=== PATIENT | female | born 1960 | race Two or more races ===

== ENCOUNTER 2020-03-18 12:41 | Outpatient (REF) | payer OTHER, SELFPAY ==
--- NOTE | 2020-03-18 12:51 | XR_ITS ---
EXAMINATION: XR LUMBOSACRAL SPINE CLINICAL INFORMATION: Spinal stenosis COMPARISON: Previous x-ray December 2013 TECHNIQUE: Three views of the lumbosacral spine. FINDINGS: Bone alignment is normal. No fracture or dislocation is seen. Disc spaces are normal. There is lower lumbar spine facet arthritis. There is mild multilevel degenerative spondylosis with small marginal osteophytes. Paraspinal soft tissues are unremarkable. IMPRESSION: Degenerative changes similar to 2014 exam.
== END 2020-03-18 12:42 | disposition home or self-care (01) ==
LOC: HO.XRAY 12:41
PROVIDERS: PCP Emergency Medicine; Visit Provider Emergency Medicine
DX: M48.061 Spinal stenosis, lumbar region without neurogenic claudication (principal); M54.16 Radiculopathy, lumbar region
CPT/HCPCS: 72100

== ENCOUNTER 2020-04-19 12:36 | Outpatient (REF) | payer OTHER, SELFPAY ==
--- NOTE | 2020-04-19 12:35 | MR_ITS ---
EXAMINATION: MR LUMBAR SPINE WITHOUT CONTRAST CLINICAL INFORMATION: Chronic lower back pain with radiculopathy. COMPARISON: Lumbar spine radiographs from 03/18/2020. Lumbar spine MRI from 01/21/2016. CT abdomen and pelvis from 03/22/2019. TECHNIQUE: MRI of the lumbar spine was obtained using routine sequences without contrast. FINDINGS: Normal anatomic alignment. Moderate degenerative disc disease at T11-T12. Mild to moderate degenerative disc disease from T12-L5 with partial loss of disc height and desiccation. Associated mild mixed Modic type discogenic endplate changes, including faint Modic type I discogenic edema at L2-L3 and L3-L4. No additional suspicious marrow edema. There is a lipid rich hemangioma within the T12 vertebral body. Small Schmorl's nodes at T12-L1 and L1-L2. Otherwise, the vertebral body heights are largely maintained. The conus medullaris terminates at the level of L1. The distal spinal cord is normal in appearance. No significant abnormalities of the paraspinal musculature. Small T2 hyperintense renal cysts bilaterally. Otherwise, limited evaluation of the intra-abdominal structures without significant abnormalities. The abdominal aorta is of normal contour and caliber. AXIAL SPINAL LEVELS: T11-T12: This level was not included on axial imaging. There is a moderate diffuse disc bulge. No overt spinal canal stenosis. T12-L1: Shallow diffuse disc bulge. There is mild bilateral facet joint arthropathy. There is no neural foraminal stenosis. There is no spinal canal stenosis. L1-L2: Mild diffuse disc bulge with posterior osseous ridging. There is moderate bilateral facet joint arthropathy. There is no neural foraminal stenosis. There is mild narrowing of the subarticular zones with no overt spinal canal stenosis centrally. L2-L3: Mild to moderate diffuse disc bulge. There is moderate bilateral facet joint arthropathy. There is moderate left and mild right neural foraminal stenosis. There is narrowing of the subarticular zones with no overt spinal canal stenosis centrally. L3-L4: Mild to moderate diffuse disc bulge. There is severe left and moderate right facet joint arthropathy. There is moderate right and mild left neural foraminal stenosis. There is narrowing of the subarticular zones with no overt spinal canal stenosis centrally. L4-L5: Moderate diffuse disc bulge. There is severe left and moderate right facet joint arthropathy. There is moderate bilateral neural foraminal stenosis. There is stenosis of the subarticular zones with mild spinal canal stenosis centrally. L5-S1: Shallow diffuse disc bulge. There is severe left and moderate right facet joint arthropathy. There is mild bilateral neural foraminal stenosis. There is mild narrowing of the left subarticular zone with no overt spinal canal stenosis centrally. MR/MR lumbar spine wo con IMPRESSION: Moderate multilevel degenerative spondyloarthropathy of the lumbar spine as described in detail above. Most notably, there is mild spinal canal stenosis at L4-L5. Narrowings/stenoses of the left greater than right subarticular zones (most notably at L4-L5). Moderate neural foraminal stenoses from L2-L5. Degenerative changes have mildly progressed compared to exam from 2016.
== END 2020-04-19 12:37 | disposition home or self-care (01) ==
LOC: HO.MRI 12:36
PROVIDERS: PCP Emergency Medicine; Visit Provider Emergency Medicine
DX: M54.16 Radiculopathy, lumbar region (principal); M25.80 Other specified joint disorders, unspecified joint; M54.5 Low back pain
CPT/HCPCS: 72148

== ENCOUNTER 2021-06-04 20:53 | Emergency (ER) | payer OTHER, SELFPAY ==
[2021-06-04 20:57] VITALS: BP 135/86; PULSE 55; O2SAT 97
[2021-06-04 21:01] VITALS: BP 166/65; PULSE 51; RESP 16; O2SAT 95; BMI 24.2
--- NOTE | 2021-06-04 21:27 | PC.NURSE ---
Pt requesting to leave, pulling IV out and getting dressed. Pt very difficult with this RN, unable to tolerate labs or EKG due to anxiety. Pt directed to WR per request to leave prior to without being seen by MD.
== END 2021-06-04 22:25 | disposition left against medical advice (07) ==
PROVIDERS: Emergency Provider Emergency Medicine
DX: R20.0 Anesthesia of skin (principal)
CPT/HCPCS: 99282; 99284

== ENCOUNTER 2021-07-05 06:56 | Emergency (ER) | payer OTHER, SELFPAY ==
--- NOTE | ~2021-07-05 | MR_ITS ---
EXAMINATION: MR LUMBAR SPINE WITHOUT CONTRAST CLINICAL INFORMATION: Rule out cauda equina syndrome. Sudden leg weakness. COMPARISON: MRI dated 04/19/2020. TECHNIQUE: MRI of the lumbar spine was obtained using routine sequences without contrast. FINDINGS: VERTEBRAL BODIES AND PARASPINAL STRUCTURES: There is an intraosseous hemangioma in the T12 vertebral body. The remainder of the marrow signal is homogeneous. No compression fractures visible. Slight retrosubluxation evident at the L3-L4 level. No marrow or soft tissue edema is seen. The paraspinal soft tissues are unremarkable. The imaged bony pelvis appears normal. CONUS MEDULLARIS AND CAUDA EQUINA: Normal, terminating at the level of L1. No lower cord signal abnormality is seen. The cauda equina nerve roots are normal. SPINAL LEVELS: L1-L2: Very mild disc bulge without central canal stenosis or foraminal narrowing. L2-L3: Mild facet arthropathy and disc bulge slightly encroaching upon the central canal. Mild foraminal narrowing. L3-L4: Hypertrophic facet arthropathy and mild disc bulge with mild foraminal encroachment. No central canal stenosis. L4-L5: Moderate hypertrophic facet arthropathy and very mild disc bulge encroaching upon the subarticular zones. No significant central canal stenosis. Bulging disc results in [id number] right foraminal narrowing. L5-S1: Moderate facet arthropathy. No disc pathology, central canal stenosis, or foraminal narrowing. MR/MR lumbar spine wo con IMPRESSION: Relatively stable [id number] spondylosis, more so at the L4-L5 level with hypertrophic facet arthropathy encroaching upon the subarticular zones. No high-grade central canal stenosis or lower cord signal abnormality.
[2021-07-05 07:07] VITALS: BP 150/91; PULSE 93; O2SAT 95
[2021-07-05 07:31] VITALS: BP 168/86; PULSE 82; RESP 19; TEMP 36.6; O2SAT 95; BMI 23.8
[2021-07-05 07:41] VITALS: BP 151/80; PULSE 75; RESP 18; TEMP 37.1; O2SAT 94
--- NOTE | 2021-07-05 08:02 | ED_ITS ---
HPI - Back Pain/Injury General Chief Complaint: Back Pain/Injury Stated Complaint: leg pain Time Seen by Provider: 07/05/21 08:02 Source: patient Mode of arrival: EMS Limitations: no limitations History of Present Illness HPI Narrative: 60-year-old female with history of multiple sclerosis and neuropathy presents f or pain in her bilateral legs. At 21:00 last night, patient bent over to pick something up, and felt a pinch in her back, and has had bilateral leg pain since. The pain is mostly in her posterior medial thighs. She describes the pain as sharp and shooting, and a 10/10. States she is numb in her left thumb as well. Patient has been vomiting from the pain. She has had pain in her legs before, but never this painful. Can normally walk, cannot walk today due to pain Denies fevers, IV drug use, saddle paresthesias, incontinence of bowel or bladder, personal history of cancer. MRI from March 2020 shows mild spinal canal stenosis at L4-L5 and moderate neural foraminal stenoses from L2-L5. Pt sees Dr [facility], but has not seen him for while. Related Data Previous Rx's Medication Instructions Recorded ketorolac 10 mg tablet 10 mg PO Q6H 5 Days #20 tab 07/05/21 Allergies Allergy/AdvReac Type Severity Reaction Status Date / Time No Known Allergies Allergy Unknown Unverified 02/15/20 15:23 [No Known Allergies*] Review of Systems Verdana 4l Constitutional: Verdana 4d Constitutional: Verdana 4d Verdana 4d Denies chills, Denies fatigue, Denies fever(s), Denies headache(s), Denies malaise and Reports weakness (bilateral legs d/t pain) Verdana 4l Eyes: Verdana 4d Verdana 4d Eyes: Verdana 4d Denies diplopia Verdana 4l ENT: Verdana 4d Denies vertigo, Denies dizziness, Denies otalgia, Denies headache(s), Denies mouth pain, Denies post nasal drip, Denies sinus pain, Denies sinus pressure, Denies sore throat and Denies throat swelling Verdana 4l Cardiovascular: Verdana 4d Cardiovascular: Verdana 4d Verdana 4d Denies chest pain, Denies syncope, Denies leg edema, Denies lightheadedness, Denies Loss of Consciousness, Denies palpitations and Denies dyspnea Verdana 4l Respiratory: Verdana 4d Verdana 4d Respiratory: Verdana 4d Denies chest congestion, Denies cough and Denies dyspnea Verdana 4l Gastrointestinal: Verdana 4d Gastrointestinal: Verdana 4d Verdana 4d Denies abdominal pain, Denies hematochezia, Denies constipation, Denies fecal incontinence, Denies diarrhea and Denies vomiting Verdana 4l Genitourinary: Verdana 4d Verdana 4d Genitourinary: Verdana 4d Denies dysuria, Denies pelvic pain and Denies urinary incontinence Verdana 4l Musculoskeletal: Verdana 4d Musculoskeletal: Verdana 4d Verdana 4d Reports radiating pain into limb Verdana 4d Comments: Verdana 4d Verdana 4d bilateral leg pain Verdana 4d Verdana 4l Neurologic: Verdana 4d Denies confusion, Denies vertigo, Denies dizziness, Denies syncope, Denies headache(s), Denies Sensory deficit (Neuro) and Reports weakness (bilateral legs d/t pain) Verdana 4l Psychiatric: Verdana 4d Verdana 4d Psychiatric: Verdana 4d Reports anxiety, Denies confusion and Denies depression Verdana 4l Endocrine: Verdana 4d Verdana 4d Endocrine: Verdana 4d Denies fatigue and Denies palpitations Verdana 4l Allergic/Immunologic: Verdana 4d Allergic/Immunologic: Verdana 4d Verdana 4d Denies throat swelling PMFSH Past Medical History Medical History Multiple sclerosis Neuropathy Tremor Social History Social History Alcohol intake: never Patient Tobacco Use Status: Current everyday Tobacco user Use of substances other than those prescribed or required for medical reasons: No Advance Directives: No Advance Directives Information Provided: No Patient : No Physical Exam Verdana 4l Vital Signs: Verdana 4d Verdana 4d Vital Signs: Verdana 4d Verdana 4Bd Last Vital Signs Verdana 4d Sour Bleaching Pleater New 4d Sour Bleaching Pleater New 4d Temp 99.6 F 07/05/21 15:06 Sour Bleaching Pleater New 4d Pulse 63 07/05/21 15:06 Sour Bleaching Pleater New 4d Resp 18 07/05/21 15:06 BP 130/72 07/05/21 15:06 Pulse Ox 98 07/05/21 15:06 BMI result Body Mass Index 23.8 Const: General: No confusion Nutritional Appearance: well nourished Orientation/consciousness: patient oriented x3 and No confusion Limitations: no limitations Eyes: Conjunctivae: conjunctivae normal Pupils: Equal, round and reactive pupils present EOM: EOMs intact bilaterally Neck: Neck: Yes full ROM, Yes no lymphadenopathy and Yes supple Resp: Effort & Inspection: normal respiratory effort and able to speak in complete sentences Auscultation: clear to auscultation bilaterally, no crackles, no rales, no rhonchi and no wheezes Cardio: Rate: regular rate Rhythm: regular rhythm Heart sounds: S1 normal heart sound present and S2 normal heart sound present GI: Inspection: Yes normal to inspection Palpation (GI): Soft to palpation, nontender, no guarding and not rigid Percussion: Yes normal to percussion Auscultation: normal bowel sounds Rectal Exam - Female: visual inspection normal, abnormal sphincter tone Rectal exam abnormal sphincter tone - female: decreased and other (intact perineal sensation) : General: Yes no CVA tenderness Back/Spine/Pelvis: Back: no CVA tenderness Cervical Spine: normal cervical lordosis, No Cervical spine tenderness, No step off deformity and No cervical ROM abnormal Thoracic/Lumbar Spine: No thoraco-lumbar spasm, No thoracic spinal tenderness and No lumbar spinal tenderness Skin: General skin exam: no rashes or lesions noted Neuro: Other: legs too weak to walk General: patient oriented x3 and No confusion Cranial nerves: Yes Equal, round and reactive pupils present Sensory Exam: No Sensory deficit (Neuro) Extrem: Other: weak bilateral legs; able to move legs, hard to hold leg up to resist me pushing down Psych: Appearance: grossly normal Affect: normal affect Attitude: cooperative Thought process: Normal thought process present Course Course Course Narrative: Labs are remarkable only for mildly elevated LFTs. Urine is negative for infection, U tox shows positive cocaine and marijuana. In attempted MRI, patient could not tolerate due to nausea and pain. I have started IV, gave Zofran and Ativan, patient is resting comfortably, radiology will come back and try again Reevaluation(s) Reevaluation #1: MR/MR lumbar spine wo con IMPRESSION: Relatively stable [id number] spondylosis, more so at the L4-L5 level with hypertrophic facet arthropathy encroaching upon the subarticular zones. No high-grade central canal stenosis or lower cord signal abnormality. The patient is feeling much better, MRI shows no cauda equina. She is now able to walk, satting 97% on room air. Steady gait, no pain. Will send patient home with Toradol, counseled her to continue to take her gabapentin and home oxycodone MDM - Back Pain/Injury Lab Data Result diagrams: 07/05/21 08:54 07/05/21 08:54 Labs: Lab Results 07/05/21 07/05/21 07/05/21 Range/Units 08:54 08:54 08:54 WBC 10.8 (4.8-10.8) X10*3/uL RBC 4.24 (4.20-5.50) X10*6/uL Hgb 13.2 (12.0-16.0) g/dl Hct 41.3 (37.0-47.0) % MCV 97.4 (80.0-98.0) fL MCH 31.1 (27.0-33.0) pg MCHC 32.0 (31.0-35.0) g/dl RDW 12.8 (11.0-16.0) % Plt Count 273 (160-400) X10*3/uL MPV 9.7 (9.4-12.3) fL Immature Gran % (Auto) 0.3 (0.0-0.4) % Neut % (Auto) 79.8 H (45-73) % Lymph % (Auto) 13.4 L (20-40) % [place] % (Auto) 5.1 (2-11) % Eos % (Auto) 0.7 (0-4) % Baso % (Auto) 0.7 (0-2) % Lymph # (Auto) 1.4 (1.2-4.9) X10*3/uL [place] # (Auto) 0.6 (0.1-1.2) X10*3/uL Eos # (Auto) 0.1 (0.0-0.4) X10*3/uL Baso # (Auto) 0.1 (0.0-0.2) X10*3/uL Abs Immat Gran (auto) 0.03 (0.00-0.03) X10*3/uL Absolute Neuts (auto) 8.6 H (2.0-8.3) x10*3/uL Absolute Nucleated RBC 0.000 (0.0-0.012) X10*3/uL Nucleated RBC % (auto) 0.0 (0.0-0.2) /100WBC Sodium 141 (135-145) mmol/L Potassium 4.1 (3.3-5.1) mmol/L Chloride 105 (96-108) mmol/L Carbon Dioxide 30 H (22-29) mmol/L Anion Gap 10 L (12-20) BUN 13 (9-16) mg/dL Creatinine 0.83 (0.5-1.4) mg/dL Estim Creat Clear Calc 68.3 Estimated GFR > 60 Random Glucose 115 (60-115) mg/dL Calcium 9.6 (8.4-10.2) mg/dL Total Bilirubin 0.7 (0.0-1.0) mg/dL AST 46 H (5-31) U/L ALT 39 H (0-31) U/L Alkaline Phosphatase 255 H (39-117) U/L Total Protein 7.4 (6.5-8.0) g/dL Albumin 4.3 (3.5-5.0) g/dL Urine Color YELLOW Urine Appearance CLEAR Urine pH 6.5 (5.0-8.0) Ur Specific [place] 1.015 (1.005-1.025) Urine Protein NEG (NEG-TRACE) MG/DL Urine Glucose (UA) NEG (NEG) MG/DL Urine Ketones NEG (NEG) MG/DL Urine Blood NEG (NEG) Urine Nitrite NEG (NEG) Ur Leukocyte Esterase NEG (NEG) Urine RBC 0-2 (0) /HPF Urine WBC 0-2 (0-4) /HPF Ur Squamous Epith Cells TRACE /LPF Urine Bacteria NONE /LPF Urine Mucus TRACE /LPF Urine Opiates Screen (Not Detect) Urine Fentanyl Screen (Not Detect) Ur Barbiturates Screen (Not Detect) Ur Phencyclidine Scrn (Not Detect) Ur Amphetamines Screen (Not Detect) U Benzodiazepines Scrn (Not Detect) Urine Cocaine Screen (Not Detect) U Marijuana (THC) Screen (Not Detect) 07/05/21 Range/Units 08:54 WBC (4.8-10.8) X10*3/uL RBC (4.20-5.50) X10*6/uL Hgb (12.0-16.0) g/dl Hct (37.0-47.0) % MCV (80.0-98.0) fL MCH (27.0-33.0) pg MCHC (31.0-35.0) g/dl RDW (11.0-16.0) % Plt Count (160-400) X10*3/uL MPV (9.4-12.3) fL Immature Gran % (Auto) (0.0-0.4) % Neut % (Auto) (45-73) % Lymph % (Auto) (20-40) % [place] % (Auto) (2-11) % Eos % (Auto) (0-4) % Baso % (Auto) (0-2) % Lymph # (Auto) (1.2-4.9) X10*3/uL [place] # (Auto) (0.1-1.2) X10*3/uL Eos # (Auto) (0.0-0.4) X10*3/uL Baso # (Auto) (0.0-0.2) X10*3/uL Abs Immat Gran (auto) (0.00-0.03) X10*3/uL Absolute Neuts (auto) (2.0-8.3) x10*3/uL Absolute Nucleated RBC (0.0-0.012) X10*3/uL Nucleated RBC % (auto) (0.0-0.2) /100WBC Sodium (135-145) mmol/L Potassium (3.3-5.1) mmol/L Chloride (96-108) mmol/L Carbon Dioxide (22-29) mmol/L Anion Gap (12-20) BUN (9-16) mg/dL Creatinine (0.5-1.4) mg/dL Estim Creat Clear Calc Estimated GFR Random Glucose (60-115) mg/dL Calcium (8.4-10.2) mg/dL Total Bilirubin (0.0-1.0) mg/dL AST (5-31) U/L ALT (0-31) U/L Alkaline Phosphatase (39-117) U/L Total Protein (6.5-8.0) g/dL Albumin (3.5-5.0) g/dL Urine Color Urine Appearance Urine pH (5.0-8.0) Ur Specific [place] (1.005-1.025) Urine Protein (NEG-TRACE) MG/DL Urine Glucose (UA) (NEG) MG/DL Urine Ketones (NEG) MG/DL Urine Blood (NEG) Urine Nitrite (NEG) Ur Leukocyte Esterase (NEG) Urine RBC (0) /HPF Urine WBC (0-4) /HPF Ur Squamous Epith Cells /LPF Urine Bacteria /LPF Urine Mucus /LPF Urine Opiates Screen POSITIVE H (Not Detect) Urine Fentanyl Screen Not Detected (Not Detect) Ur Barbiturates Screen Not Detected (Not Detect) Ur Phencyclidine Scrn Not Detected (Not Detect) Ur Amphetamines Screen Not Detected (Not Detect) U Benzodiazepines Scrn Not Detected (Not Detect) Urine Cocaine Screen Not Detected (Not Detect) U Marijuana (THC) Screen POSITIVE H (Not Detect) Discharge Plan Discharge Clinical Impression: Bilateral leg pain Patient Disposition: Home, Self-Care Instructions: Leg Pain (ED) Additional Instructions: Please do not take any ibuprofen while you are taking the ketorolac. No Excedrin, Motrin, Aleve. Please call your primary care provider for follow-up appointment from today's emergency room visit on Wednesday. Please return to emergency room if you have sudden leg weakness, tingling in your groin, incontinence of bowel or bladder, fevers, or any other new or concerning symptoms Prescriptions: New ketorolac 10 mg tablet 10 mg PO Q6H 5 Days Qty: 20 0RF Interventions: ED Discharge Assessment Last Done: 07/05/21 16:14
[2021-07-05] MEDS: oxyCODONE HCl Immed Release 5 MG TABLET 10 MG PO (08:52)
[2021-07-05 08:59] LABS: MANUAL DIFF FLAG NO
[2021-07-05 09:01] LABS: Appearance Urine CLEAR; Color Urine YELLOW; Glucose Urine UA NEG (NEG); Leukocyte Esterase Urine NEG (NEG); Nitrite Urine NEG (NEG); PH 6.5 (5.0-8.0); Specific Gravity - Urine 1.015 (1.005-1.025); Urine Blood NEG (NEG); Urine Ketones NEG (NEG); Urine Protein NEG (NEG-TRACE)
[2021-07-05 09:05] LABS: Basophils Absolute Auto 0.1 X10*3/uL (0.0-0.2); Basophils Percent Auto 0.7 % (0-2); Eosinophils Absolute Auto 0.1 X10*3/uL (0.0-0.4); Eosinophils Percent Auto 0.7 % (0-4); Hematocrit 41.3 % (37.0-47.0); Hemoglobin 13.2 g/dl (12.0-16.0); Imm Gran Abs Auto 0.03 X10*3/uL (0.00-0.03); Imm Gran Pct Auto 0.3 % (0.0-0.4); Lymphocytes Absolute Auto 1.4 X10*3/uL (1.2-4.9); Lymphocytes Percent Auto 13.4 % (20-40); Mean Corpuscular Hemoglobin 31.1 pg (27.0-33.0); Mean Corpuscular Volume 97.4 fL (80.0-98.0); Mean Platelet Volume 9.7 fL (9.4-12.3); Monocytes Absolute Auto 0.6 X10*3/uL (0.1-1.2); Monocytes Percent Auto 5.1 % (2-11); Neutrophils Absolute Auto 8.6 x10*3/uL (2.0-8.3); Neutrophils Percent Auto 79.8 % (45-73); Platelet Count 273 X10*3/uL (160-400); Red Blood Count 4.24 X10*6/uL (4.20-5.50); Red Cell Distribution Width 12.8 % (11.0-16.0); White Blood Count 10.8 X10*3/uL (4.8-10.8)
[2021-07-05 09:07] LABS: RBC Urine 0-2 /HPF (0); WBC Urine 0-2 /HPF (0-4)
[2021-07-05 09:08] LABS: Mucus Urine TRACE /LPF; Squamous Epithelial Cell Urine TRACE /LPF
[2021-07-05 09:17] LABS: Amphetamine Screen Urine Not Detected (Not Detect); Barbiturates, Urine Not Detected (Not Detect); Benzodiazepines Screen Urine Not Detected (Not Detect); Cannabinoid Screen Urine POSITIVE (Not Detect); Cocaine Screen Urine Not Detected (Not Detect); Fentanyl, urine Not Detected (Not Detect); Opiate Screen Urine POSITIVE (Not Detect); Phencyclidine Screen Urine Not Detected (Not Detect)
[2021-07-05 09:18] LABS: Alanine Aminotransferase 39 U/L (0-31); Albumin Level 4.3 g/dL (3.5-5.0); Alkaline Phosphatase 255 U/L (39-117); Anion Gap 10 (12-20); Aspartate Amino Transferase 46 U/L (5-31); Bilirubin Total 0.7 mg/dL (0.0-1.0); Blood Urea Nitrogen 13 mg/dL (9-16); Calcium 9.6 mg/dL (8.4-10.2); Carbon Dioxide 30 mmol/L (22-29); Chloride 105 mmol/L (96-108); Creatinine Clr Calc Pharmacy 68.3; Estimated Glomerular Filt Rate > 60; Glucose Random 115 mg/dL (60-115); Potassium 4.1 mmol/L (3.3-5.1); Sodium 141 mmol/L (135-145); Total Protein 7.4 g/dL (6.5-8.0)
[2021-07-05] MEDS: Ondansetron ODT 4 MG TAB.RAPDIS TRANSLINGU (10:23)
--- NOTE | 2021-07-05 10:23 | PC.NURSE ---
pt given po zofran in mri d/t nausea.
[2021-07-05] MEDS: ondansetron HCL 4 MG/2 ML VIAL IVPUSH (11:05)
[2021-07-05] MEDS: LORazepam 2 MG/ML VIAL IVPUSH (11:05)
[2021-07-05] MEDS: 0.9 % Sodium Chloride 1,000 ML 999 ML IV (11:05)
[2021-07-05 11:38] VITALS: BP 139/70; PULSE 68; RESP 18; O2SAT 99
[2021-07-05 15:06] VITALS: BP 130/72; PULSE 63; RESP 18; TEMP 37.6; O2SAT 98
[2021-07-05] MEDS: Ketorolac Tromethamine 30 MG/ML VIAL 15 MG IVPUSH (15:59)
--- NOTE | 2021-07-05 16:01 | PC.NURSE ---
Ambulated patient with steady gait O2 sat maintained around 97-98%
== END 2021-07-05 16:25 | disposition home or self-care (01) ==
PROVIDERS: Physician Assistant; Emergency Provider Emergency Medicine; PCP General Practice
DX: M79.662 Pain in left lower leg (principal); M79.661 Pain in right lower leg; M48.061 Spinal stenosis, lumbar region without neurogenic claudication; G35 Multiple sclerosis; F17.200 Nicotine dependence, unspecified, uncomplicated; F12.90 Cannabis use, unspecified, uncomplicated
CPT/HCPCS: 36415; 72148; 80053; 80307; 81001; 85025; 96361; 96374; 96375; 99284; J1885; J2060; J2405

== ENCOUNTER 2021-08-12 12:47 | Emergency (ER) | payer OTHER, SELFPAY ==
--- NOTE | ~2021-08-12 | CT_ITS ---
EXAMINATION: CT HEAD WITHOUT CONTRAST CLINICAL INFORMATION: Left arm weakness for one month. COMPARISON: CT head 08/06/2019 TECHNIQUE: Contiguous axial imaging was performed from the skull base to vertex without intravenous administration of contrast. Coronal and sagittal reformatted images are performed at CT scanner This CT examination was performed using dose optimization techniques as appropriate, variously including the following: *Automated exposure control *Adjustment of mA and/or kV according to patient size (this includes techniques or standardized protocols for targeted exams where dose is matched to indication/reason for exam; i.e. extremities or head) *Use of iterative reconstruction technique DLP: 687 mGy-cm FINDINGS: There is no evidence of acute intracranial hemorrhage or territorial infarction. No abnormal mass effect or midline shift is seen. [place] to white matter differentiation is well preserved. No extra-axial fluid collections are identified. The ventricles are normal in size. There is no abnormal attenuation within the brain parenchyma. The osseous structures and soft tissues are normal. The mastoid air cells and visualized portions of the paranasal sinuses are well aerated. CT/CT head/brain wo con IMPRESSION: No acute intracranial pathology.
--- NOTE | ~2021-08-12 | CT_ITS ---
EXAMINATION: CT ABDOMEN AND PELVIS WITHOUT CONTRAST CLINICAL INFORMATION: Right flank pain COMPARISON: 03/23/2019 TECHNIQUE: Multidetector volumetric imaging was performed from the superior aspect of the liver through the pubic symphysis. Sagittal and coronal reformatted images were obtained on the technologist's workstation. This CT examination was performed using dose optimization techniques as appropriate, variously including the following: *Automated exposure control *Adjustment of mA and/or kV according to patient size (this includes techniques or standardized protocols for targeted exams where dose is matched to indication/reason for exam; i.e. extremities or head) *Use of iterative reconstruction technique DLP: 481 mGy-cm FINDINGS: LUNG BASES: The visualized lung bases are unremarkable. LIVER, GALLBLADDER, AND BILIARY TREE: The liver is normal in size, shape, and attenuation. There are a few scattered calcified granulomata. No focal hepatic lesion or biliary ductal dilatation is present. Cholecystectomy. PANCREAS: Unremarkable. SPLEEN: Unremarkable. ADRENAL GLANDS: Unremarkable. KIDNEYS AND URETERS: The kidneys are normal in size, shape, and attenuation. Mild right pelvocaliectasis. There is a 2 mm nonobstructive stone in the lower pole calyx of the right kidney. Ureters are normal in course and caliber. No perinephric stranding. BLADDER: Unremarkable. GASTROINTESTINAL TRACT: The small and large bowel are unremarkable. The appendix is unremarkable. ABDOMINAL WALL: No significant hernia is appreciated. LYMPH NODES: Normal. VASCULAR: Unremarkable. PELVIC VISCERA: Uterus and adnexa unremarkable. OSSEOUS STRUCTURES: No acute or suspicious osseous abnormalities. CT/CT abdomen pelvis wo con IMPRESSION: * Mild right pelvocaliectasis. No ureteral calculi or mechanically obstructive etiology for this finding is identified. Given the presence of a nonobstructive 2 mm calculus in the lower pole right kidney, the possibility of a recently passed stone should be considered. * Evidence of prior granulomatous disease.
[2021-08-12 12:56] VITALS: BP 120/80; PULSE 18; O2SAT 100
[2021-08-12 13:01] VITALS: BP 149/87; PULSE 81; RESP 20; TEMP 36.7; O2SAT 100; BMI 22.8
--- NOTE | 2021-08-12 13:27 | ECG_ITS ---
Test Reason : ABDOMINAL PAIN Blood Pressure : / mmHG Vent. Rate : 071 BPM Atrial Rate : 071 BPM P-R Int : 148 ms QRS Dur : 070 ms QT Int : 378 ms P-R-T Axes : 076 045 055 degrees QTc Int : 410 ms Normal sinus rhythm Normal ECG When compared with ECG of 30-AUG-2019 15:22, No significant change was found Referred By: Rosario Osborne Electronically Signed By:MIKE MANN
--- NOTE | 2021-08-12 13:28 | ED.ABDPAIN ---
HPI - Abdominal Pain General Chief Complaint: Abdominal Pain Stated Complaint: UPPER ABD /FLANK PAIN Time Seen by Provider: 08/12/21 13:05 Source: patient Mode of arrival: ambulatory Limitations: no limitations History of Present Illness HPI narrative: also reports 1 to 2 months of legs giving out and LUE pins and needles MD elicited complaint: flank pain Pertinent past history: none Onset (ago): minute(s) (45) Pain Consistency: constant Location: R flank Severity: moderate Quality: stabbing Radiation: none Migration to: no migration Exacerbating factors: nothing Relieving factors: nothing Associated symptoms: nausea and vomiting Related Data Previous Rx's Medication Instructions Recorded ketorolac 10 mg tablet 10 mg PO Q6H 5 Days #20 tab 07/05/21 ondansetron 4 mg disintegrating 4 mg PO Q8H PRN #20 tab 08/12/21 tablet Allergies Allergy/AdvReac Type Severity Reaction Status Date / Time No Known Allergies Allergy Unknown Verified 08/12/21 13:03 [No Known Allergies*] Review of Systems Review of Systems Constitutional : No Weight loss, No Fever, No Chills ENT/Mouth : No sore throat, No Rhinorrhea Eyes: No Swelling, No Redness Cardiovascular : No Chest Pain, No SOB, NoEdema Respiratory : No Cough, No Sputum, No Wheezing Gastrointestinal : Positive Nausea, Positive Vomiting, no Diarrhea, positive abdominal Pain, No Hematochezia, No Melena, pos constipation Genitourinary : No Dysuria, No Urinary Frequency, No Hematuria, No Urgency Musculoskeletal : No joint pain, No Myalgias, No Joint Swelling Skin : No Skin Lesions, No rash Neuro : pos Weakness, pos Numbness, No Dizziness, No Headache Psych : No Anxiety/Panic, No Depression Heme/Lymph: No Bruising, No Lymphadenopathy Endocrine : No Polyuria, No Polydipsia All other systems reviewed and are negative. [facility] Past Medical History Attestation statement: The following information was validated with the patient. Medical History Multiple sclerosis Neuropathy Tremor Surgical History S/P cholecystectomy Social History Social History Alcohol intake: never Patient Tobacco Use Status: Current everyday Tobacco user Advance Directives: No Advance Directives Information Provided: No Patient : No Physical Exam ED Vital Signs: Vital Signs - 24 hr 08/12/21 13:01 Temperature 98.0 F Pulse Rate 81 Respiratory Rate 20 Blood Pressure 149/87 H Pulse Oximetry 100 BMI result Body Mass Index 22.8 Appearance: Alert. Oriented X3. No acute distress. Anxious and tearful Eyes: Pupils equal, round and reactive to light. ENT: Pharynx normal. Neck: Normal inspection. Neck supple. CVS: Normal heart rate and rhythm. Pulses normal. Respiratory: No respiratory distress. Breath sounds normal. Abdomen: Soft and mild R mid abdomen/flank ttp no rebound Skin: Skin warm and dry. Normal skin color. Normal skin turgor. Extremities: No lower extremity edema. No calf ttp Neuro: Oriented X 3. No motor deficit. No sensory deficit. Course Course Course Narrative: patient denies running out of oxycodone to me. UA negative, labs at baseline CT head negative, CT abdomen negative at this time likely passed stone has pain medications at home will add on zofran MDM - Abdominal Pain MDM Narrative Medical decision making narrative: 60 yo female with hx of chronic pain on oxycodone comes in with multiple complaints 1.) R flank pain and vomiting that started 45 minutes ago she has had her GB removed in the past. 2.) intermittent bouts of leg weakness, blurry vision, anxiety, and L arm weakness over a 1-2 month period - she saw her PCP so she is trying to get a head CT. At this time will obtain basic labs, EKG, CT head for possible stroke, CT scan for renal colic. Dispo per results and findings. Lab Data Result diagrams: 08/12/21 13:59 08/12/21 13:59 Labs: Lab Results 08/12/21 08/12/21 08/12/21 Range/Units 13:59 13:59 13:59 WBC 8.6 (4.8-10.8) X10*3/uL RBC 4.01 L (4.20-5.50) X10*6/uL Hgb 12.5 (12.0-16.0) g/dl Hct 39.6 (37.0-47.0) % MCV 98.8 H (80.0-98.0) fL MCH 31.2 (27.0-33.0) pg MCHC 31.6 (31.0-35.0) g/dl RDW 13.0 (11.0-16.0) % Plt Count 222 (160-400) X10*3/uL MPV 9.8 (9.4-12.3) fL Immature Gran % (Auto) 0.2 (0.0-0.4) % Neut % (Auto) 72.9 (45-73) % Lymph % (Auto) 19.7 L (20-40) % [place] % (Auto) 5.3 (2-11) % Eos % (Auto) 1.2 (0-4) % Baso % (Auto) 0.7 (0-2) % Lymph # (Auto) 1.7 (1.2-4.9) X10*3/uL [place] # (Auto) 0.5 (0.1-1.2) X10*3/uL Eos # (Auto) 0.1 (0.0-0.4) X10*3/uL Baso # (Auto) 0.1 (0.0-0.2) X10*3/uL Abs Immat Gran (auto) 0.02 (0.00-0.03) X10*3/uL Absolute Neuts (auto) 6.3 (2.0-8.3) x10*3/uL Absolute Nucleated RBC 0.000 (0.0-0.012) X10*3/uL Nucleated RBC % (auto) 0.0 (0.0-0.2) /100WBC Sodium 141 (135-145) mmol/L Potassium 4.9 (3.3-5.1) mmol/L Chloride 104 (96-108) mmol/L Carbon Dioxide 29 (22-29) mmol/L Anion Gap 13 (12-20) BUN 15 (9-16) mg/dL Creatinine 0.76 (0.5-1.4) mg/dL Estim Creat Clear Calc 74.5 Estimated GFR > 60 Random Glucose 114 (60-115) mg/dL Calcium 9.7 (8.4-10.2) mg/dL Magnesium 2.1 (1.6-2.6) mg/dL Total Bilirubin 0.4 (0.0-1.0) mg/dL Direct Bilirubin 0.2 (0.0-0.5) mg/dL AST 46 H (5-31) U/L ALT 50 H (0-31) U/L Alkaline Phosphatase 194 H D (39-117) U/L Troponin I High Sens < 3.5 (<3.5-17.0) ng/L Total Protein 7.2 (6.5-8.0) g/dL Albumin 4.3 (3.5-5.0) g/dL Lipase 22 (8-78) U/L Urine Color Urine Appearance Urine pH (5.0-8.0) Ur Specific [place] (1.005-1.025) Urine Protein (NEG-TRACE) MG/DL Urine Glucose (UA) (NEG) MG/DL Urine Ketones (NEG) MG/DL Urine Blood (NEG) Urine Nitrite (NEG) Ur Leukocyte Esterase (NEG) 08/12/21 Range/Units 15:47 WBC (4.8-10.8) X10*3/uL RBC (4.20-5.50) X10*6/uL Hgb (12.0-16.0) g/dl Hct (37.0-47.0) % MCV (80.0-98.0) fL MCH (27.0-33.0) pg MCHC (31.0-35.0) g/dl RDW (11.0-16.0) % Plt Count (160-400) X10*3/uL MPV (9.4-12.3) fL Immature Gran % (Auto) (0.0-0.4) % Neut % (Auto) (45-73) % Lymph % (Auto) (20-40) % [place] % (Auto) (2-11) % Eos % (Auto) (0-4) % Baso % (Auto) (0-2) % Lymph # (Auto) (1.2-4.9) X10*3/uL [place] # (Auto) (0.1-1.2) X10*3/uL Eos # (Auto) (0.0-0.4) X10*3/uL Baso # (Auto) (0.0-0.2) X10*3/uL Abs Immat Gran (auto) (0.00-0.03) X10*3/uL Absolute Neuts (auto) (2.0-8.3) x10*3/uL Absolute Nucleated RBC (0.0-0.012) X10*3/uL Nucleated RBC % (auto) (0.0-0.2) /100WBC Sodium (135-145) mmol/L Potassium (3.3-5.1) mmol/L Chloride (96-108) mmol/L Carbon Dioxide (22-29) mmol/L Anion Gap (12-20) BUN (9-16) mg/dL Creatinine (0.5-1.4) mg/dL Estim Creat Clear Calc Estimated GFR Random Glucose (60-115) mg/dL Calcium (8.4-10.2) mg/dL Magnesium (1.6-2.6) mg/dL Total Bilirubin (0.0-1.0) mg/dL Direct Bilirubin (0.0-0.5) mg/dL AST (5-31) U/L ALT (0-31) U/L Alkaline Phosphatase (39-117) U/L Troponin I High Sens (<3.5-17.0) ng/L Total Protein (6.5-8.0) g/dL Albumin (3.5-5.0) g/dL Lipase (8-78) U/L Urine Color YELLOW Urine Appearance CLEAR Urine pH 6.5 (5.0-8.0) Ur Specific [place] 1.010 (1.005-1.025) Urine Protein NEG (NEG-TRACE) MG/DL Urine Glucose (UA) NEG (NEG) MG/DL Urine Ketones NEG (NEG) MG/DL Urine Blood NEG (NEG) Urine Nitrite NEG (NEG) Ur Leukocyte Esterase NEG (NEG) ECG Data Attestation: I personally reviewed and interpreted this ECG as follows: ECG interpretation date: 08/12/21 ECG interpretation time: 13:58 Interpretation: Rate: 71 Rhythm: NSR [place]: normal Normal P waves. Normal [place]. Normal QRS complex. ST T wave : no JULIAN, inverted V1 - V2 qTC: normal prior studies: no acute ischemia, no change May 2019 The study has been interpreted contemporaneously by me. . Discharge Plan Discharge Clinical Impression: Acute flank pain, Arm paresthesia, left, Kidney stone Patient Disposition: Home, Self-Care Instructions: Kidney Stones (ED), Paresthesia (ED), Flank Pain (ED) Additional Instructions: return to ED for any worsening symptoms or concerns YOUR CT SCAN OF YOUR ABDOMEN SHOWS THAT YOU LIKELY PASSED A SMALL STONE RECENTLY TODAY FROM YOUR KIDNEY CT head result: FINDINGS: There is no evidence of acute intracranial hemorrhage or territorial infarction. No abnormal mass effect or midline shift is seen. [place] to white matter differentiation is well preserved. No extra-axial fluid collections are identified. The ventricles are normal in size. There is no abnormal attenuation within the brain parenchyma. The osseous structures and soft tissues are normal. The mastoid air cells and visualized portions of the paranasal sinuses are well aerated. ? CT/CT head/brain wo con IMPRESSION: No acute intracranial pathology. Prescriptions: New ondansetron 4 mg tablet,disintegrating 4 mg PO Q8H PRN (Reason: nausea and vomiting) Qty: 20 0RF No Action ketorolac 10 mg tablet 10 mg PO Q6H 5 Days Qty: 20 0RF Referrals: Anastasiya Lemos MD [Primary Care Provider] - 1 week
[2021-08-12] MEDS: Ondansetron ODT 4 MG TAB.RAPDIS TRANSLINGU (13:35)
[2021-08-12] MEDS: LORazepam 1 MG TABLET PO (13:35)
[2021-08-12 14:09] LABS: MANUAL DIFF FLAG NO
[2021-08-12 14:14] LABS: Basophils Absolute Auto 0.1 X10*3/uL (0.0-0.2); Basophils Percent Auto 0.7 % (0-2); Eosinophils Absolute Auto 0.1 X10*3/uL (0.0-0.4); Eosinophils Percent Auto 1.2 % (0-4); Hematocrit 39.6 % (37.0-47.0); Hemoglobin 12.5 g/dl (12.0-16.0); Imm Gran Abs Auto 0.02 X10*3/uL (0.00-0.03); Imm Gran Pct Auto 0.2 % (0.0-0.4); Lymphocytes Absolute Auto 1.7 X10*3/uL (1.2-4.9); Lymphocytes Percent Auto 19.7 % (20-40); Mean Corpuscular HGB Conc 31.6 g/dl (31.0-35.0); Mean Corpuscular Hemoglobin 31.2 pg (27.0-33.0); Mean Corpuscular Volume 98.8 fL (80.0-98.0); Mean Platelet Volume 9.8 fL (9.4-12.3); Monocytes Absolute Auto 0.5 X10*3/uL (0.1-1.2); Monocytes Percent Auto 5.3 % (2-11); Neutrophils Absolute Auto 6.3 x10*3/uL (2.0-8.3); Neutrophils Percent Auto 72.9 % (45-73); Platelet Count 222 X10*3/uL (160-400); Red Blood Count 4.01 X10*6/uL (4.20-5.50); White Blood Count 8.6 X10*3/uL (4.8-10.8)
[2021-08-12 14:31] LABS: Alanine Aminotransferase 50 U/L (0-31); Albumin Level 4.3 g/dL (3.5-5.0); Alkaline Phosphatase 194 U/L (39-117); Anion Gap 13 (12-20); Aspartate Amino Transferase 46 U/L (5-31); Bilirubin Direct 0.2 mg/dL (0.0-0.5); Bilirubin Total 0.4 mg/dL (0.0-1.0); Blood Urea Nitrogen 15 mg/dL (9-16); Calcium 9.7 mg/dL (8.4-10.2); Carbon Dioxide 29 mmol/L (22-29); Chloride 104 mmol/L (96-108); Creatinine Clr Calc Pharmacy 74.5; Estimated Glomerular Filt Rate > 60; Glucose Random 114 mg/dL (60-115); Lipase 22 U/L (8-78); Magnesium 2.1 mg/dL (1.6-2.6); Potassium 4.9 mmol/L (3.3-5.1); Sodium 141 mmol/L (135-145); Total Protein 7.2 g/dL (6.5-8.0)
[2021-08-12 14:35] LABS: Troponin-I High Sensitivity < 3.5 ng/L (<3.5-17.0)
[2021-08-12 15:57] LABS: Appearance Urine CLEAR; Color Urine YELLOW; Glucose Urine UA NEG (NEG); Leukocyte Esterase Urine NEG (NEG); Nitrite Urine NEG (NEG); PH 6.5 (5.0-8.0); Urine Blood NEG (NEG); Urine Ketones NEG (NEG); Urine Protein NEG (NEG-TRACE)
--- NOTE | 2021-08-12 17:11 | PC.NURSE ---
REPORT TAKEN FROM ELDON GUILHERME.
[2021-08-12 17:18] VITALS: BP 118/78; PULSE 76; RESP 16; O2SAT 98
== END 2021-08-12 17:20 | disposition home or self-care (01) ==
PROVIDERS: Emergency Provider Emergency Medicine; PCP General Practice
DX: R10.9 Unspecified abdominal pain (principal); R20.2 Paresthesia of skin; N20.0 Calculus of kidney; G35 Multiple sclerosis; F17.200 Nicotine dependence, unspecified, uncomplicated
CPT/HCPCS: 36415; 70450; 74176; 80048; 80076; 81003; 83690; 83735; 84484; 85025; 93005; 99283; 99284

== ENCOUNTER 2021-09-04 10:20 | Outpatient (REF) | payer OTHER, SELFPAY ==
--- NOTE | ~2021-09-04 | MR_ITS ---
EXAMINATION: MRI OF THE BRAIN WITHOUT CONTRAST CLINICAL INFORMATION: Ataxia. Tremors. COMPARISON: CT scan of the head 08/12/2021.. TECHNIQUE: MRI of the brain was obtained using routine sequences without contrast. FINDINGS: No diffusion abnormalities are identified to suggest an acute or subacute infarct. No mass effect or midline shift is seen. The ventricles and sulci appear normal in size. There are scattered foci of hyperintense T2 and FLAIR signal in the periventricular subcortical white matter, most consistent with chronic microvascular ischemic changes. No extra-axial fluid collections are seen. The brainstem appears normal. No pathologic magnetic susceptibility artifact is identified on the gradient refocused acquisition. The cerebellar tonsillar tips extend to the level of the foramen magnum, but have normal contour. Marrow signal and midline structures are normal. The major intracranial flow-voids at the level of the [place] are preserved. The dural venous sinus flow-voids are maintained. The mastoid air cells are well-aerated. There is mild mucoperiosteal thickening in the inferior left maxillary sinus, in the bilateral ethmoid air cells and in the left frontal sinus. MR/MR head/brain wo con IMPRESSION: 1. There are no acute bleeds or territorial infarcts. No masses are demonstrated. 2. There are chronic microvascular ischemic changes..
== END 2021-09-04 10:21 | disposition home or self-care (01) ==
LOC: HO.MRI 10:20
PROVIDERS: Visit Provider General Practice
DX: G25.0 Essential tremor (principal); R27.0 Ataxia, unspecified
CPT/HCPCS: 70551

== ENCOUNTER 2021-10-17 12:58 | Outpatient (REF) | payer OTHER, SELFPAY ==
--- NOTE | ~2021-10-17 | MM_ITS ---
EXAMINATION: BONE DENSITOMETRY CLINICAL INDICATION: Back pain. Leg weakness. COMPARISON: None (current study represents initial baseline exam). TECHNIQUE: Using a SMRxT DXA System (software version: 13.1) manufactured by [employer], dual-energy x-ray absorptiometry was performed of the lumbar spine and left hip. The images are of good technical quality. Summary results are attached. FINDINGS: AP SPINE L1-L2 (excluding L3 and L4): The data of L1-L4 has been changed to exclude the L3 and L4 vertebral bodies, because degenerative changes at these levels may cause overestimation of lumbar spine density. BMD 1.031 g/cm2, Z-score 0.0, T-score -1.1, osteopenia. LEFT FEMUR, NECK: BMD 0.816 g/cm2, Z-score -0.4, T-score -1.6, osteopenia. LEFT FEMUR, TOTAL: BMD 0.953 g/cm2, Z-score 0.4, T-score -0.4, normal. IDENTIFIED RISK FACTORS: Menopause, recurrent falls, tobacco use (current smoker), history of fracture (adult). HISTORY OF FRACTURE: Wrist. MEDICATIONS: None listed. MM/XR DEXA axial skeleton IMPRESSION: 1. DIAGNOSIS: Osteopenia based on the lowest T-score value of -1.6 in the femoral neck applying World Health Organization criteria. 2. 10-YEAR FRACTURE RISK PREDICTION, FRAX: Major osteoporotic fracture (clinical spine, forearm, hip or shoulder) 14.4%. Hip fracture 2.4%. 3. Treatment Recommendations: NOF guidelines recommend consideration for treatment in postmenopausal women and men age 50 and older presenting with the following: -A hip or vertebral (clinical or morphometric) fracture. -T-score less than or equal to -2.5 at the femoral neck or spine after appropriate evaluation to exclude secondary causes. -Low bone mass at the hip or spine and a 10-year fracture probability by FRAX of greater than or equal to 3% for hip fracture or greater than or equal to 20% for major osteoporotic fracture based on the [place] adapted WHO algorithm. 4. Other Recommendations: All treatment decisions require clinical judgment and consideration of individual patient factors, including patient preferences, comorbidities, previous drug use, risk factors not captured in the FRAX model (e.g. frailty, falls, vitamin D deficiency, increased bone turnover, interval significant decline in bone density) and possible under or overestimation of fracture risk by FRAX. Additional medical evaluation for secondary cause of low bone mineral density may be appropriate. FUTURE SCAN RECOMMENDATION: People with diagnosed cases of osteoporosis or at high risk for fracture should have regular bone mineral density tests. For patients eligible for Medicare, routine testing is allowed once every 2 years. The testing frequency can be increased to one year for patients who have rapidly progressing disease, those who are receiving or discontinuing medical therapy to restore bone mass, or have additional risk factors.
== END 2021-10-17 12:59 | disposition home or self-care (01) ==
LOC: HO.MAMMO 12:58
PROVIDERS: PCP General Practice; Visit Provider General Practice
DX: Z13.820 Encounter for screening for osteoporosis (principal); Z78.0 Asymptomatic menopausal state; R29.898 Other symptoms and signs involving the musculoskeletal system
CPT/HCPCS: 77080

== ENCOUNTER 2022-02-05 12:46 | Outpatient (REF) | payer OTHER, SELFPAY ==
--- NOTE | ~2022-02-05 | MM_ITS ---
EXAMINATION: MM SCREENING DIGITAL BREAST TOMOSYNTHESIS, BILATERAL CLINICAL INFORMATION: Screening. Asymptomatic. The lifetime risk of breast cancer based on the Tyrer-Cuzick Model is 6%. COMPARISON: Mammography: 11/24/2016, 09/19/2014 TECHNIQUE: Digital breast tomosynthesis is performed in both the craniocaudal and mediolateral oblique views along with computer-aided detection (CAD). Synthesized 2D images are generated from the tomosynthesis. FINDINGS: There are scattered areas of fibroglandular density (ACR BI-RADS breast composition Category b). There are no significant masses, abnormal calcifications, or other abnormalities. Parenchymal pattern is similar to prior studies. There is no developing density or architectural abnormality. The axilla and skin contours are unremarkable. No significant changes. MM/MM tomosynthesis screening BI IMPRESSION: No mammographic evidence of malignancy. ASSESSMENT: BI-RADS 1: Negative RECOMMENDATION: Routine annual mammography screening. This patient's information was entered into a reminder system with a target due date for their next mammogram.
== END 2022-02-05 12:47 | disposition home or self-care (01) ==
LOC: HO.MAMMO 12:46
PROVIDERS: PCP General Practice; Visit Provider General Practice
DX: Z12.31 Encounter for screening mammogram for malignant neoplasm of breast (principal)
CPT/HCPCS: 77063; 77067

== ENCOUNTER 2022-09-02 15:41 | Emergency (ER) | payer OTHER, SELFPAY ==
--- NOTE | ~2022-09-02 | XR_ITS ---
EXAMINATION: XR CHEST CLINICAL INFORMATION: Altered mental status COMPARISON: 08/06/2019 TECHNIQUE: Frontal view of the chest was obtained. FINDINGS: Cardiac leads overlie the chest. The lungs are well expanded. There is no focal consolidation, edema, or effusion. No pneumothorax. The cardiomediastinal silhouette is within normal limits. No acute osseous abnormality. XR/XR chest 1V IMPRESSION: No acute pulmonary disease.
--- NOTE | ~2022-09-02 | CT_ITS ---
EXAMINATION: CT HEAD WITHOUT CONTRAST CLINICAL INFORMATION: Altered mental status. Right-sided weakness. COMPARISON: 08/12/2021 TECHNIQUE: Contiguous axial imaging was performed from the skull base to vertex without intravenous contrast. This CT examination was performed using dose optimization techniques as appropriate, variously including the following: * Automated exposure control * Adjustment of mA and/or kV according to patient size (this includes techniques or standardized protocols for targeted exams where dose is matched to indication/reason for exam; i.e. extremities or head) Use of iterative reconstruction technique DLP: 843 mGy-cm. FINDINGS: There is no evidence of acute intracranial hemorrhage or territorial infarction. No abnormal mass effect or midline shift is seen. Harrington to white matter differentiation is well preserved. No extra-axial fluid collections are identified. No hydrocephalus. No significant volume loss. There is no abnormal attenuation within the brain parenchyma. The osseous structures and soft tissues are normal. Partially opacified left and ethmoid air cells . The mastoid air cells and visualized portions of the paranasal sinuses are otherwise well aerated. CT/CT head/brain wo IV con IMPRESSION: No acute intracranial pathology.
--- NOTE | ~2022-09-02 | CT_ITS ---
EXAMINATION: CT angio head neck CLINICAL INFORMATION: Unresponsive. COMPARISON: Brain MRI 09/04/2021. TECHNIQUE: Residential Program Manager images were obtained. A CT angiogram of the head and neck was performed in the arterial phase after the intravenous administration of 70 mL Omnipaque 350. Delayed postcontrast images of the head were also obtained. MIP reconstructions were generated in multiple orientations at the acquisition workstation. Multiple three-dimensional surface rendered images and maximum intensity projection images were generated on a dedicated 3-D lab workstation. Arterial stenoses are measured in accordance with NASCET criteria or similar method if applicable. This CT examination was performed using dose optimization techniques as appropriate, including one or more of the following: Automated exposure control, iterative reconstruction, and adjustment of technique factors (mA and/or kVp) according to patient size (this includes techniques or standardized protocols for targeted exams where dose is matched to indication/reason for exam). Fleischner Society criteria for the followup of incidental pulmonary nodules was implemented if appropriate. Total exam dose-length product 1466 mGy-cm FINDINGS: Head: Postcontrast images reveal no abnormal intracranial mass or enhancement. There is no intracranial mass effect or midline shift. Lateral and third ventricles are normal. No hydrocephalus. There is loss of mckenna-white matter differentiation within the left lentiform nucleus and insular cortex and. The calvarium and skull base are intact. Mastoid air cells and middle ear cavities are well-aerated. To severe paranasal sinus disease primarily affecting the left ethmoid air cells. CT angiogram neck: The aortic arch apex is normal. Origins of major aortic branches are widely patent. Common carotid arteries are normal. There is a small amount of partially calcified eccentric atheromatous plaque at both carotid bifurcations. No stenosis of the extracranial internal carotid arteries. The cervical vertebral arteries are widely patent. CT angiogram head: There is an occlusive thrombus extending from the left carotid terminus into and filling the M1 segment of left middle cerebral artery. There is partial reconstitution of contrast filling the M2 branches of the left middle cerebral artery representing collateral pial circulation. The right middle cerebral artery, anterior cerebral arteries, and posterior cerebral artery complexes are unremarkable. The intradural vertebral artery segments and basilar artery are normal. Other: Soft tissues of the neck including the thyroid gland are normal. Lung apices are clear. No acute osseous finding. Specifically no worrisome lytic or blastic osseous lesion. CT/CT angio head neck IMPRESSION: There is an occlusive thrombus extending from the left carotid terminus into and filling the M1 segment of left middle cerebral artery. There is partial reconstitution of contrast filling the M2 branches of the left middle cerebral artery. Otherwise no stenosis of the cervical carotid or vertebral arteries. There are early changes of an acute infarct involving the left lentiform nucleus and insular cortex. No abnormal intracranial mass or enhancement. This critical result was discussed with Sumi PAEZ at 6:49 PM on 09/02/2022 and it was ascertained that the content and urgency of the report was understood at the time of direct communication.
[2022-09-02 15:52] VITALS: BP 112/71; BP 128/59; PULSE 63; PULSE 66; RESP 18; TEMP 36.6; O2SAT 97; O2SAT 99; BMI 26.4
--- NOTE | 2022-09-02 15:57 | ED.GENADULT ---
HPI - General Adult General Chief complaint: General Medical <JEANNINE Stewart Last Filed: 09/02/22 19:17> Stated complaint: AMS <JEANNINE Stewart Last Filed: 09/02/22 19:17> Time Seen by Provider: 09/02/22 15:48 <JEANNINE Stewart Last Filed: 09/02/22 19:17> Source: patient, family, EMS and old records reviewed <JEANNINE Stewart Last Filed: 09/02/22 19:17> Mode of arrival: EMS <JEANNINE Stewart Last Filed: 09/02/22 19:17> History of Present Illness HPI narrative: 61-year-old female with past medical history of multiple sclerosis, neuropathy, tremor, presenting to the ED via EMS for altered mental status and unresponsive episode noted by PROGRAM ENGAGEMENT DIRECTOR. reports patient was in normal state of health, walking dog, called him reporting feeling unwell with leg spasming, followed by becoming pale and unresponsive around 15:30. Patient on gabapentin and oxycodone high doses at home, reports medications are in lock box and he is control them. Denies recent fall/injury, fever, illness. Remaining history limited due to patient's acute mental status <JEANNINE Stewart Last Filed: 09/02/22 19:17> Onset (ago): hour(s) <JEANNINE Stewart Last Filed: 09/02/22 19:17> Related Data Home medications: Previous Rx's Medication Instructions Recorded ketorolac 10 mg tablet 10 mg PO Q6H 5 days #20 tabs 07/05/21 ondansetron 4 mg disintegrating 4 mg PO Q8H PRN nausea and 08/12/21 tablet vomiting #20 tabs <JEANNINE Stewart Last Filed: 09/02/22 19:17> Allergies/adverse reactions: Allergies Allergy/AdvReac Type Severity Reaction Status Date / Time No Known Allergies Allergy Unknown Verified 08/12/21 13:03 [No Known Allergies*] <JEANNINE Stewart Last Filed: 09/02/22 19:17> Review of Systems Review of Systems: ROS limited due to patient's acute mental status <JEANNINE Stewart Last Filed: 09/02/22 19:17> Yes all other systems are reviewed and are negative <JEANNINE Stewart - Last Filed: 09/02/22 19:17> Constitutional: Constitutional: Reports as per HPI <JEANNINE Stewart - Last Filed: 09/02/22 19:17> [facility] Past Medical History Attestation statement: The following information was validated with the patient. <JEANNINE Stewart - Last Filed: 09/02/22 19:17> Medical History: Medical History Multiple sclerosis Neuropathy Tremor <JEANNINE Stewart - Last Filed: 09/02/22 19:17> Surgical History: Surgical History S/P cholecystectomy <JEANNINE Stewart - Last Filed: 09/02/22 19:17> Social History Social History: Social History Alcohol intake: never Patient Tobacco Use Status: Current everyday Tobacco user Advance Directives: No Advance Directives Information Provided: No <JEANNINE Stewart - Last Filed: 09/02/22 19:17> Physical Exam ED Vital Signs: Vital Signs - 24 hr 09/02/22 15:52 09/02/22 18:52 09/02/22 19:08 Temperature 97.8 F 97.6 F Pulse Rate 63 83 78 Respiratory Rate 18 20 20 Blood Pressure 128/59 L 169/85 H 174/72 H Pulse Oximetry 99 100 96 Oxygen Delivery Method Room Air Room Air Room Air BMI result Body Mass Index 26.4 <JEANNINE Stewart - Last Filed: 09/02/22 19:17> Vital Signs - 24 hr 09/02/22 15:52 09/02/22 18:52 09/02/22 19:08 Temperature 97.8 F 97.6 F Pulse Rate 63 83 78 Respiratory Rate 18 20 20 Blood Pressure 128/59 L 169/85 H 174/72 H Pulse Oximetry 99 100 96 Oxygen Delivery Method Room Air Room Air Room Air BMI result Body Mass Index 26.4 <Miguelito Valverde MD - Last Filed: 09/02/22 18:25> Const Other: foaming at mouth <JEANNINE Stewart - Last Filed: 09/02/22 19:17> Limitations: altered mental status <JEANNINE Stewart - Last Filed: 09/02/22 19:17> HENMT Head: Yes normal to inspection and Yes atraumatic <JEANNINE Stewart - Last Filed: 09/02/22 19:17> Ears: hearing grossly normal bilaterally <JEANNINE Stewart - Last Filed: 09/02/22 19:17> General nose exam: Normal external nose present <JEANNINE Stewart - Last Filed: 09/02/22 19:17> Face and sinus: Yes normal facial exam <JEANNINE Stewart - Last Filed: 09/02/22 19:17> Eyes General: appearance normal, both eyes and all related structures <JEANNINE Stewart - Last Filed: 09/02/22 19:17> Pupils: Dilated pupils bilaterally (Minimally responsive) <Sumi Green PA - Last Filed: 09/02/22 19:17> EOM: EOMs intact bilaterally <JEANNINE Stewart - Last Filed: 09/02/22 19:17> Neck Neck: Yes normal visual inspection, Yes no lymphadenopathy and Yes no meningeal signs <JEANNINE Stewart - Last Filed: 09/02/22 19:17> Resp Effort & Inspection: normal respiratory effort and no respiratory distress <JEANNINE Stewart - Last Filed: 09/02/22 19:17> Auscultation: clear to auscultation bilaterally <Sumi Green PA - Last Filed: 09/02/22 19:17> Cardio Rate: regular rate <EJANNINE Stewart - Last Filed: 09/02/22 19:17> Heart sounds: S1 normal heart sound present and S2 normal heart sound present <Sumi Green PA - Last Filed: 09/02/22 19:17> GI Inspection: Yes normal to inspection <JEANNINE Stewart - Last Filed: 09/02/22 19:17> Palpation (GI): Soft to palpation, nontender, no guarding and not rigid <Sumi Green PA - Last Filed: 09/02/22 19:17> Skin Rashes: no rashes <Sumi Green PA - Last Filed: 09/02/22 19:17> Wounds: no wounds <Sumi Green PA - Last Filed: 09/02/22 19:17> Neuro Other: Responsive to painful stimuli with left side of body. RUE & RLE w/hemiparesis. Mumbling some sound, incomprehensible. Not following commands. <Sumi Green PA - Last Filed: 09/02/22 19:17> General: tone normal and no meningeal signs <JEANNINE Stewart - Last Filed: 09/02/22 19:17> Extrem General: Yes normal to inspection <Sumi Green PA - Last Filed: 09/02/22 19:17> NIH Stroke Scale Internal: Initial- Upon Arrival <JEANNINE Stewart - Last Filed: 09/02/22 19:17> Level of Consciousness: Not Alert; requires repeated stimulation, or strong of painful stim. <Sumi Green PA - Last Filed: 09/02/22 19:17> Level of Consciousness Questions: Answers neither question correctly <Sumi Green PA - Last Filed: 09/02/22 19:17> Level of Consciousness Commands: Performs neither task correctly <Sumi Green PA - Last Filed: 09/02/22 19:17> Best Gaze: Normal <JEANNINE Stewart - Last Filed: 09/02/22 19:17> Visual: No visual loss <Sumi Green PA - Last Filed: 09/02/22 19:17> Facial Palsy: Normal <Sumi Green PA - Last Filed: 09/02/22 19:17> Motor Arm (Right): No movement <Sumi Green PA - Last Filed: 09/02/22 19:17> Motor Arm (Left): No drift <Sumi Green PA - Last Filed: 09/02/22 19:17> Motor Leg (Right): No movement <Sumi Green PA - Last Filed: 04/05/23 19:17> Motor Leg (Left): No drift <Sumi Green PA - Last Filed: 09/02/22 19:17> Limb Ataxia: Absent <Sumi Green PA - Last Filed: 09/02/22 19:17> Sensory: Normal <Sumi Green PA - Last Filed: 09/02/22 19:17> Best Language: Mute, global aphasia <Sumi Green PA - Last Filed: 09/02/22 19:17> Dysarthia: Severe dysarthria <Sumi Green PA - Last Filed: 09/02/22 19:17> Extinction and Inattention: No abnormality <Sumi Green PA - Last Filed: 09/02/22 19:17> Score: 19 <Sumi Green PA - Last Filed: 09/02/22 19:17> 19 <Miguelito Valverde MD - Last Filed: 09/02/22 18:25> Course Course Course Narrative: -1740--mild leukocytosis of 13. H&H stable. Lactic acid of 2.6 -troponin mildly elevated at 5.3 > will obtain to our repeat CT head/brain wo IV con IMPRESSION: No acute intracranial pathology. >> unable to obtain CTA on initial CT pass as patient writhing on stretcher, unable to hold still for reliable images. Would not like to medicate at this time due to atypical presentation/history, will try again for CTA shortly XR chest 1V IMPRESSION: No acute pulmonary disease. >1800--case discussed with Dr. Valverde who evaluated patient, in agreement concern for acute atypical CVA > patient back to CT scanner for CTA > consulted Neurology, Dr. Cunningham, who recommended tPA -tPA ordered and running -1850--received call from [facility] patient with complete occlusion of left MCA >> contacted [facility] transfer line, patient will need interventional > spoke with IR, patient will be transferred stat ED to ED accepting physician Dr. Tovar > spoke with patient's , he is aware of patient's transfer CT angio head neck IMPRESSION: There is an occlusive thrombus extending from the left carotid terminus into and filling the M1 segment of left middle cerebral artery. There is partial reconstitution of contrast filling the M2 branches of the left middle cerebral artery. Otherwise no stenosis of the cervical carotid or vertebral arteries. There are early changes of an acute infarct involving the left lentiform nucleus and insular cortex. No abnormal intracranial mass or enhancement. ? This critical result was discussed with Sumi PAEZ at 6:49 PM on 09/02/2022 and it was ascertained that the content and urgency of the report was understood at the time of direct communication. <JEANNINE Stewart - Last Filed: 09/02/22 19:17> Reevaluation(s) Reevaluation #1: Case was discussed with me at 17:25, as a 61-year-old female came in with abrupt onset of unresponsiveness 15;30, examining the patient at the bedside patient is mute with frothy saliva around her mouth, patient with expressive aphasia, left eye gaze preference, and right hemiparesis, patient do not follow commands of the examiner but respond to verbal stimuli, negative head CT presentation is likely to be an acute ischemic CVA the case was discussed with Dr. Cunningham who recommended tPA thrombolysis, CT angio of head and neck has been ordered. <Miguelito Valverde MD - Last Filed: 09/02/22 18:25> Time: 17:58 <Miguelito Valverde MD - Last Filed: 09/02/22 18:25> Reevaluation #2: A delay in administering tPA is due to atypical presentation for ischemic CVA however patient was given the tPA now which make it within 3 hours window from that onset of her symptoms. Will continue to evaluate, consider ICU admission. <Miguelito Valverde MD - Last Filed: 09/02/22 18:25> Time: 18:22 <Miguelito Valverde MD - Last Filed: 09/02/22 18:25> Medications Administered Discontinued Medications Generic Name Dose Route Start Last Admin Trade Name Freq PRN Reason Stop Dose Admin Alteplase, Recombinant 63 mg 09/02/22 17:54 09/02/22 18:34 Alteplase 100 Mg Vial 0.9 mg/kg (63 mg) 09/02/22 17:55 63 mg IV Administration ONCE ONE Sodium Chloride 1,000 mls @ 999 mls/hr 09/02/22 17:00 09/02/22 17:51 Ns IV 09/02/22 18:00 999 mls/hr .Q1H1M LUCY Administration Iohexol 100 ml 09/02/22 18:07 09/02/22 18:08 Iohexol 350 Mg/Ml 100 Ml Infus..Btl IV 09/02/22 18:08 70 ml ONCE ONE Administration <JEANNINE Stewart - Last Filed: 09/02/22 19:17> Medications Administered Discontinued Medications Generic Name Dose Route Start Last Admin Trade Name Frieda PRN Reason Stop Dose Admin Alteplase, Recombinant 63 mg 09/02/22 17:54 09/02/22 18:34 Alteplase 100 Mg Vial 0.9 mg/kg (63 mg) 09/02/22 17:55 63 mg IV Administration ONCE ONE Sodium Chloride 1,000 mls @ 999 mls/hr 09/02/22 17:00 09/02/22 17:51 Ns IV 09/02/22 18:00 999 mls/hr .Q1H1M LUCY Administration Iohexol 100 ml 09/02/22 18:07 09/02/22 18:08 Iohexol 350 Mg/Ml 100 Ml Infus..Btl IV 09/02/22 18:08 70 ml ONCE ONE Administration <Miguelito Valverde MD - Last Filed: 09/02/22 18:25> Medical Decision Making Medical Decision Making MDM Narrative: 61-year-old female with past medical history of multiple sclerosis, neuropathy, tremor, presenting to the ED via EMS for altered mental status and unresponsive episode noted by PROGRAM ENGAGEMENT DIRECTOR. On exam vital signs stable, responsive to painful stimuli, R sided hemiparesis, mumbling incomprehensible words, not following commands. No evidence of trauma. Concern for ICH vs CVA vs ?seizure vs substance abuse/accidental overdose vs metabolic/infectious etiologies vs ?PE although of lower suspicion. Low suspicion for meningitis/encephalitis Plan: EKG, labs, UA, CXR, STAT head CT, CTA head, reassess Please refer to course for remaining clinical decision making, interpretation of labs/imaging results, and discussions with consultants and/or family members. <JEANNINE Stewart - Last Filed: 09/02/22 19:17> Differential Diagnosis Differential Diagnoses: The differential diagnosis associated with the presentation includes <JEANNINE Stewart - Last Filed: 09/02/22 19:17> As above <JEANNINE Stewart - Last Filed: 09/02/22 19:17> Admission/Observation Consideration of admission/observation: Escalation of care including admission/observation considered <JEANNINE Stewart - Last Filed: 09/02/22 19:17> Lab Data MDM Lab Attestation statement: I reviewed the patient's lab results. <JEANNINE Stewart - Last Filed: 09/02/22 19:17> Result Diagrams: 09/02/22 16:26 09/02/22 16:26 <JEANNINE Stewart - Last Filed: 09/02/22 19:17> Labs: Lab Results 09/02/22 09/02/22 09/02/22 Range/Units 15:57 16:26 16:26 WBC 13.0 H (4.8-10.8) X10*3/uL RBC 3.98 L (4.20-5.50) X10*6/uL Hgb 12.2 (12.0-16.0) g/dl Hct 38.4 (37.0-47.0) % MCV 96.5 (80.0-98.0) fL MCH 30.7 (27.0-33.0) pg MCHC 31.8 (31.0-35.0) g/dl RDW 12.8 (11.0-16.0) % Plt Count 316 D (160-400) X10*3/uL MPV 9.5 (9.4-12.3) fL Immature Gran % (Auto) 0.5 H (0.0-0.4) % Neut % (Auto) 70.9 (45-73) % Lymph % (Auto) 23.1 (20-40) % Perry % (Auto) 4.1 (2-11) % Eos % (Auto) 0.9 (0-4) % Baso % (Auto) 0.5 (0-2) % Lymph # (Auto) 3.0 (1.2-4.9) X10*3/uL Perry # (Auto) 0.5 (0.1-1.2) X10*3/uL Eos # (Auto) 0.1 (0.0-0.4) X10*3/uL Baso # (Auto) 0.1 (0.0-0.2) X10*3/uL Abs Immat Gran (auto) 0.06 H (0.00-0.03) X10*3/uL Absolute Neuts (auto) 9.2 H (2.0-8.3) x10*3/uL Absolute Nucleated RBC 0.000 (0.0-0.012) X10*3/uL Nucleated RBC % (auto) 0.0 (0.0-0.2) /100WBC PT 12.0 (10.0-13.1) SEC INR 1.0 (0.9-1.1) APTT 32.2 (26.0-36.4) SEC Sodium (135-145) mmol/L Potassium (3.3-5.1) mmol/L Chloride (96-108) mmol/L Carbon Dioxide (22-29) mmol/L Anion Gap (12-20) BUN (9-16) mg/dL Creatinine (0.5-1.4) mg/dL Estim Creat Clear Calc Estimated GFR POC Glucose 110 (60-115) mg/dL Random Glucose (60-115) mg/dL Lactic Acid (0.5-2.0) mmol/L Calcium (8.4-10.2) mg/dL Magnesium (1.6-2.6) mg/dL Total Bilirubin (0.0-1.0) mg/dL Direct Bilirubin (0.0-0.5) mg/dL AST (5-31) U/L ALT (0-31) U/L Alkaline Phosphatase (39-117) U/L Ammonia (13-55) umol/L Total Creatine Kinase (26-140) U/L Troponin I High Sens (<3.5-17.0) ng/L Total Protein (6.5-8.0) g/dL Albumin (3.5-5.0) g/dL Urine Color Urine Appearance Urine pH (5.0-9.0) Ur Specific [place] (1.005-1.025) Urine Protein (Neg-Trace) mg/dL Urine Glucose (UA) (Negative) mg/dL Urine Ketones (Negative) mg/dL Urine Blood (Negative) Urine Nitrite (Negative) Ur Leukocyte Esterase (Negative) Salicylates (15-30) mg/dL Urine Opiates Screen (Not Detect) Urine Fentanyl Screen (Not Detect) Acetaminophen (<30) mcg/mL Ur Barbiturates Screen (Not Detect) Ur Phencyclidine Scrn (Not Detect) Ur Amphetamines Screen (Not Detect) U Benzodiazepines Scrn (Not Detect) Urine Cocaine Screen (Not Detect) U Marijuana (THC) Screen (Not Detect) Ethyl Alcohol mg/dL COVID-19 ([facility]) (Negative) COVID-19 Clin Com 09/02/22 09/02/22 09/02/22 Range/Units 16:26 16:26 16:26 WBC (4.8-10.8) X10*3/uL RBC (4.20-5.50) X10*6/uL Hgb (12.0-16.0) g/dl Hct (37.0-47.0) % MCV (80.0-98.0) fL MCH (27.0-33.0) pg MCHC (31.0-35.0) g/dl RDW (11.0-16.0) % Plt Count (160-400) X10*3/uL MPV (9.4-12.3) fL Immature Gran % (Auto) (0.0-0.4) % Neut % (Auto) (45-73) % Lymph % (Auto) (20-40) % Perry % (Auto) (2-11) % Eos % (Auto) (0-4) % Baso % (Auto) (0-2) % Lymph # (Auto) (1.2-4.9) X10*3/uL Perry # (Auto) (0.1-1.2) X10*3/uL Eos # (Auto) (0.0-0.4) X10*3/uL Baso # (Auto) (0.0-0.2) X10*3/uL Abs Immat Gran (auto) (0.00-0.03) X10*3/uL Absolute Neuts (auto) (2.0-8.3) x10*3/uL Absolute Nucleated RBC (0.0-0.012) X10*3/uL Nucleated RBC % (auto) (0.0-0.2) /100WBC PT (10.0-13.1) SEC INR (0.9-1.1) APTT (26.0-36.4) SEC Sodium 141 (135-145) mmol/L Potassium 4.3 (3.3-5.1) mmol/L Chloride 110 H (96-108) mmol/L Carbon Dioxide 22 (22-29) mmol/L Anion Gap 13 (12-20) BUN 14 (9-16) mg/dL Creatinine 0.75 (0.5-1.4) mg/dL Estim Creat Clear Calc 76.6 Estimated GFR > 60 POC Glucose (60-115) mg/dL Random Glucose 114 (60-115) mg/dL Lactic Acid 2.6 H* (0.5-2.0) mmol/L Calcium 8.8 D (8.4-10.2) mg/dL Magnesium 2.0 (1.6-2.6) mg/dL Total Bilirubin 0.3 (0.0-1.0) mg/dL Direct Bilirubin < 0.2 (0.0-0.5) mg/dL AST 16 (5-31) U/L ALT 10 (0-31) U/L Alkaline Phosphatase 146 H (39-117) U/L Ammonia (13-55) umol/L Total Creatine Kinase 109 (26-140) U/L Troponin I High Sens 5.3 (<3.5-17.0) ng/L Total Protein 6.7 (6.5-8.0) g/dL Albumin 3.8 (3.5-5.0) g/dL Urine Color Urine Appearance Urine pH (5.0-9.0) Ur Specific [place] (1.005-1.025) Urine Protein (Neg-Trace) mg/dL Urine Glucose (UA) (Negative) mg/dL Urine Ketones (Negative) mg/dL Urine Blood (Negative) Urine Nitrite (Negative) Ur Leukocyte Esterase (Negative) Salicylates < 5.0 L (15-30) mg/dL Urine Opiates Screen (Not Detect) Urine Fentanyl Screen (Not Detect) Acetaminophen < 17 (<30) mcg/mL Ur Barbiturates Screen (Not Detect) Ur Phencyclidine Scrn (Not Detect) Ur Amphetamines Screen (Not Detect) U Benzodiazepines Scrn (Not Detect) Urine Cocaine Screen (Not Detect) U Marijuana (THC) Screen (Not Detect) Ethyl Alcohol < 10 mg/dL COVID-19 ([facility]) (Negative) COVID-19 Clin Com 09/02/22 09/02/22 09/02/22 Range/Units 16:27 16:51 18:51 WBC (4.8-10.8) X10*3/uL RBC (4.20-5.50) X10*6/uL Hgb (12.0-16.0) g/dl Hct (37.0-47.0) % MCV (80.0-98.0) fL MCH (27.0-33.0) pg MCHC (31.0-35.0) g/dl RDW (11.0-16.0) % Plt Count (160-400) X10*3/uL MPV (9.4-12.3) fL Immature Gran % (Auto) (0.0-0.4) % Neut % (Auto) (45-73) % Lymph % (Auto) (20-40) % Perry % (Auto) (2-11) % Eos % (Auto) (0-4) % Baso % (Auto) (0-2) % Lymph # (Auto) (1.2-4.9) X10*3/uL Perry # (Auto) (0.1-1.2) X10*3/uL Eos # (Auto) (0.0-0.4) X10*3/uL Baso # (Auto) (0.0-0.2) X10*3/uL Abs Immat Gran (auto) (0.00-0.03) X10*3/uL Absolute Neuts (auto) (2.0-8.3) x10*3/uL Absolute Nucleated RBC (0.0-0.012) X10*3/uL Nucleated RBC % (auto) (0.0-0.2) /100WBC PT (10.0-13.1) SEC INR (0.9-1.1) APTT (26.0-36.4) SEC Sodium (135-145) mmol/L Potassium (3.3-5.1) mmol/L Chloride (96-108) mmol/L Carbon Dioxide (22-29) mmol/L Anion Gap (12-20) BUN (9-16) mg/dL Creatinine (0.5-1.4) mg/dL Estim Creat Clear Calc Estimated GFR POC Glucose (60-115) mg/dL Random Glucose (60-115) mg/dL Lactic Acid (0.5-2.0) mmol/L Calcium (8.4-10.2) mg/dL Magnesium (1.6-2.6) mg/dL Total Bilirubin (0.0-1.0) mg/dL Direct Bilirubin (0.0-0.5) mg/dL AST (5-31) U/L ALT (0-31) U/L Alkaline Phosphatase (39-117) U/L Ammonia 25 (13-55) umol/L Total Creatine Kinase (26-140) U/L Troponin I High Sens (<3.5-17.0) ng/L Total Protein (6.5-8.0) g/dL Albumin (3.5-5.0) g/dL Urine Color Yellow Urine Appearance Clear Urine pH 7.0 (5.0-9.0) Ur Specific [place] >= 1.030 H (1.005-1.025) Urine Protein Trace (Neg-Trace) mg/dL Urine Glucose (UA) Negative (Negative) mg/dL Urine Ketones Negative (Negative) mg/dL Urine Blood Negative (Negative) Urine Nitrite Negative (Negative) Ur Leukocyte Esterase Negative (Negative) Salicylates (15-30) mg/dL Urine Opiates Screen (Not Detect) Urine Fentanyl Screen (Not Detect) Acetaminophen (<30) mcg/mL Ur Barbiturates Screen (Not Detect) Ur Phencyclidine Scrn (Not Detect) Ur Amphetamines Screen (Not Detect) U Benzodiazepines Scrn (Not Detect) Urine Cocaine Screen (Not Detect) U Marijuana (THC) Screen (Not Detect) Ethyl Alcohol mg/dL COVID-19 ([facility]) Negative (Negative) COVID-19 Clin Com See Note 09/02/22 Range/Units 18:51 WBC (4.8-10.8) X10*3/uL RBC (4.20-5.50) X10*6/uL Hgb (12.0-16.0) g/dl Hct (37.0-47.0) % MCV (80.0-98.0) fL MCH (27.0-33.0) pg MCHC (31.0-35.0) g/dl RDW (11.0-16.0) % Plt Count (160-400) X10*3/uL MPV (9.4-12.3) fL Immature Gran % (Auto) (0.0-0.4) % Neut % (Auto) (45-73) % Lymph % (Auto) (20-40) % Perry % (Auto) (2-11) % Eos % (Auto) (0-4) % Baso % (Auto) (0-2) % Lymph # (Auto) (1.2-4.9) X10*3/uL Perry # (Auto) (0.1-1.2) X10*3/uL Eos # (Auto) (0.0-0.4) X10*3/uL Baso # (Auto) (0.0-0.2) X10*3/uL Abs Immat Gran (auto) (0.00-0.03) X10*3/uL Absolute Neuts (auto) (2.0-8.3) x10*3/uL Absolute Nucleated RBC (0.0-0.012) X10*3/uL Nucleated RBC % (auto) (0.0-0.2) /100WBC PT (10.0-13.1) SEC INR (0.9-1.1) APTT (26.0-36.4) SEC Sodium (135-145) mmol/L Potassium (3.3-5.1) mmol/L Chloride (96-108) mmol/L Carbon Dioxide (22-29) mmol/L Anion Gap (12-20) BUN (9-16) mg/dL Creatinine (0.5-1.4) mg/dL Estim Creat Clear Calc Estimated GFR POC Glucose (60-115) mg/dL Random Glucose (60-115) mg/dL Lactic Acid (0.5-2.0) mmol/L Calcium (8.4-10.2) mg/dL Magnesium (1.6-2.6) mg/dL Total Bilirubin (0.0-1.0) mg/dL Direct Bilirubin (0.0-0.5) mg/dL AST (5-31) U/L ALT (0-31) U/L Alkaline Phosphatase (39-117) U/L Ammonia (13-55) umol/L Total Creatine Kinase (26-140) U/L Troponin I High Sens (<3.5-17.0) ng/L Total Protein (6.5-8.0) g/dL Albumin (3.5-5.0) g/dL Urine Color Urine Appearance Urine pH (5.0-9.0) Ur Specific [place] (1.005-1.025) Urine Protein (Neg-Trace) mg/dL Urine Glucose (UA) (Negative) mg/dL Urine Ketones (Negative) mg/dL Urine Blood (Negative) Urine Nitrite (Negative) Ur Leukocyte Esterase (Negative) Salicylates (15-30) mg/dL Urine Opiates Screen POSITIVE H (Not Detect) Urine Fentanyl Screen Not Detected (Not Detect) Acetaminophen (<30) mcg/mL Ur Barbiturates Screen Not Detected (Not Detect) Ur Phencyclidine Scrn Not Detected (Not Detect) Ur Amphetamines Screen Not Detected (Not Detect) U Benzodiazepines Scrn Not Detected (Not Detect) Urine Cocaine Screen Not Detected (Not Detect) U Marijuana (THC) Screen POSITIVE H (Not Detect) Ethyl Alcohol mg/dL COVID-19 ([facility]) (Negative) COVID-19 Clin Com <JEANNINE Stewart - Last Filed: 09/02/22 19:17> Lab Results 09/02/22 09/02/22 09/02/22 Range/Units 15:57 16:26 16:26 WBC 13.0 H (4.8-10.8) X10*3/uL RBC 3.98 L (4.20-5.50) X10*6/uL Hgb 12.2 (12.0-16.0) g/dl Hct 38.4 (37.0-47.0) % MCV 96.5 (80.0-98.0) fL MCH 30.7 (27.0-33.0) pg MCHC 31.8 (31.0-35.0) g/dl RDW 12.8 (11.0-16.0) % Plt Count 316 D (160-400) X10*3/uL MPV 9.5 (9.4-12.3) fL Immature Gran % (Auto) 0.5 H (0.0-0.4) % Neut % (Auto) 70.9 (45-73) % Lymph % (Auto) 23.1 (20-40) % Perry % (Auto) 4.1 (2-11) % Eos % (Auto) 0.9 (0-4) % Baso % (Auto) 0.5 (0-2) % Lymph # (Auto) 3.0 (1.2-4.9) X10*3/uL Perry # (Auto) 0.5 (0.1-1.2) X10*3/uL Eos # (Auto) 0.1 (0.0-0.4) X10*3/uL Baso # (Auto) 0.1 (0.0-0.2) X10*3/uL Abs Immat Gran (auto) 0.06 H (0.00-0.03) X10*3/uL Absolute Neuts (auto) 9.2 H (2.0-8.3) x10*3/uL Absolute Nucleated RBC 0.000 (0.0-0.012) X10*3/uL Nucleated RBC % (auto) 0.0 (0.0-0.2) /100WBC PT 12.0 (10.0-13.1) SEC INR 1.0 (0.9-1.1) APTT 32.2 (26.0-36.4) SEC Sodium (135-145) mmol/L Potassium (3.3-5.1) mmol/L Chloride (96-108) mmol/L Carbon Dioxide (22-29) mmol/L Anion Gap (12-20) BUN (9-16) mg/dL Creatinine (0.5-1.4) mg/dL Estim Creat Clear Calc Estimated GFR POC Glucose 110 (60-115) mg/dL Random Glucose (60-115) mg/dL Lactic Acid (0.5-2.0) mmol/L Calcium (8.4-10.2) mg/dL Magnesium (1.6-2.6) mg/dL Total Bilirubin (0.0-1.0) mg/dL Direct Bilirubin (0.0-0.5) mg/dL AST (5-31) U/L ALT (0-31) U/L Alkaline Phosphatase (39-117) U/L Ammonia (13-55) umol/L Total Creatine Kinase (26-140) U/L Troponin I High Sens (<3.5-17.0) ng/L Total Protein (6.5-8.0) g/dL Albumin (3.5-5.0) g/dL Urine Color Urine Appearance Urine pH (5.0-9.0) Ur Specific [place] (1.005-1.025) Urine Protein (Neg-Trace) mg/dL Urine Glucose (UA) (Negative) mg/dL Urine Ketones (Negative) mg/dL Urine Blood (Negative) Urine Nitrite (Negative) Ur Leukocyte Esterase (Negative) Salicylates (15-30) mg/dL Urine Opiates Screen (Not Detect) Urine Fentanyl Screen (Not Detect) Acetaminophen (<30) mcg/mL Ur Barbiturates Screen (Not Detect) Ur Phencyclidine Scrn (Not Detect) Ur Amphetamines Screen (Not Detect) U Benzodiazepines Scrn (Not Detect) Urine Cocaine Screen (Not Detect) U Marijuana (THC) Screen (Not Detect) Ethyl Alcohol mg/dL COVID-19 ([facility]) (Negative) COVID-19 Clin Com 09/02/22 09/02/22 09/02/22 Range/Units 16:26 16:26 16:26 WBC (4.8-10.8) X10*3/uL RBC (4.20-5.50) X10*6/uL Hgb (12.0-16.0) g/dl Hct (37.0-47.0) % MCV (80.0-98.0) fL MCH (27.0-33.0) pg MCHC (31.0-35.0) g/dl RDW (11.0-16.0) % Plt Count (160-400) X10*3/uL MPV (9.4-12.3) fL Immature Gran % (Auto) (0.0-0.4) % Neut % (Auto) (45-73) % Lymph % (Auto) (20-40) % [place] % (Auto) (2-11) % Eos % (Auto) (0-4) % Baso % (Auto) (0-2) % Lymph # (Auto) (1.2-4.9) X10*3/uL [place] # (Auto) (0.1-1.2) X10*3/uL Eos # (Auto) (0.0-0.4) X10*3/uL Baso # (Auto) (0.0-0.2) X10*3/uL Abs Immat Gran (auto) (0.00-0.03) X10*3/uL Absolute Neuts (auto) (2.0-8.3) x10*3/uL Absolute Nucleated RBC (0.0-0.012) X10*3/uL Nucleated RBC % (auto) (0.0-0.2) /100WBC PT (10.0-13.1) SEC INR (0.9-1.1) APTT (26.0-36.4) SEC Sodium 141 (135-145) mmol/L Potassium 4.3 (3.3-5.1) mmol/L Chloride 110 H (96-108) mmol/L Carbon Dioxide 22 (22-29) mmol/L Anion Gap 13 (12-20) BUN 14 (9-16) mg/dL Creatinine 0.75 (0.5-1.4) mg/dL Estim Creat Clear Calc 76.6 Estimated GFR > 60 POC Glucose (60-115) mg/dL Random Glucose 114 (60-115) mg/dL Lactic Acid 2.6 H* (0.5-2.0) mmol/L Calcium 8.8 D (8.4-10.2) mg/dL Magnesium 2.0 (1.6-2.6) mg/dL Total Bilirubin 0.3 (0.0-1.0) mg/dL Direct Bilirubin < 0.2 (0.0-0.5) mg/dL AST 16 (5-31) U/L ALT 10 (0-31) U/L Alkaline Phosphatase 146 H (39-117) U/L Ammonia (13-55) umol/L Total Creatine Kinase 109 (26-140) U/L Troponin I High Sens 5.3 (<3.5-17.0) ng/L Total Protein 6.7 (6.5-8.0) g/dL Albumin 3.8 (3.5-5.0) g/dL Urine Color Urine Appearance Urine pH (5.0-9.0) Ur Specific [place] (1.005-1.025) Urine Protein (Neg-Trace) mg/dL Urine Glucose (UA) (Negative) mg/dL Urine Ketones (Negative) mg/dL Urine Blood (Negative) Urine Nitrite (Negative) Ur Leukocyte Esterase (Negative) Salicylates < 5.0 L (15-30) mg/dL Urine Opiates Screen (Not Detect) Urine Fentanyl Screen (Not Detect) Acetaminophen < 17 (<30) mcg/mL Ur Barbiturates Screen (Not Detect) Ur Phencyclidine Scrn (Not Detect) Ur Amphetamines Screen (Not Detect) U Benzodiazepines Scrn (Not Detect) Urine Cocaine Screen (Not Detect) U Marijuana (THC) Screen (Not Detect) Ethyl Alcohol < 10 mg/dL COVID-19 (DEVON) (Negative) COVID-19 Clin Com 09/02/22 09/02/22 09/02/22 Range/Units 16:27 16:51 18:51 WBC (4.8-10.8) X10*3/uL RBC (4.20-5.50) X10*6/uL Hgb (12.0-16.0) g/dl Hct (37.0-47.0) % MCV (80.0-98.0) fL MCH (27.0-33.0) pg MCHC (31.0-35.0) g/dl RDW (11.0-16.0) % Plt Count (160-400) X10*3/uL MPV (9.4-12.3) fL Immature Gran % (Auto) (0.0-0.4) % Neut % (Auto) (45-73) % Lymph % (Auto) (20-40) % Perry % (Auto) (2-11) % Eos % (Auto) (0-4) % Baso % (Auto) (0-2) % Lymph # (Auto) (1.2-4.9) X10*3/uL Perry # (Auto) (0.1-1.2) X10*3/uL Eos # (Auto) (0.0-0.4) X10*3/uL Baso # (Auto) (0.0-0.2) X10*3/uL Abs Immat Gran (auto) (0.00-0.03) X10*3/uL Absolute Neuts (auto) (2.0-8.3) x10*3/uL Absolute Nucleated RBC (0.0-0.012) X10*3/uL Nucleated RBC % (auto) (0.0-0.2) /100WBC PT (10.0-13.1) SEC INR (0.9-1.1) APTT (26.0-36.4) SEC Sodium (135-145) mmol/L Potassium (3.3-5.1) mmol/L Chloride (96-108) mmol/L Carbon Dioxide (22-29) mmol/L Anion Gap (12-20) BUN (9-16) mg/dL Creatinine (0.5-1.4) mg/dL Estim Creat Clear Calc Estimated GFR POC Glucose (60-115) mg/dL Random Glucose (60-115) mg/dL Lactic Acid (0.5-2.0) mmol/L Calcium (8.4-10.2) mg/dL Magnesium (1.6-2.6) mg/dL Total Bilirubin (0.0-1.0) mg/dL Direct Bilirubin (0.0-0.5) mg/dL AST (5-31) U/L ALT (0-31) U/L Alkaline Phosphatase (39-117) U/L Ammonia 25 (13-55) umol/L Total Creatine Kinase (26-140) U/L Troponin I High Sens (<3.5-17.0) ng/L Total Protein (6.5-8.0) g/dL Albumin (3.5-5.0) g/dL Urine Color Yellow Urine Appearance Clear Urine pH 7.0 (5.0-9.0) Ur Specific [place] >= 1.030 H (1.005-1.025) Urine Protein Trace (Neg-Trace) mg/dL Urine Glucose (UA) Negative (Negative) mg/dL Urine Ketones Negative (Negative) mg/dL Urine Blood Negative (Negative) Urine Nitrite Negative (Negative) Ur Leukocyte Esterase Negative (Negative) Salicylates (15-30) mg/dL Urine Opiates Screen (Not Detect) Urine Fentanyl Screen (Not Detect) Acetaminophen (<30) mcg/mL Ur Barbiturates Screen (Not Detect) Ur Phencyclidine Scrn (Not Detect) Ur Amphetamines Screen (Not Detect) U Benzodiazepines Scrn (Not Detect) Urine Cocaine Screen (Not Detect) U Marijuana (THC) Screen (Not Detect) Ethyl Alcohol mg/dL COVID-19 (DEVON) Negative (Negative) COVID-19 Clin Com See Note 09/02/22 Range/Units 18:51 WBC (4.8-10.8) X10*3/uL RBC (4.20-5.50) X10*6/uL Hgb (12.0-16.0) g/dl Hct (37.0-47.0) % MCV (80.0-98.0) fL MCH (27.0-33.0) pg MCHC (31.0-35.0) g/dl RDW (11.0-16.0) % Plt Count (160-400) X10*3/uL MPV (9.4-12.3) fL Immature Gran % (Auto) (0.0-0.4) % Neut % (Auto) (45-73) % Lymph % (Auto) (20-40) % Perry % (Auto) (2-11) % Eos % (Auto) (0-4) % Baso % (Auto) (0-2) % Lymph # (Auto) (1.2-4.9) X10*3/uL Perry # (Auto) (0.1-1.2) X10*3/uL Eos # (Auto) (0.0-0.4) X10*3/uL Baso # (Auto) (0.0-0.2) X10*3/uL Abs Immat Gran (auto) (0.00-0.03) X10*3/uL Absolute Neuts (auto) (2.0-8.3) x10*3/uL Absolute Nucleated RBC (0.0-0.012) X10*3/uL Nucleated RBC % (auto) (0.0-0.2) /100WBC PT (10.0-13.1) SEC INR (0.9-1.1) APTT (26.0-36.4) SEC Sodium (135-145) mmol/L Potassium (3.3-5.1) mmol/L Chloride (96-108) mmol/L Carbon Dioxide (22-29) mmol/L Anion Gap (12-20) BUN (9-16) mg/dL Creatinine (0.5-1.4) mg/dL Estim Creat Clear Calc Estimated GFR POC Glucose (60-115) mg/dL Random Glucose (60-115) mg/dL Lactic Acid (0.5-2.0) mmol/L Calcium (8.4-10.2) mg/dL Magnesium (1.6-2.6) mg/dL Total Bilirubin (0.0-1.0) mg/dL Direct Bilirubin (0.0-0.5) mg/dL AST (5-31) U/L ALT (0-31) U/L Alkaline Phosphatase (39-117) U/L Ammonia (13-55) umol/L Total Creatine Kinase (26-140) U/L Troponin I High Sens (<3.5-17.0) ng/L Total Protein (6.5-8.0) g/dL Albumin (3.5-5.0) g/dL Urine Color Urine Appearance Urine pH (5.0-9.0) Ur Specific [place] (1.005-1.025) Urine Protein (Neg-Trace) mg/dL Urine Glucose (UA) (Negative) mg/dL Urine Ketones (Negative) mg/dL Urine Blood (Negative) Urine Nitrite (Negative) Ur Leukocyte Esterase (Negative) Salicylates (15-30) mg/dL Urine Opiates Screen POSITIVE H (Not Detect) Urine Fentanyl Screen Not Detected (Not Detect) Acetaminophen (<30) mcg/mL Ur Barbiturates Screen Not Detected (Not Detect) Ur Phencyclidine Scrn Not Detected (Not Detect) Ur Amphetamines Screen Not Detected (Not Detect) U Benzodiazepines Scrn Not Detected (Not Detect) Urine Cocaine Screen Not Detected (Not Detect) U Marijuana (THC) Screen POSITIVE H (Not Detect) Ethyl Alcohol mg/dL COVID-19 ([facility]ON) (Negative) COVID-19 Clin Com <Miguelito Valverde MD - Last Filed: 09/02/22 18:25> Independent Interpretation I performed an independent interpretation of an: EKG (EKG normal sinus rhythm at a rate of 74. MA interval 152. QTC 421. ST-elevation not present in inferior leads. No STEMI) <JEANNINE Stewart - Last Filed: 09/02/22 19:17> Radiology Impression Discussion of test interpretation with radiology: I have reviewed the radiologist's reading. <JEANNINE Stewart - Last Filed: 09/02/22 19:17> External Record Review External record reviewed: Inpatient record, Office record, Outpatient record, Prior outpatient labs, Prior outpatient radiology, Primary care record and Outside ED record <JEANNINE Stewart - Last Filed: 09/02/22 19:17> Critical Care Time Critical Care Time Critical Care Time: Yes <JEANNINE Stewart - Last Filed: 09/02/22 19:17> Total Critical Care Time: 60 <JEANNINE Stewart - Last Filed: 09/02/22 19:17> Attestation: I have personally provided critical care time exclusive of time spent on separately billable procedures. Time includes review of lab data, radiology results, discussion with consultants, and monitoring for potential decompensation. Intervention performed as documented. <JEANNINE Stewart - Last Filed: 09/02/22 19:17> Discharge Plan Discharge Clinical Impression: Occlusive thrombus <JEANNINE Stewart - Last Filed: 09/02/22 19:17> Patient Disposition: [facility] <JEANNINE Stewart - Last Filed: 09/02/22 19:17> Transfer Details: [facility], ED to ED <JEANNINE Stewart - Last Filed: 09/02/22 19:17> [facility], ED to ED <Miguelito Valverde MD - Last Filed: 09/02/22 18:25> Prescriptions: No Action ondansetron 4 mg tablet,disintegrating 4 mg PO Q8H PRN (Reason: nausea and vomiting) Qty: 20 0RF ketorolac 10 mg tablet 10 mg PO Q6H 5 Days Qty: 20 0RF <JEANNINE Stewart - Last Filed: 09/02/22 19:17>
[2022-09-02 16:06] LABS: Glucose, Whole Blood 110 mg/dL (60-115)
--- NOTE | 2022-09-02 16:13 | ECG_ITS ---
Test Reason : ?OVERDOSE Blood Pressure : / mmHG Vent. Rate : 074 BPM Atrial Rate : 074 BPM P-R Int : 152 ms QRS Dur : 074 ms QT Int : 380 ms P-R-T Axes : 065 041 049 degrees QTc Int : 421 ms Normal sinus rhythm Possible Left atrial enlargement Low voltage QRS Nonspecific ST abnormality Abnormal ECG When compared with ECG of 12-AUG-2021 13:37, ST elevation now present in Inferior leads Referred By: Sumi Green Electronically Signed By:SAMI RASMUSSEN MD
[2022-09-02 16:31] LABS: MANUAL DIFF FLAG NO
[2022-09-02 16:33] LABS: Basophils Absolute Auto 0.1 X10*3/uL (0.0-0.2); Basophils Percent Auto 0.5 % (0-2); Eosinophils Absolute Auto 0.1 X10*3/uL (0.0-0.4); Eosinophils Percent Auto 0.9 % (0-4); Hematocrit 38.4 % (37.0-47.0); Hemoglobin 12.2 g/dl (12.0-16.0); Imm Gran Abs Auto 0.06 X10*3/uL (0.00-0.03); Imm Gran Pct Auto 0.5 % (0.0-0.4); Lymphocytes Percent Auto 23.1 % (20-40); Mean Corpuscular HGB Conc 31.8 g/dl (31.0-35.0); Mean Corpuscular Hemoglobin 30.7 pg (27.0-33.0); Mean Corpuscular Volume 96.5 fL (80.0-98.0); Mean Platelet Volume 9.5 fL (9.4-12.3); Monocytes Absolute Auto 0.5 X10*3/uL (0.1-1.2); Monocytes Percent Auto 4.1 % (2-11); Neutrophils Absolute Auto 9.2 x10*3/uL (2.0-8.3); Neutrophils Percent Auto 70.9 % (45-73); Platelet Count 316 X10*3/uL (160-400); Red Blood Count 3.98 X10*6/uL (4.20-5.50); Red Cell Distribution Width 12.8 % (11.0-16.0)
[2022-09-02 16:48] LABS: Lactic Acid 2.6 mmol/L (0.5-2.0)
[2022-09-02 16:57] LABS: COVID-19 Test Negative (Negative); IDNOW Serial# BCCEAD1C
[2022-09-02 16:59] LABS: Troponin-I High Sensitivity 5.3 ng/L (<3.5-17.0)
[2022-09-02 17:04] LABS: Alanine Aminotransferase 10 U/L (0-31); Albumin Level 3.8 g/dL (3.5-5.0); Alkaline Phosphatase 146 U/L (39-117); Anion Gap 13 (12-20); Aspartate Amino Transferase 16 U/L (5-31); Bilirubin Direct < 0.2 mg/dL (0.0-0.5); Bilirubin Total 0.3 mg/dL (0.0-1.0); Blood Urea Nitrogen 14 mg/dL (9-16); Calcium 8.8 mg/dL (8.4-10.2); Carbon Dioxide 22 mmol/L (22-29); Chloride 110 mmol/L (96-108); Creatinine Clr Calc Pharmacy 76.6; Estimated Glomerular Filt Rate > 60; Ethanol < 10 mg/dL; Glucose Random 114 mg/dL (60-115); Potassium 4.3 mmol/L (3.3-5.1); Salicylate < 5.0 mg/dL (15-30); Sodium 141 mmol/L (135-145); Total Protein 6.7 g/dL (6.5-8.0)
[2022-09-02 17:18] LABS: Ammonia 25 umol/L (13-55)
[2022-09-02 17:42] LABS: Acetaminophen LAB < 17 mcg/mL (<30)
[2022-09-02] MEDS: 0.9 % Sodium Chloride 1,000 ML 999 ML IV (17:51)
[2022-09-02] MEDS: iohexoL 350 MG/ML 100 ML INFUS..BTL IV (18:08)
[2022-09-02 18:09] LABS: Partial Thromboplastin Time 32.2 SEC (26.0-36.4)
[2022-09-02 18:30] LABS: Reflex Lactate? Lactic Acid Added
[2022-09-02 18:52] VITALS: BP 169/85; PULSE 83; RESP 20; TEMP 36.4; O2SAT 100
[2022-09-02 19:07] LABS: Appearance Urine Clear; Color Urine Yellow; Glucose Urine UA Negative (Negative); Leukocyte Esterase Urine Negative (Negative); Nitrite Urine Negative (Negative); Specific Gravity - Urine >= 1.030 (1.005-1.025); Urine Blood Negative (Negative); Urine Ketones Negative (Negative); Urine Protein Trace mg/dL (Neg-Trace)
[2022-09-02 19:08] VITALS: BP 174/72; PULSE 78; RESP 20; O2SAT 96
--- NOTE | 2022-09-02 19:10 | PC.NURSE ---
Addendum entered by Mary Jimenez 09/02/22 19:22: This technical writer and editor assumed care of this Pt at 1900. Original Note: Pt awakens to verbal stimuli, not answering questions at this time, Pt moving left sided extremities, unable told right arm up. 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 Daughter/ updated on Pt status. Pt will be transferred out [place] [facility] [place] [facility].
[2022-09-02 19:15] LABS: Amphetamine Screen Urine Not Detected (Not Detect); Barbiturates, Urine Not Detected (Not Detect); Benzodiazepines Screen Urine Not Detected (Not Detect); Cannabinoid Screen Urine POSITIVE (Not Detect); Cocaine Screen Urine Not Detected (Not Detect); Fentanyl, urine Not Detected (Not Detect); Opiate Screen Urine POSITIVE (Not Detect); Phencyclidine Screen Urine Not Detected (Not Detect)
--- NOTE | 2022-09-02 19:16 | MHC.EDTECH ---
Received a call back from [facility] at 1900 accepted patient to the ED.Baylee called for a stat ALS at 1905 ETA 15 Minutes.RN aware.
--- NOTE | 2022-09-02 19:20 | MHC.EDTECH ---
Baylee here at 1917 to transport patient.Rn at bedside
--- NOTE | 2022-09-02 19:49 | PC.NURSE ---
Nurse to nurse report given to Catarino VANEGAS at [facility] ED.
--- NOTE | 2022-09-03 09:17 | MHC.STROKE ---
09/02/22 1537 EMS PRE-NOTIFIED PATIENT UNRESPONSIVE, NO STROKE ALERT CALLED IN, ONSET 1530. ARRIVED AT [facility] [place] 1541. SEEN BY PROVIDER NIHSS = 19, AMS, RIGHT HEMIPARESIS, APHASIA, SEE PROVIDER NOTE, CTH DONE, NO BLEED, CTA H/N DONE AFTER SOME TIME DUE TO INSTABILITY OF PATIENT. + LVO LEFT ICA, M1, M2 (REFER TO RADIOLOGY REPORT) CASE REVIEWED WITH NEUROLOGIST, TPA ALTEPLASE 63MG ORDERED AT 1755, GIVEN AT 1834. ONSET TO TPA = 3HR, 4MIN. DOOR-TO-TPA = 173MIN (2HR, 53MIN). GREATER THAN 30, 45, 60 MIN DUE TO CARE TEAM DETERMINING ELIGIBILITY, UNRESPONSIVE, UNKNOWN CASE, OPIATES, ?SEIZURE, UNCLEAR PRESENTATION, SEE PROVIDER NOTES. CASE REVIEWED BY [facility] NEURO-INTERVENTIONAL STROKE TEAM AND ACCEPTED FOR POSSIBLE THROMBECTOMY, [id number]-OUT = 3HR, 50MIN.
== END 2022-09-02 19:31 | disposition short-term general hospital (02) ==
PROVIDERS: Physician Assistant; Emergency Provider Emergency Medicine
DX: I63.312 Cerebral infarction due to thrombosis of left middle cerebral artery (principal); R29.719 NIHSS score 19; R40.4 Transient alteration of awareness; H53.8 Other visual disturbances; G81.91 Hemiplegia, unspecified affecting right dominant side; R47.01 Aphasia; Z20.822 Contact with and (suspected) exposure to COVID-19; G35 Multiple sclerosis; F17.200 Nicotine dependence, unspecified, uncomplicated; F12.90 Cannabis use, unspecified, uncomplicated; Z79.891 Long term (current) use of opiate analgesic; Z79.899 Other long term (current) drug therapy
CPT/HCPCS: 37195; 51701; 70450; 70496; 70498; 71045; 80048; 80076; 80143; 80179; 80307; 81003; 82077; 82140; 82550; 82947; 83605; 83735; 84484; 85025; 85610; 85730; 87040; 87077; 87186; 87205; 87635; 93005; 99285; J2997; Q9967

== ENCOUNTER → 2022-11-17 14:34 | Outpatient (REF) | payer OTHER, SELFPAY ==
--- NOTE | 2022-11-17 14:43 | CA_ITS ---
Transthoracic Echocardiogram Patient (Last, First, Middle): Chaya Camarena M Gender: Female Date of : 1960 Age: 62 Procedure Date: 11/17/2022 Procedure Type: Transthoracic Echocardiogram Location: OP Height: 167.64 cm Weight: 67.13 kg BSA: 1.76 m2 Heart Rate: bpm BP: 128 / 76 mmHg Drawbridge Tender: JULIUS Referring MD: Bernardo Torres MD Symptoms: L ATRIAM MASS R22.9 Study Quality: Adequate ECG Rhythm: Sinus Conclusions: - The left ventricular systolic function is low normal. The visually estimated ejection fraction is between 50-55%. - The apical septum, mid inferoseptal, and basal inferolateral segments are hypokinetic. - The basal inferior and mid inferior segments are akinetic. 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 Suggestive of myxoma. It seems to protrude through the mitral valve orifice into left ventricular inflow. - Discussed with . Findings Left Ventricle Normal left ventricular cavity size. There is normal left ventricular wall thickness. The left ventricular systolic function is low normal. The visually estimated ejection fraction is between 50-55%. There is evidence of regional wall motion abnormalities. Diastolic function is normal for age. LV peak GLS -13.9%. Wall Motion Rest Echo Findings The apical septum, mid inferoseptal, and basal inferolateral segments are hypokinetic. The basal inferior and mid inferior segments are akinetic. Right Ventricle Normal right ventricular cavity size and systolic function. Atria The left atrium is mildly dilated. Mass attached to the interatrial septum and anterior mitral leaflet, measures upto 5.4 x 2cm. Suggestive of myxoma. It seems to protrude through the mitral valve orifice into left ventricular inflow. The right atrium is normal in size. Aortic Valve There is a normal trileaflet aortic valve. There is no aortic valve stenosis. There is no aortic valve regurgitation. Mitral Valve The mitral valve appears normal. There is trace mitral valve regurgitation. There is no mitral valve stenosis. Pulmonic Valve The pulmonic valve is likely normal. Tricuspid Valve There is trace tricuspid valve regurgitation. There is no evidence of pulmonary hypertension. Great Vessels The asc aorta is normal in size. Venous The inferior vena cava is normal in size and collapses greater than 50% with inspiration. Pericardium/Pleural There is no evidence of pericardial effusion. Prior Study Comparison Significant changes compared to prior study dated: 05/11/2012. see comments on myxoma. Measurements 2D Linear Measurements IVSd: 0.98 0.6-0.9/0.6-1.0 cm LVIDd: 4.89 3.9-5.3/4.2-5.9 cm LVIDd Index: 2.78 2.4-3.2/2.2-3.1 cm/m2 LVIDs: 3.83 2.0-3.6 cm LVPWd: 1.08 0.7-1.1 cm LA Diam: 3.60 2.7-3.8/3.0-4.0 cm LAIDs Index: 2.05 1.5-2.3 cm/m2 LV Mass: 226.92 67-162/88-224 g LV Mass Index: 128.93 43-95/49-115 g/m2 LVOT Diam: 1.90 3.0+(-)1.3 cm 2D Systolic Function EF 4C: 53.20 >55% EF 2C: 52.20 >55% EF BiP: 54.60 >55% Mitral Valve MV VTI: 0.58 MV Pk Esteban: 1.40 MV Mn Esteban: 0.86 MV Pk Grad: 8.00 MV Mn Grad: 3.00 MV Pk E: 1.15 MV PK A: 1.30 MV Decel Time: 344.00 E/A: 0.90 E'Lateral: 5.87 E'Medial: 5.33 E/E' Med: 21.60 E/E' Lat: 19.60 PHT: 101.00 MVA PHT: 2.18 MVA Continuity: 1.04 Decel Gordon: 3.35 Aortic Valve AoV Pk Esteban: 1.39 AoV Mn Esteban: 0.96 AoV VTI: 0.33 AoV Pk Grad: 8.00 Aov Mn Grad: 4.00 LOLIS Cont.VTI: 1.82 LVOT LVOT Pk Esteban: 0.95 LVOT Mn Esteban: 0.61 LVOT VTI: 0.21 LVOT Pk Grad: 4.00 LVOT Mn Grad: 2.00 LVOT Diam: 1.90 LVOT Area: 2.84 Diastolic Function MV Pk E: 1.15 MV Pk A: 1.30 E/A: 0.90 E'Medial: 5.33 E/E' Med: 21.60 E' Laterial: 5.87 E/E' Lat: 19.60 Right Ventricle TAPSE (mm): 23.00 TVS' Esteban: 9.90 Tricuspid Valve TR Pk Esteban: 1.45 TR Pk Grad: 8.00 RA Press: 3.00 RVSP: 11.00 Great Vessels Aorta Sinus of Valsalva: 2.86 2.0-3.[address] Ridge: 2.19 1.7-3.4 cm Ao Asc: 3.20 2.1-3.4 cm Updated in Other Vendor System with Status of Final Rambo Zapata MD electronically signed on 11/19/2022 10:41:42 AM with status of Final
== END ==
LOC: HO.CARD 14:34
PROVIDERS: Absent Provider Internal Medicine; Visit Provider Thoracic Surgery (Cardiothoracic Vascular Surgery)
DX: R22.9 Localized swelling, mass and lump, unspecified (principal)
CPT/HCPCS: 93306; 93356

== ENCOUNTER 2023-03-03 15:23 | Inpatient (IN) | payer OTHER, MEDICAID, SELFPAY ==
--- NOTE | ~2023-03-03 | XR_ITS ---
EXAMINATION: XR CHEST CLINICAL INFORMATION: Weakness COMPARISON: Chest x-ray on 09/02/2022 TECHNIQUE: Frontal view of the chest was obtained. FINDINGS: The cardiac silhouette is normal. There is mild diffuse bronchial wall thickening. There are no areas of consolidation. There are no pleural effusions or pneumothoraces. The bones and soft tissues are unremarkable for the patient's age. XR/XR chest 1V IMPRESSION: Bronchial wall thickening may be infectious and/or inflammatory in etiology.
--- NOTE | ~2023-03-03 | CT_ITS ---
EXAMINATION: CT ABDOMEN AND PELVIS WITH CONTRAST CLINICAL INFORMATION: Unexplained hypoglycemia COMPARISON: CT noncontrast abdomen pelvis 08/12/2021, CT abdomen pelvis with IV contrast 03/22/2019 TECHNIQUE: Multidetector volumetric images were obtained from the superior aspect of the liver through the pubic symphysis following administration 85 mL of Omnipaque 350 intravenous contrast. Sagittal and coronal reformatted images were obtained on the technologist's workstation. Oral contrast: No This CT examination was performed using dose optimization techniques as appropriate, variously including the following: *Automated exposure control *Adjustment of mA and/or kV according to patient size (this includes techniques or standardized protocols for targeted exams where dose is matched to indication/reason for exam; i.e. extremities or head) *Use of iterative reconstruction technique DLP: 683 mGy-cm FINDINGS: LUNG BASES: The visualized lung bases are unremarkable. LIVER, GALLBLADDER, AND BILIARY TREE: The liver is normal in size, shape, and attenuation. No focal hepatic lesion.. Status post cholecystectomy with mild prominence of intrahepatic biliary ducts with some air on the left. These findings may be normal. PANCREAS: Unremarkable. SPLEEN: Multiple wedge-shaped peripheral hypodensities are seen in the spleen which could represent infarcts or sequela of emboli. ADRENAL GLANDS: Unremarkable. KIDNEYS AND URETERS: Multiple wedge-shaped hypodensities are seen in both kidneys suggestive of emboli. Again seen are some benign cysts which need no follow-up. BLADDER: Unremarkable. GASTROINTESTINAL TRACT: The small and large bowel are unremarkable. The appendix is unremarkable. ABDOMINAL WALL: No significant hernia is appreciated. LYMPH NODES: Normal. VASCULAR: The aorta appears normal without significant atherosclerotic plaque or calcification. PELVIC VISCERA: The uterus and adnexa are unremarkable. OSSEOUS STRUCTURES: Unremarkable. There is a hemangioma in T12. CT/CT abdomen pelvis w IV con IMPRESSION: 1. Multiple wedge-shaped hypodensities are seen in the spleen and both kidneys suggestive of emboli. No macroscopic vasculature appears normal. Consider echocardiography.. 2. Other incidental findings as described above including cholecystectomy and T12 hemangioma. Fleischner guidelines were followed. This critical result was discussed with Dr. Tami Osborne at 6:50 PM on the day of the exam and it was ascertained that the content and urgency of the report was understood at the time of direct communication.
--- NOTE | ~2023-03-03 | CT_ITS ---
EXAMINATION: CT HEAD WITHOUT CONTRAST CLINICAL INFORMATION: Confusion. COMPARISON: CT head and CTA head dated 09/02/2022. TECHNIQUE: Contiguous axial imaging was performed from the skull base to vertex without intravenous administration of contrast. This CT examination was performed using dose optimization techniques as appropriate, variously including the following: *Automated exposure control *Adjustment of mA and/or kV according to patient size (this includes techniques or standardized protocols for targeted exams where dose is matched to indication/reason for exam; i.e. extremities or head) *Use of iterative reconstruction technique DLP: 671 mGy-cm FINDINGS: There is low attenuation change in the left frontotemporoparietal region, consistent with an MCA distribution infarction. No discrete underlying mass lesion is noted. There is adjacent attenuation of the anterior horn of the left lateral ventricle. There is left periventricular focal low attenuation change which may be related to cytotoxic edema. No associated focal hemorrhage is seen. There is no midline shift. The basilar cisterns are patent. There is temporoparietal crowding of sulci. The cerebellar hemispheres are unremarkable. The included paranasal sinuses are clear. The mastoid air cells are well aerated and clear. There is no acute osseous finding. CT/CT head/brain wo IV con IMPRESSION: There is low attenuation change in the left frontotemporoparietal region, consistent with an MCA distribution infarction. Note is made of occlusive thrombus identified within the left carotid terminus and left middle cerebral artery on the CTA head dated 09/02/2022. There is adjacent attenuation of the anterior horn of the left lateral ventricle. No associated focal hemorrhage or mass lesion is seen, with evaluation for mass limited by noncontrast technique. There is no midline shift. The basilar cisterns appear patent.
--- NOTE | 2023-03-03 15:41 | ED_ITS ---
HPI - General Adult General Chief complaint: General Medical Stated complaint: Hypoglycemia Time Seen by Provider: 03/03/23 15:37 Source: patient and EMS Mode of arrival: EMS Limitations: other (expressive aphasia and previous stroke) History of Present Illness HPI narrative: 62 yo female with PMH MS, neuropathy, tremor of CVA resulting expressive aphasia and L sided facial droop/R sided weakness she is not on blood thinners spouse noted patient was pale and crying so he called EMS - EMS found her bs to be 65 but no new deficits so they gave her juice and it improved her symptoms BS up to 131 and patient improved - she can only say yes or no. no diabetes medications at home and ate breakfast but not lunch no hx of low blood suagar in past MD complaint: low blood sugar Onset (ago): minute(s) (just prior to arrival ) Radiation: non-radiation Severity: mild Relieving factors: eating Exacerbating factors: none Associated symptoms: denies other symptoms Treatments prior to arrival: other (apple juice) Related Data Previous Rx's Medication Instructions Recorded ketorolac 10 mg tablet 10 mg PO Q6H 5 days #20 tabs 07/05/21 ondansetron 4 mg disintegrating 4 mg PO Q8H PRN nausea and 08/12/21 tablet vomiting #20 tabs Allergies Allergy/AdvReac Type Severity Reaction Status Date / Time No Known Allergies Allergy Unknown Verified 08/12/21 13:03 [No Known Allergies*] Review of Systems 2 Review of Systems: ROS unable to be obtained due to aphasia PMFSH Past Medical History Source: old records reviewed and obtained from family Medical History Multiple sclerosis Neuropathy Tremor Surgical History S/P cholecystectomy Social History Social History Alcohol intake: never Patient Tobacco Use Status: Current everyday Tobacco user Smoked in Last 30 Days: No Use of substances other than those prescribed or required for medical reasons: No Advance Directives: No Advance Directives Information Provided: No Physical Exam ED Vital Signs: Vital Signs - 24 hr 03/03/23 15:59 03/03/23 19:48 Temperature 98.4 F 98.1 F Pulse Rate 85 91 Respiratory Rate 16 23 H Blood Pressure 157/78 H 138/88 Pulse Oximetry 97 98 Oxygen Delivery Method Room Air Room Air BMI result Body Mass Index 22.6 Appearance: Alert. yes or no to all questions. No acute distress. Eyes: Pupils equal, round and reactive to light. ENT: Pharynx normal. Neck: Normal inspection. Neck supple. CVS: Normal heart rate and rhythm. Pulses normal. Respiratory: No respiratory distress. Breath sounds normal. Abdomen: Soft and nontender. Skin: Skin warm and dry. Normal skin color. Normal skin turgor. Extremities: No lower extremity edema. No calf ttp Neuro: can only say yes or no, L facial droop expressive aphasia, R sided weakness at baseline Course Course Course Narrative: given the septic emboli will obtain cultures, lactic acid admit for ECHO and presumed infection start on empiric antibiotics and admit - infection suspected 654pm Medications Administered Discontinued Medications Generic Name Dose Route Start Last Admin Trade Name Freq PRN Reason Stop Dose Admin Sodium Chloride 500 mls @ 500 mls/hr 03/03/23 19:00 03/03/23 20:56 Ns IV 03/03/23 19:59 500 mls/hr .Q1H LUCY Administration Ceftriaxone Sodium 2 gm/ 50 mls @ 100 mls/hr 03/03/23 18:52 03/03/23 21:03 Sodium Chloride IV 03/03/23 19:21 Infused ONCE ONE Infusion Vancomycin HCl 1,500 mg/ 500 mls @ 333.333 mls/hr 03/03/23 18:52 03/03/23 20:55 Sodium Chloride IV 03/03/23 20:21 333.33 mls/hr ONCE ONE Administration Iohexol 100 ml 03/03/23 17:51 03/03/23 17:52 Iohexol 350 Mg/Ml 100 Ml Infus..Btl IV 03/03/23 17:52 85 ml ONCE ONE Administration Medical Decision Making Medical Decision Making MDM Narrative: 62 yo female with PMH MS, neuropathy, tremor of CVA resulting expressive aphasia and L sided facial droop/R sided weakness she is not on blood thinners here with c/o low blood sugar and crying but no new deficits at this time will obtain labs, UA, EKG and CT scan of abdomen for mass the patient did not eat lunch today per but no hx of low blood sugar. There were no visitors today and and are not on DM medications at home. Differential Diagnosis Differential Diagnoses: The differential diagnosis associated with the presentation includes poor PO intake, medication ingestion, mass Admission/Observation Consideration of admission/observation: Escalation of care including admission/observation considered admit for ECHO, culture surveillance and antibiotics Consult Healthcare Provider Management of the patient was discussed with: Hospitalist (will admit) Lab Data MDM Lab Attestation statement: I reviewed the patient's lab results. 03/03/23 16:32 03/03/23 16:32 Labs: Lab Results 03/03/23 03/03/23 03/03/23 Range/Units 16:10 16:32 16:37 WBC 12.4 H (4.8-10.8) X10*3/uL RBC 4.07 L (4.20-5.50) X10*6/uL Hgb 12.0 (12.0-16.0) g/dl Hct 37.8 (37.0-47.0) % MCV 92.9 (80.0-98.0) fL MCH 29.5 (27.0-33.0) pg MCHC 31.7 (31.0-35.0) g/dl RDW 13.4 (11.0-16.0) % Plt Count 250 (160-400) X10*3/uL MPV 10.5 (9.4-12.3) fL Immature Gran % (Auto) 0.3 (0.0-0.4) % Neut % (Auto) 82.2 H (45-73) % Lymph % (Auto) 11.8 L (20-40) % [place] % (Auto) 5.1 (2-11) % Eos % (Auto) 0.3 (0-4) % Baso % (Auto) 0.3 (0-2) % Lymph # (Auto) 1.5 (1.2-4.9) X10*3/uL [place] # (Auto) 0.6 (0.1-1.2) X10*3/uL Eos # (Auto) 0.0 (0.0-0.4) X10*3/uL Baso # (Auto) 0.0 (0.0-0.2) X10*3/uL Abs Immat Gran (auto) 0.04 H (0.00-0.03) X10*3/uL Absolute Neuts (auto) 10.2 H (2.0-8.3) x10*3/uL Absolute Nucleated RBC 0.000 (0.0-0.012) X10*3/uL Nucleated RBC % (auto) 0.0 (0.0-0.2) /100WBC Smear Tech's Comments VERIFIED Sodium 141 (135-145) mmol/L Potassium 4.4 (3.3-5.1) mmol/L Chloride 108 (96-108) mmol/L Carbon Dioxide 22 (22-29) mmol/L Anion Gap 15 (12-20) BUN 15 (9-16) mg/dL Creatinine 0.86 (0.5-1.4) mg/dL Estim Creat Clear Calc 64.3 Estimated GFR > 60 POC Glucose 45 L* (60-115) mg/dL Random Glucose 108 (60-115) mg/dL Lactic Acid (0.5-2.0) mmol/L Calcium 9.9 D (8.4-10.2) mg/dL Magnesium 2.1 (1.6-2.6) mg/dL Total Bilirubin 0.4 (0.0-1.0) mg/dL Direct Bilirubin 0.1 (0.0-0.5) mg/dL AST 28 (5-31) U/L ALT 30 (0-31) U/L Alkaline Phosphatase 152 H (39-117) U/L Troponin I High Sens < 2.7 (<3.5-17.0) ng/L Total Protein 8.3 H (6.5-8.0) g/dL Albumin 4.1 (3.5-5.0) g/dL 03/03/23 03/03/23 03/03/23 Range/Units 17:07 19:10 19:18 WBC (4.8-10.8) X10*3/uL RBC (4.20-5.50) X10*6/uL Hgb (12.0-16.0) g/dl Hct (37.0-47.0) % MCV (80.0-98.0) fL MCH (27.0-33.0) pg MCHC (31.0-35.0) g/dl RDW (11.0-16.0) % Plt Count (160-400) X10*3/uL MPV (9.4-12.3) fL Immature Gran % (Auto) (0.0-0.4) % Neut % (Auto) (45-73) % Lymph % (Auto) (20-40) % [place] % (Auto) (2-11) % Eos % (Auto) (0-4) % Baso % (Auto) (0-2) % Lymph # (Auto) (1.2-4.9) X10*3/uL [place] # (Auto) (0.1-1.2) X10*3/uL Eos # (Auto) (0.0-0.4) X10*3/uL Baso # (Auto) (0.0-0.2) X10*3/uL Abs Immat Gran (auto) (0.00-0.03) X10*3/uL Absolute Neuts (auto) (2.0-8.3) x10*3/uL Absolute Nucleated RBC (0.0-0.012) X10*3/uL Nucleated RBC % (auto) (0.0-0.2) /100WBC Smear Tech's Comments Sodium (135-145) mmol/L Potassium (3.3-5.1) mmol/L Chloride (96-108) mmol/L Carbon Dioxide (22-29) mmol/L Anion Gap (12-20) BUN (9-16) mg/dL Creatinine (0.5-1.4) mg/dL Estim Creat Clear Calc Estimated GFR POC Glucose 165 H 96 (60-115) mg/dL Random Glucose (60-115) mg/dL Lactic Acid 1.4 (0.5-2.0) mmol/L Calcium (8.4-10.2) mg/dL Magnesium (1.6-2.6) mg/dL Total Bilirubin (0.0-1.0) mg/dL Direct Bilirubin (0.0-0.5) mg/dL AST (5-31) U/L ALT (0-31) U/L Alkaline Phosphatase (39-117) U/L Troponin I High Sens (<3.5-17.0) ng/L Total Protein (6.5-8.0) g/dL Albumin (3.5-5.0) g/dL Independent Interpretation I performed an independent interpretation of an: EKG, Plain X-Ray and CT Scan Interpretation: Rate: 90 Rhythm: NSR [place]:left Normal P waves. Normal MYNOR. Normal QRS complex. ST T wave : normal no JULIAN qTC: normal prior studies: no acute ischemia The study has been interpreted contemporaneously by me. . Radiology Impression Discussion of test interpretation with radiology: I discussed test interpretation with the radiologist and I have reviewed the radiologist's reading. Radiologist Impression: call from Radiology - septic embolic in spleen in both kidneys. Independent Historian Clinical information obtained from an independent historian. History obtained from or confirmed by: Spouse External Record Review External record reviewed: Inpatient record Discharge Plan Discharge Clinical Impression: Septic embolism, Hypoglycemia Patient Disposition: Admitted As Inpatient
[2023-03-03 15:59] VITALS: BP 157/78; BP 158/86; PULSE 80; PULSE 85; RESP 16; TEMP 36.9; O2SAT 97; O2SAT 98; BMI 22.6
--- NOTE | 2023-03-03 16:05 | ECG_ITS ---
Test Reason : LOW BOOD SUAGR Blood Pressure : / mmHG Vent. Rate : 090 BPM Atrial Rate : 090 BPM P-R Int : 158 ms QRS Dur : 072 ms QT Int : 344 ms P-R-T Axes : 043 000 011 degrees QTc Int : 420 ms Normal sinus rhythm Low voltage QRS Cannot rule out Anterior infarct , age undetermined Abnormal ECG When compared with ECG of 02-SEP-2022 16:27, Non-specific change in ST segment in Lateral leads Referred By: Tami Osborne Electronically Signed By:USHA PULLIAM
[2023-03-03 16:14] LABS: Glucose, Whole Blood 45 mg/dL (60-115)
--- OUTSIDE RECORDS SUMMARY | 2023-03-03 16:20 | XMS_ITS | Continuity of Care Document ---
Author Name Unknown Organization [facility] Shannan abdifatah Address [address] [place] [id number] Care Team Providers Care Operations Superintendent Name Role Phone Gracy RIDLEY, Rima Fontenot Primary Care Physician Encounter [facility] Date(s): 12/09/22 - 01/08/23 [facility] [address] [place] [id number] Attending Physician: Admtr, Julia Admitting Physician: Admtr, Ar8 Referring Physician: Admtr, Ar8 Allergies, Adverse Reactions, Alerts No Known Allergies Immunizations Given and Recorded Vaccine Date Status Refusal Reason influenza virus vaccine, inactivated 05/06/22 Yusef rded influenza virus vaccine, inactivated 04/22/21 Yusef rded influenza virus vaccine, inactivated 02/19/20 Yusef rded influenza virus vaccine, inactivated 06/01/19 Yusef rded influenza virus vaccine, inactivated 04/01/18 Yusef rded influenza virus vaccine, inactivated 02/18/17 Yusef rded influenza virus vaccine, inactivated 03/02/16 Yusef rded influenza virus vaccine, inactivated 03/21/15 Yusef rded influenza virus vaccine, inactivated 03/08/14 Yusef rded influenza virus vaccine, inactivated 02/27/11 Yusef rded [id number] 12y+ bivalent booster vax 05/06/22 Recorded SARS-CoV-2 (COVID-19) mRNA BNT-162b2 vac 04/22/21 Recorded SARS-CoV-2 (COVID-19) mRNA BNT-162b2 vac 01/22/21 Recorded zoster vaccine, inactivated 02/19/20 Recorded zoster vaccine, inactivated 06/01/19 Recorded pneumococcal 23-valent vaccine 12/02/18 Recorded pneumococcal 23-valent vaccine 01/25/13 Recorded tetanus/diphtheria/pertussis, acel(Tdap) 01/25/13 Recorded tetanus/diphtheria/pertussis, acel(Tdap) 10/03/09 Recorded hepatitis B adult vaccine 06/10/00 Recorded Hepatitis A Adult Vaccine 06/10/00 Recorded tetanus-diphtheria toxoids (Td) 05/09/99 Recorded Medications aspirin 81 mg oral tablet, chewable 81 mg, 1, tablet, By Mouth, Daily, Refills 0, Maintenance, 10/01/22 12:44:00 EDT, Partial fill uponpatient request if the prescription is for a schedule II opioid drug. Start Date: 10/01/22 Status: Ordered atorvastatin 40 mg oral tablet 2 tablet = 80 mg, By Mouth, Daily at bedtime, 0 Refills, Maintenance, 10/01/22 12:37:00 EDT, Tablet, Partial fill upon patient request if the prescription is for a schedule II opioid drug. Start Date: 10/01/22 Status: Ordered gabapentin 300 mg oral capsule 900 mg, 3, capsule, By Mouth, 3 times a day, Refills 0, Maintenance, 10/01/22 12:50:00 EDT, Partialfill upon patient request if the prescription is for a schedule II opioid drug. Start Date: 10/01/22 Status: Ordered lansoprazole 30 mg oral tablet, disintegrating = 30 mg, By Mouth, Daily, 0 Refills, Maintenance, 10/01/22 12:37:00 EDT, DIS Tablet, Partial fill upon patient request if the prescription is for a schedule II opioid drug. Start Date: 10/01/22 Status: Ordered lidocaine 5% topical film Topically, Daily, 0 Refills, Maintenance, 10/01/22 12:37:00 EDT, Patch, Partial fill upon patient request if the prescription is for a schedule II opioid drug. Start Date: 10/01/22 Status: Ordered Splint See Instructions, # 1 each, Maintenance, Right wrist splint for carpal tunnel syndrome, wear duringsleep., 07/23/17 13:13:21, Compound Start Date: 07/23/17 Status: Ordered Vitamin B-12 1000 mcg oral tablet 500 mcg, 0.5, tablet, By Mouth, Daily, Refills 0, Maintenance, 10/01/22 12:37:00 EDT, Partial fill upon patient request if the prescription is for a schedule II opioid drug. Start Date: 10/01/22 Status: Ordered Problem List Condition Confirmation Course Effective Dates Status Health St [facility] Informant Anxiety Confirmed Active Hyperlipidemia Confirmed Active HTN (hypertension) Confirmed Active Obesity Confirmed Active Fatty liver Confirmed Active Tremor Confirmed Active Social History Social History Type Response Smoking Status 5-9 cigarettes (betw een 1/4 to 1/2 pack)/day in last 30 days entered on: 09/02/22 Sex Patient Care team information Care Team Personnel Name: Rima Dubose MD Position: [facility] Outreach Member Role: PCP Address: Address: [address] [place] [id number]- Name: Brandt Zhao RN Position: [facility] RN Member Role: Primary Care Nurse Name: Jennifer Gill RN Position: [facility] RN Member Role: Primary Care Nurse Name: Maira Batista RN Position: [facility] RN Member Role: Primary Care Nurse Name: Kadi Noonan RN Position: [facility] SN RN Member Role: Primary Care Nurse Name: Kwasi Brady RN Position: [facility] RN Member Role: Primary Care Nurse Name: Fariba Vora Position: S RN Member Role: Primary Care Nurse Name: Chapis Plunkett RN Position: [facility] RN Member Role: Primary Care Nurse Name: Tricia Liang RN Position: [facility] RN Member Role: Primary Care Nurse Name: Adry Giang RN Position: [facility] RN Member Role: Primary Care Nurse Name: Jeanmarie Muhammad RN Position: [facility] RN Member Role: Primary Care Nurse Name: Ruddy Machuca RN Position: [facility] RN Member Role: Primary Care Nurse Care Team Related Persons Name: GERARDO BOWIE Address: home [address] [address]
--- OUTSIDE RECORDS SUMMARY | 2023-03-03 16:20 | XMS_ITS | Continuity of Care Document ---
Author Name Unknown Organization [facility] [place] [address] Address [address] [place] [id number]- Care Team Providers Care Psych Tech Name Role Phone Gracy RIDLEY, Nataly Corie Primary Care Physician [phone] [place] [facility] [place] 02/03/23 - 02/03/[address] [address]- Discharge Disposition: A-D/C Home Attending Physician: Graham Chun MD Admitting Physician: Graham Chun MD Referring Physician: Bernardo Torres MD Allergies, Adverse Reactions, Alerts No Known Allergies [...] influenza virus vaccine, inactivated 02/27/11 Yusef rded [id number] 12y+ bivalent booster vax 05/06/22 Recorded SARS-CoV-2 [...] Fatty liver Confirmed Active Tremor Confirmed Active Vital Signs Most recent to oldest [Reference Range]: 1 2 3 Height 168 cm (02/03/23 8:04 AM) Weight 62.3 kg (02/03/23 8:04 AM) Oxygen Saturation [94-100 %] 96 % (02/03/23 2:00 PM) 98 % (02/03/23 1:30 PM) 100 % (02/03/23 1:00 PM) Pulse Rate [55-90 bpm] 64 bpm (02/03/23 8:04 AM) Body Mass Index [18.5-24.99 kg/m2] 22.07 kg/m2 (02/03/23 8:04 AM) Blood Pressure [90-138/55-84 mm Hg] 129/69mm Hg (02/03/23 2:00 PM) 121/68mm Hg (02/03/23 1:30 PM) 138/68mm Hg (02/03/23 1:00 PM) Respiratory Rate [16-30 br/min] 16 br/min (02/03/23 2:00 PM) 15 br/min *L* (02/03/23 1:30 PM) 15 br/min *L* (02/03/23 1:00 PM) Temperature [96.8-100.4 DegF] 97.1 DegF (02/03/23 8:04 AM) Mode of Delivery (Oxygen) Room air (02/03/23 2:00 PM) Room air (02/03/23 1:30 PM) Room air (02/03/23 1:00 PM) Blood pressure sites Arm, left (02/03/23 2:00 PM) Arm, left (02/03/23 1:30 PM) Arm, left (02/03/23 1:00 PM) Temperature Route Temporal (02/03/23 8:04 AM) Dry Weight 62.3 kg (02/03/23 8:04 AM) Weight Obtained Via Standing scale (02/03/23 8:04 AM) Dry Weight Obtained Via Standing scale (02/03/23 8:04 AM) Social History Social History Type Response Smoking Status 5-9 cigarettes (betw een 1/4 to 1/2 pack)/day in last 30 days entered on: 09/02/22 Sex Cardiac catheterization study * Event Display: Cardiac Gear Room Keeper Report Authored Date: * Event Display: Cardiac Gear Room Keeper Report Authored Date: Cardiac Diagnostic Report Demographics Patient Name COLTEN JONES Gender Female [employer] Room Number [id number] Height 66.14 inches Date of 1960 Weight 137.35 pounds Age 62 year(s) BSA 1.71 m2 Accession Number [id number] BMI 22.07 kg/m2 Referring Physician Graham Chun MD Date of Study 02/03/2023 Gracy Collier MD Performing Physician Graham Chun MD Fellow Santo Romero DO Interventional Physician Procedure Procedure Type Diagnostic procedure:Coronary Angiography with [facility] Miscellaneous:ULTRASOUND GUIDANCE ACC Diagnostic Catheterization Status:Elective Indications Indications: Myxoma and Pre-operative evaluation. Clinical History Admission Medications + +------+--------+ + + +---------+ !Medication !Dosage!Times !Last !Last !Administered !Comments ! ! ! !Per Day !Delivery !Delivery ! ! ! ! ! ! !Date !Time ! ! ! + +------+--------+ + + +---------+ !Aspirin (any)! ! ! ! ! ! ! + +------+--------+ + + +---------+ !Statin (any) ! ! ! ! ! ! ! + +------+--------+ + + +---------+ ACC Risk Factors The patient risk factors include:cerebrovascular disease, treated hypercholesterolemia, last creatinine: 0.8 mg/dl, creatinine clearance: 72.63 ml/min and former tobacco use. Additional Clinical History:62-year-old female with left hemispheric stroke in the setting of newly-diagnosed left atrial myxoma referred for [facility] prior to surgical excision of mass and possible MV intervention. Procedure Data Procedure Date Date: 02/03/2023Start: 09:24End: 10:28 The procedure was explained in detail to the patient. Risks, complications and alternative treatments were reviewed. Written consent was obtained. Entry Locations - Retrograde Percutaneous access was performed through the Right Femoral artery. A 4 Fr sheath was inserted. This was exchanged for a 6 Fr sheath. Hemostasis was successfully obtained using Perclose ProGlide. Procedure Medications - Oxygen NC 2 l/min. - Versed (Midazolam) I.V. 1 mg. - Fentanyl I.V. 50 mcg. - Lidocaine 2% S.C. Right Wrist 2 ml. - Versed (Midazolam) I.V. 1 mg. - Fentanyl I.V. 50 mcg. - Lidocaine 2% S.C. Right groin 3 ml. - Versed (Midazolam) I.V. 1 mg. - Fentanyl I.V. 50 mcg. - Heparin I.V. 2000 units. - 0.9NS I.V. bolus 500 ml. Sedation: My intra-service moderate sedation time was: from 35 to 1026. Refer to procedural log for detailed chronological information. Contrast Material - Omnipaque 30 ml Diagnostic Catheters - A5F JL 3.5 DXTERITY DIAGNOSTIC CATHETERwas used for: Left coronary angiography. - A5F JR 4.0 DxTERITY DIAGNOSTIC CATHETERwas used for: Left heart catheterization. - A5F JR 4.0 DxTERITY DIAGNOSTIC CATHETERwas used for: Right coronary angiography. Fluoroscopy Time: Diagnostic: 5:05 minutes. Total: 5:05 minutes. Fluoroscopy Dose: Diagnostic: 155 mGy. Total: 155 mGy. Dose Area Product:Diagnostic: 54439 mGy/cm2. Total: 81063 mGy/cm2. Procedure Narrative Using ultrasound, we tried to cannulate the right radial artery, but the vessel was small and we were not able to pass a wire. Using ultrasound micropuncture, we placed a 6 Taiwanese sheath in the right femoral artery. We performed coronary angiography with a JL 3.5 and a JR4. We crossed and LV to obtain hemodynamics. We closed the arteriotomy with Perclose device. Angiographic Findings Cardiac Arteries and Lesion Findings LMCA: Normal. LAD: Normal. LCx: Normal. RCA: Normal. Hemodynamics Condition: Rest O2 Consumption: Estimated: 166.70Heart Rate: 78 bpm Pressures (mmHg) + + + !Site !Pressure ! + + + !R Common Femoral!135/65 (91)! + + + !AO !120/70 (93)! + + + !LV !116/-2 ,8 ! + + + !AO !108/59 (82)! + + + !LV !120/0 ,8 ! + + + Valve Gradients and Areas +------+----+----+----+-----+----+------+ !Valve !Peak!Mean!Area!Index!Flow!Source! +------+----+----+----+-----+----+------+ !Aortic!12 !10 ! ! ! ! ! +------+----+----+----+-----+----+------+ !Aortic!12 !10 ! ! ! ! ! +------+----+----+----+-----+----+------+ Shunts Oxygen Values O2 Capacity 163.2 O2 Consumption 166.7 Interventional Procedure Conclusions Diagnostic Summary Atrial myxoma-complicated by CVA Right radial artery-too small to cannulate Right femoral artery, 6 Taiwanese-closed with Perclose Coronary angiography with left heart catheterization Right dominant coronary circulation Angiographically normal coronary arteries LVEDP 9 mmHg, no pullback gradient across aortic valve The patient presents with stroke in the context of an atrial myxoma. She is here for preop evaluation prior to atrial myxoma resection. Coronary angiography shows angiographically normal coronary arteries. Diagnostic Recommendations 1. At that time of atrial myxoma resection, no need for coronary artery bypass ACC Diagnostic Recommendations: Other cardiac therapy without CABG or PCI. Signatures VA LV function assessed as:Normal. Ejection Fraction - Method: Echocardiography. EF%: 65.Date: 01/19/2023. EKG study * Event Display: ECG 12-Lead Authored Date: Please click on pdf link to open report * Event Display: ECG 12-Lead Authored Date: Ventricular Rate: 64 BPM Atrial Rate: 64 BPM P-R Interval: 168 ms QRS Duration: 68 ms Q-T Interval: 382 ms QTC Calculation(Bazett): 394 ms P [place]: 61 degrees R [place]: 23 degrees T [place]: 36 degrees Normal sinus rhythm Normal ECG When compared with ECG of 06-SEP-2022 10:00, No significant change Confirmed by DEBBIE MOSER ([id number]) on 02/03/2023 11:28:57 AM [place]: DEBBIE MOSER Note * Precious Brush: PERFORM Event Display: Discharge/Transfer Note Hospital Authored Date: [id number] Nursing Discharge Note Entered On: 02/03/2023 14:49 EDT Performed On: 02/03/2023 14:49 EDT by Precious Brush Nursing Discharge Note 2 Discharge Time : 02/03/2023 14:43 EDT Discharge Level of Care at Discharge : Home/Skilled Nursing/Foster Care Patient Left Unit Via : Wheelchair Patient Accompanied Off Unit with : Significant other DC Instructions Provided & Signed by Pt : Yes Patient Understands D/C Instructions : Yes Patient Instructions Discharge Signed : Yes Discharge Comments : d/c papers reviewed and signed. IVs discontinued. pt left unit in wheelchair with Did Pt have Specialty Bed or Wound Vac : No Precious Brush - 02/03/2023 14:49 EDT * Precious Brush: MODIFY, PERFORM, MODIFY Event Display: Patient Education/Instruction Authored Date: [id number] Inpatient Adult Discharge Instructions [address] [address] Name: ROBERT ABEL : 1960 Visit: 02/03/2023 06:50:00 Current Date: 02/03/2023 11:46 Account: [id number] Inpatient Adult Discharge Instructions We would like to thank you for allowing us to assist you with your healthcare needs. The following includes patient education materials and information regarding your injury/illness. Our entire staffstrives to provide an excellent experience for our patients and their families. PLEASE ENSURE YOU FOLLOW-UP PER THE INSTRUCTIONS BELOW! ?? YOUR OPINION IS IMPORTANT TO US! Please complete the survey you may receive by mail or email. Your feedback will be used to make improvements to the healthcare experiences of our patients and their families. Surveys are administered by [employer] ?? If further treatment with your primary care physician or another doctor is recommended, it is important for you to keep the appointment. Call your primary care physician or return to the Emergency Department immediately if your condition worsens, fails to improve, or new symptoms develop. If you need to find a doctor, you can call [facility] [employer] for a referral at [phone] or toll free at [phone] or log in to [email or web address] You In.. ?? [facility], in keeping with [facility] guidance, no longer requires face masks for staff, patientsor visitors in most situations. Similiar to time spent indoors at other locations, there is the chance that you were exposed to repiratory viruses during your time with us (such as flu or COVID-19). If you develop symptoms concerning for a viral respiratory infection, please seek testing (and treatment if indicated) from your medical provider or home test kit. ?? You can view and manage your care through the patient portal or by using a health care lida of your choosing. [employer] is a website that allows you to securely view your medical information including your hospital discharge summary, office visit summaries, medications and follow-up visits. You can also request appointments, renew medications, and request access to your medical information using a health care lida of your choosing, or just ask a question. You can enroll at [email or web address] or register during your next office visit. You have been discharged from [facility], Patient Care Unit: CARE. If you have any questions regarding these instructions after you leave, please call us and we will be happy to assist you. [facility] Your Care Team Attending Physician Adiel RIDLEY, Graham Galvan Discharging Providers Santo Romero DO Reason for Admission LEFT ATRIAL MYXOMA DIAGNOSTIC CATH 6:30AM ARR HV2 Tests Performed Below is a partial list of the tests performed during your hospitalization. You may have had other tests and procedures not included in this list. Please discuss all test results with your provider. BUN CBC Creatinine Lytes Type and Screen Primary Care Provider Rima Dubose MD Advance Directive Health Care Proxy on File No Discharge Vitals Temperature: 97.1 DegF Height: 168 cm Pulse Rate: 64 bpm Weight: 62.3 kg Respiratory Rate:??13 br/min??Low Body Mass Index: 22.07 kg/m2 Systolic Blood Pressure:??150 mm Hg??High Body surface area: 1.71 Diastolic Blood Pressure: 69 mm Hg ?? Oxygen Saturation: 98 % ?? Studies Pending All tests and labs ordered during this hospital stay have been completed unless listed below. Please discuss all pending results with your provider listed above in these instructions. ?? No incomplete studies found What to do next Instructions From Your Doctor Discharge Orders Instructions from your Care Team if you have questions or concerns after discharge, you can call the CARE unit at [phone] Scheduled Follow-Up Appointments Wednesday 10:30 AM EDT ?? Where: [facility] [address] [address]- Status: Pending You Need to Schedule the Following Appointments Follow Up with??Bernardo Torres MD When:??Within 1 to 2 weeks Where: [facility] [place] [address]- Discharge Medications ROBERT ABEL :1960 Visit Date:02/03/2023 Medications: Please continue your medications until treatment is completed or stopped by your provider. Medications not listed below should be discontinued. Discuss any questions related to medications with your provider. What How Much When Instructions Next Dose Unchanged Aspirin (aspirin 81 mg oral tablet, chewable) 1 tab(s) Oral Daily continue taking as prescribed Unchanged Atorvastatin (atorvastatin 40 mg oral tablet) 2 tab(s) Oral Daily at Bedtime continue taking as prescribed Unchanged Cyanocobalamin (Vitamin B-12 1000 mcg oral tablet) 0.5 tab(s) Oral Daily continue taking as prescribed Unchanged Gabapentin (gabapentin 300 mg oral capsule) 3 capsule Oral 3 times a day continue taking as prescribed Unchanged Lansoprazole (lansoprazole 30 mg oral tablet, disintegrating) 30 Milligram Oral Daily continue taking as prescribed Unchanged Lidocaine Topical (lidocaine 5% topical film) Topically Daily continue taking as prescribed Test Results Below is a partial list of the most recent Laboratory test results done prior to this discharge. You may have had other tests and procedures not included in this list. Please discuss all test resultswith your provider. Est Creatinine Clearance - 69.51 mL/min (02/03/2023) BUN (02/03/2023) ???BUN - 13 mg/dL CBC (02/03/2023) ???WBC - 7.0 k/mm3???RBC - 4.17 m/mm3???Hgb - 12.0 Gm/dL???Hct - 39.9 %???MCV - 95.7 femtoliters???MCH - 28.8 pg???MCHC - 30.1 g/dL???Platelet Count - 274 k/mm3???RDW-SD - 46.3 femtoliters???MPV - 10.1 femtoliters???Nucleated RBC (Automated) - 0.0 #/100 WBC'S???Abs. NRBC - 0.0 k/mm3 Creatinine (02/03/2023) ???Creatinine-Blood - 0.8 mg/dL???Estimated GFR Creatinine - 86 ML/MIN/1.73 M2 Lytes (02/03/2023) ???Sodium - 144 mmol/L???Potassium - HEMOLYZED???Chloride - 108 mmol/L???Bicarbonate Level - 26 mmol/L???Anion Gap - 10 Type and Screen (02/03/2023) ???Blood Type - B Positive???Antibody Screen - Negative Allergies (NKA means No Known Allergies) NKA Problems Active Problems??(6) Anxiety?? Fatty liver?? HTN (hypertension)?? Hyperlipidemia?? Obesity?? Tremor?? Education Materials Below is the list of Educational Leaflet Providered with your Discharge Instructions. Discharge Instructions for Cardiac Catheterization?? Recovery After Procedural Sedation (Adult)?? M-Groin I Discharge Instructions?? Bleeding or Hematoma After Cardiac Catheterization?? Valuables and Belongings I fully understand and agree that [facility] accepts no responsibility for all my personal property including clothing, toilet articles, radios, jewelry, dentures, hearing aids, rings, money, or any other property that is in my possession or is brought to me after admission. I understand certain valuables may be placed in a hospital safe for a short period of time. I understand that the hospital is not liable for loss or damage due to accident, fire, or other natural occurrence while said property is in the safe. I accept full responsibility for any personal property that I keep with me, and will not hold the hospital responsible in case of loss or disappearance. I acknowledge that i have been encouraged to send valuables and belongings home. ?? Review of Valuable and Belonging List: With patient Date for Pt to Sign Valuables/Belongings: 02/03/23 08:04:00 ?? Valuables & Belongings ?? Clothes Electronic devices Jewelry Monetary Items Personal devices Miscellaneous Medications (Valuables) Valuables at Bedside Pants, Shirt, Shoes, Undergarments ? Glasses ? Valuables Sent Home ? Valuables Sent to Security ? Other Discharge Information ? Pulmonary Rehab Status?? Pulmonary Rehab Discharge Status?? Respiratory Rate:??13 br/min??Low ? Common Emergency Awareness Tips IS IT A STROKE? Act FAST and Check for these signs: FACE Does the face look uneven? ARM Does one arm drift down? SPEECH Does their speech sound strange? TIME Call at any sign of stroke ?? Heart Attack Signs Chest discomfort: Most heart attacks involve discomfort in the center of the chest and lasts more than a few minutes, or goes away and comes back. It can feel like uncomfortable pressure, squeezing, fullness or pain. Discomfort in upper body: Symptoms can include pain or discomfort in one or both arms, back, neck, jaw or stomach. Shortness of breath: With or without discomfort. Other signs: Breaking out in a cold sweat, nausea, or lightheaded. Remember, MINUTES DO MATTER. If you experience any of these heart attack warning signs, call to get immediate medical attention! ?? Smoking can increase your chances of developing chronic health problems and can cause harmful effects to other family members in your house. If you smoke, you are strongly encouraged to quit. Please call [facility] [employer] at [phone] or [phone] ([phone]) or log in to [email or web address] for referrals to smoking cessation programs. ?? 829 Suicide & Crisis Lifeline is available 21/12 if you or someone you know needs to find a reason to keep living. By calling 850 you'll be connected to a skilled, trained counselor at a crisis center in your area. INPATIENT DISCHARGE INSTRUCTIONS SIGNATURE PAGE ROBERT ABEL Location:[facility] Registration Date and Time:02/03/2023 06:50 EDT Primary Care Physician: Gracy RIDLEY, Rima Fontenot, Attending Physician: Adiel RIDLEY, Graham Galvan, I ROBERT ABEL, have received the above patient education materials/instructions and have verbalized understanding. If ambulance or transport services are being used I further acknowledge being given a choice of service. ?? If you need to contact me, please call me at this number: . Patient/Embedded Systems Software Developer Name: Patient/Embedded Systems Software Developer Signature: Relationship to Patient: Witness Name/Signature: Date: * Precious Brush: PERFORM Event Display: Patient Education Leaflets Authored Date: [id number] Discharge Instructions for Cardiac Catheterization ?? [address] Discharge Instructions for Cardiac Catheterization Cardiac catheterization??is an invasive??procedure??to look for certain heart problems. These problems may affect the heart's chambers, valves, and blood vessels. A thin, flexible tube (catheter) is put in a blood vessel in your groin or arm. The catheter is moved to the heart. The healthcare provider can look at the blood flow, blood pressure, and oxygen. They can inject contrast fluid??into your blood. This flows to your heart.??The provider can then take X-rays pictures?? of your heart. Coronary angiography is often done as part of a cardiac cath. This looks for blocked areas in the arteries that send blood to the heart. If a blockage is found, your provider may try to open up the artery. They may put a stent in place. Your provider will talk with you about the results of your procedure . Ask any questions you have before you leave. This sheet will help you take care of yourselfat home. Home care ??? Have a responsible adult drive you home after your procedure. ??? Don't drive or makeany important decisions for at least 24 hours after getting any type of sedation or anesthesia.? Drink?? 6 to 8??glasses of water over the next 24 hours. This is to help flush the contrast dye out of your body. Call your healthcare team if your urine has any change in color. ??? Take your tempe rature each day for 3 to 5 days. If you feel cold and clammy or start sweating, take your temperature right away. Call your healthcare team. ??? Do only light and easy activities for??the next?? 2 to3??days. Ask for help with chores and errands while you recover. Have someone drive you to your appointments. ??? Don't lift anything heavy??until your healthcare team says it's safe. ??? Ask your healthcare team when you can expect to return to work. Unless your job involves lifting, you may be able to return to your normal activities within 2 days. ??? Take your medicines as directed. Don't skip doses. ??? Check your incisions every day for signs of infection. These include redness, swelling,and fluid leaking. It's normal to have a small bruise or bump where the catheter was put in. A bruise that's getting larger is not normal. Tell your healthcare team about this. Call your healthcare team if you see blood forming in the incision. Go to the emergency room if you have uncontrolled bleeding from the artery site. This is even more important if you take medicines that make it hard for your blood to clot. These include aspirin, clopidogrel, warfarin, apixaban, and rivaroxaban. ??? Eat a healthy diet. Make sure it's low in fat, salt, and cholesterol. Ask your healthcare team for diet information. ??? Stop smoking. Sign up for a quit-smoking program. Or ask your healthcare team for help. ??? Exercise as your healthcare team tells you to. Your healthcare team??may advise you to start a cardiac rehab program. Cardiac rehab is an exercise program where trained healthcare staff watchyour progress and stress on your heart while you exercise. Ask your team how to enroll. ??? Don't swim or take baths until your healthcare team says it???s OK. You can shower the day after the procedure. Keep the site clean and dry. This keeps the incision from getting wet and infected until the skin and artery can heal. ??? Follow all other after-care instructions from your team.? Follow-up care ??? Make a follow-up appointment as advised. It's common to have a follow-up appointment 2 to 4 weeks after an angioplasty or coronary stent procedure. ??? Make a yearly appointment. This is??to make sure you're still doing well and not having any new symptoms. ??? Don't wait for a follow-up appointment if your medicines aren't working or you're having heart-related symptoms. Call your healthcare provider. ?? When to get medical care Call your healthcare provider right away if you have any of these: ??? Severe or increasing pain, numbness, coldness, or a bluish color in the leg or arm that held the catheter ??? Fever of 100.4?? F??( 38??C) or higher, or as advised by your healthcare provider ??? Signs of infection at the incision site. These include redness, swelling, drainage, or warmth. ??? Bleeding, bruising, or a lot of??swelling where the catheter was inserted ??? Blood in your urine ??? Black or tarry stools ??? Any unusual bleeding ??? Irregular, very slow, or fast heartbeat ??? Dizziness ?? Call 911 Call 911 if you have any of these: ??? Chest pain ??? Shortness of breath ??? Sudden numbness or weakness in arms, legs, or face, or trouble speaking ??? The puncture site swells up very fast ??? Bleeding from the puncture site that doesn't slow down with firm pressure ?? Last Reviewed Date: 2021 ?? 6928-2123 [employer]. All rights reserved. This information is not intended as a substitute for professional medical care. Always follow your healthcare professional's instructions. ?? * Precious Brush: PERFORM Event Display: Patient Education Leaflets Authored Date: [id number] Recovery After Procedural Sedation (Adult) ?? [id number] Recovery After Procedural Sedation (Adult) You have been given medicine by vein to make you sleep during your procedure. This may have included both a pain medicine and sleeping medicine. Most of the effects have worn off. But you may still have some drowsiness for the next 6 to 8 hours. Home care Follow these guidelines when you get home: ??? For the next 8 hours, you should be watched by a responsible adult. This person should make sure your condition is not getting worse. ??? Don't drink any alcohol??for the next 24 hours. ??? Don'tdrive, operate dangerous machinery, or make important business or personal decisions??during the next 24 hours. Note: Your healthcare provider may tell you not to take any medicine by mouth for pain or sleep in the next 4 hours. These medicines may react with the medicines you were given in the hospital. This could cause a much stronger response than usual. ?? Follow-up care Follow up with your healthcare provider as advised. Also follow up with your provider if you are not alert and back to your usual level of activity within 12 hours. ?? When to seek medical advice Have someone call your healthcare provider right away if any of these occur: ??? Drowsiness gets worse ??? Weakness or dizziness gets worse ??? Repeated vomiting ??? Severe or ongoing pain from the procedure that's not eased by the pain medicine (if prescribed) ??? Fever ??? New rash ?? Call 911 Have someone call 911 if you have any of these: ??? Shortness of breath ??? Chest pain ??? Loss of consciousness or you can't be awakened ?? Last Reviewed Date: 2021 ?? [id number] [employer]. All rights reserved. This information is not intended as a substitute for professional medical care. Always follow your healthcare professional's instructions. ?? * Precious Brush: PERFORM Event Display: Patient Education Leaflets Authored Date: [id number] M-Groin I Discharge Instructions ?? 179 Groin Discharge Instructions No heavy lifting over 10 pounds (for example: gallon of milk) 1 week following the procedure; gradually increase normal activity over the next 5 days. Avoid straining/pushing when moving bowels You may feel like resting more after your procedure. Slowly start to do more each day. Rest when you feel it is needed. Make sure to look at your procedure site every day until it is completely healed. You may see bruising at the puncture site and that is common after the procedure. You may shower the day after your procedure. Remove the band aid before showering. Wash the area gently with soap and water. Leave open to air. Do not take tub baths, hot tubs, soaking of the puncture site or swimming for 1 week. Do not put any creams, powders or lotions on your puncture site You may resume sexual activity the day after your procedure; avoid bending the hip on ?? the side of the groin puncture excessively and any strenuous positions for 1 week. Call your doctor if your procedure site develops any of the following: ??? New onset severe pain ??? New onset lump or swelling ??? Bleeding that does not stop with lightpressure ? Patient Care team information Care Team Personnel Name: Rima Dubose MD Position: [facility] Outreach Member Role: PCP Address: Address: [address] [place] [id number]- Name: Brandt Zhao RN Position: S RN Member Role: Primary Care Nurse Name: Jennifer Gill RN Position: S RN Member Role: Primary Care Nurse Name: Maira Batista RN Position: S RN Member Role: Primary Care Nurse Name: Kadi Noonan RN Position: [facility] SN RN Member Role: Primary Care Nurse Name: Kwasi Brady RN Position: [facility] RN Member Role: Primary Care Nurse Name: Fariba Vora Position: S RN Member Role: Primary Care Nurse Name: Chapis Plunkett RN Position: [facility] RN Member Role: Primary Care Nurse Name: Tricia Liang RN Position: [facility] RN Member Role: Primary Care Nurse Name: Adry Giang RN Position: S RN Member Role: Primary Care Nurse Name: Jeanmarie Muhammad RN Position: [facility] RN Member Role: Primary Care Nurse Name: Ruddy Machuca RN Position: [facility] RN Member Role: Primary Care Nurse Care Team Related Persons Name: GERARDO BOWIE Address: home [address] [address]
--- OUTSIDE RECORDS SUMMARY | 2023-03-03 16:20 | XMS_ITS | Continuity of Care Document ---
Author Name Unknown Organization [facility] Address [address] [address], [address] Floor, [address] [place] [id number]- Care Team Providers Care Corporate Affairs Manager Name Role Phone Gracy RIDLEY, Rima Fontenot Primary Care Physician Encounter [facility] R [id number] Date(s): 10/21/22 - 11/20/22 [facility] [address], [address], [address] [place] [id number] Attending Physician: Julia Pace Admitting Physician: AdmtrJulia Referring Physician: Admtr, Ar8 Allergies, Adverse Reactions, [...] influenza virus vaccine, inactivated 02/27/11 Yusef rded [id number] 12y+ bivalent booster vax 05/06/22 Recorded SARS-CoV-2 [...] last 30 days entered on: 09/02/22 Sex Radiology * Event Display: MRI Head, Non- BH Authored Date: Patient Care team information Care Team Personnel Name: Rima Dubose MD Position: [facility] Outreach Member Role: PCP Address: Address: [address] [place] [id number] Name: Brandt Zhao RN Position: [facility] RN Member Role: Primary Care Nurse Name: Jennifer Gill RN Position: [facility] RN Member Role: Primary Care Nurse Name: Yanni Coffman RN Position: [facility] RN Member Role: Primary Care Nurse Name: Amelia Negro RN Position: [facility] RN Member Role: Primary Care Nurse Name: Maira Batista RN Position: [facility] RN Member Role: Primary Care Nurse Name: Kadi Noonan RN Position: [facility] SN RN Member Role: Primary Care Nurse Name: Kwasi Brady RN Position: [facility] RN Member Role: Primary Care Nurse Name: Trista Tavera RN Position: [facility] RN Member Role: Primary Care Nurse Name: Fariba Vora Position: [facility] RN Member Role: Primary Care Nurse Name: Chapis Plunkett RN Position: [facility] RN Member Role: Primary Care Nurse Name: Tricia Liang RN Position: [facility] RN Member Role: Primary Care Nurse Name: Adry Giang RN Position: [facility] ED RN W/OE and Tasks Member Role: Primary Care Nurse Name: Jeanmarie Muhammad RN Position: [facility] RN Member Role: Primary Care Nurse Name: Ruddy Machuca RN Position: [facility] RN Member Role: Primary Care Nurse Care Team Related Persons Name: GERARDO BOWIE Address: home [address] [address]
--- OUTSIDE RECORDS SUMMARY | 2023-03-03 16:20 | XMS_ITS | Continuity of Care Document ---
Author Name Unknown Organization [facility] Address [address] [place] [address]- Care Team Providers Care Supervisor [employer] Name Role Phone Gracy RIDLEY, Rima Fontenot Primary Care Physician Encounter [facility] Date(s): 10/08/22 - 11/07/22 [facility] [address] [place] [id number]- Allergies, Adverse Reactions, Alerts No Known Allergies [...] influenza virus vaccine, inactivated 02/27/11 Yusef rded [id number] 12y+ bivalent booster vax 05/06/22 Recorded SARS-CoV-2 [...] Team Personnel Name: Rima Dubose MD Position: [facility] Outreach Member Role: PCP Address: Address: [address] [place] [phone]- Name: Brandt Zhao RN Position: S RN Member Role: Primary Care Nurse Name: Jennifer Gill RN Position: S RN Member Role: Primary Care Nurse Name: Yanni Coffman RN Position: [facility] RN Member Role: Primary Care Nurse Name: Amelia Negro RN Position: [facility] RN Member Role: Primary Care Nurse Name: Maira Batista RN Position: [facility] RN Member Role: Primary Care Nurse Name: Kadi Noonan RN Position: [facility] SN RN Member Role: Primary Care Nurse Name: Kwasi Brady RN Position: [facility] RN Member Role: Primary Care Nurse Name: Trista Tavera RN Position: [facility] RN Member Role: Primary Care Nurse Name: Fariba Vora Position: [facility] RN Member Role: Primary Care Nurse Name: Chapis Plunkett RN Position: [facility] RN Member Role: Primary Care Nurse Name: Tricia Liang RN Position: [facility] RN Member Role: Primary Care Nurse Name: Adry Giang RN Position: [facility] ED RN W/OE and Tasks Member Role: Primary Care Nurse Name: Jeanmarie Muhammad RN Position: [facility] RN Member Role: Primary Care Nurse Name: Ruddy Machuca RN Position: [facility] RN Member Role: Primary Care Nurse Care Team Related Persons Name: GERARDO BOWIE Address: home [address] [address]
--- OUTSIDE RECORDS SUMMARY | 2023-03-03 16:20 | XMS_ITS | Continuity of Care Document ---
Author Name Unknown Organization [facility] ter Address [address] [place] [address]- Care Team Providers Care Incident Response Specialist Name Role Phone Gracy RIDLEY, [facility] Primary Care Physician [phone] Encounter [facility] Date(s): 12/23/22 - 12/23/[address] [address]- Attending Physician: Bernardo Torres MD Allergies, Adverse Reactions, [...] influenza virus vaccine, inactivated 02/27/11 Yusef rded [id number] 12y+ bivalent booster vax 05/06/22 Recorded SARS-CoV-2 [...] Team Personnel Name: Rima Dubose MD Position: [facility] Outreach Member Role: PCP Address: Address: [address] [place] [address]- Name: Brandt Zhao RN Position: S RN Member Role: Primary Care Nurse Name: Jennifer Gill RN Position: [facility] RN Member Role: Primary Care Nurse Name: Yanni Coffman RN Position: [facility] RN Member Role: Primary Care Nurse Name: Amelia Negro RN Position: S RN Member Role: Primary Care Nurse Name: Maira Batista RN Position: [facility] RN Member Role: Primary Care Nurse Name: Kadi Noonan RN Position: [facility] SN RN Member Role: Primary Care Nurse Name: Kwasi Brady RN Position: [facility] RN Member Role: Primary Care Nurse Name: Trista Tavera RN Position: [facility] RN Member Role: Primary Care Nurse Name: Fariba Vora Position: [facility] RN Member Role: Primary Care Nurse Name: Chapis Plunkett RN Position: S RN Member Role: Primary Care Nurse Name: Tricia Liang RN Position: [facility] RN Member Role: Primary Care Nurse Name: Adry Giang RN Position: [facility] RN Member Role: Primary Care Nurse Name: Jeanmarie Muhammda RN Position: [facility] RN Member Role: Primary Care Nurse Name: Ruddy Machuca RN Position: [facility] RN Member Role: Primary Care Nurse Care Team Related Persons Name: GERARDO BOWIE Address: home [address] [address]
--- OUTSIDE RECORDS SUMMARY | 2023-03-03 16:20 | XMS_ITS | Continuity of Care Document ---
Author Name Unknown Organization [facility] ter Address [address] [place] [id number] Care Team Providers Care Pier Master Name Role Phone Gracy RIDLEY, Rima Fontenot Primary Care Physician Encounter [facility] Date(s): 09/02/22 - 10/02/[address] [id number] Discharge Disposition: Transferred to short-term general hospit Attending Physician: Haydee Rhodes MD Admitting Physician: Tomy Smith MD Referring Physician: Not on Staff, Referring MD Allergies, Adverse Reactions, Alerts No Known [...] influenza virus vaccine, inactivated 02/27/11 Yusef rded [id number] 12y+ bivalent booster vax 05/06/22 Recorded SARS-CoV-2 [...] Recorded tetanus-diphtheria toxoids (Td) 05/09/99 Recorded Medications amantadine 50 mg/5 mL oral syrup 10 mL = 100 mg, By Mouth, Every 24 hours, 0 Refills, Maintenance, 10/01/22 12:37:00 EDT, Syrup, Partial fill upon patient request if the prescription is for a schedule II opioid drug. Start Date: 10/01/22 Status: Ordered amLODIPine 10 mg oral tablet 10 mg, 1, tablet, By Mouth, Daily, Refills 0, Maintenance, 10/01/22 12:44:00 EDT, Partial fill uponpatient request if the prescription is for a schedule II opioid drug. Start Date: 10/01/22 Status: Ordered aspirin 81 mg oral tablet, chewable 81 [...] opioid drug. Start Date: 10/01/22 Status: Ordered duloxetine 60 mg oral enteric coated capsule 1 capsule = 60 mg, By Mouth, Daily, # 30 capsule, 0 Refills, Maintenance, 09/02/22 22:51:00 EDT, ECCapsule, Partial fill upon patient request if the prescription is for a schedule II opioid drug. Start Date: 09/02/22 Status: Ordered gabapentin 300 mg oral capsule 900 mg, 3, capsule, By Mouth, 3 times a day, Refills 0, Maintenance, 10/01/22 12:50:00 EDT, Partialfill upon patient request if the prescription is for a schedule II opioid drug. Start Date: 10/01/22 Status: Ordered gabapentin 300 mg oral capsule 900 mg, Capsule, By Mouth, 10/02/22 9:00:00 EDT Start Date: 10/02/22 Stop Date: 10/02/22 Status: Completed lansoprazole 30 mg oral tablet, disintegrating = [...] opioid drug. Start Date: 10/01/22 Status: Ordered nystatin 665496 u/ml oral suspension 4 mL = 400,000 units, Swish and Swallow, 4 times a day, 0 Refills, Maintenance, 10/01/22 12:37:00 EDT, Suspension, Partial fill upon patient request if the prescription is for a schedule II opioid drug. Start Date: 10/01/22 Status: Ordered oxyCODONE 10 mg oral tablet 1 tablet = 10 mg, By Mouth, Every 6 hours, PRN Pain , Severe, # 12 tablet, 0 Refills, Acute 11/01/22 23:00:00 EDT, 10/01/22 12:21:00 EDT, Tablet, Partial fill upon patient request if the prescriptionis for a schedule II opioid drug. Start Date: 10/01/22 Stop Date: 11/01/22 Status: Ordered Senna 8.6 mg oral tablet 17.2 mg, 2, tablet, By Mouth, Daily, Refills 0, Maintenance, 10/01/22 12:37:00 EDT, Tablet, Partialfill upon patient request if the prescription is for a schedule II opioid drug. Start Date: 10/01/22 Status: Ordered Splint See Instructions, # 1 each, Maintenance, Right wrist splint for carpal tunnel syndrome, wear duringsleep., 07/23/17 13:13:21, Compound Start Date: 07/23/17 Status: Ordered Tylenol 325 mg oral tablet 650 mg, 2, tablet, By Mouth, Every 6 hours, PRN, Refills 0, Maintenance, Pain , Mild, 10/01/22 12:37:00 EDT, Partial fill upon patient request if the prescription is for a schedule II opioid drug. Start Date: 10/01/22 Status: Ordered Vitamin B-12 1000 mcg oral [...] Fatty liver Confirmed Active Tremor Confirmed Active Results Orders for Microbiology Reports Name Date Urine Culture (URINE CULTURE) 09/13/22 Blood Culture #2 09/03/22 Blood Culture 09/03/22 Microbiology Reports TEST:Urine Culture STATUS:Auth (Verified) BODY SITE: SOURCE:URINE COLLECTED DATE/TIME:09/13/22 6:41 PM Urine Culture SPECIMEN DESCRIPTION : URINE SPECIAL REQUESTS : NONE Reflexed from [id number] CULTURE : >100,000 COL/ML ESCHERICHIA COLI This isolate was identified using Maldi-TOF system These AST results were performed on the Microscan ID and AST system 50-100,000 COL/ML KLEBSIELLA PNEUMONIAE This isolate was identified using Maldi-TOF system These AST results were performed on the Microscan ID and AST system REPORT STATUS : FINAL 09/16/2022 ORGANISM >100,000 COL/ML ESCHERICHIA COLI This isolate was identified using Maldi-TOF system These AST results were performed on the Microscan ID and AST system METHOD MIN. INHIB. CONC. (MCG/ML) AMPICILLIN SUSCEPTIBLE AMPICILLIN/SULBACTAM SUSCEPTIBLE AMOXICILLIN/CLAVULAN SUSCEPTIBLE CEFAZOLIN SUSCEPTIBLE CEFEPIME SUSCEPTIBLE CEFTRIAXONE SUSCEPTIBLE CIPROFLOXACIN SUSCEPTIBLE ERTAPENEM SUSCEPTIBLE GENTAMICIN SUSCEPTIBLE LEVOFLOXACIN SUSCEPTIBLE MEROPENEM SUSCEPTIBLE NITROFURANTOIN SUSCEPTIBLE PIPERACILLIN/TAZOBAC SUSCEPTIBLE TRIMETH/SULFAMETHOX SUSCEPTIBLE TETRACYCLINE SUSCEPTIBLE ORGANISM 50-100,000 COL/ML KLEBSIELLA PNEUMONIAE This isolate was identified using Maldi-TOF system These AST results were performed on the Microscan ID and AST system METHOD MIN. INHIB. CONC. (MCG/ML) AMPICILLIN RESISTANT AMPICILLIN/SULBACTAM SUSCEPTIBLE AMOXICILLIN/CLAVULAN SUSCEPTIBLE CEFAZOLIN SUSCEPTIBLE CEFEPIME SUSCEPTIBLE CEFTRIAXONE SUSCEPTIBLE CIPROFLOXACIN SUSCEPTIBLE ERTAPENEM SUSCEPTIBLE GENTAMICIN SUSCEPTIBLE LEVOFLOXACIN SUSCEPTIBLE MEROPENEM SUSCEPTIBLE NITROFURANTOIN INTERMEDIATE PIPERACILLIN/TAZOBAC SUSCEPTIBLE TRIMETH/SULFAMETHOX SUSCEPTIBLE TETRACYCLINE SUSCEPTIBLE TEST:Blood Culture, Second Order STATUS:Auth (Verified) BODY SITE: SOURCE:Blood COLLECTED DATE/TIME:09/03/22 12:00 PM Blood Culture, Second Order SPECIMEN DESCRIPTION : BLOOD R HAND SPECIAL REQUESTS : NONE CULTURE : NO GROWTH 5 DAYS. REPORT STATUS : FINAL 09/08/2022 TEST:Blood Culture STATUS:Auth (Verified) BODY SITE: SOURCE:Blood COLLECTED DATE/TIME:09/03/22 11:45 AM Blood Culture SPECIMEN DESCRIPTION : BLOOD R HAND SPECIAL REQUESTS : NONE CULTURE : NO GROWTH 5 DAYS. REPORT STATUS : FINAL 09/08/2022 Radiology Reports (Most Recent Ten) * Exam Date Time Procedure Performing Provider Status 09/28/22 11:30 AM Modified Barium Swal low W/ Speech (Radio Maikel , Paloma; Auth (Verified) Notes: (Modified Barium Swallow W/ Speech (Radio) Reason For Exam: Aspiration RESULT: Modified Barium Swallow W/ Speech (Radio Modified Barium Swallow WITH SPEECH PATHOLOGY CLINICAL INDICATION: Reason: Aspiration; Clinical Question(s): Aspiration; Order Comment: Modified Barium Swallow W Speech (Radiology) Prep COMPARISON: None Technique: Lateral cine-videofluoroscopy was performed during the oral administration of various barium containing consistencies, as described below. Fluoroscopic imaging provided by Jw Chang PA-C. Pulsed fluoroscopy time: 1.9 minutes Dose Area Product (DAP): 116.9 uGy*m2 Findings: Applesauce , pudding, nectar, mixed fruit/juice, and thin barium consistencies were tested. Deep laryngeal penetration was seen inconsistently with thin and nectar consistencies. The oral and pharyngeal phases of swallowing were otherwise without evidence of laryngeal penetration or subglottic aspiration. IMPRESSION: Laryngeal penetration as described. For dietary concerns or recommendations, please refer to speech pathologist report. By undersigning and finalizing the report, the attending radiologist confirms he/she has personallyreviewed and interpreted the images and agrees with the description of the findings. I have personally reviewed the images and I agree with this report. WSN: [id number] Ordering Physician: Wood Bolden Dictated By: Juan Francisco Jones Dictated Date/Time: 09/28/22 2:32 pm Reviewed By: Michael Kimble MD, V Signed By: Michael Kimble MD, V Signed Date/Time: 09/28/22 2:37 pm Transcribed By: HARPAL Transcribed Date/Time: 09/28/22 11:17 am * Exam Date Time Procedure Performing Provider Status 09/23/22 7:[address] Head/Brain W/O Contrast MattRamses burgos; Suzanna (Verified) Notes: (CT Head/Brain W/O Contrast) Reason For Exam: Hemiparesis RESULT: CT Head/Brain W/O Contrast CT Head/Brain W/O Contrast INDICATION: Hemiparesis, follow-up hematoma TECHNIQUE: Noncontrast head CT using axial technique and reconstructed in axial and coronal planes.Iterative reconstruction techniques are used to optimize dose and image quality. CTDIvol Head: 51.92 mGy, DLP Head: 831 mGy*cm. COMPARISON: 09/06/2022 FINDINGS: Manager Emergency Department view findings, lines and tubes: None. BRAIN AND EXTRA-AXIAL SPACES: Slightly improved mass effect of the left MCA infarct. There is residual 2 mm midline shift centered on the caudate nucleus. Central hemorrhagic component has resolved. No new hemorrhage or infarct. Slightly high density cortex of the left MCA distribution surrounding the prior infarct is probablysecondary to laminar necrosis. No intraventricular hemorrhage or obstruction. No subarachnoid hemorrhage. No subdural or epidural collection. CALVARIUM, SKULL BASE, AND SOFT TISSUES: No fractures or suspicious bony lesions. The paranasal sinuses and mastoid air cells are clear. Visualized orbits and globes are intact. The extracranial soft tissues are unremarkable. IMPRESSION: Persistent but improved swelling of the left MCA infarct but the central hemorrhagic component has resolved. No new infarct. WSN: [id number] Ordering Physician: Mary Mae Dictated By: Lionel Brice MD Dictated Date/Time: 09/23/22 12:31 p Reviewed By: Lionel Brice MD Signed By: Lionel Brice MD Signed Date/Time: 09/23/22 12:31 pm Transcribed By: HARPAL Transcribed Date/Time: 09/23/22 12:25 pm * Exam Date Time Procedure Performing Provider Status 09/15/22 9:38 AM Modified Barium Swal low W/ Speech (Radio DVicki Otoole; Auth (Verified) Notes: (Modified Barium Swallow W/ Speech (Radio) Reason For Exam: Dysphagia;Dysphagia RESULT: Modified Barium Swallow W/ Speech (Radio Modified Barium Swallow W/ Speech (Radio WITH SPEECH PATHOLOGY CLINICAL INDICATION: Reason: Dysphagia; Clinical Question(s): Aspiration COMPARISON: None Technique: Lateral cine-videofluoroscopy was performed during the oral administration of various barium containing consistencies, as described below. Fluoroscopic imaging provided by Dr. Tee. Pulsed fluoroscopy time: 4 minutes Dose Area Product (DAP): 196.8 uGy*m2 Findings: Honey, applesauce, pudding, nectar, and thin barium consistencies were tested. Honey: Flash laryngeal penetration. Applesauce: Delayed swallow without evidence of laryngeal penetration or subglottic aspiration. Pudding: Delayed swallow without evidence of laryngeal penetration or subglottic aspiration. [place]: Flash laryngeal penetration. Thin barium: Deep laryngeal penetration with delayed cough reflex. IMPRESSION: Deep laryngeal penetration with thin liquid consistency. Flash laryngeal penetration with honey and nectar consistencies. No evidence of subglottic aspiration. Additional findings as described. For dietary concerns or recommendations, please refer to speech pathologist report. By undersigning and finalizing the report, the attending radiologist confirms he/she has personallyreviewed and interpreted the images and agrees with the description of the findings. I have personally reviewed the images and I agree with this report. WSN: [id number] Ordering Physician: Haydee Rhodes Dictated By: Mee Tee MD Dictated Date/Time: 09/15/22 12:25 p Reviewed By: Michael Kimble MD, V Signed By: Michael Kimble MD, V Signed Date/Time: 09/15/22 12:30 pm Transcribed By: HARPAL Transcribed Date/Time: 09/15/22 11:49 am * Exam Date Time Procedure Performing Provider Status 09/12/22 2:12 AM Chest Portable Sherrie Graham; Suzanna ( Verified) Notes: (Chest Portable) Reason For Exam: Tube Placement RESULT: Chest Portable Chest Portable Reason: Tube Placement; Clinical Question(s): Tube Placement; Special Instructions: ng tube COMPARISON: 09/11/2022 FINDINGS: LINES AND TUBES: Enteric tube appears in good position. LUNGS AND PLEURA: Patchy density at the lung bases similar to previous exam. No pleural effusion. No pneumothorax. HEART, MEDIASTINUM AND [place]: Heart is normal in size. Normal mediastinal and hilar contour. BONES AND SOFT TISSUES: No acute abnormality. IMPRESSION: Stable patchy density at the lung bases may represent atelectasis or pneumonia/aspiration. Enteric tube in good position. WSN: [id number] Ordering Physician: Kaelyn Colmenares Dictated By: Jarek Reyes MD Dictated Date/Time: 09/12/22 8:54 am Reviewed By: Jarek Reeys MD Signed By: Jarek Reyes MD Signed Date/Time: 09/12/22 8:54 am Transcribed By: HARPAL Transcribed Date/Time: 09/12/22 8:53 am * Exam Date Time Procedure Performing Provider Status 09/12/22 3:05 AM Chest Portable Aggie Parada; Auth (Verified) Notes: (Chest Portable) Reason For Exam: Tube Placement RESULT: Chest Portable Chest Portable Reason: Tube Placement; Clinical Question(s): Tube Placement; Special Instructions: ng tube; Order Comment: COMPARISON: 09/12/2022 FINDINGS: LINES AND TUBES: Enteric tube appears in good position. LUNGS AND PLEURA: Right lower lobe hazy opacity appears new compared to previous examination. Possible atelectasis orpneumonia/aspiration. Stable left base opacity. No pleural effusion. No pneumothorax. HEART, MEDIASTINUM AND [place]: Heart is normal in size. Normal mediastinal and hilar contour. BONES AND SOFT TISSUES: No acute abnormality. IMPRESSION: Enteric tube in good position. Nonspecific new density in the right lower lung field. Persistent left lower lung drew density, unchanged. WSN: [id number] Ordering Physician: Kaelyn Colmenares Dictated By: Jarek Reyes MD Dictated Date/Time: 09/12/22 8:38 am Reviewed By: Jarek Reyes MD Signed By: Jarek Reyes MD Signed Date/Time: 09/12/22 8:38 am Transcribed By: HARPAL Transcribed Date/Time: 09/12/22 8:37 am * Exam Date Time Procedure Performing Provider Status 09/11/22 6:35 AM Chest Portable Bella Pimentel; Auth (Verified) Notes: (Chest Portable) Reason For Exam: Tube Placement RESULT: Chest Portable Chest Portable Reason: Tube Placement; Clinical Question(s): Tube Placement; Special Instructions: please confirm NG tube placement / Tube Placement COMPARISON: 09/10/2022 FINDINGS: LINES AND TUBES: Enteric tube tip and side-port project in the stomach. LUNGS AND PLEURA: Hazy opacity at the right lung base, unchanged. No pleural effusion. No pneumothorax. HEART, MEDIASTINUM AND [place]: Unchanged. BONES AND SOFT TISSUES: No acute abnormality. There are surgical clips in the right upper quadrant. IMPRESSION: Enteric tube tip and side-port projecting in the stomach. WSN: [id number] Ordering Physician: Renata Gruber Dictated By: Rio Bruce MD Dictated Date/Time: 09/11/22 10:45 a Reviewed By: Rio Bruce MD Signed By: Rio Bruce MD Signed Date/Time: 09/11/22 10:45 am Transcribed By: HARPAL Transcribed Date/Time: 09/11/22 10:44 am * Exam Date Time Procedure Performing Provider Status 09/10/22 5:49 AM Chest Portable Mccall , Earnest; Auth (Desiree ified) Notes: (Chest Portable) Reason For Exam: Shortness of Breath RESULT: Chest Portable Chest Portable Reason: Shortness of Breath; Clinical Question(s): Pulmonary Edema; Effusion Atelectasis COMPARISON: Multiple priors, most recent chest x-ray 09/08/2022 FINDINGS: LINES AND TUBES: Enteric tube courses down the esophagus with tip terminating off the field of view. LUNGS AND PLEURA: Slight increase in hazy right lower lobe interstitial opacity. Unchanged retrocardiac opacity. Normal pulmonary vascularity. No right pleural effusion. The left costophrenic angle is not included. No pneumothorax. HEART, MEDIASTINUM AND [place]: Mild prominence of the cardiac silhouette, unchanged. Unchanged mediastinal and hilar contour. BONES AND SOFT TISSUES: No acute abnormality. IMPRESSION: Slight increase in the hazy right lower lobe interstitial opacity, which could represent atelectasis versus developing infiltrate. Unchanged retrocardiac opacity. I have personally reviewed the images and I agree with this report. WSN: [id number] Ordering Physician: Rahul Young Dictated By: Mee Tee MD Dictated Date/Time: 09/10/22 9:01 am Reviewed By: Eliud Sevilla MD Signed By: Eliud Sevilla MD Signed Date/Time: 09/10/22 9:06 am Transcribed By: HARPAL Transcribed Date/Time: 09/10/22 8:56 am * Exam Date Time Procedure Performing Provider Status 09/08/22 1:35 AM Chest Portable Mikegrayson Sunshine; Auth (Verified) Notes: (Chest Portable) Reason For Exam: Line Placement RESULT: Chest Portable Chest Portable semiupright at 1:09 AM Reason: Line Placement; Clinical Question(s): Line Placement COMPARISON: 09/06/2022 and 09/04/2022 FINDINGS: LINES AND TUBES: Enteric tube in place with the tip in region of the gastroduodenal junction. LUNGS AND PLEURA: Suboptimal inspiration with generalized accentuation of markings, persistent increased density in the left retrocardiac region and right basilar atelectasis, early infiltrate here not excluded here. No appreciable pleural effusion seen on either side. No pneumothorax. HEART, MEDIASTINUM AND [place]: Stable mild cardiac enlargement. Stable mediastinal and hilar contours. BONES AND SOFT TISSUES: No acute abnormality. IMPRESSION: 1. Distal end of enteric tube in region of the gastroduodenal junction. 2. No significant interval change in the appearance of the lungs from examination 2 days ago showing low lung volumes with bibasilar atelectasis, underlying infiltrates not excluded. WSN: [id number] Ordering Physician: Kathy Vines Dictated By: Abdulaziz Squires MD Dictated Date/Time: 09/08/22 8:40 am Reviewed By: Abdulaziz Squires MD Signed By: Abdulaziz Squires MD Signed Date/Time: 09/08/22 8:40 am Transcribed By: HARPAL Transcribed Date/Time: 09/08/22 8:35 am * Exam Date Time Procedure Performing Provider Status 09/06/22 11:32 AM Chest Portable Chen Santana; Auth (Verified) Notes: (Chest Portable) Reason For Exam: hypoxia;Other: RESULT: Chest Portable Examination: Portable chest performed on 09/06/2022 at 11:18 AM. History: Hypoxia. Findings: A frontal view of the chest is compared to a prior study dated 09/04/2022. Enteric tube is within the stomach with the tip directed cranially. There is stable enlargement of the cardiac silhouette. Left retrocardiac opacity and left pleural effusion persist. There is minimal right basilar atelectasis. The osseous structures are intact. Surgical clips the right upper quadrant are seen. IMPRESSION: Stable left pleural effusion and atelectasis. Slightly worsening right basilar atelectasis. WSN: [id number] Ordering Physician: Bernardo Valdes Dictated By: Jennifer Hartman MD Dictated Date/Time: 09/06/22 1:30 pm Reviewed By: Jennifer Hartman MD Signed By: Jennifer Hartman MD Signed Date/Time: 09/06/22 1:30 pm Transcribed By: HARPAL Transcribed Date/Time: 09/06/22 1:28 pm * Exam Date Time Procedure Performing Provider Status 09/06/22 8:[address] Head/Brain W/O Contrast Josh Ruano; Auth (Verified) Notes: (CT Head/Brain W/O Contrast) Reason For Exam: follow up IPH;Other: RESULT: CT Head/Brain W/O Contrast CT Head/Brain W/O Contrast INDICATION: Reason: Other:; follow up IPH; Clinical Question(s): Other: TECHNIQUE: Noncontrast head CT using axial technique and reconstructed in axial and coronal planes.Iterative reconstruction techniques are used to optimize dose and image quality. CTDIvol Head: 46.80 mGy, DLP Head: 774 mGy*cm. COMPARISON: CT head without contrast 09/03/2022. MRI brain 09/04/2022. FINDINGS: Manager Emergency Department view findings, lines and tubes: None. BRAIN AND EXTRA-AXIAL SPACES: Similar appearance of the intraparenchymal hemorrhage involving the left basal ganglia. There is a slightly increased extent of surrounding edema. Multifocal areas of loss of mckenna-white matter differentiation involving the posterior right frontal and parietal lobes (For example 64/202, 73/202 and 56/202) compatible with evolving infarction. High attenuation within an area of infarction involving the right parietal lobe is likely secondary to hemorrhagic transmission 69/, similar to the MRI. Persistent mass effect with unchanged 5 mm midline shift to the right with similar near total effacement of the left lateral ventricle. Trace layering hemorrhage in the occipital horns of the lateralventricles bilaterally is unchanged. Mild prominence of the ventricles and sulci consistent with parenchymal volume loss. No white matter lesions. No subdural or epidural collection. CALVARIUM, SKULL BASE, AND SOFT TISSUES: No fractures or suspicious bony lesions. The paranasal sinuses and mastoid air cells are clear. Visualized orbits and globes are intact. The extracranial soft tissues are unremarkable. IMPRESSION: 1. Evolving acute to subacute infarction in the left MCA vascular territory. Similar hemorrhagic transformation and intraparenchymal hematoma involving the left basal ganglia and posterior parietal lobe. Slightly increased edema surrounding the basal ganglia hemorrhage. No new focus of infarction ap preciated. 2. Similar trace layering hemorrhage in the occipital horns of both lateral ventricles. 3. Unchanged 5 mm midline shift to the right with near complete effacement of the left lateral ventricle. WSN: [id number] Ordering Physician: Bernardo Valdes Dictated By: Jaquan Barillas MD Dictated Date/Time: 09/06/22 9:22 am Reviewed By: Jaquan Barillas MD Signed By: Jaquan Barillas MD Signed Date/Time: 09/06/22 9:22 am Transcribed By: HARPAL Transcribed Date/Time: 09/06/22 9:02 am Vital Signs Most recent to oldest [Reference Range]: 1 2 3 Height 165 cm (10/02/22 1:25 AM) 165 cm (10/01/22 9:12 PM) 165 cm (10/01/22 4:26 AM) Weight 68.4 kg (10/02/22 8:12 AM) 68.9 kg (10/01/22 7:46 AM) 65.7 kg (09/29/22 7:40 AM) Oxygen Saturation [94-100 %] 98 % (10/02/22 11:00 AM) 98 % (10/02/22 7:00 AM) 100 % (10/02/22 5:00 AM) Pulse Rate [55-90 bpm] 66 bpm (10/02/22 11:00 AM) 64 bpm (10/02/22 7:00 AM) 60 bpm (10/02/22 5:00 AM) Body Mass Index [18.5-24.99 kg/m2] 25.12 kg/m2 *H* (09/02/22 10:29 PM) Blood Pressure [90-138/55-84 mm Hg] 108/62mm Hg (10/02/22 11:00 AM) 101/70mm Hg (10/02/22 7:00 AM) 124/60mm Hg (10/02/22 5:00 AM) Respiratory Rate [16-30 br/min] 18 br/min (10/02/22 11:41 AM) 18 br/min (10/02/22 11:00 AM) 18 br/min (10/02/22 7:00 AM) Temperature [96.8-100.4 DegF] 98.7 DegF (10/02/22 11:00 AM) 97.9 DegF (10/02/22 7:00 AM) 98.3 DegF (10/02/22 5:00 AM) Liters per Minute 2 L/min (09/13/22 5:14 AM) 2 L/min (09/12/22 11:37 PM) 2 L/min (09/12/22 8:43 PM) Mode of Delivery (Oxygen) Room air (10/02/22 11:00 AM) Room air (10/02/22 7:00 AM) Room air (10/02/22 5:00 AM) Blood pressure sites Arm, right (10/02/22 11:00 AM) Arm, right (10/02/22 7:00 AM) Arm, right (10/02/22 5:00 AM) Temperature Route Oral (10/02/22 11:00 AM) Oral (10/02/22 7:00 AM) Temporal (10/02/22 5:00 AM) Dry Weight 68.4 kg (09/02/22 10:29 PM) Weight Obtained Via Bed scale (10/02/22 8:12 AM) Bed scale (10/01/22 7:46 AM) Standing scale (09/29/22 7:40 AM) Dry Weight Obtained Via Bed scale (09/02/22 10:29 PM) Social History Social History Type Response Smoking Status 5-9 cigarettes (betw een 1/4 to 1/2 pack)/day in last 30 days entered on: 09/02/22 Sex Note * Sandy Nelson RN: PERFORM Event Display: Discharge/Transfer Note Hospital Authored Date: [id number] Nursing Discharge Note Entered On: 10/02/2022 18:41 EDT Performed On: 10/02/2022 13:00 EDT by Sandy Nelson RN Nursing Discharge Note 2 Discharge Time : 10/02/2022 13:15 EDT Discharge Level of Care at Discharge : Short-term Acute Inpatient Discharge Nursing Homes/Rehab Facilities : [facility] Patient Left Unit Via : Ambulance Patient Accompanied Off Unit with : Ambulance/Chair Van Personnel Handover Given to Transport Personnel : Yes DC Instructions Provided & Signed by Pt : Yes Patient Understands D/C Instructions : Yes Patient Instructions Discharge Signed : No Discharge Comments : IV removed cannula intact (powerglide) Did Pt have Specialty Bed or Wound Vac : No Sandy Nelson RN - 10/02/2022 18:40 EDT * Do WORLD LANGUAGE TEACHER, Renetta T: PERFORM, MODIFY, MODIFY Event Display: Discharge/Transfer Note Hospital Authored Date: [id number] Patient: ??ROBERT ABEL ? Age:??62 Years?Sex:??Female?:??[id number]?? 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 _ Discharge Medications Acetaminophen (Tylenol 325 mg oral tablet)?650?Milligram?2?tablet?By Mouth?Every 6 hours?as needed?Pain , Mild Amantadine (amantadine 50 mg/5 mL oral syrup)?10?Milliliter?100?Milligram?By Mouth?Every 24 hours Amlodipine (amLODIPine 10 mg oral tablet)?10?Milligram?1?tablet?By Mouth?Daily Aspirin (aspirin 81 mg oral tablet, chewable)?81?Milligram?1?tablet?By Mouth?Daily Atorvastatin (atorvastatin 40 mg oral tablet)?2?tab(s)?80?Milligram?By Mouth?Daily at bedtime Cyanocobalamin (Vitamin B-12 1000 mcg oral tablet)?500?Microgram?0.5?tablet?By Mouth?Daily Duloxetine (duloxetine 60 mg oral enteric coated capsule)?1?capsule?60?Milligram?By Mouth?Daily Durable Medical Equipment (Splint)?See Instructions?Right wrist splint for carpal tunnel syndrome, wear during sleep. Gabapentin (gabapentin 300 mg oral capsule)?900?Milligram?3?capsule?By Mouth?3 times a day Lansoprazole (lansoprazole 30 mg oral tablet, disintegrating)?30?Milligram?By Mouth?Daily Lidocaine Topical (lidocaine 5% topical film)?Topically?Daily Nystatin (nystatin 739491 u/ml oral suspension)?4?Milliliter?400,000?unit(s)?Swish and Swallow?4 times a day Oxycodone (oxyCODONE 10 mg oral tablet)?1?tab(s)?10?Milligram?By Mouth?Every 6 hours?as needed?Pain , Severe Senna (Senna 8.6 mg oral tablet)?17.2?Milligram?2?tab(s)?By Mouth?Daily ? Quality Measures Stroke Quality Measures:?Discharged on Antithrombotic Therapy:??Active Home Medication for Antithrombotic ?Statin Prescribed at Discharge:??Active Home Med for Statin ? Medications Started Tylenol Amantadine Amlodipine Aspirin Atorvastatin Cyanocobalamin Lansoprazole Lidocaine Oxycodone. prescribe 12 tablets Senna Medications Discontinued none Doses Changed Increase gabapentin to 900 3 times a day Allergies Allergies ?(Active and Proposed Allergies Only) NKA? (Severity: Unknown severity, Onset: Unknown) ? PCP Follow-Up/Heads-Up Aphasic, Acute CVA (cerebrovascular accident) (I63.9):??Continue aspirin, statin. continue amantadine 100 mg twice daily. Follow-up PCP and neurology outpatient Atrial myxoma (D15.1):?Follow-up with cardiac surgery outpt Hypertension (I10):??started?? amlodipine 10 mg daily. ??Follow PCP outpatient Future Appointments Wednesday. 2022 12:30 PM EDT ?? With: Preston RIDLEY [facility] Where: [facility] [address] [facility] 3rd Floor, [address] [place] [address]- Objective Assessment and Plan Assessment:??62 year old female with medical history of?? anxiety??, HTN presented with acute onsetR weakness on??09/02, as a transfer from [place] for L MCA stroke with L M1 occlusion s/p TPA at OSH at 17:54 on 09/02. She underwent thrombectomy with TICI 3 recanalization and was admitted to MICU. Post-procedure was still with dense L MCA syndrome. TTE was done showing atrial myxoma. 09/03 had vomiting and was intubated; repeat CTH at this time showed hemorrhagic conversion of stroke with IVH and SAH. Her fibrinogen was normal, so no reversal given for TPA.??She was transferred to the [facility] 09/04 forfurther management.??She was extubated 09/04. Remains globally aphasic with right plegia.?? Improvement noticed in R sided ext movement. Still has aphasia. ??Patient with UTI and urine culture growing Klebsiella and E. coli??and currently on ceftriaxone??started on 09/14. ??Needs guardianship. ?? Aphasic Left MCA Stroke from suspected Atrial Myxoma with hemorrhagic conversion Post-tpa and thrombectomy with TICI 3 recanalization; hemorrhagic conversion Weakness primarily located in her right UE. Repeat head CT??appears??stable with improvement Neurology??following -Continue aspirin, statin -Continue amantadine 100 mg twice daily, Increase gabapentin to 900 3 times a day Follow-up PCP and neurology outpatient ?? 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 TTE 09/03/2022 with LVEF 45 to 50%??hypokinesis??mid to distal septal wall. Evidence of atrial myxoma??on echo??(4.8 cm x 2.1 cm) -Continue aspirin?? cardiology consulted, No data to support??other anticoagulation.?? Treatment of myxoma??is removal., rec??cardiac??surgical reevaluation. ??Per cardiac surgery, still with significant deficits and will require extended rehab stay. not a good candidate for open heart surgery at this point. recommendreevaluation as an outpatient after she completes her rehab and is more independent/functional. ??Follow-up with cardiac surgery outpt ?? Hypertension (I10):??started amlodipine 10 mg daily. ??Follow PCP outpatient ?? Acute Respiratory Failure: resolved. Intubated 09/03 for vomiting/airway protection, extubated 09/04. Currently stable ?? UTI Aspiration pneumonia?/pneumonitis. Leukocytosis, improving. urine culture??with E. coli and Klebsiella, completed 5 day course of ceftriaxone? Updated significant other/guardian at bedside 10/01/2022 ?? . Physical Exam Constitutional: Alert, in no acute distress. Head: Normocephalic. Eyes: PERRLA. EOMI. Respiratory:??Clear to auscultation. No wheezing or rhonchi.??No use of accessory muscles.?? Cardiovascular:??S1 S2 regular. No murmurs, rubs or gallops. Gastrointestinal:??Abdomen soft, non-tender, non-distended. Normal bowel sounds.?? Extremities: No lower extremity pitting edema.?? Neurologic:??Patient alert awake??but??really aphasic can only say yes or no. ??Right-sided weakness, following commands. ??Move extremity Skin:??No rash.?? Psychiatric: Normal mood and affect. Consultants neuro PMR cardiac surgery cardiology Pending Results Add On Lab Order ordered on 09/10/2022 Add On Lab Order ordered on 09/12/2022 Basic Metabolic Panel ordered on 09/30/2022 CBC ordered on 09/30/2022 Patient Education Titles Amlodipine Oral Tablet?? What Is High Blood Pressure??? Aspirin Oral Tablet?? Discharge Instructions for Stroke?? Follow-Up Appointments Added Follow Up ?Time Frame ?Comments Bernardo Torres?1 month?Please call for appointment in 1 month Rima Dubose?2 to 3 weeks?Please call for appointment in2 to 3 weeks Jolynn Johnston?10/21/2022 12:30 Patient Instructions Continue aspirin, statin. continue amantadine 100 mg?? daily, Follow-up PCP and neurology outpatient?Follow-up with cardiac surgery outpt started amlodipine 10 mg daily.? Post Discharge Care Diet: Cardiac diet Activity: OOB as Roberto ??With Assistance Code Status: ?? Full Resuscitation Prognosis: Fair Discharge ?10/02/22 10:47:00 EDT Discharge Prescriptions ?Written, ??10/02/22 10:47:00 EDT Home Health Face to Face ^[facility] Results Discharge Labs BLOOD BANK Blood Type B Positive ()?? 09/02/2022 21:07 Antibody Screen Negative ()?? 09/02/2022 21:07 ?? BLOOD COUNT & DIFF WBC 6.6 k/mm3 ()?? 10/01/2022 06:22 RBC 4.03 m/mm3 (Low)?? 10/01/2022 06:22 Hgb 12.1 Gm/dL ()?? 10/01/2022 06:22 Hct 39.4 % ()?? 10/01/2022 06:22 MCV 97.8 femtoliters ()?? 10/01/2022 06:22 MCH 30.0 pg ()?? 10/01/2022 06:22 MCHC 30.7 g/dL (Low)?? 10/01/2022 06:22 Platelet Count 196 k/mm3 ()?? 10/01/2022 06:22 RDW-SD 50.4 femtoliters (High)?? 10/01/2022 06:22 MPV 10.5 femtoliters ()?? 10/01/2022 06:22 Nucleated RBC (Automated) 0.0 #/100 WBC'S ()?? 10/01/2022 06:22 Abs. NRBC 0.0 k/mm3 ()?? 10/01/2022 06:22 Abs. Neut 10.4 k/mm3 (High)?? 09/16/2022 01:34 Abs. Lymph 3.3 k/mm3 (High)?? 09/16/2022 01:34 Abs. Sabine 0.7 k/mm3 ()?? 09/16/2022 01:34 Abs. Eo 0.3 k/mm3 ()?? 09/16/2022 01:34 Abs. Baso 0.1 k/mm3 ()?? 09/16/2022 01:34 Neut % 69.1 % ()?? 09/16/2022 01:34 Lymph % 22.2 % ()?? 09/16/2022 01:34 Sabine % 4.9 % ()?? 09/16/2022 01:34 Eos % 2.1 % ()?? 09/16/2022 01:34 Baso % 0.6 % ()?? 09/16/2022 01:34 Imm Gran 1.1 % ()?? 09/16/2022 01:34 Abs. Imm Gran 0.2 k/mm3 ()?? 09/16/2022 01:34 ?? CARDIAC High Sensitivity Troponin (HSTnT) 336 ng/L (Critical)?? 09/04/2022 13:36 ? CHEM GENERAL Sodium 146 mmol/L (High)?? 10/01/2022 06:24 Potassium 4.3 mmol/L ()?? 10/01/2022 06:24 Chloride 109 mmol/L (High)?? 10/01/2022 06:24 Bicarbonate Level 25 mmol/L ()?? 10/01/2022 06:24 Anion Gap 12 ()?? 10/01/2022 06:24 Glucose Level 87 mg/dL ()?? 10/01/2022 06:24 Glucose, POC 104 mg/dL (High)?? 10/02/2022 06:51 Hemoglobin A1C (Monitoring) 5.4 % ()?? 09/10/2022 04:24 BUN 11 mg/dL ()?? 10/01/2022 06:24 Creatinine-Blood 0.7 mg/dL ()?? 10/01/2022 06:24 Estimated GFR Creatinine 92 ML/MIN/1.73 M2 ()?? 10/01/2022 06:24 Calcium 9.5 mg/dL ()?? 10/01/2022 06:24 Calcium, Ionized pH Corrected 1.27 mmol/L ()?? 09/11/2022 04:35 Phosphorus 4.2 mg/dL ()?? 09/16/2022 01:34 Magnesium 2.2 mg/dL ()?? 09/16/2022 01:34 Protein, Total 7.0 Gm/dL ()?? 09/03/2022 04:20 Albumin 4.1 Gm/dL ()?? 09/03/2022 04:20 AG Ratio 1.4 ()?? 09/03/2022 04:20 Alkaline Phosphatase 164 units/L (High)?? 09/03/2022 04:20 AST (SGOT) 63 units/L (High)?? 09/03/2022 04:20 ALT (SGPT) 24 units/L ()?? 09/03/2022 04:20 Bilirubin, Total 0.4 mg/dL ()?? 09/03/2022 04:20 ?? COAG INR 1.1 ()?? 09/03/2022 17:00 Protime (PT) 11.6 seconds (High)?? 09/03/2022 17:00 APTT 26.1 seconds ()?? 09/03/2022 17:00 Fibrinogen 316 mg/dL ()?? 09/03/2022 17:00 ?? ENDOCRINE/TUMOR MARKER TSH 1.16 uIU/mL ()?? 09/04/2022 03:42 ? HEME OTHER Hold Lavender Top SPECIMEN DISCARDED AFTER 24 HOURS. ()?? 09/02/2022 20:25 ? LIPID STUDIES Cholesterol 248 mg/dL (High)?? 09/03/2022 04:20 Triglycerides 89 mg/dL ()?? 09/03/2022 04:20 HDL Cholesterol 56 mg/dL ()?? 09/03/2022 04:20 LDL Cholesterol 174 mg/dL (High)?? 09/03/2022 04:20 Non HDL Cholesterol 192 mg/dL (High)?? 09/03/2022 04:20 ? MISC. CHEMISTRY Hold Green Top SPECIMEN DISCARDED AFTER 1 WEEK ()?? 09/02/2022 20:25 Procalcitonin 0.14 ng/mL ()?? 09/12/2022 00:41 Hold Gel Top SPECIMEN DISCARDED AFTER 1 WEEK ()?? 09/15/2022 04:00 ? UA/URINALYSIS Appear/Color, Urine YELLOW ()?? 09/25/2022 06:45 Clarity MARKED TURBIDITY (Abnormal)?? 09/13/2022 18:41 Specific Manteo, Urine 1.021 ()?? 09/25/2022 06:45 pH, Urine 6.5 ()?? 09/25/2022 06:45 Albumin, Urine TRACE (Abnormal)?? 09/25/2022 06:45 Glucose, Urine NEGATIVE ()?? 09/25/2022 06:45 Ketones, Urine NEGATIVE ()?? 09/25/2022 06:45 Bilirubin, Urine NEGATIVE ()?? 09/25/2022 06:45 Hemoglobin, Urine NEGATIVE ()?? 09/25/2022 06:45 Nitrite, Urine NEGATIVE ()?? 09/25/2022 06:45 Leukocyte, Urine NEGATIVE ()?? 09/25/2022 06:45 Urobilinogen NORMAL mg/dL ()?? 09/25/2022 06:45 WBC's, Urine 2 /HPF ()?? 09/25/2022 06:45 RBC's, Urine 1 /HPF ()?? 09/25/2022 06:45 Bacteria SLIGHT HPF (Abnormal)?? 09/25/2022 06:45 Squamous Epith 1 /HPF ()?? 09/25/2022 06:45 Amorphous Crystals MODERATE /HPF ()?? 09/25/2022 06:45 Mucus SLIGHT /LPF ()?? 09/25/2022 06:45 Culture Indication CULTURE INDICATED ()?? 09/13/2022 18:41 ? URINE OTHER Malb/Creat Ratio 143.2 mg/Gm (High)?? 09/13/2022 18:41 Urine Creat For Micro Alb 25.7 mg/dL ()?? 09/13/2022 18:41 Micro-Albumin 36.8 mg/L (High)?? 09/13/2022 18:41 Est Creatinine Clearance 75.82 mL/min ()?? 09/24/2022 02:47 ?? VIROLOGY COVID-19 PCR Specimen Source NASAL ()?? 09/02/2022 20:02 COVID-19 PCR Result NEGATIVE ()?? 09/02/2022 20:02 ? 35??minutes spent on discharge * Kimberly Heredia RN: PERFORM, SIGN, VERIFY Event Display: Case Management Discharge Plan Authored Date: [id number] Patient: ROBERT ABEL Age: 62 years Sex: Female : 1960 Associated Diagnoses: None Author: Kimberly Heredia RN Discharge Plan Case Management Discharge Plan : Case Management Discharge Plan Data 10/02/2022 8:46 EDT Discharge Level of Care at Discharge Short-term Acute Inpatient Discharge Nursing Homes/Rehab Facilities [facility] Discharge Transportation Arranged [facility] [address] [facility] [phone] Discharge Arranged Transport Date/Time 10/02/2022 11:30 Mode of Transportation Arranged Ambulance Name of Agency #1 [facility] Service Categories #1 Occupational Therapy, Physical Therapy, Manager Of Housekeeping Service Comments #1 An ambulance has been arranged to transport patient to [facility] today @ 1130am Name of Person Notified of Transfer Patient's legal guardian - Jaquan Galeas Safia VANEGAS, Karla: PERFORM Event Display: Patient Education/Instruction Authored Date: [id number] Inpatient Adult Discharge Instructions [address] [address] Name: ROBERT ABEL : 1960 Visit: 09/02/2022 22:34:00 Current Date: 10/02/2022 11:09 Account: [id number] Inpatient Adult Discharge Instructions We would like [...] and their families. Surveys are administered by [employer] ?? If further treatment with your primary care physician or another doctor is recommended, it is important for you to keep the appointment. Call your primary care physician or return to the Emergency Department immediately if your condition worsens, fails to improve, or new symptoms develop. If you need to find a doctor, you can call [facility] for a referral at [phone] or toll free at [phone] or log in to [email or web address].. ?? You can view and manage your care through the patient portal or by using a health care lida of your choosing. lettrs is a website that allows you to securely view your medical information including your hospital discharge summary, office visit summaries, medications and follow-up visits. You can also request appointments, renew medications, and request access to your medical information using a health care lida of your choosing, or just ask a question. You can enroll at [email or web address] or register during your next office visit. You have been discharged from [facility], Patient Care Unit: D5A. If you have any questions regarding these instructions after you leave, please call us and we will be happy to assist you. [facility] Your Care Team Attending Physician Meagan RIDLEY, Haydee Consulting Providers Marisela RIDLEY, Kwasi Montoya; Preston RIDLEY, Jolynn; Cris BERGER, Nura; Melissa RIDLEY, Bernardo; Mook RIDLEY,Delon Yanes; Nando RIDLEY, Doe Hunter; La RIDLEY, Reece; Margarita RIDLEY, Tyson Discharging Providers Do WORLD LANGUAGE TEACHER, Vi T Reason for Your Visit stroke transfer from [facility], tpa completed upon arrival. initially found unrepsonsive at 1530, was given narcan. Right MCA Your Diagnosis Acute CVA (cerebrovascular accident) Atrial myxoma Focal motor weakness General medical Hypertension UTI (urinary tract infection) Tests Performed Below is a partial list of the tests performed during your hospitalization. You may have had other tests and procedures not included in this list. Please discuss all test results with your provider. Basic Metabolic Panel BUN Calcium Level CBC CBC w/ Differential Comprehensive Metabolic Panel COVID-19 (2019 Novel Coronavirus) PCR Creatinine Electrolytes Fibrinogen Glucose Level GLUCOSE POC HEMOGLOBIN A1C HOLD GEL TUBE HOLD GREEN TUBE HOLD LAVENDER TUBE Ionized Calcium Lipid Panel Lytes Magnesium Level Phosphorus Level PROCALCITONIN, SERUM PT (INR) PTT Troponin T, High Sensitivity TSH UA W/Reflex Culture & Renal Urinalysis Complete URINARY MICROALBUMIN Brain MRI W/O Contrast CT Angio Head CT Angio Neck CT Head/Brain W/O Contrast CXR Portable Portable Chest XR Chest Portable XR Modified Barium Swallow W/ Speech RAD Primary Care Provider Gracy RIDLEY, Rima Fontenot Advance Directive . Discharge Vitals Temperature: 97.9 DegF Height: 165 cm Pulse Rate: 64 bpm Weight: 68.4 kg Respiratory Rate: 18 br/min Body Mass Index:??25.12 kg/m2??High Systolic Blood Pressure: 101 mm Hg Body surface area: 1.77 Diastolic Blood Pressure: 70 mm Hg ?? Oxygen Saturation: 98 % ?? Studies Pending All tests and labs ordered during this hospital stay have been completed unless listed below. Please discuss all pending results with your provider listed above in these instructions. ?? Add On Lab Order BUN Basic Metabolic Panel CBC COVID-19 (Novel Coronavirus), Rapid PCR (COVID-19 (NOVEL CORONAVIRUS), PCR) Creatinine Electrolytes Ionized Calcium Magnesium Level Phosphorus Level What to do next Instructions From Your Doctor Continue aspirin, statin. continue amantadine 100 mg?? daily, Follow-up PCP and neurology outpatient?Follow-up with cardiac surgery outpt started amlodipine 10 mg daily.? Discharge Orders Diet:??Cardiac diet Activity:??OOB as Roberto With Assistance Code Status:?? Full Resuscitation Prognosis:??Fair Scheduled Follow-Up Appointments Wednesday. 2022 12:30 PM EDT ?? With: Jolynn Johnston MD Where: [facility] [address] [place] [address], [address] [place] [phone]- You Need to Schedule the Following Appointments Follow Up with??Jolynn Johnston When??10/21/2022 12:30 PM EDT Where: [address] [place] [address], [address] [place] [address], [address] [place] [phone]- Business (1) Follow Up with??Bernardo Torres When??Within 1 month Why: Please call for appointment in 1 month Where: [facility] [place] [address]- Business (1) Follow Up with??Rima Dubose When??Within 2 to 3 weeks Why: Please call for appointment in 2 to 3 weeks Where: [address] [place] [phone]- Business (1) Discharge Medications ROBERT ABEL :1960 Visit Date:09/02/2022 Medications: Please continue your medications until treatment is completed or stopped by your provider. Medications not listed below should be discontinued. Discuss any questions related to medications with your provider. What How Much When Instructions Next Dose New Acetaminophen (Tylenol 325 mg oral tablet) 2 tab(s) Oral Every 6 hours as needed for Pain , Mild last dose 09/29/22 New Amantadine (amantadine 50 mg/ 5 mL oral syrup) 10 Milliliter Oral Every 24 hours 10/03/22 at 6am New Amlodipine (amLODIPine 10 mg oral tablet) 1 tab(s) Oral Daily 10/03/22 at 9am New Aspirin (aspirin 81 mg oral tablet, chewable) 1 tab(s) Oral Daily 10/03/22 at 9am New Atorvastatin (atorvastatin 40 mg oral tablet) 2 tab(s) Oral Daily at Bedtime 10/02/22 at 9pm New Cyanocobalamin (Vitamin B-12 1000 mcg oral tablet) 0.5 tab(s) Oral Daily 10/03/22 at 9am New Lansoprazole (lansoprazole 30 mg oral tablet, disintegrating) 30 Milligram Oral Daily 10/03/22 at 9am New Lidocaine Topical (lidocaine 5% topical film) Topically Daily 10/03/22 at 9am New Nystatin (nystatin 058584 u/ ml oral suspension) 4 Milliliter Swish and Swallow 4 times a day 10/02/22 at 1300 Changed Duloxetine (duloxetine 60 mg oral enteric coated capsule) 1 capsule Oral Daily 10/03/22 at 9am Changed Gabapentin (gabapentin 300 mg oral capsule) 3 capsule Oral 3 times a day 10/02/22 at 3pm Changed Oxycodone (oxyCODONE 10 mg oral tablet) 1 tab(s) Oral Every 6 hours as needed for Pain , Severe Printed Prescription PRN as needed Changed Senna (Senna 8.6 mg oral tablet) 2 tab(s) Oral Daily 10/03/22 at 9am Unchanged Durable Medical Equipment (Splint) See instructions Right wrist splint for carpal tunnel syndrome, wear during sleep. ?? n/a ?? What How Much When Comments Stop Taking Chlorthalidone Oral Daily Stop Taking Docusate (Doculase) Oral Daily Stop Taking Ibuprofen Stop Taking Lisinopril (lisinopril 2.5 mg oral tablet) 1 tab(s) Oral Daily Stop Taking Omeprazole (omeprazole 20 mg oral delayed release tablet) 1 tab(s) Oral Daily Stop Taking Pravastatin Oral Daily Stop Taking Sertraline (Zoloft 50 mg oral tablet) 1 tab(s) Oral Daily Stop Taking Venlafaxine (venlafaxine 75 mg oral tablet) 1 tab(s) Oral Daily Duration: 30 Days Test Results Below is a partial list of the most recent Laboratory test results done prior to this discharge. You may have had other tests and procedures not included in this list. Please discuss all test resultswith your provider. Antibody Screen - Negative (09/02/2022) Blood Type - B Positive (09/02/2022) Est Creatinine Clearance - 75.82 mL/min (09/24/2022) Basic Metabolic Panel (10/01/2022) ???Sodium - 146 mmol/L???Potassium - 4.3 mmol/L???Chloride - 109 mmol/L???Bicarbonate Level - 25 mmol/L???Anion Gap - 12???Glucose Level - 87 mg/dL???BUN - 11 mg/dL???Creatinine-Blood - 0.7 mg/dL???Estimated GFR Creatinine - 92 ML/MIN/1.73 M2???Calcium - 9.5 mg/dL BUN (09/20/2022) ???BUN - 17 mg/dL Calcium Level (09/20/2022) ???Calcium - 9.1 mg/dL CBC (10/01/2022) ???WBC - 6.6 k/mm3???RBC - 4.03 m/mm3???Hgb - 12.1 Gm/dL???Hct - 39.4 %???MCV - 97.8 femtoliters???MCH - 30.0 pg???MCHC - 30.7 g/dL???Platelet Count - 196 k/mm3???RDW-SD - 50.4 femtoliters???MPV - 10.5 femtoliters???Nucleated RBC (Automated) - 0.0 #/100 WBC'S???Abs. NRBC - 0.0 k/mm3 CBC w/ Differential (09/16/2022) ???WBC - 15.0 k/mm3???RBC - 3.69 m/mm3???Hgb - 11.2 Gm/dL???Hct - 35.7 %???MCV - 96.7 femtoliters???MCH - 30.4 pg???MCHC - 31.4 g/dL???Platelet Count - 449 k/mm3???RDW-SD - 45.6 femtoliters???MPV - 10.0 femtoliters???Nucleated RBC (Automated) - 0.0 #/100 WBC'S???Abs. NRBC - 0.0 k/mm3???Abs. Neut - 10.4 k/mm3???Abs. Lymph - 3.3 k/mm3???Abs. Sabine - 0.7 k/mm3???Abs. Eo - 0.3 k/mm3???Abs. Baso - 0.1 k/mm3???Neut % - 69.1 %???Lymph % - 22.2 %???Sabine % - 4.9 %???Eos % - 2.1 %???Baso % - 0.6 %???Imm Gran - 1.1 %???Abs. Imm Gran - 0.2 k/mm3 Comprehensive Metabolic Panel (09/03/2022) ???Sodium - 142 mmol/L???Potassium - 3.7 mmol/L???Chloride - 107 mmol/L???Bicarbonate Level - 21 mmol/L???Anion Gap - 14???Glucose Level - 118 mg/dL???BUN - 13 mg/dL???Creatinine-Blood - 0.6 mg/dL???Estimated GFR Creatinine - 105 ML/MIN/1.73 M2???Calcium - 9.3 mg/dL???Protein, Total - 7.0 Gm/dL???Al bumin - 4.1 Gm/dL???AG Ratio - 1.4???Alkaline Phosphatase - 164 units/L???AST (SGOT) - 63 units/L???ALT (SGPT) - 24 units/L???Bilirubin, Total - 0.4 mg/dL COVID-19 (2019 Novel Coronavirus) PCR (09/02/2022) ???COVID-19 PCR Specimen Source - NASAL???COVID-19 PCR Result - NEGATIVE Creatinine (09/20/2022) ???Creatinine-Blood - 0.7 mg/dL???Estimated GFR Creatinine - 99 ML/MIN/1.73 M2 Electrolytes (09/20/2022) ???Sodium - 140 mmol/L???Potassium - 4.4 mmol/L???Chloride - 104 mmol/L???Bicarbonate Level - 26 mmol/L???Anion Gap - 10 Fibrinogen (09/03/2022) ???Fibrinogen - 316 mg/dL Glucose Level (09/20/2022) ???Glucose Level - 96 mg/dL GLUCOSE POC (10/02/2022) ???Glucose, POC - 104 mg/dL HEMOGLOBIN A1C (09/10/2022) ???Hemoglobin A1C (Monitoring) - 5.4 % HOLD GEL TUBE (09/15/2022) ???Hold Gel Top - SPECIMEN DISCARDED AFTER 1 WEEK HOLD GREEN TUBE (09/02/2022) ???Hold Green Top - SPECIMEN DISCARDED AFTER 1 WEEK HOLD LAVENDER TUBE (09/02/2022) ???Hold Lavender Top - SPECIMEN DISCARDED AFTER 24 HOURS. Ionized Calcium (09/11/2022) ???Calcium, Ionized pH Corrected - 1.27 mmol/L Lipid Panel (09/03/2022) ???Cholesterol - 248 mg/dL???Triglycerides - 89 mg/dL???HDL Cholesterol - 56 mg/dL???LDL Cholesterol - 174 mg/dL???Non HDL Cholesterol - 192 mg/dL Lytes (09/04/2022) ???Sodium - 147 mmol/L???Potassium - 3.6 mmol/L???Chloride - 111 mmol/L???Bicarbonate Level - 23 mmol/L???Anion Gap - 13 Magnesium Level (09/16/2022) ???Magnesium - 2.2 mg/dL Phosphorus Level (09/16/2022) ???Phosphorus - 4.2 mg/dL PROCALCITONIN, SERUM (09/12/2022) ???Procalcitonin - 0.14 ng/mL PT (INR) (09/03/2022) ???INR - 1.1???Protime (PT) - 11.6 seconds PTT (09/03/2022) ???APTT - 26.1 seconds Troponin T, High Sensitivity (09/04/2022) ???High Sensitivity Troponin (HSTnT) - 336 ng/L TSH (09/04/2022) ???TSH - 1.16 uIU/mL UA W/Reflex Culture & Renal (09/13/2022) ???Appear/Color, Urine - YELLOW???Clarity - MARKED TURBIDITY???Specific Manteo, Urine - 1.007???pH, Urine - 7.5???Albumin, Urine - TRACE???Glucose, Urine - NEGATIVE???Ketones, Urine - NEGATIVE???Bilirubin, Urine - NEGATIVE???Hemoglobin, Urine - TRACE???Nitrite, Urine - NEGATIVE???Leukocyte, Urine - 3+???Urobilinogen - NORMAL???WBC's, Urine - 34 /HPF???RBC's, Urine - 4 /HPF???Bacteria - SLIGHT???Squamous Epith - 10 /HPF???Amorphous Crystals - SLIGHT???Culture Indication - CULTURE INDICATED Urinalysis Complete (09/25/2022) ???Appear/Color, Urine - YELLOW???Specific Manteo, Urine - 1.021???pH, Urine - 6.5???Albumin, Urine - TRACE???Glucose, Urine - NEGATIVE???Ketones, Urine - NEGATIVE???Bilirubin, Urine - NEGATIVE???Hemoglobin, Urine - NEGATIVE???Nitrite, Urine - NEGATIVE???Leukocyte, Urine - NEGATIVE???Urobilinogen - NORMAL???WBC's, Urine - 2 /HPF???RBC's, Urine - 1 /HPF???Bacteria - SLIGHT???Squamous Epith - 1 /HPF???Amorphous Crystals - MODERATE???Mucus - SLIGHT URINARY MICROALBUMIN (09/13/2022) ???Malb/Creat Ratio - 143.2 mg/Gm???Urine Creat For Micro Alb - 25.7 mg/dL???Micro-Albumin - 36.8 mg/L Allergies (NKA means No Known Allergies) NKA Problems Active Problems??(6) Anxiety?? Fatty liver?? HTN (hypertension)?? Hyperlipidemia?? Obesity?? Tremor?? Education Materials Below is the list of Educational Leaflet Providered with your Discharge Instructions. Fall??Prevention?? Oxycodone Oral Tablet?? Lidocaine Medicated Patch?? Lansoprazole Disintegrating Oral Tablet?? Atorvastatin Oral Tablet?? Aspirin Chewable Tablet?? Amantadine Oral Solution?? Acetaminophen Oral Tablet 325 mg?? Discharge Instructions for High Blood Pressure (Hypertension)?? Urinary Tract Infections in Women?? Strokes: Identification and Procedures?? Risk Factors for Stroke?? Amlodipine Oral Tablet?? What Is High Blood Pressure??? Aspirin Oral Tablet?? Discharge Instructions for Stroke?? Valuables and Belongings I fully understand and agree that [facility] accepts no responsibility for all my personal [...] to send valuables and belongings home. ?? No Valuables/Belongings: No valuables/belongings present Review of Valuable and Belonging List: With witness Date for Pt to Sign Valuables/Belongings: 09/11/22 18:13:00 ?? Other Discharge Information ? Case Management Discharge Plan?? Discharge Plan?? Discharge Agency Information?? Discharge Level of Care at Discharge: Short-term Acute Inpatient [facility] Discharge Rx Program: Discharge Prescription Program Service Categories #1: Occupational Therapy, Physical Therapy, Manager Of Housekeeping Discharge Transportation Arranged: [facility] [address] [facility] [phone] Service Comments #1: An ambulance has been arranged to transport patient to [place] today @ 1130am Mode of Transportation Arranged: Ambulance Name of Person Notified of Transfer: Patient's legal guardian - Jaquan Discharge Arranged Transport Date/Time: 10/02/22 11:30:00 ?? Discharge Nursing Homes/Rehab Facilities: [facility] ? Pulmonary Rehab Status?? Pulmonary Rehab Discharge Status?? Respiratory Rate: 18 br/min PEEP: 5 ? Common Emergency Awareness Tips IS IT [...] are strongly encouraged to quit. Please call [facility] at [phone] or [phone] ([phone]) or log in to [email or web address] for referrals to smoking cessation programs. ?? 113 Suicide & Crisis Lifeline is available 21/12 if you or someone you know needs to find a reason to keep living. By calling 111 you'll be connected to a skilled, trained counselor at a crisis center in your area. INPATIENT DISCHARGE INSTRUCTIONS SIGNATURE JENNIE ROBERT ABEL Location:[facility] Registration Date and Time:09/02/2022 22:34 EDT Primary Care Physician: Gracy RIDLEY, [facility], I ROBERT ABEL, have received the above patient education materials/instructions and have verbalized understanding. If ambulance or transport services are being used I further acknowledge being given a choice of service. ?? If you need to contact me, please call me at this number: . Patient/Superintendent Pier Name: Patient/Superintendent Pier Signature: Relationship to Patient: Witness Name/Signature: Date: * Karla Baig RN: PERFORM Event Display: Patient Education Leaflets Authored Date: [id number] Fall??Prevention ?? [id number] Fall??Prevention Falls often take place due to slipping, tripping, or losing your balance. Millions of people fall every year and injure themselves.??Among older adults in the [place] falls are the most common cause oftraumatic brain injuries. Every 20 minutes, an older adult dies from a fall. Here are ways to reduce your risk of falling again: ??? Think about your fall. Was there anything that caused your fall that can be fixed, removed, or replaced? Make your home safe by keeping walkways clear of objects you may trip over, such as electrical cords. ??? Use nonslip pads under rugs. Don't use area rugs orsmall throw rugs. ??? Use nonslip mats in bathtubs and showers. ??? Hang grab rails by the toilet and inside and outside the shower. ??? Install handrails and lights on staircases. The handrails should be on both sides of the stairs. ??? Use night lights. ??? Don't walk in poorly lit areas. ??? Don't stand on chairs or wobbly ladders. ??? Use care when reaching overhead or looking up.??This position can cause a loss of balance. ??? Be sure your shoes fit well, are in good condition, and have non slip bottoms.? Wear shoes both inside and outside of your home. Don't go barefoot or wear slippers. ??? Be cautious when going up and down stairs, curbs, and when walking on uneven sidewalks. ??? If your balance is poor, consider using a cane or walker. Talk with your healthcare provider abouthaving a balance assessment. ??? If your fall was related to alcohol use, stop or limit alcohol intake.??Ask your provider for help if you think you may overuse alcohol and can't stop. ??? If your fall was related to use of sleeping medicines, talk with your provider about this.??You may need to reduce your dosage at bedtime if you wake up during the night to go to the bathroom.? To reducethe need for nighttime bathroom trips: o Don't drink fluids for several hours before going to bed oEmpty your bladder before going to bed o Men can keep a urinal at the bedside ??? Stay as active asyou can. Balance, flexibility, strength, and endurance all come from exercise. They all play a rolein preventing falls. Ask your provider which types of activity are right for you. Try to do some type of exercise every day. ??? Get your eyes checked once a year or more often if your vision changes??? If you have pets, know where they are before you stand up or walk so you don't trip over them. ??? Go over all your medicines with a pharmacist or other provider. This is to see if any of them could make you more likely to fall. Have this type of medicine review at least once every year. ??? Ifyour provider advises a new medicine, ask if the side effects will affect your balance. ??? Don't move quickly from one position to another. For instance, don't stand up fast from sitting. This can cause dizziness and may lead to a fall. ??? Sit down when putting on pants, socks, and shoes. This will make you less likely to lose your balance and fall. ??? Always let your provider know if you havefallen since your last visit. ??? Contact your provider right away if you're having balance problems or falling more often. Last Reviewed Date: 2021 ?? The [employer]. All rights reserved. This information is not intended as a substitute for professional medical care. Always follow your healthcare professional's instructions. ?? * Karla Baig RN: PERFORM Event Display: Patient Education Leaflets Authored Date: [id number] Oxycodone Oral Tablet ?? [id number] Oxycodone Oral Tablet Brands: Roxicodone Uses For pain. ?? Instructions This medicine may be taken with or without food. Swallow with a full glass (8 oz) of water unless your doctor gives you different instructions. Store at room temperature away from heat, light, and moisture. Do not keep in the bathroom. Please ask your doctor, nurse, or pharmacist how to discard unused medicines safely. To reduce constipation, eat high fiber foods, drink plenty of water and exercise. Avoid grapefruit juice while on this medicine. Drug interactions can change how medicines work or increase risk for side effects. Tell your healthcare providers about all medicines taken. Include prescription and qknk-vuq-ryiovme medicines, vitamins, and herbal medicines. Speak with your doctor or pharmacist before starting or stopping any medicine. Tell your doctor if symptoms do not get better or if they get worse. ?? Cautions This medicine has an opioid. Opioids help many people but may cause addiction, especially if used for a long time. The addiction risk is higher if you have a substance use disorder (overuse of or addiction to drugs or alcohol). Ask your doctor about the benefits and risks. Ask your doctor or pharmacist if you should have naloxone on hand to treat opioid overdose. Teach your family or household members about the signs of an opioid overdose and how to treat it. If you stop this medicine suddenly after using it for a long time, you may have withdrawal. Your doctor may slowly lower your dose before stopping it. Tell your doctor right away if you have symptoms, such as unusual sweating, watering eyes, runny nose, chills, diarrhea, yawning, muscle aches, restlessness, anxiety, trouble sleeping, or thoughts of suicide. Tell your doctor and pharmacist if you ever had an allergic reaction to a medicine. Do not use the medication any more than instructed. This medicine may cause dizziness or fainting, especially after exercising or in hot weather. Be very careful when standing or sitting up quickly. If possible, avoid using with alcohol, marijuana, or other medicines that can cause dizziness or drowsiness. These include allergy/cold products, muscle relaxers, sleep aids, and pain relievers. Your ability to stay alert or to react quickly may be impaired by this medicine. Do not drive or operate machinery until you know how this medicine will affect you. This medicine passes into breast milk. Ask your doctor before . This medicine can hurt a new baby in the womb. If you become while on this medicine, tell your doctor immediately. Your doctor may switch you to a different medicine. This medicine should be used with caution in patients with breathing difficulties. Call your doctor right away if you notice slow or shallow breathing. Do not share this medicine with anyone who has not been prescribed this medicine. Some patients have serious side effects from this medicine. Ask your pharmacist to show you the information from the Food and Drug Administration (FDA) and discuss it with you. ?? Side Effects The following is a list of some common side effects from this medicine. Please speak with your doctor about what you should do if you experience these or other side effects. ??? decreased appetite ??? constipation ??? dizziness or drowsiness ??? lightheadedness ??? nausea and vomiting If you have any of the following side effects, you may be getting too much medicine. Please contactyour doctor to let them know about these side effects. ??? confusion ??? fainting ??? unusual or unexplained tiredness or weakness ??? difficulty or discomfort urinating Call your doctor or get medical help right away if you notice any of these more serious side effects: ??? agitated feeling or trouble sleeping ??? decreased awareness or responsiveness ??? breathing interruption during sleep ??? shallow, irregular breathing ??? hallucinations (unusual thoughts, seeing or hearing things that are not real) ??? seizures ??? severe stomach or bowel pain ??? weight loss A few people may have an allergic reaction to this medicine. Symptoms can include difficulty breathing, skin rash, itching, swelling, or severe dizziness. If you notice any of these symptoms, seek medical help quickly. ?? Extra Please speak with your doctor, nurse, or pharmacist if you have any questions about this medicine. ?? [email or web address] IMPORTANT NOTE: This document tells you briefly how to take your medicine, but it does not tell youall there is to know about it. Your doctor or pharmacist may give you other documents about your medicine. Please talk to them if you have any questions. Always follow their advice. There is a more complete description of this medicine available in [place]i. Scan this code on your smartphone or tablet or use the web address below. You can also ask your pharmacist for a printout. If you have any questions, please ask your pharmacist. The display and use of this drug information is subject to Terms of Use. Copyright(c) 2022 [employer]. ?? The [employer]. All rights reserved. This information is not intended as a substitute for professional medical care. Always follow your healthcare professional's instructions. ?? * Safia VANEGAS, Karla: PERFORM Event Display: Patient Education Leaflets Authored Date: [id number] Lidocaine Medicated Patch ?? Lidocaine Medicated Patch Brands: Absorbine Lidocaine, Lidoderm, ZTlido Uses This medicine is used for the following purposes: ??? itching ??? pain ??? skin irritation ??? skinwound ?? Instructions DO NOT take this medicine by mouth. Apply the patch to the most painful area. The patch should be removed after 8 or 12 hours depending on the brand of your product. Read the package instructions or ask your pharmacist how long the patch can be applied to the skin. Keep the medicine at room temperature. Avoid heat and direct light. You may cut the patch with scissors if needed. Be sure to cut the patch before peeling away the liner protecting the adhesive. Wash your hands before and after handling this medicine. Do not use if the pouch containing the medicine is torn or damaged. Remove the plastic liner that protects the sticky side of the patch before applying to the skin. Be sure the area of skin is clean and dry before putting on a new patch. Apply the patch only to normal looking skin. Avoid skin that is red, scraped, or damaged. Press the patch firmly for a few seconds to make sure it stays in place. If the patch does not stick, speak with your doctor or pharmacist. Do not cover the patch with bandage or tape unless instructed by your doctor or pharmacist. After removing the patch, fold it together and discard it out of reach of children and pets. Do not dispose of a used patch by flushing it into the toilet. Avoid getting the medicine in the eyes, nose, or mouth. Wash the medicine off your fingers after applying it. If the patch causes a feeling of burning or pain at the location of the patch, remove the patch until the feeling goes away. If the patch falls off or you forgot to use the patch on time, apply a new patch immediately to a different location. Replace this new patch at your next usual dosing time. Do not apply heat on the area with the patch. Avoid heating blankets, suntan beds, or hot tubs. Ask the doctor or pharmacist if you can bathe, swim or shower while wearing the patch. Clothing may be worn over the patch. Avoid touching or scratching the area of the skin after the patch is removed. Drug interactions can change how medicines work or increase risk for side effects. Tell your healthcare providers about all medicines taken. Include prescription and suje-pnr-zdjyjvd medicines, vitamins, and herbal medicines. Speak with your doctor or pharmacist before starting or stopping any medicine. Tell your doctor if symptoms do not get better or if they get worse. ?? Cautions Some patients taking this medicine have experienced serious side effects. Please speak with your doctor to understand the risks and benefits associated with this medicine. Tell your doctor and pharmacist if you ever had an allergic reaction to a medicine. Do not use the medication any more than instructed. Tell the doctor or pharmacist if you are , planning to be , or . Ask your doctor if patch should be removed before having an MRI scan to avoid serious connors. Do not share this medicine with anyone who has not been prescribed this medicine. ?? Side Effects The following is a list of some common side effects from this medicine. Please speak with your doctor about what you should do if you experience these or other side effects. ??? burning or stinging ??? numbness where the medicine is applied ??? skin irritation where medicine is applied Call your doctor or get medical help right away if you notice any of these more serious side effects: ??? blurry vision ??? shallow, irregular breathing ??? dizziness or drowsiness ??? lack of energy and tiredness ??? fast, irregular, or slow heartbeat ??? mood changes ??? pale or blue skin, lips or fingernails ??? ringing in the ears ??? seizures ??? shortness of breath A few people may have an allergic reaction to this medicine. Symptoms can include difficulty breathing, skin rash, itching, swelling, or severe dizziness. If you notice any of these symptoms, seek medical help quickly. ?? Extra Please speak with your doctor, nurse, or pharmacist if you have any questions about this medicine. ?? [email or web address] IMPORTANT NOTE: This document tells you briefly how to take your medicine, but it does not tell youall there is to know about it. Your doctor or pharmacist may give you other documents about your medicine. Please talk to them if you have any questions. Always follow their advice. There is a more complete description of this medicine available in [place]i. Scan this code on your smartphone or tablet or use the web address below. You can also ask your pharmacist for a printout. If you have any questions, please ask your pharmacist. The display and use of this drug information is subject to Terms of Use. Copyright(c) 2022 [employer]. ?? The [employer]. All rights reserved. This information is not intended as a substitute for professional medical care. Always follow your healthcare professional's instructions. ?? * Do Renetta MCKINNEY T: MODIFY, MODIFY, PERFORM, MODIFY Event Display: Discharge/Transfer Note Hospital Authored Date: Patient: ??ROBERT ABEL ? Age:??62 Years?Sex:??Female?:??1960?? 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 _ Discharge Medications Acetaminophen (Tylenol 325 mg oral tablet)?650?Milligram?2?tablet?By Mouth?Every 6 hours?as needed?Pain , Mild Amantadine (amantadine 50 mg/5 mL oral syrup)?10?Milliliter?100?Milligram?By Mouth?Every 24 hours Amlodipine (amLODIPine 10 mg oral tablet)?10?Milligram?1?tablet?By Mouth?Daily Aspirin (aspirin 81 mg oral tablet, chewable)?81?Milligram?1?tablet?By Mouth?Daily Atorvastatin (atorvastatin 40 mg oral tablet)?2?tab(s)?80?Milligram?By Mouth?Daily at bedtime Carvedilol (carvedilol 6.25 mg oral tablet)?6.25?Milligram?1?tablet?By Mouth?2 times a day Cyanocobalamin (Vitamin B-12 1000 mcg oral tablet)?500?Microgram?0.5?tablet?By Mouth?Daily Duloxetine (duloxetine 60 mg oral enteric coated capsule)?1?capsule?60?Milligram?By Mouth?Daily Durable Medical Equipment (Splint)?See Instructions?Right wrist splint for carpal tunnel syndrome, wear during sleep. Gabapentin (gabapentin 300 mg oral capsule)?900?Milligram?3?capsule?By Mouth?3 times a day Lansoprazole (lansoprazole 30 mg oral tablet, disintegrating)?30?Milligram?By Mouth?Daily Lidocaine Topical (lidocaine 5% topical film)?Topically?Daily Nystatin (nystatin 382509 u/ml oral suspension)?4?Milliliter?400,000?unit(s)?Swish and Swallow?4 times a day Oxycodone (oxyCODONE 10 mg oral tablet)?1?tab(s)?10?Milligram?By Mouth?Every 6 hours?as needed?Pain , Severe Senna (Senna 8.6 mg oral tablet)?17.2?Milligram?2?tab(s)?By Mouth?Daily ? Quality Measures Stroke Quality Measures:?Discharged on Antithrombotic Therapy:??Active Home Medication for Antithrombotic ?Statin Prescribed at Discharge:??Active Home Med for Statin ? Medications Started Tylenol Amantadine Amlodipine Aspirin Atorvastatin Cyanocobalamin Lansoprazole Lidocaine Oxycodone Senna ?? Medications Discontinued none Doses Changed Increase gabapentin to 900 3 times a day Allergies Allergies ?(Active and Proposed Allergies Only) NKA? (Severity: Unknown severity, Onset: Unknown) ? PCP Follow-Up/Heads-Up Aphasic, Acute CVA (cerebrovascular accident) (I63.9):??Continue aspirin, statin. continue amantadine 100 mg twice daily. Follow-up PCP and neurology outpatient Atrial myxoma (D15.1):?Follow-up with cardiac surgery outpt Hypertension (I10):??started carvedilol twice daily, amlodipine 10 mg daily. ??Follow PCP outpatient Future Appointments Wednesday. 2022 12:30 PM EDT ?? With: Jolynn Johnston MD Where: [facility] [address] [facility] [address] Floor, [address] [place] [address]- Objective Assessment and Plan ??Assessment:??62-year-old female Hx anxiety, HTN??PW acute onset R sided weakness/5??transferred from [place] for L MCA stroke??with L M1 occlusion s/p??tPA??on 09/02.??S/p thrombectomy??and MICU admission.?Course complicated??by vomiting and aspiration resulting in intubation.??Transferred to [facility]??09/04 for further management. Extubated 09/04.?Additional course complication??by UTI??treated with ceftriaxone. Now awaiting guardianship. ?? Aphasic Acute CVA (cerebrovascular accident) (I63.9):?? Weakness primarily located in her right UE. Repeat head CT??appears??stable with improvement Neurology??following -Continue aspirin, statin -Continue amantadine 100 mg twice daily, Increase gabapentin to 903 times a day Follow-up PCP and neurology outpatient ?? 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 TTE 09/03/2022 with LVEF 45 to 50%??hypokinesis??mid to distal septal wall. Evidence of atrial myxoma??on echo??(4.8 cm x 2.1 cm) -Continue aspirin?? cardiology consulted, No data to support??other anticoagulation.?? Treatment of myxoma??is removal., rec??cardiac??surgical reevaluation. ??Per cardiac surgery, still with significant deficits and will require extended rehab stay. not a good candidate for open heart surgery at this point. recommendreevaluation as an outpatient after she completes her rehab and is more independent/functional. ??Follow-up with cardiac surgery outpt ?? Hypertension (I10):??started carvedilol twice daily, amlodipine 10 mg daily. ??Follow PCP outpatient ?? Updated significant other/guardian at bedside 10/01/2022 . Physical Exam Constitutional: Alert, in no acute distress. Head: Normocephalic. Eyes: PERRLA. EOMI. Respiratory:??Clear to auscultation. No wheezing or rhonchi.??No use of accessory muscles.?? Cardiovascular:??S1 S2 regular. No murmurs, rubs or gallops. Gastrointestinal:??Abdomen soft, non-tender, non-distended. Normal bowel sounds.?? Extremities: No lower extremity pitting edema.?? Neurologic:??Patient alert awake??but??really aphasic can only say yes or no. ??Right-sided weakness, following commands. ??Move extremity Skin:??No rash.?? Psychiatric: Normal mood and affect. Consultants neuro PMR cardiac surgery cardiology Pending Results Add On Lab Order ordered on 09/10/2022 Add On Lab Order ordered on 09/12/2022 Basic Metabolic Panel ordered on 09/30/2022 CBC ordered on 09/30/2022 Patient Education Titles Amlodipine Oral Tablet?? What Is High Blood Pressure??? Aspirin Oral Tablet?? Discharge Instructions for Stroke?? Follow-Up Appointments Added Follow Up ?Time Frame ?Comments Bernardo Torres?1 month?Please call for appointment in 1 month Rima Dubose?2 to 3 weeks?Please call for appointment in2 to 3 weeks Jolynn Johnston?10/21/2022 12:30 Patient Instructions Continue aspirin, statin. continue amantadine 100 mg?? daily, Follow-up PCP and neurology outpatient?Follow-up with cardiac surgery outpt started carvedilol twice daily, amlodipine 10 mg daily.? Home Health Face to Face ^[facility] Results Discharge Labs BLOOD BANK Blood Type B Positive ()?? 09/02/2022 21:07 Antibody Screen Negative ()?? 09/02/2022 21:07 ?? BLOOD COUNT & DIFF WBC 6.6 k/mm3 ()?? 10/01/2022 06:22 RBC 4.03 m/mm3 (Low)?? 10/01/2022 06:22 Hgb 12.1 Gm/dL ()?? 10/01/2022 06:22 Hct 39.4 % ()?? 10/01/2022 06:22 MCV 97.8 femtoliters ()?? 10/01/2022 06:22 MCH 30.0 pg ()?? 10/01/2022 06:22 MCHC 30.7 g/dL (Low)?? 10/01/2022 06:22 Platelet Count 196 k/mm3 ()?? 10/01/2022 06:22 RDW-SD 50.4 femtoliters (High)?? 10/01/2022 06:22 MPV 10.5 femtoliters ()?? 10/01/2022 06:22 Nucleated RBC (Automated) 0.0 #/100 WBC'S ()?? 10/01/2022 06:22 Abs. NRBC 0.0 k/mm3 ()?? 10/01/2022 06:22 Abs. Neut 10.4 k/mm3 (High)?? 09/16/2022 01:34 Abs. Lymph 3.3 k/mm3 (High)?? 09/16/2022 01:34 Abs. Sabine 0.7 k/mm3 ()?? 09/16/2022 01:34 Abs. Eo 0.3 k/mm3 ()?? 09/16/2022 01:34 Abs. Baso 0.1 k/mm3 ()?? 09/16/2022 01:34 Neut % 69.1 % ()?? 09/16/2022 01:34 Lymph % 22.2 % ()?? 09/16/2022 01:34 Sabine % 4.9 % ()?? 09/16/2022 01:34 Eos % 2.1 % ()?? 09/16/2022 01:34 Baso % 0.6 % ()?? 09/16/2022 01:34 Imm Gran 1.1 % ()?? 09/16/2022 01:34 Abs. Imm Gran 0.2 k/mm3 ()?? 09/16/2022 01:34 ?? CARDIAC High Sensitivity Troponin (HSTnT) 336 ng/L (Critical)?? 09/04/2022 13:36 ? CHEM GENERAL Sodium 146 mmol/L (High)?? 10/01/2022 06:24 Potassium 4.3 mmol/L ()?? 10/01/2022 06:24 Chloride 109 mmol/L (High)?? 10/01/2022 06:24 Bicarbonate Level 25 mmol/L ()?? 10/01/2022 06:24 Anion Gap 12 ()?? 10/01/2022 06:24 Glucose Level 87 mg/dL ()?? 10/01/2022 06:24 Glucose, POC 99 mg/dL ()?? 10/01/2022 07:17 Hemoglobin A1C (Monitoring) 5.4 % ()?? 09/10/2022 04:24 BUN 11 mg/dL ()?? 10/01/2022 06:24 Creatinine-Blood 0.7 mg/dL ()?? 10/01/2022 06:24 Estimated GFR Creatinine 92 ML/MIN/1.73 M2 ()?? 10/01/2022 06:24 Calcium 9.5 mg/dL ()?? 10/01/2022 06:24 Calcium, Ionized pH Corrected 1.27 mmol/L ()?? 09/11/2022 04:35 Phosphorus 4.2 mg/dL ()?? 09/16/2022 01:34 Magnesium 2.2 mg/dL ()?? 09/16/2022 01:34 Protein, Total 7.0 Gm/dL ()?? 09/03/2022 04:20 Albumin 4.1 Gm/dL ()?? 09/03/2022 04:20 AG Ratio 1.4 ()?? 09/03/2022 04:20 Alkaline Phosphatase 164 units/L (High)?? 09/03/2022 04:20 AST (SGOT) 63 units/L (High)?? 09/03/2022 04:20 ALT (SGPT) 24 units/L ()?? 09/03/2022 04:20 Bilirubin, Total 0.4 mg/dL ()?? 09/03/2022 04:20 ?? COAG INR 1.1 ()?? 09/03/2022 17:00 Protime (PT) 11.6 seconds (High)?? 09/03/2022 17:00 APTT 26.1 seconds ()?? 09/03/2022 17:00 Fibrinogen 316 mg/dL ()?? 09/03/2022 17:00 ?? ENDOCRINE/TUMOR MARKER TSH 1.16 uIU/mL ()?? 09/04/2022 03:42 ? HEME OTHER Hold Lavender Top SPECIMEN DISCARDED AFTER 24 HOURS. ()?? 09/02/2022 20:25 ? LIPID STUDIES Cholesterol 248 mg/dL (High)?? 09/03/2022 04:20 Triglycerides 89 mg/dL ()?? 09/03/2022 04:20 HDL Cholesterol 56 mg/dL ()?? 09/03/2022 04:20 LDL Cholesterol 174 mg/dL (High)?? 09/03/2022 04:20 Non HDL Cholesterol 192 mg/dL (High)?? 09/03/2022 04:20 ? MISC. CHEMISTRY Hold Green Top SPECIMEN DISCARDED AFTER 1 WEEK ()?? 09/02/2022 20:25 Procalcitonin 0.14 ng/mL ()?? 09/12/2022 00:41 Hold Gel Top SPECIMEN DISCARDED AFTER 1 WEEK ()?? 09/15/2022 04:00 ? UA/URINALYSIS Appear/Color, Urine YELLOW ()?? 09/25/2022 06:45 Clarity MARKED TURBIDITY (Abnormal)?? 09/13/2022 18:41 Specific [place], Urine 1.021 ()?? 09/25/2022 06:45 pH, Urine 6.5 ()?? 09/25/2022 06:45 Albumin, Urine TRACE (Abnormal)?? 09/25/2022 06:45 Glucose, Urine NEGATIVE ()?? 09/25/2022 06:45 Ketones, Urine NEGATIVE ()?? 09/25/2022 06:45 Bilirubin, Urine NEGATIVE ()?? 09/25/2022 06:45 Hemoglobin, Urine NEGATIVE ()?? 09/25/2022 06:45 Nitrite, Urine NEGATIVE ()?? 09/25/2022 06:45 Leukocyte, Urine NEGATIVE ()?? 09/25/2022 06:45 Urobilinogen NORMAL mg/dL ()?? 09/25/2022 06:45 WBC's, Urine 2 /HPF ()?? 09/25/2022 06:45 RBC's, Urine 1 /HPF ()?? 09/25/2022 06:45 Bacteria SLIGHT HPF (Abnormal)?? 09/25/2022 06:45 Squamous Epith 1 /HPF ()?? 09/25/2022 06:45 Amorphous Crystals MODERATE /HPF ()?? 09/25/2022 06:45 Mucus SLIGHT /LPF ()?? 09/25/2022 06:45 Culture Indication CULTURE INDICATED ()?? 09/13/2022 18:41 ? URINE OTHER Malb/Creat Ratio 143.2 mg/Gm (High)?? 09/13/2022 18:41 Urine Creat For Micro Alb 25.7 mg/dL ()?? 09/13/2022 18:41 Micro-Albumin 36.8 mg/L (High)?? 09/13/2022 18:41 Est Creatinine Clearance 75.82 mL/min ()?? 09/24/2022 02:47 ?? VIROLOGY COVID-19 PCR Specimen Source NASAL ()?? 09/02/2022 20:02 COVID-19 PCR Result NEGATIVE ()?? 09/02/2022 20:02 ? 35??minutes spent on discharge * Do WORLD LANGUAGE TEACHER, Vi T: PERFORM Event Display: Discharge/Transfer Note Hospital Authored Date: waiting for insurance authorization for rehab. this note serves as PROGRESS NOTE updated guardian/ significant other at bedside 10/01 ? * Sayra Natarajan RN: SIGN Sayra Natarajan RN: SIGN, PERFORM, SIGN, VERIFY Event Display: Patient Education Handout Authored Date: * Event Display: Hemodynamic Procedure Report Authored Date: Admission evaluation note * Orville Pearson MD: MODIFY, MODIFY, MODIFY, MODIFY, PERFORM, MODIFY, MODIFY Event Display: Admission Note Authored Date: Patient: ??ROBERT ABEL ? Age:??61 Years?Sex:??Female?:??1960?? Chief Complaint/Reason for Consultation CVA History of Present Illness This is a 61-year-old female with a history of multiple sclerosis who presented to [facility] as a transfer from [facility] due to stroke. ??Patient was walking her dog around 1530 on 09/02/2022 when she had sudden onset weakness of her right side causing her to collapse. ??EMS was called and patient was transported to [facility]. ??CT head at [place] demonstrated occlusive thrombus extending from the left carotid terminus into the M1 segment of the left middle cerebral artery with partial reconstitution of the contrast filling the M2 branches of the left middle cerebral artery. ??Patient was immediately given tPA and transferred to [facility] for intervention. ??Upon arrival to [facility], patient was immediately taken to the [facility] where she had thrombectomy done. ??After thrombectomy patient was noted to be more lethargic thus was left intubated and transferred to the MICU. Review of Systems Unable to obtain Objective Vital Signs?? Temperature: 98.9 DegF (09/02/22:00:00) Temperature Route: Core Esophageal (09/02/22:00:00) Pulse Rate: 69 bpm (09/02/22:33:00) Heart Rate Monitored: 57 bpm (09/02/22:42:00) Respiratory Rate:??14 br/min??Low (09/02/22:00:00) Vented: Yes (09/02/22:00:00) Systolic Blood Pressure:??141 mm Hg??High (09/02/22:00:00) Diastolic Blood Pressure: 72 mm Hg (09/02/22:00:00) Blood pressure sites: Arm, left (09/02/22:00:00) Mean Arterial Pressure: 105 mm Hg (09/02/22:29:00) Pulse Pressure: 69 mm Hg (09/02/22:00:00) Oxygen Saturation: 100 % (09/02/22:42:00) Mode of Delivery (Oxygen): Ventilator (09/02/22:00:00) FiO2: 40 % (09/02/22:42:00) End Tidal CO2: 37 mm Hg (04/05/23 23:42:00) ? Intake/Output? 09/02 22:34 09/02 07:00 09/01 07:00 08/31 07:00 08/30 07:00 ?? 09/02 23:54 09/02 23:54 09/02 06:59 09/01 06:59 08/31 06:59 Intake ?0 ?0 ?0 ?0 ?0 Output ?500 ?500 ?0 ?0 ?0 Net Total ? -500 ? -500 ?0 ?0 ?0 ? Physical Exam General Appearance: The patient is intubated and sedated Cardiovascular: RRR S1 and S2 heard with no M/R/G. No JVD. Respiratory: ??Breath sounds clear to auscultation bilaterally. No wheezing. Good air movement throughout both lungs. GI: Soft. Nontender and nondistended. Normal bowel sounds present throughout abdomen.?? MS: ??No edema or erythema in the lower extremities. No wounds seen on the feet. Peripheral sensation intact.?? Neuro:?Following commands, Right arm flaccid, right lower extremity with 0/5 strength however can move toes Lines: Peripheral IV in place.?? Assessment/Plan This is a 61-year-old female with a history of multiple sclerosis who presented to [facility] as a transfer from [facility] due to??left MCA ischemic stroke. Patient??received TPA??prior to transfer and is now s/p thrombectomy. ?? Neuro: Left MCA Ischemic Stroke Status Post Thrombectomy Hx of multiple sclerosis Patient received TPA at [place] and was transferred [place] [facility] [place] Underwent thrombectomy. Has residual right sided paralysis. Due to lethargy, patient was left intubated after procedure. Plan: -Cardiac monitoring -Obtain Echo -Maintain systolic BP <180 -Hourly Neurochecks -STAT CTH for acute neuro changes -Obtain lipid panel and HbA1C -Should have statin started for LDL >70 -Bedside swallow once extubated -Holding home gabapentin at this time as patient intubated -wean propofol ? CV No active problems ? Pulmonary Intubated Patient intubated during procedure and left intubated due to mental status She is now following commands Plan: -Wean to PSV with plans to extubate. ? GI, endo, renal, and heme with no active problems. ? Quality Measures: Code status: Full Diet: NPO DVT prophylaxis: Pneumoboots ?? Patient was??seen and plan of care discussed with Dr. Smith ?? Orville Pearson MD Internal Medicine PGY-2 Pager #[phone] ?? Histories Allergies Allergies ?(Active and Proposed Allergies Only) NKA? (Severity: Unknown severity, Onset: Unknown) ? Past Medical History/Problem List Active Problems??(6) Anxiety Fatty liver HTN (hypertension) Hyperlipidemia Obesity Tremor ? Past Surgical History None ? Social History Tobacco Details:??Use: 5-9 cigarettes (between 1/4 to 1/2 pack)/day in last 30 days. ? Family History Unable to??obtain ? Medications Home Medications Duloxetine (duloxetine 60 mg oral enteric coated capsule)?1?capsule?60?Milligram?By Mouth?Daily Durable Medical Equipment (Splint)?See Instructions?Right wrist splint for carpal tunnel syndrome, wear during sleep. Gabapentin (gabapentin 400 mg oral capsule)?400?Milligram?1?capsule?By Mouth?3 times a day Oxycodone (oxyCODONE 15 mg oral tablet)?1?tab(s)?15?Milligram?By Mouth?Every 6 hours?as needed?for pain ? Inpatient Medications Medications (4) Active SCHEDULED: (1) Chlorhexidine 0.12% Oral Rinse UD (Peridex 0.12% Liquid) ??15 mL, Topically, 2 times a day CONTINUOUS: (1) Propofol 10mg/mL Cont IV (100mL) 1,000 mg (Propofol 1% /100 mL 1,000 mg) ??1,000 mg 100 mL, IV Infusion PRN: (2) Bisacodyl 10 mg Suppository (Bisacodyl Supp) ??10 mg 1 supp, Rectally, 2 times a day Docusate Sodium 10 mg/mL Liquid UD (Colace Liquid) ??100 mg 10 mL, By Mouth, 2 times a day ? Results Recent Labs BLOOD BANK Blood Type B Positive ()?? 09/02/2022 21:07 Antibody Screen Negative ()?? 09/02/2022 21:07 ?? CHEM GENERAL Glucose, POC 91 mg/dL ()?? 09/02/2022 22:58 ?? HEME OTHER Hold Lavender Top SPECIMEN DISCARDED AFTER 24 HOURS. ()?? 09/02/2022 20:25 ?? MISC. CHEMISTRY Hold Green Top SPECIMEN DISCARDED AFTER 1 WEEK ()?? 09/02/2022 20:25 Hold Gel Top SPECIMEN DISCARDED AFTER 1 WEEK ()?? 09/02/2022 20:25 ? * Luis RIDLEY, Tomy: PERFORM Event Display: Admission Note Authored Date: [id number] ?? CRITICAL CARE ATTENDING NOTE ?? Patient seen and examined, data reviewed, case and management discussed with house staff on rounds on the date of service (09/02/22). I confirmed the findings and agree with the resident's documentation of the assessment and plan of care we developed together as detailed below with the following highl ights/additions/modifications. ?? Problem list: ?? Left MCA stroke status post tPA and thrombectomy Intubated for procedure, now extubated Past medical history of multiple sclerosis ?? Plan: ?? Patient arrived to the ICU intubated.?? Patient's sedation was weaned off and patient was followingcommands appropriately.?? Patient was doing well on PSV.?? Therefore patient activated and tolerated well currently on nasal cannula.?? We will continue to monitorvery closely.?? We will continue to maintain systolic pressure less than 180.?? Stat CT scan of head for any acute changes in neuro exam.?? Follow-up with lipid panel and hemoglobin A1c.?? Patient n.p.o. until bedside swallow evaluation.?? We will follow-up with MRI of the brain 24 hours after tPA was given.?? Follow-up with echocardiogram.?? Follow-up with no recommendations.?? Monitor urine output.?? Monitor electrolytes replace as needed.?? Bowel regimen.?? Monitor blood sugars with goal blood sugar between 140 and 180.?? Patient will need antiplatelet and statin therapy once patient is 24 hours after tPA as well as passes swallow evaluation.?? Rest of Care As below. ?? At the time of service, this patient is critically ill due to acute impairment of 1 or more vital organ systems such that there is a high probability of imminent or life-threatening deterioration in the patient's condition. ?? Critical Care Time: 35 minutes (this represents the total time I personally evaluation, managing and providing care exclusive of time spent for separately billable procedures.) ?? Q. Cullen Smith MD Critical Care Medicine Attending EKG study * Event Display: EKG Authored Date: * Event Display: EKG Authored Date: * Event Display: ECG 12-Lead Authored Date: Please click on pdf link to open report * Event Display: ECG 12-Lead Authored Date: Ventricular Rate: 84 BPM Atrial Rate: 84 BPM P-R Interval: 134 ms QRS Duration: 74 ms Q-T Interval: 388 ms QTC Calculation(Bazett): 458 ms P Boston: 68 degrees R Boston: 10 degrees T Boston: -13 degrees Normal sinus rhythm Possible Left atrial enlargement Low voltage QRS T wave abnormality, consider inferolateral ischemia Abnormal ECG When compared with ECG of 06-SEP-2022 09:59, MANUAL COMPARISON REQUIRED, DATA IS UNCONFIRMED Confirmed by SAMANTHA DAVIES MD ([id number]) on 09/06/2022 12:11:49 PM [place]: SAMANTHA DAVIES MD * Event Display: ECG 12-Lead Authored Date: [id number] Please click on pdf link to open report * Event Display: ECG 12-Lead Authored Date: [id number] Ventricular Rate: 97 BPM Atrial Rate: 97 BPM P-R Interval: 142 ms QRS Duration: 72 ms Q-T Interval: 380 ms QTC Calculation(Bazett): 482 ms P Boston: 68 degrees R Boston: 27 degrees T Boston: -68 degrees Normal sinus rhythm Possible Left atrial enlargement T wave abnormality, consider inferolateral ischemia Prolonged QT Abnormal ECG When compared with ECG of 05-SEP-2022 14:56, MANUAL COMPARISON REQUIRED, DATA IS UNCONFIRMED Confirmed by SAMANTHA DAVIES MD () on 09/06/2022 12:11:43 PM [place]: SAMANTHA DAVIES MD * Event Display: ECG 12-Lead Authored Date: [id number] Please click on pdf link to open report * Event Display: ECG 12-Lead Authored Date: [id number] Ventricular Rate: 104 BPM Atrial Rate: 104 BPM P-R Interval: 138 ms QRS Duration: 72 ms Q-T Interval: 360 ms QTC Calculation(Bazett): 473 ms P Boston: 65 degrees R Boston: 20 degrees T Boston: -77 degrees Sinus tachycardia with Premature supraventricular complexes and with occasional and consecutive Premature ventricular complexes Possible Inferior infarct , age undetermined ST and T wave abnormality, consider lateral ischemia Abnormal ECG When compared with ECG of 03-SEP-2022 10:40, MANUAL COMPARISON REQUIRED, DATA IS UNCONFIRMED Confirmed by SAMANTHA DAVIES MD () on 09/06/2022 12:11:40 PM [place]: SAMANTHA DAVIES MD [facility] * Event Display: Echocardiogram - Complete Authored Date: [id number] Transthoracic Echocardiography Report (TTE) Patient Demographics Patient Name ROBERT ABEL Date of Study 09/03/2022 Corporate Gender Female Facility Race Ethnicity Date of 1960 Height: 64.96 inches Age 61 year(s) Weight: 149.92 pounds Accession Number [id number] BSA: 1.75 m2 Room Number [id number] BMI: 24.98 kg/m2 Referring Physician Not on Staff Interpreting Nura Lynch DO Referring MD Physician Michel Jacinto MD Upholsterer Apprentice Chaparrita Luu Indications CVA. Clinical History No known cardiac risk factors. Study Data Type of Study TTE procedure:Echo Complete-(Doppler, Colorflow) with Contrast. Procedure Information:Definity was administered by RN . Study Date09/03/2022 Start Time: 07:56 AM Study Location[place] [facility] [place] Study Status: ICU/CCU Patient Status: Routine Technical Quality: Adequate Blood Pressure:174/93 mmHg EKG: Within normal limits HR: 61 bpm Contrast Medium: Definity. Amount - 2 ml Allergies - No known allergies. 2D Measurements LV Diastolic Dimension: 5.4 cm LV Systolic Dimension: 4 cm LV Septum Diastolic: 1 cm LV PW Diastolic: 1 cm AO Root Dimension: 2.4 cm LVOT Stroke Volume: 85.51 ml LVOT: 2.1 cm Stroke Volume Index48.86 ml/m2 Ascending Aorta:3 cm Cardiac Index:2.98 l/min/m2 Doppler Measurements AV Peak Velocity: 162 cm/s MV Peak E-Wave: 140 cm/s AV Peak Gradient: 10.5 mmHg MV Peak A-Wave: 133 cm/s MV E/A Ratio: 1.05 LVOT Peak Velocity: 123 cm/s LVOT VTI24.7 cm MV Deceleration Time: 327 msec E' Septal Velocity: 9.57 cm/s PV Peak Velocity: 113 cm/s E' Lateral Velocity: 10 cm/s PV Peak Gradient: 5.11 mmHg E/Med E':14.90408 E/Lat E':14 Cardiac Anatomy Left Ventricle/Interventricular Septum The left ventricle is normal in size, wall thickness. The LV function is mildly reduced, LVEF 45-50%. There is severe hypokinesis of the mid to distal septal wall, the distal inferior wall and the basal inferior wall. Left ventricular filling pressures are indeterminate. Left Atrium/Interatrial Septum The left atrium is normal in size. Aortic Valve The aortic valve is trileaflet and normal in structure and function. There is no aortic stenosis or insufficiency. Mitral Valve There is a large and partially mobile mass that is 4.8 cm x 2.1 cm large and adherent to the atrial side of the anterior leaflet and runs along the atrial septal wall. 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 Mean mitral gradient is 5 mmHg. There is trace mitral regurgitation. The mass is partially obstructive to valve opening. Aorta The ascending aorta and aortic root are normal in size. Right Ventricle The right ventricular size and function appears grossly normal. Right Atrium The right atrium is normal in size. Pulmonic Valve The pulmonic valve is normal in structure and function. There is trace pulmonic regurgitation. Tricuspid Valve The tricuspid valve is normal in structure and function. There is trace regurgitation. Pumonary Artery An accurate pulmonary artery pressure could not be obtained. Venous Structures The inferior vena cava size is normal with normal inspiratory collapse. Pericardium/Extracardiac There is no significant pericardial effusion. Summary The left ventricle is normal in size, wall thickness. The LV function is mildly reduced, LVEF 45-50%. There is severe hypokinesis of the mid to distal septal wall, the distal inferior wall and the basal inferior wall. Left ventricular filling pressures are indeterminate. The right ventricular size and function appears grossly normal. There is a large and partially mobile mass that is 4.8 cm x 2.1 cm large and adherent to the atrial side of the anterior leaflet and runs along the atrial septal wall. 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 Mean mitral gradient is 5 mmHg. There is trace mitral regurgitation. The mass is partially obstructive to valve opening. Recommendation Suggest ZORAN to assess LA mass. Given CVA hx, this is possibly an embolic CVA from the atrial mass. Comparison No prior study available for comparison. Signature * Event Display: Echocardiogram - Complete Authored Date: Cardiology * Event Display: Cardiac Rhythm Strips Authored Date: Laboratory * Event Display: Point of Care Reference Ranges Authored Date: Hospital Progress note * Sandy Nelson RN: PERFORM, SIGN, VERIFY Event Display: Progress Note Hospital Authored Date: [id number] Patient: ROBERT ABEL Age: 62 years Sex: Female : 1960 Associated Diagnoses: None Author: Sandy Nelson RN Findings Problem Related to Alteration in Neurological : Alteration in Neurological Function/new 10/02/2022 18:38 EDT Alteration in Neuro status Related to Acute Stroke (CVA) Goals & Outcomes, Neurological Lab studies/diagnostic tests within pt specific limits, Pt is safe with transfers & activities, Pt will be discharged without infection, Pt will be hemodynamically stable, Pt will be Neurologically stable, Pt will become pain free with appropriate intervention, Pt will maintain intact skin integrity, Pt will remain free from injury, Pt will resume/maintain ad equate cardiac output, Pt will state importance of adhering to medication regime, Pt/caregiver willreceive psychosocial support as needed, Pt/caregiver will state understanding of plan/goals of care, Pt will be without signs of aspiration Interventions, Neurological Assess/monitor facial symmetry and tongue deviation, Assess pt using NIHSS scale on admit & D/C, Bedside swallow eval on admission, Collaborate w/ provider to initiateStroke Protocol, Communicate oral intake orders/status to pt/s.o, Consult Speech Therapy as needed,DVT prophylaxis as ordered, Maintain oral suction at bedside, Review Speech Therapy recommendations for care, Teach aspiration precautions/diet modifications, Teach Pt/caregiver how to transfer position safely, Teach Pt/caregiver how to use adaptive equipment, Teach Pt/caregiver show to reduce stroke risk factors, Teach Pt/caregiver signs indicative of stroke BH Goals/Interventions, Neurological Yes Neurological, Problem Start 09/02/2022 22:00 Reviewed plan with, Neurological Patient Patient Progression, Neurological Plan Initiation . Nursing Data Neurological Data. : Neurological Data. 10/02/2022 9:00 EDT Neurological Symptoms Alteration in speech quality, Impaired mental ability, Lackof coordination Level of Consciousness Full Consciousness Orientated to person, place, time Person, Place Facial Symmetry Drooping right side of face Characteristics of Speech Expressive aphasia, Expressive language difficulty Swallowing Difficulty Pills, Solids, Liquids: thin Pupil description, left Regular Pupil description, right Regular Pupil reaction, left Brisk Pupil reaction, right Brisk Strength LUE 5-Active movement against gravity & full resistance Strength RUE 0-No movement Strength LLE 5-Active movement against gravity & full resistance Strength RLE 3-Active movement against gravity Tone LUE Normal Tone RUE Normal Tone LLE Normal Tone RLE Normal Sensation LUE Intact Sensation RUE Intact Sensation LLE Intact Sensation RLE Intact Movement LUE Spontaneous, To command Movement RUE Spontaneous Movement LLE Spontaneous, To command Movement RLE Spontaneous, To command Gait Unsteady Tremors None Response Eye Opening Spontaneously Motor Response-Adult Obeys commands Verbal Response-Adult Disoriented and converses Chilo Coma Score 14 Neuro WNL except Eyes and Movements Conjugate gaze: Move in same direction at same speed Headache None Memory Unable to assess . Evaluation A&O x2, aphasia and word finding difficulty, follows commands, PERRL. Denies headache, dizziness, n/t, n/v, changes in vision. Lungs CTA, denies SOB. +PP, no edema, denies CP. +BS x4, LBM 10/01/2022. Voids without pain or difficulty. Skin CDI. Bed locked in lowest position, bed alarm on, antislipsocks applied, all questions and concerns addressed, call dial within reach, safety maintained. . Discharge Information Case Management Discharge Plan : Case Management Discharge Plan Data 10/02/2022 8:46 EDT Discharge Level of Care at Discharge Short-term Acute Inpatient Discharge Nursing Homes/Rehab Facilities [facility] Discharge Transportation Arranged [facility] [address] [facility] [phone] Discharge Arranged Transport Date/Time 10/02/2022 11:30 Mode of Transportation Arranged Ambulance Name of Agency [facility] Service Categories #1 Occupational Therapy, Physical Therapy, Manager Of Housekeeping Service Comments #1 An ambulance has been arranged to transport patient to [place] today @ 1130am Name of Person Notified of Transfer Patient's legal guardian - Jaquan Coelho Discharge : Rehab Discharge Index 09/28/2022 14:47 EDT Full chart review completed Yes Hospital course Hospital course * Jose PAEZ, Annette Mccormick: PERFORM Event Display: Progress Note Hospital Authored Date: [id number] Patient: ??WORSTER, ROBERT ? Age:??62 Years?Sex:??Female?:??1960?? Chief Complaint stroke transfer from [facility], tpa completed upon arrival. initially found unrepsonsive at 1530, was given narcan. Right MCA History of Present Illness Follow-up.?? History reviewed. ??Has spouse at the bedside who reports she is doing better . ??Notes improvement in right upper extremity motor strength.?? Continues with profound language deficits.?? Rehab??transfer planned today to [place].?? Amantadine now reduced to once a day. Review of Systems Denies pain, denies difficulty swallowing. Physical Exam Vitals & Measurements T:??98.7?F ?? HR:??73(Monitored)?? TX:??66?? RR:??18?? BP:??108/62?? SpO2:??98%?? HT:??165??cm?? WT:??68.4??kg?? BMI:??25.12?? Alert, attentive. Follows??most verbal commands, occasionally needs a gestural or tactile cue for??completeness. Right upper extremity:??Deltoid??3/5,??triceps 4/5,??wrist 4/5,??intrinsics??4- /5??in flexion, 4/5 in extension, Ambulated with??contact-guard min assist (observed??ambulating with staff in the bathroom). Language:??Severe??expressive aphasia??and states?? yup for most answers Assessment/Plan ?? 61yo F with h/o MS, chronic pain admitted with occluded left MCA--s/p TNK and thrombectomy. On current exam she has severe language deficits/aphasia, right hemiparesis and difficulty ambulating and performing ADLs.?? Right sided motor deficits slowly improving. ? Recommendations: ?? Activity:??mobilize with PT Bowel Regimen:??on regimen Bladder:??incontinent Cognition/psychopharmacology:??Recommend further taper??of amantadine at rehab. ??Would?? reduced??amantadine further to 50 mg once in the a.m.??beginning in the next??few days,??continue for 1 week then DC at rehab.? Neurology:??Appreciate Neurology Note. Pain Management: Takes scheduled oxycodone at home, now PRN here. Appears comfortable. Spasticity:??None ?? Swallow: Current rehab treatment & further recommendations: Occupational Therapy:??following Physical Therapy: following Speech Therapy:??following ?? Disposition: rehab??planned today now that guardianship has been obtained. ?? She could follow-up with us in our outpatient practice after rehab discharge. ??Call [phone] to arrange if needed. Problem List/Past Medical History Ongoing Anxiety Fatty liver HTN (hypertension) Hyperlipidemia Obesity Tremor Historical No qualifying data Procedure/Surgical History No qualifying data available. Hospital Medications Medications (25) Active SCHEDULED: (15) Amantadine 100 mg/10 mL Syrup UD (amantadine 50 mg/5 mL oral syrup) ??100 mg 10 mL, By Mouth, Every24 hours Amlodipine 10 mg Tablet (amLODIPine 10 mg oral tablet) ??10 mg, By Mouth, Daily Aspirin 81 mg Chew Tablet (aspirin 81 mg oral tablet, chewable) ??81 mg, By Mouth, Daily Atorvastatin 80 mg Tablet (atorvastatin 40 mg oral tablet) ??80 mg, By Mouth, Daily at bedtime Docusate Sodium 100 mg Capsule (docusate sodium 100 mg oral capsule) ??100 mg 1 capsule, By Mouth, 2 times a day Duloxetine 60 mg Capsule (DULoxetine Capsule) ??60 mg, By Mouth, Daily Gabapentin 300 mg Capsule (gabapentin 300 mg oral capsule) ??900 mg, By Mouth, 3 times a day Heparin 5000 units/mL Inj (1 mL) (Heparin Inj) ??5,000 units 1 mL, Subcutaneous Injection, 3 times a day Lansoprazole 30 mg OD Tablet (Lansoprazole OD Tablet) ??30 mg, By Mouth, Daily Lidocaine 5% Topical Patch (Lidocaine 5% Patch) ??1 each, Topically, Daily NaCL 0.9% Flush 10ml (Flush NaCl 0.9% (10mL)) ??5 mL, IV Push, Every 8 hours Nystatin 100,000 units/mL Susp UD (Nystatin 100,000 Units/mL Liquid) ??400,000 units 4 mL, Swish and Swallow, 4 times a day Remove Patch (Remove Lidocaine Patch) ??1 each, Topically, Daily at bedtime Senna Tablet (Senna 8.6 mg oral tablet) ??17.2 mg 2 tablet, By Mouth, Daily Vitamin B-12 ??1000 mcg Tablet (Vitamin B-12 1000 mcg oral tablet) ??500 mcg, By Mouth, Daily CONTINUOUS: (0) PRN: (10) Acetaminophen 325 mg Tablet (Tylenol 325 mg oral tablet) ??650 mg, By Mouth, Every 6 hours Al hydroxide/Mg hydroxide/simethicone 200 mg-200 mg-20 mg/5 mL Susp UD (Maalox Plus Liquid) ??15 mL, By Mouth, 4 times a day Albuterol/Ipratropium Inhalation Chrissy 3mL (Duoneb Inhalation Solution) ??1 vials, BAND Nebulizer, Every 4 hours Bisacodyl 10 mg Suppository (Bisacodyl Supp) ??10 mg 1 supp, Rectally, 2 times a day Magnesium Hydroxide 8% Susp UD (Milk of Magnesia Liquid) ??30 mL, By Mouth, 2 times a day NaCL 0.9% Flush 10ml (Flush NaCl 0.9% (10mL)) ??5 mL, IV Push, Every 8 hours NaCl 0.9% Flush 3ml (Flush NaCl 0.9%) ??3 mL, IV Push, Every 8 hours nalOXONE ??400mcg/mL Inj (nalOXONE Inj) ??0.1 mg 0.25 mL, IV Push Slowly, Every 5 minutes Ondansetron 4 mg ODT (Zofran ODT 4 mg oral tablet, disintegrating) ??4 mg, By Mouth, Every 6 hours OxyCODONE 5 mg IR Tablet (OxyCODONE IR Tablet) ??10 mg, By Mouth, Every 6 hours Patient Education Titles Fall??Prevention?? Oxycodone Oral Tablet?? Lidocaine Medicated Patch?? Lansoprazole Disintegrating Oral Tablet?? Atorvastatin Oral Tablet?? Aspirin Chewable Tablet?? Amantadine Oral Solution?? Acetaminophen Oral Tablet 325 mg?? Discharge Instructions for High Blood Pressure (Hypertension)?? Urinary Tract Infections in Women?? Strokes: Identification and Procedures?? Risk Factors for Stroke?? Amlodipine Oral Tablet?? What Is High Blood Pressure??? Aspirin Oral Tablet?? Discharge Instructions for Stroke?? Follow-Up Appointments Added Follow Up ?Time Frame ?Comments Bernardo Torres?1 month?Please call for appointment in 1 month Rima Dubose?2 to 3 weeks?Please call for appointment in2 to 3 weeks Jolynn Johnston?10/21/2022 12:30 Patient Instructions Continue aspirin, statin. continue amantadine 100 mg?? daily, Follow-up PCP and neurology outpatient?Follow-up with cardiac surgery outpt started amlodipine 10 mg daily.? Lab Results PM&R Labs WBC: 6.6 k/mm3 (10/01/22) Platelet Count: 196 k/mm3 (10/01/22) Sodium:??146 mmol/L??High (10/01/22) BUN: 11 mg/dL (10/01/22) Creatinine-Blood: 0.7 mg/dL (10/01/22) AST (SGOT):??63 units/L??High (09/03/22) ALT (SGPT): 24 units/L (09/03/22) * Jeanmarie Muhammad RN: PERFORM, SIGN, VERIFY Event Display: Progress Note Hospital Authored Date: [id number] Patient: ROBERT ABEL Age: 62 years Sex: Female : 1960 Associated Diagnoses: None Author: Jeanmarie Muhammad RN Findings Problem Related to Alteration in Neurological : Alteration in Neurological Function/new 10/01/2022 9:00 EDT Alteration in Neuro status Related to Acute Stroke (CVA) Goals & Outcomes, Neurological Lab studies/diagnostic tests within pt specific limits, Pt is safe with transfers & activities, Pt will be discharged without infection, Pt will be hemodynamically stable, Pt will be Neurologically stable, Pt will become pain free with appropriate intervention, Pt will maintain intact skin integrity, Pt will remain free from injury, Pt will resume/maintain ad equate cardiac output, Pt will state importance of adhering to medication regime, Pt/caregiver willreceive psychosocial support as needed, Pt/caregiver will state understanding of plan/goals of care, Pt will be without signs of aspiration Interventions, Neurological Assess/monitor neurologic status, Collaborate with provider re: medication regime, Maintain normothermia, report temp >101.5 F, Physical assessment per unit standards, Provide emotional support to Pt/caregiver, Teach & encourage deep breath & cough exercises Goals/Interventions, Neurological Yes Neurological, Problem Start 09/02/2022 22:00 Reviewed plan with, Neurological Patient Patient Progression, Neurological Pt progressing according to plan . Nursing Data Neurological Data. : Neurological Data. 10/01/2022 9:00 EDT Neurological Symptoms Alteration in level of consciousness Orientated to person, place, time Person, Place Facial Symmetry Drooping right side of face Characteristics of Speech Expressive aphasia Characteristics of Speech Expressive aphasia Swallowing Difficulty Solids Swallowing Difficulty Solids Strength LUE 5-Active movement against gravity & full resistance Strength RUE 4-Active movement against gravity & some resistance Strength LLE 5-Active movement against gravity & full resistance Strength RLE 4-Active movement against gravity & some resistance Sensation LUE Intact Sensation RUE Intact Sensation LLE Intact Sensation RLE Intact Movement LUE Spontaneous Movement RUE Spontaneous Movement LLE Spontaneous Movement RLE Spontaneous Response Eye Opening Spontaneously Motor Response-Adult Obeys commands Verbal Response-Adult Disoriented and converses [place] Coma Score 14 Neuro WNL except Memory Unable to assess Swallow - Neuro Gag diminished . Evaluation Patient alert and oriented x 2 has expressive and receptive aphasia. Right sided facial droop. Has some lower back pain which lidocaine patch scheduled also scheduled Meds. In process of trying to find placement for this patient. Will continue to monitor and reassess. . Radiology * [facility] , CIS S: TRANSCRIBE Bernardo PAEZ, Juan Francisco: SIGN Lamin RIDLEY, Michael V: VERIFY Event Display: Result: Authored Date: Modified Barium Swallow WITH SPEECH PATHOLOGY CLINICAL INDICATION: Reason: Aspiration; Clinical Question(s): Aspiration; Order Comment: Modified Barium Swallow W Speech (Radiology) Prep COMPARISON: None Technique: Lateral cine-videofluoroscopy was performed during the oral administration of various barium containing consistencies, as described below. Fluoroscopic imaging provided by Jw Chang PA-C. Pulsed fluoroscopy time: 1.9 minutes Dose Area Product (DAP): 116.9 uGy*m2 Findings: Applesauce , pudding, nectar, mixed fruit/juice, and thin barium consistencies were tested. Deep laryngeal penetration was seen inconsistently with thin and nectar consistencies. The oral and pharyngeal phases of swallowing were otherwise without evidence of laryngeal penetration or subglottic aspiration. IMPRESSION: Laryngeal penetration as described. For dietary concerns or recommendations, please refer to speech pathologist report. By undersigning and finalizing the report, the attending radiologist confirms he/she has personallyreviewed and interpreted the images and agrees with the description of the findings. I have personally reviewed the images and I agree with this report. WSN: [id number] Ordering Physician: Wood Bolden Dictated By: Juan Francisco Jones Dictated Date/Time: 09/28/22 2:32 pm Reviewed By: Michael Kimble MD, V Signed By: Michael Kimble MD, V Signed Date/Time: 09/28/22 2:37 pm Transcribed By: HARPAL Transcribed Date/Time: 09/28/22 11:17 am * [facility] , CURTIS S: TRANSCRIBE Mee Tee MD: SIGN Michael Kimble MD V: VERIFY Event Display: Result: Authored Date: [id number] Modified Barium Swallow W/ Speech (Radio WITH SPEECH PATHOLOGY CLINICAL INDICATION: Reason: Dysphagia; Clinical Question(s): Aspiration COMPARISON: None Technique: Lateral cine-videofluoroscopy was performed during the oral administration of various barium containing consistencies, as described below. Fluoroscopic imaging provided by Dr. Tee. Pulsed fluoroscopy time: 4 minutes Dose Area Product (DAP): 196.8 uGy*m2 Findings: Honey, applesauce, pudding, nectar, and thin barium consistencies were tested. Honey: Flash laryngeal penetration. Applesauce: Delayed swallow without evidence of laryngeal penetration or subglottic aspiration. Pudding: Delayed swallow without evidence of laryngeal penetration or subglottic aspiration. [place]: Flash laryngeal penetration. Thin barium: Deep laryngeal penetration with delayed cough reflex. IMPRESSION: Deep laryngeal penetration with thin liquid consistency. Flash laryngeal penetration with honey and nectar consistencies. No evidence of subglottic aspiration. Additional findings as described. For dietary concerns or recommendations, please refer to speech pathologist report. By undersigning and finalizing the report, the attending radiologist confirms he/she has personallyreviewed and interpreted the images and agrees with the description of the findings. I have personally reviewed the images and I agree with this report. WSN: [id number] Ordering Physician: Haydee Rhodes Dictated By: Mee Tee MD Dictated Date/Time: 09/15/22 12:25 p Reviewed By: Michael Kimble MD, V Signed By: Michael Kimble MD, V Signed Date/Time: 09/15/22 12:30 pm Transcribed By: HARPAL Transcribed Date/Time: 09/15/22 11:49 am * Event Display: NV Interventional Angiogram Intracranial Authored Date: * Event Display: NV Interventional Angiogram Intracranial Authored Date: Peripheral Interventional Report Demographics Patient Name COLTEN JONES Gender Female [employer] [facility] [id number] Room Number D514 Height 64.96 inches Date of 1960 Weight 149.92 pounds Age 61 year(s) BSA 1.75 m2 Accession Number [id number] BMI 24.98 kg/m2 Referring Physician La Newell Date of Study 09/02/2022 Performing Physician La Newell Fellow Interventional Physician La Newell Procedure Procedure Type Percutaneous Peripheral Intervention:Neuro Intervention, Interventional Intracranial Angiogram Miscellaneous:Vascular Closure Device Indications Indications: CVA. Clinical History Additional Clinical History:HISTORY: 61-year-old woman brought to the [facility] for complaints of acute onset right sided weakness and speech deficits concerning for stroke. CT head negative for hemorrhage. CT angiogram showed left MCA M1 occlusion. After discussing the case with the stroke team as well as the patient's family, decision was made to attempt mechanical thrombectomy to revascularize the left middle cerebral artery. Tasks: General anesthesia provided by anesthesia staff Cannulation right common femoral artery, insertion of Infinity sheath Cannulation, angiogram left common carotid artery Cannulation, angiogram left internal carotid artery Microcatheter cannulation left middle cerebral artery Aspiration thrombectomy to left middle cerebral artery Deployment of stent retriever, left middle cerebral artery Control angiogram left ICA Angiogram right ORTHODONTIC TECHNICIAN 6 Fr Angio-seal right ORTHODONTIC TECHNICIAN No. of passes: 2 Recanalization grade: TICI 2B Procedure Data Procedure Date Date: 09/02/2022Start: 20:34End: 21:47 The procedure was explained in detail to the patient. Risks, complications and alternative treatments were reviewed. Written consent was obtained. Entry Locations - Retrograde Percutaneous access was performed through the Right Femoral artery (Primary location). A 6 Fr sheath was inserted. Hemostasis was successfully obtained using Angio-Seal. Sedation: A separate physician or qualified healthcare provider administered the sedation services. Refer to separate documentation in patient''s record. Contrast Material - Omnipaque 50 ml Diagnostic Catheters - [id number] MP NEURON MAX LONG SHEATHwas used for:guide catheter support. - [id number] STR LEATHA DISTAL ACCESS CATHETERwas advancedto theProximal Internal Carotid, Leftandwas used for: selective angiography. - A2.5F-[id number] STR HEADWAY 21 ADVANCED MICROCATHETERwas used for: selective angiography. Fluoroscopy Time: PCI: 13:18 minutes. Total: 13:18 minutes. Fluoroscopy Dose: PCI: 486 mGy. Total: 486 mGy. Dose Area Product:PCI: 91629.1 mGy/cm2. Total: 96454.1 mGy/cm2. Dose Area Product:PCI: 6331.21 ??Gy/m2. Total: 6331.21 ??Gy/m2. Procedure Narrative Technique: The procedure, risks including stroke, intracranial hemorrhage, , failure of intervention, risk of general anesthesia, blood vessel injury, groin hematoma, contrast nephropathy were considered and emergency consent was obtained. Using sterile micropuncture needle, the right ORTHODONTIC TECHNICIAN was cannulated with an Infinity sheath on continuous flush. The left internal carotid artery was cannulated with a 6 Fr sheath over a 5 Fr diagnostic catheter. Angiograms were obtained, demonstrating occlusion of the left middle cerebral artery M1 segment just distal to the terminus. The diagnostic catheter was exchanged for a 6 Fr Leatha aspiration catheter which was advanced into the left internal carotid. The distal access catheter was advanced to the clot interface and aspiration thrombectomy of the left MCA was performed using the aspiration pump. Control angiogram of the left internal carotid artery post aspiration thrombectomy revealed partial recanalization of a left MCA but persistent occlusion of the frontal branch of the left MCA. A Headway 21 microcatheter was advanced into the superior division of the left middle cerebral artery over a Syncro 014 microguidewire, through the aspiration catheter. A Solitaire 3 mm x 20 mm stent retriever was deployed across the occlusion. After approximately 3 minutes, the stent retriever was slowly retrieved with concomitant aspiration at the aspiration catheter. Control angiogram of the left internal carotid artery revealed recanalization of the left middle cerebral artery and its branches with persistent occlusion of distal frontal branches not amenable to thrombectomy. Following angiogram of the right common femoral artery, 6 Fr Angio-seal was applied to the right common femoral artery. Observation: Left common carotid artery: normal contrast opacification seen at the origin of the left internal carotid artery. Left internal carotid artery: there is occlusion of the left middle cerebral artery M1 segment and its branches. Good collateral flow to the left MCA territory seen via leptomeningeal collaterals from the left RUPA. After stent retriever and aspiration thrombectomy, there is recanalization of the left MCA M1 segment and its branches with persistent occlusion of distal cortical branches of the superior division, not amenable to mechanical thrombectomy. TICI 2B recanalization. Angiographic Findings Peripheral Arteries and Lesion Findings Middle Cerebral, Left: Lesion in Proximal: Hemodynamics Condition: Rest Estimated: Interventional Procedure Peripheral lesions: Middle Cerebral, Left: Lesion in Proximal: Devices used - 3.3qps14hl SOLITAIRE X REVASCULARIZATION DEVICE. 1 inflation(s) Conclusions Interventional Summary IMPRESSION: Cerebral angiogram demonstrates occlusion of the left middle cerebral artery M1 segment just distal to the terminus. Good collateral flow to the left MCA territory is seen via leptomeningeal collaterals from the left RUPA. Successful recanalization of the left middle cerebral artery with persistent occlusion of distal cortical branches of the superior division of the left MCA, not amenable to mechanical thrombectomy. Recanalization grade TICI 2B. The findings of this study were relayed to the patient's family as well as Dr. Antonio from the NeuroICU team after the procedure. Signatures Portable XR Chest Views * CURTIS Musa S: TRANSCRIJarek Little MD: VERIFY Event Display: Result: Authored Date: [id number] Chest Portable Reason: Tube Placement; Clinical Question(s): Tube Placement; Special Instructions: ng tube; Order Comment: COMPARISON: 09/12/2022 FINDINGS: LINES AND TUBES: Enteric tube appears in good position. LUNGS AND PLEURA: Right lower lobe hazy opacity appears new compared to previous examination. Possible atelectasis orpneumonia/aspiration. Stable left base opacity. No pleural effusion. No pneumothorax. HEART, MEDIASTINUM AND [place]: Heart is normal in size. Normal mediastinal and hilar contour. BONES AND SOFT TISSUES: No acute abnormality. IMPRESSION: Enteric tube in good position. Nonspecific new density in the right lower lung field. Persistent left lower lung drew density, unchanged. WSN: [id number] Ordering Physician: Kaelyn Colmenares Dictated By: Jarek Reyes MD Dictated Date/Time: 09/12/22 8:38 am Reviewed By: Jarek Reyes MD Signed By: Jarek Reyes MD Signed Date/Time: 09/12/22 8:38 am Transcribed By: HARPAL Transcribed Date/Time: 09/12/22 8:37 am * CURTIS Musa S: TRANSCJarek Davila MD: VERIFY Event Display: Result: Authored Date: [id number] Chest Portable Reason: Tube Placement; Clinical Question(s): Tube Placement; Special Instructions: ng tube COMPARISON: 09/11/2022 FINDINGS: LINES AND TUBES: Enteric tube appears in good position. LUNGS AND PLEURA: Patchy density at the lung bases similar to previous exam. No pleural effusion. No pneumothorax. HEART, MEDIASTINUM AND [place]: Heart is normal in size. Normal mediastinal and hilar contour. BONES AND SOFT TISSUES: No acute abnormality. IMPRESSION: Stable patchy density at the lung bases may represent atelectasis or pneumonia/aspiration. Enteric tube in good position. WSN: [id number] Ordering Physician: Kaelyn Colmenares Dictated By: Jarek Reyes MD Dictated Date/Time: 09/12/22 8:54 am Reviewed By: Jarek Reyes MD Signed By: Jarek Reyes MD Signed Date/Time: 09/12/22 8:54 am Transcribed By: HARPAL Transcribed Date/Time: 09/12/22 8:53 am * [facility] , CIS S: TRANSCRIBE Rio Bruce MD: VERIFY Event Display: Result: Authored Date: [id number] Chest Portable Reason: Tube Placement; Clinical Question(s): Tube Placement; Special Instructions: please confirm NG tube placement / Tube Placement COMPARISON: 09/10/2022 FINDINGS: LINES AND TUBES: Enteric tube tip and side-port project in the stomach. LUNGS AND PLEURA: Hazy opacity at the right lung base, unchanged. No pleural effusion. No pneumothorax. HEART, MEDIASTINUM AND [place]: Unchanged. BONES AND SOFT TISSUES: No acute abnormality. There are surgical clips in the right upper quadrant. IMPRESSION: Enteric tube tip and side-port projecting in the stomach. WSN: [id number] Ordering Physician: Renata Gruber Dictated By: Rio Bruce MD Dictated Date/Time: 09/11/22 10:45 a Reviewed By: Rio Bruce MD Signed By: Rio Bruce MD Signed Date/Time: 09/11/22 10:45 am Transcribed By: HARPAL Transcribed Date/Time: 09/11/22 10:44 am * [facility] , CIS S: TRANSCRIBE Eliud Sevilla MD: VERIFY Mee Tee MD: SIGN Event Display: Result: Authored Date: [id number] Chest Portable Reason: Shortness of Breath; Clinical Question(s): Pulmonary Edema; Effusion Atelectasis COMPARISON: Multiple priors, most recent chest x-ray 09/08/2022 FINDINGS: LINES AND TUBES: Enteric tube courses down the esophagus with tip terminating off the field of view. LUNGS AND PLEURA: Slight increase in hazy right lower lobe interstitial opacity. Unchanged retrocardiac opacity. Normal pulmonary vascularity. No right pleural effusion. The left costophrenic angle is not included. No pneumothorax. HEART, MEDIASTINUM AND [place]: Mild prominence of the cardiac silhouette, unchanged. Unchanged mediastinal and hilar contour. BONES AND SOFT TISSUES: No acute abnormality. IMPRESSION: Slight increase in the hazy right lower lobe interstitial opacity, which could represent atelectasis versus developing infiltrate. Unchanged retrocardiac opacity. I have personally reviewed the images and I agree with this report. WSN: [id number] Ordering Physician: Rahul Young Dictated By: Mee Tee MD Dictated Date/Time: 09/10/22 9:01 am Reviewed By: Eliud Sevilla MD Signed By: Eliud Sevilla MD Signed Date/Time: 09/10/22 9:06 am Transcribed By: HARPAL Transcribed Date/Time: 09/10/22 8:56 am * [facility] , CIS S: TRANSCRIBE Abdulaziz Squires MD H: VERIFY Event Display: Result: Authored Date: [id number] Chest Portable semiupright at 1:09 AM Reason: Line Placement; Clinical Question(s): Line Placement COMPARISON: 09/06/2022 and 09/04/2022 FINDINGS: LINES AND TUBES: Enteric tube in place with the tip in region of the gastroduodenal junction. LUNGS AND PLEURA: Suboptimal inspiration with generalized accentuation of markings, persistent increased density in the left retrocardiac region and right basilar atelectasis, early infiltrate here not excluded here. No appreciable pleural effusion seen on either side. No pneumothorax. HEART, MEDIASTINUM AND [place]: Stable mild cardiac enlargement. Stable mediastinal and hilar contours. BONES AND SOFT TISSUES: No acute abnormality. IMPRESSION: 1. Distal end of enteric tube in region of the gastroduodenal junction. 2. No significant interval change in the appearance of the lungs from examination 2 days ago showing low lung volumes with bibasilar atelectasis, underlying infiltrates not excluded. WSN: [id number] Ordering Physician: Kathy Vines Dictated By: Abdulaziz Squires MD Dictated Date/Time: 09/08/22 8:40 am Reviewed By: Abdulaziz Squires MD Signed By: Abdulaziz Squires MD Signed Date/Time: 09/08/22 8:40 am Transcribed By: HARPAL Transcribed Date/Time: 09/08/22 8:35 am * CURTIS Musa S: Jennifer Dias MD: VERIFY Event Display: Result: Authored Date: [id number] Examination: Portable chest performed on 09/06/2022 at 11:18 AM. History: Hypoxia. Findings: A frontal view of the chest is compared to a prior study dated 09/04/2022. Enteric tube is within the stomach with the tip directed cranially. There is stable enlargement of the cardiac silhouette. Left retrocardiac opacity and left pleural effusion persist. There is minimal right basilar atelectasis. The osseous structures are intact. Surgical clips the right upper quadrant are seen. IMPRESSION: Stable left pleural effusion and atelectasis. Slightly worsening right basilar atelectasis. WSN: [id number] Ordering Physician: Bernardo Valdes Dictated By: Jennifer Hartman MD Dictated Date/Time: 09/06/22 1:30 pm Reviewed By: Jennifer Hartman MD Signed By: Jennifer Hartman MD Signed Date/Time: 09/06/22 1:30 pm Transcribed By: HARPAL Transcribed Date/Time: 09/06/22 1:28 pm * CURTIS Musa S: TRANSCAdalberto Pisano MD: VERIFY Event Display: Result: Authored Date: [id number] AP semiupright portable chest dated September 14, 2022 at 1528 hours. Comparison films are from Augustt 1448 hours and September 03, 2022. HISTORY: Tube placement. FINDINGS: The cardiac silhouette is increased in size and unchanged. A nasogastric tube extends offthe film into the left upper quadrant. There is increased density at the left lung base consistent with effusion, atelectasis, pneumonia, or any combination. The right lung is clear. There is a mild convex right thoracic scoliosis. IMPRESSION: Nasogastric tube in place. The tip extends off the film. Stable left lower lobe effusion, atelectasis, pneumonia, or any combination. Examination 85945. Thank you for allowing me to participate in the care of this patient. WSN: [id number] Ordering Physician: Sheridan Torres Dictated By: Adalberto Alfredo MD Dictated Date/Time: 09/04/22 4:09 pm Reviewed By: Adalberto Alfredo MD Signed By: Adalberto Alfredo MD Signed Date/Time: 09/04/22 4:09 pm Transcribed By: HARPAL Transcribed Date/Time: 09/04/22 4:09 pm * [facility] , CIS S: TRANSCRIBE Adalberto Alfredo MD: VERIFY Event Display: Result: Authored Date: [id number] AP supine portable chest dated September 14, 2022 1448 hours. Comparison films are from earlier in the day. HISTORY: Tube placement. FINDINGS: Today's study is limited as the apices of the lungs left worse than right are not included. The cardiac silhouette is increased in size and unchanged. A nasogastric tube extends into the leftupper quadrant. The sidehole is at the level of the EG junction. This could be advanced 3 cm for more optimal positioning. Increased attenuation is present at the left lung base consistent with effusion, atelectasis, pneumonia, or any combination. Postoperative changes are noted in the right upper quadrant. IMPRESSION: Nasogastric tube in place. This could be advanced 3 cm for more optimal positioning. Stable opacity at the left lung base. Examination 39506. Thank you for allowing me to participate in the care of this patient. WSN: [id number] Ordering Physician: Gopal Goodwin Dictated By: Adalberto Alfredo MD Dictated Date/Time: 09/04/22 4:12 pm Reviewed By: Adalberto Alfredo MD Signed By: Adalberto Alfredo MD Signed Date/Time: 09/04/22 4:12 pm Transcribed By: HARPAL Transcribed Date/Time: 09/04/22 4:12 pm * [facility] , CIS S: TRANSCJaquan Resendez MD: VERIFY Event Display: Result: Authored Date: [id number] Chest Portable Reason: Tube Placement; NGT placement; Clinical Question(s): Tube Placement COMPARISON: 09/04/2022 FINDINGS: LINES AND TUBES: Nasogastric tube again demonstrated with tip collimated from view, but which extends below diaphragm beyond proximal stomach. LUNGS AND PLEURA: No pneumothorax. Unchanged small left pleural effusion with associated left lower lobe atelectasis/consolidation. The lungs are clear. Pulmonary vascularity is normal. HEART, MEDIASTINUM AND [place]: Unchanged. BONES AND SOFT TISSUES: No acute bony abnormalities. Surgical clips present in the right upper abdomen. IMPRESSION: Nasogastric tube extends below diaphragm beyond proximal stomach and with tip collimated from view. Unchanged small left pleural effusion with left lower lobe atelectasis/consolidation. WSN: [id number] Ordering Physician: Sheridan Torres Dictated By: Jaquan Aquino MD Dictated Date/Time: 09/04/22 7:27 pm Reviewed By: Jaquan Aquino MD Signed By: Jaquan Aquino MD Signed Date/Time: 09/04/22 7:27 pm Transcribed By: HARPAL Transcribed Date/Time: 09/04/22 7:25 pm * [facility] , CIS S: TRANSCSELVIN Magallanes MD, Shellisha: HYUN Kimble MD, Michael V: VERIFY Event Display: Result: Authored Date: [id number] Chest Portable 09/04/2022 at 7:56 a.m. Reason: Tube Placement; Clinical Question(s): Tube Placement COMPARISON: 09/03/2022 and multiple priors FINDINGS: LINES AND TUBES: Endotracheal tube with tip 4.6 cm proximal to the lynette. Enteric tube courses below the diaphragm, tip not included in the [id number]. LUNGS AND PLEURA: Persistent retrocardiac density unchanged. Probable minimal atelectasis and/or early infiltrate right lung base.. Otherwise, clear lungs. Normal pulmonary vascularity. No pleural effusion. No pneumothorax. HEART, MEDIASTINUM AND [place]: Heart is normal in size. Normal mediastinal and hilar contour. BONES AND SOFT TISSUES: No acute abnormality. IMPRESSION: 1. Endotracheal tube with tip 4.6 cm proximal to the lynette. 2. Persistent retrocardiac density and persistent atelectasis right lower lobe medially.. Otherwise, clear lungs . I have personally reviewed the images and I agree with this report. WSN: [id number] Ordering Physician: Sheridan Torres Dictated By: Clarke Magallanes MD Dictated Date/Time: 09/04/22 8:50 am Reviewed By: Michael Kimble MD, V Signed By: Michael Kimble MD, V Signed Date/Time: 09/04/22 8:55 am Transcribed By: HARPAL Transcribed Date/Time: 09/04/22 8:47 am * CURTIS Musa S: Glenis Berumen MD: VERIFY Event Display: Result: Authored Date: [id number] Chest Portable CLINICAL INDICATION: Reason: Tube Placement; Clinical Question(s): Tube Placement COMPARISON: None available. FINDINGS: Enteric tube extends into the stomach. The cardiac silhouette is within normal limits. Hilar and mediastinal contours are normal. There is minimal linear atelectasis or scarring in the leftlung base. The lungs are otherwise clear. There is no pleural effusion, pneumothorax, or evidence of CHF. No acute osseous abnormality is noted. Right upper quadrant surgical clips noted. IMPRESSION: Enteric tube extends into the stomach. No acute cardiopulmonary process. WSN: [id number] Ordering Physician: Mahogany Nelson Dictated By: Glenis Roach MD Dictated Date/Time: 09/03/22 1:27 pm Reviewed By: Glenis Roach MD Signed By: Glenis Roach MD Signed Date/Time: 09/03/22 1:27 pm Transcribed By: HARPAL Transcribed Date/Time: 09/03/22 1:20 pm * CURTIS Musa S: Adalberto Wan MD: VERIFY Clarke Magallanes MD: SIGN Event Display: Result: Authored Date: [id number] Chest Portable 09/03/2022 at 2:19 PM Reason: Tube Placement; tube placement; Clinical Question(s): Tube Placement; ETT placed- want to confirm good placement COMPARISON: 09/03/2022 at 11:10 AM FINDINGS: LINES AND TUBES: New endotracheal tube with tip 2.1 cm proximal to the lynette. Enteric tube courses below the diaphragm, tip not included in the jagwa-[id number]. LUNGS AND PLEURA: Persistent mild left basilar atelectasis. Normal pulmonary vascularity. No pleural effusion. No pneumothorax. HEART, MEDIASTINUM AND [place]: Heart is normal in size. Normal mediastinal and hilar contour. BONES AND SOFT TISSUES: No acute abnormality. IMPRESSION: 1. New endotracheal tube with tip 2.1 cm proximal to the lynette. Consider retracting the tube approximately 1 to 2 cm for optimal placement. 2. Left basilar atelectasis. Otherwise, clear lungs. I have personally reviewed the images and I agree with this report. WSN: [id number] Ordering Physician: Mahogany Nelson Dictated By: Clarke Magallanes MD Dictated Date/Time: 09/03/22 2:58 pm Reviewed By: Adalberto Alfredo MD Signed By: Adalberto Alfredo MD Signed Date/Time: 09/03/22 3:03 pm Transcribed By: HARPAL Transcribed Date/Time: 09/03/22 2:[address] Head WO contrast * [facility] , CIS S: TRANSCRIBE Lionel Brice MD: VERIFY Event Display: Result: Authored Date: [id number] CT Head/Brain W/O Contrast INDICATION: Hemiparesis, follow-up hematoma TECHNIQUE: Noncontrast head CT using axial technique and reconstructed in axial and coronal planes.Iterative reconstruction techniques are used to optimize dose and image quality. CTDIvol Head: 51.92 mGy, DLP Head: 831 mGy*cm. COMPARISON: 09/06/2022 FINDINGS: Manager Emergency Department view findings, lines and tubes: None. BRAIN AND EXTRA-AXIAL SPACES: Slightly improved mass effect of the left MCA infarct. There is residual 2 mm midline shift centered on the caudate nucleus. Central hemorrhagic component has resolved. No new hemorrhage or infarct. Slightly high density cortex of the left MCA distribution surrounding the prior infarct is probablysecondary to laminar necrosis. No intraventricular hemorrhage or obstruction. No subarachnoid hemorrhage. No subdural or epidural collection. CALVARIUM, SKULL BASE, AND SOFT TISSUES: No fractures or suspicious bony lesions. The paranasal sinuses and mastoid air cells are clear. Visualized orbits and globes are intact. The extracranial soft tissues are unremarkable. IMPRESSION: Persistent but improved swelling of the left MCA infarct but the central hemorrhagic component has resolved. No new infarct. WSN: [id number] Ordering Physician: Mary Mae Dictated By: Lionel Brice MD Dictated Date/Time: 09/23/22 12:31 p Reviewed By: Lionel Brice MD Signed By: Lionel Brice MD Signed Date/Time: 09/23/22 12:31 pm Transcribed By: CSHemanth Transcribed Date/Time: 09/23/22 12:25 pm * [facility] , CIS S: TRANSCRIJaquan Fang MD: VERIFY Event Display: Result: Authored Date: [id number] CT Head/Brain W/O Contrast INDICATION: Reason: Other:; follow up IPH; Clinical Question(s): Other: TECHNIQUE: Noncontrast head CT using axial technique and reconstructed in axial and coronal planes.Iterative reconstruction techniques are used to optimize dose and image quality. CTDIvol Head: 46.80 mGy, DLP Head: 774 mGy*cm. COMPARISON: CT head without contrast 09/03/2022. MRI brain 09/04/2022. FINDINGS: Manager Emergency Department view findings, lines and tubes: None. BRAIN AND EXTRA-AXIAL SPACES: Similar appearance of the intraparenchymal hemorrhage involving the left basal ganglia. There is a slightly increased extent of surrounding edema. Multifocal areas of loss of mckenna-white matter differentiation involving the posterior right frontal and parietal lobes (For example 64/202, 73/202 and 56/) compatible with evolving infarction. High attenuation within an area of infarction involving the right parietal lobe is likely secondary to hemorrhagic transmission /, similar to the MRI. Persistent mass effect with unchanged 5 mm midline shift to the right with similar near total effacement of the left lateral ventricle. Trace layering hemorrhage in the occipital horns of the lateralventricles bilaterally is unchanged. Mild prominence of the ventricles and sulci consistent with parenchymal volume loss. No white matter lesions. No subdural or epidural collection. CALVARIUM, SKULL BASE, AND SOFT TISSUES: No fractures or suspicious bony lesions. The paranasal sinuses and mastoid air cells are clear. Visualized orbits and globes are intact. The extracranial soft tissues are unremarkable. IMPRESSION: 1. Evolving acute to subacute infarction in the left MCA vascular territory. Similar hemorrhagic transformation and intraparenchymal hematoma involving the left basal ganglia and posterior parietal lobe. Slightly increased edema surrounding the basal ganglia hemorrhage. No new focus of infarction ap preciated. 2. Similar trace layering hemorrhage in the occipital horns of both lateral ventricles. 3. Unchanged 5 mm midline shift to the right with near complete effacement of the left lateral ventricle. WSN: [id number] Ordering Physician: Bernardo Valdes Dictated By: Jaquan Barillas MD Dictated Date/Time: 09/06/22 9:22 am Reviewed By: Jaquan Barillas MD Signed By: Jaquan Barillas MD Signed Date/Time: 09/06/22 9:22 am Transcribed By: HARPAL Transcribed Date/Time: 09/06/22 9:02 am * [facility] , CIS S: TRANSCRIBE Rio Bruce MD S: VERIFY Event Display: Result: Authored Date: [id number] CT Head/Brain W/O Contrast INDICATION: CVA; Clinical Question(s): acute mental status change - unable to protect airway, recent CVA sp TNK want to rule out ICH etc TECHNIQUE: Noncontrast head CT using axial technique and reconstructed in axial and coronal planes.Iterative reconstruction techniques are used to optimize dose and image quality. CTDIvol Head: 40.28 mGy, DLP Head: 644 mGy*cm. COMPARISON: MRI of brain 10/29/2017 FINDINGS: Manager Emergency Department view findings, lines and tubes: Partially visualized endotracheal and nasogastric tubes. BRAIN AND EXTRA-AXIAL SPACES: Left basal ganglia intraparenchymal hematoma measuring approximately 4.9 x 2 x 2.8 cm with surrounding vasogenic edema. This results in approximately 1 cm of bdxa-xy-yplkq midline shift and effacement of the left lateral ventricle. No uncal herniation. Patchy areas of hypoattenuation in the left MCA territory may be due to ischemia. No subarachnoid hemorrhage. No subdural or epidural collection. CALVARIUM, SKULL BASE, AND SOFT TISSUES: No fractures or suspicious bony lesions. Mild mucosal thickening of the ethmoid air cells and left frontal sinus. Visualized orbits and globes are intact. The extracranial soft tissues are unremarkable. IMPRESSION: Acute intraparenchymal hemorrhage in the left basal ganglia with approximately 1 cm dblp-tp-dxhpf midline shift. Results were conveyed by [employer] by Dr. Bruce to Dr. Viky Stover on 09/03/2022 at 3:08 PM with understanding acknowledged. WSN: [id number] Ordering Physician: Mahogany Nelson Dictated By: Rio Bruce MD Dictated Date/Time: 09/03/22 3:08 pm Reviewed By: Rio Bruce MD Signed By: Rio Bruce MD Signed Date/Time: 09/03/22 3:08 pm Transcribed By: HARPAL Transcribed Date/Time: 09/03/22 3:02 pm * [facility] , CIS S: TRANSCRIBE Karime RIDLEY, Devrim: VERIFY Event Display: Result: Authored Date: [id number] CT Head/Brain W/O Contrast 8:28 PM INDICATION: Reason: Other:; infarction hemorrhage; Clinical Question(s): Infarction; per neurology follow up CT from prior 6 hours later TECHNIQUE: Noncontrast head CT using axial technique and reconstructed in axial and coronal planes.Iterative reconstruction techniques are used to optimize dose and image quality. COMPARISON: 09/03/2022 at 2:41 PM FINDINGS: Manager Emergency Department view findings, lines and tubes: Partially imaged endotracheal and nasogastric tube. BRAIN AND EXTRA-AXIAL SPACES: Left basal ganglia parenchymal hemorrhage has not significantly changed, now measuring 4.5 x 2.6 x 2.7 cm, previously 4.9 x 2.3 x 2.8 cm when measured in a similar manner. Increased surrounding edemawith mass effect on the left lateral ventricle. There is 1 cm rightward midline shift, slightly increased from 0.8 cm previously when measured similarly. There is small volume subarachnoid hemorrhagein the left frontal and temporal convexities as well as the left sylvian cistern. There is trace amount of blood products layering in the occipital horn of the left lateral ventricle. Basilar cisterns are effaced. Unchanged parafalcine herniation. No acute infarct. No subdural or epidural collection. CALVARIUM, SKULL BASE, AND SOFT TISSUES: No fractures or suspicious bony lesions. The paranasal sinuses and mastoid air cells are clear. Visualized orbits and globes are intact. The extracranial soft tissues are unremarkable. IMPRESSION: 1. Size of the left basal ganglia parenchymal hematoma has not significantly changed; however, surrounding edema has increased with mildly increased rightward midline shift and persistent effacement of the left lateral ventricle and basilar cisterns. 2. Subarachnoid hemorrhage in the left hemisphere and trace amount of layering blood products in the left lateral ventricle and sylvian cistern. A critical result message ([place]) has been communicated via the [employer] system on 09/03/2022 9:51 PM, Message ID [id number]. WSN: [id number] Ordering Physician: Mahogany Nelson Dictated By: Audi Schaffer MD Dictated Date/Time: 09/03/22 9:51 pm Reviewed By: Audi Schaffer MD Signed By: Audi Schaffer MD Signed Date/Time: 09/03/22 9:51 pm Transcribed By: HARPAL Transcribed Date/Time: 09/03/22 9:32 pm CTA Neck vessels W contrast IV * Hank Melendez MD: VERIFY Hank Melendez MD: VERIFY Event Display: Result: Authored Date: [id number] CT Angio Head, CT Angio Neck Reason: Left ICA and MCA occlusion, status post mechanical thrombectomy. TECHNIQUE: CT angiogram of the head and neck was performed after bolus administration of intravenous contrast. 100 mL of Omnipaque 300 was administered intravenously. Coronal and sagittal MIP reformatted images were obtained. Additional 3-D images were created on a separate workstation under concurrent supervision by the attending radiologist. All stenoses are measured using NASCET criteria. Weight-based protocol using automatic tube modulation was used to optimize exposure parameters. RADIATION DOSE PARAMETERS: CTDIvol Head: 44.32 mGy, DLP Head: 1221 mGy*cm. COMPARISON: Noncontrast CT head performed concurrently. 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 The origins of the supra aortic vessels are patent. The subclavian arteries are patent. Right carotid system: The right common carotid artery is patent. Mild soft plaque of the mid right common carotid artery is noted with mild narrowing. There is narrowing of the proximal right ICA measuring up to 30-40% by NASCET criteria. The more distal cervical right ICA is unremarkable. Left carotid system: Mild multifocal soft plaque of the left common carotid artery. Soft plaque andcalcification of the proximal left ICA with mild stenosis estimated at less than 20% by NASCET criteria. The distal cervical left ICA is patent. There is a left-dominant vertebral artery system. Right vertebral: The right vertebral artery is patent. Mild-moderate narrowing of the V3 segment atC1. Left vertebral: Patent. Other: Soft tissues and bones: The patient is intubated, and a right-sided nasogastric tube is present. The tip of the endotracheal tube lies 6 mm above the lynette and is directed towards the right mainstembronchus.The thyroid is unremarkable. Bibasilar atelectasis. No apical pneumothorax. Degenerative changes of the cervical spine. CTA OF THE HEAD: Anterior circulation: The intracranial internal carotid arteries are patent with scattered calcifications. The ICA termini are maintained. The A1 and A2 segments of the anterior cerebral arteries are patent. The M1 and M2 segments of the right middle cerebral artery are patent. The M1 segment of the left middle cerebral artery is patent. The left M2 MCA branches are patent. There is asymmetrically increased enhancement of the distal left MCA branches with respect to the right MCA branches, which may be due to hyperemia. Posterior circulation: The intracranial vertebral arteries and basilar artery are patent. The superior cerebellar arteries are patent. The P1 and P2 segments of the posterior cerebral arteries are patent, and small posterior communicating arteries are present. Veins: The major dural venous sinuses are not well opacified due to early phase of contrast enhancement. Other: Soft tissues and bones: Hyperdensity within the left caudate nucleus and putamen is better seen on the prior noncontrast CT scan of the head. Surrounding edema and mass effect are also noted with left to right midline shift and subtotal effacement of the left lateral ventricle. Patchy regions of diminished density within the left frontal lobe are present, which likely represent acute ischemic change. Orbits are unremarkable. No acute bony abnormality. IMPRESSION: 1. No acute intracranial large vessel occlusion. 2. Mild-moderate stenosis of the proximal cervical right ICA mild stenosis of the proximal cervicalleft ICA. 3. Asymmetrical enhancement of the distal left MCA vessels is noted, which may be due to hyperemia. 4. Hypodensity and mass effect involving the left corpus striatum is compatible with hemorrhagic transformation of an acute infarct, although intermixed contrast could be present given the recent interventional procedure. 5. The tip of the ET tube lies 6 mm above the lynette and is directed towards the right mainstem bronchus. The finding in the fifth impression [facility] of interpretation. A preliminary report was issued to the [facility] via [employer] 09/03/2022 at 3:34 PM. WSN: [id number] Ordering Physician: Viky Stover Dictated By: Hank Melendez MD Dictated Date/Time: 09/03/22 4:04 pm Reviewed By: Hank Melendez MD Signed By: Hank Melendez MD Signed Date/Time: 09/03/22 4:04 pm Transcribed By: HARPAL Transcribed Date/Time: 09/03/22 3:34 pm CTA Head vessels W contrast IV * Hank Melendez MD: VERIFY Hank Melendez MD: VERIFY Event Display: Result: Authored Date: [id number] CT Angio Head, CT Angio Neck Reason: Left ICA and MCA occlusion, status post mechanical thrombectomy. TECHNIQUE: CT angiogram of the head and neck was performed after bolus administration of intravenous contrast. 100 mL of Omnipaque 300 was administered intravenously. Coronal and sagittal MIP reformatted images were obtained. Additional 3-D images were created on a separate workstation under concurrent supervision by the attending radiologist. All stenoses are measured using NASCET criteria. Weight-based protocol using automatic tube modulation was used to optimize exposure parameters. RADIATION DOSE PARAMETERS: CTDIvol Head: 44.32 mGy, DLP Head: 1221 mGy*cm. COMPARISON: Noncontrast CT head performed concurrently. 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 The origins of the supra aortic vessels are patent. The subclavian arteries are patent. Right carotid system: The right common carotid artery is patent. Mild soft plaque of the mid right common carotid artery is noted with mild narrowing. There is narrowing of the proximal right ICA measuring up to 30-40% by NASCET criteria. The more distal cervical right ICA is unremarkable. Left carotid system: Mild multifocal soft plaque of the left common carotid artery. Soft plaque andcalcification of the proximal left ICA with mild stenosis estimated at less than 20% by NASCET criteria. The distal cervical left ICA is patent. There is a left-dominant vertebral artery system. Right vertebral: The right vertebral artery is patent. Mild-moderate narrowing of the V3 segment atC1. Left vertebral: Patent. Other: Soft tissues and bones: The patient is intubated, and a right-sided nasogastric tube is present. The tip of the endotracheal tube lies 6 mm above the lynette and is directed towards the right mainstembronchus.The thyroid is unremarkable. Bibasilar atelectasis. No apical pneumothorax. Degenerative changes of the cervical spine. CTA OF THE HEAD: Anterior circulation: The intracranial internal carotid arteries are patent with scattered calcifications. The ICA termini are maintained. The A1 and A2 segments of the anterior cerebral arteries are patent. The M1 and M2 segments of the right middle cerebral artery are patent. The M1 segment of the left middle cerebral artery is patent. The left M2 MCA branches are patent. There is asymmetrically increased enhancement of the distal left MCA branches with respect to the right MCA branches, which may be due to hyperemia. Posterior circulation: The intracranial vertebral arteries and basilar artery are patent. The superior cerebellar arteries are patent. The P1 and P2 segments of the posterior cerebral arteries are patent, and small posterior communicating arteries are present. Veins: The major dural venous sinuses are not well opacified due to early phase of contrast enhancement. Other: Soft tissues and bones: Hyperdensity within the left caudate nucleus and putamen is better seen on the prior noncontrast CT scan of the head. Surrounding edema and mass effect are also noted with left to right midline shift and subtotal effacement of the left lateral ventricle. Patchy regions of diminished density within the left frontal lobe are present, which likely represent acute ischemic change. Orbits are unremarkable. No acute bony abnormality. IMPRESSION: 1. No acute intracranial large vessel occlusion. 2. Mild-moderate stenosis of the proximal cervical right ICA mild stenosis of the proximal cervicalleft ICA. 3. Asymmetrical enhancement of the distal left MCA vessels is noted, which may be due to hyperemia. 4. Hypodensity and mass effect involving the left corpus striatum is compatible with hemorrhagic transformation of an acute infarct, although intermixed contrast could be present given the recent interventional procedure. 5. The tip of the ET tube lies 6 mm above the lynette and is directed towards the right mainstem bronchus. The finding in the fifth impression was [facility] at the time of interpretation. A preliminary report was issued to the [facility] via [employer] 09/03/2022 at 3:34 PM. WSN: [id number] Ordering Physician: Viky Stover Dictated By: Hank Melendez MD Dictated Date/Time: 09/03/22 4:04 pm Reviewed By: Hank Melendez MD Signed By: Hank Melendez MD Signed Date/Time: 09/03/22 4:04 pm Transcribed By: HARPAL Transcribed Date/Time: 09/03/22 3:34 pm MR Brain WO contrast * Hank Melendez MD: VERIFY Hank Melendez MD: VERIFY Event Display: Result: Authored Date: [id number] MRI Brain W/O Contrast INDICATION: Reason: Other:; CVA; Clinical Question(s): Progression Regression; Order Comment: Please see Reference Text for complete list of contraindications Progression/Regression TECHNIQUE: MRI of the brain was performed without contrast utilizing sagittal T1, axial T2, axial FLAIR, axial SWAN, and axial DWI sequences. COMPARISON: CT scans of the head 09/03/[address] of the head 09/03/2022. MRI of the brain 10/29/2017 FINDINGS: BRAIN and EXTRA-AXIAL SPACES: * There is extensive gyriform restricted diffusion with cortical swelling and sulcal effacement of the left frontal, parietal, and temporal lobes as well as the insula. This is associated with gyral swelling and sulcal effacement. A small focus of hemorrhagic transformation is present within the posterior left parietal signal abnormality. * There is marked left corpus striatal susceptibility artifact correlating with the hypodensity on the prior CT studies. Parenchymal swelling and mass effect are present, and intermixed restricted diffusion within the left corpus striatum is present. This is associated with significant mass effect and subtotal compression of the left lateral ventricle. The third ventricle is also shifted to the right of midline, and left to right subfalcine herniation/shift measures 7 mm. * A punctate focus of restricted diffusion is present within the right frontal lobe is also present. * Entered faint foci of susceptibility artifact are present within right frontal and parieto-occipital sulci, which may represent subarachnoid hemorrhage. Trace intraventricular hemorrhage is also noted within the occipital horns of the lateral ventricles. There is no extra-axial fluid collection, and the fourth ventricle is normal in size. The cervicomedullary junction is unremarkable. Chronic right cerebellar lacunar infarcts. Scattered small FLAIR bright foci within the supratentorial white matter are also present, which are compatible with chronic microangiopathic/small vessel ischemic change. EXTRACRANIAL SOFT TISSUES: Orbits are unremarkable. A right nasogastric tube is present, and fluid is noted within the nasopharynx. The patient is intubated. BONES: Marrow signal is preserved. IMPRESSION: 1. Extensive of acute-subacute ischemic change/infarction of the LEFT MCA vascular territory with hemorrhagic transformation of the left corpus striatum and posterior left parietal lobe. 2. Associated mass effect with subtotal compression of the left lateral ventricle and vybt-lh-ltgskpjmtyvt shift and subfalcine herniation. 3. Punctate focus of diffusion within the right frontal lobe. 4. Trace intraventricular hemorrhage. Subtle subarachnoid hemorrhage within right frontal and parieto-occipital sulci, which may represent redistribution of intraventricular hemorrhage. WSN: [id number] Ordering Physician: Orville Pearson Dictated By: Hank Melendez MD Dictated Date/Time: 09/04/22 8:02 am Reviewed By: Hank Melendez MD Signed By: Hank Melendez MD Signed Date/Time: 09/04/22 8:02 am Transcribed By: HARPAL Transcribed Date/Time: 09/04/22 7:46 am Patient Care team information Care Team Personnel Name: Rima Dubose MD Position: [facility] Outreach Member Role: PCP Address: Address: [address] [place] [address] Name: Brandt Zhao RN Position: S RN Member Role: Primary Care Nurse Name: Jennifer Gill RN Position: S RN Member Role: Primary Care Nurse Name: Yanni Coffman RN Position: S RN Member Role: Primary Care Nurse Name: Amelia Negro RN Position: S RN Member Role: Primary Care Nurse Name: Maira Batista RN Position: S RN Member Role: Primary Care Nurse Name: Kadi Noonan RN Position: S RN Member Role: Primary Care Nurse Name: Kwasi Brady RN Position: S RN Member Role: Primary Care Nurse Name: Trista Tavera RN Position: [facility] RN Member Role: Primary Care Nurse Name: Lizbeth Dowd RN Position: [facility] RN Member Role: Primary Care Nurse Name: Fariba Vora Position: [facility] RN Member Role: Primary Care Nurse Name: Chapis Plunkett RN Position: [facility] RN Member Role: Primary Care Nurse Name: Tricia Liang RN Position: [facility] RN Member Role: Primary Care Nurse Name: Adry Giang RN Position: [facility] RN Member Role: Primary Care Nurse Name: Jeanmarie Muhammad RN Position: [facility] RN Member Role: Primary Care Nurse Name: Ruddy Machuca RN Position: [facility] RN Member Role: Primary Care Nurse Name: Effie Cunningham Position: [facility] ED OA Charge Member Role: ED Associate Name: Natalia Hurley RN Position: [facility] ED RN W/OE and Tasks Member Role: Patient Care Provider Name: Gege Pinzon MD Position: [facility] ED Medicine MD Member Role: ED Attending Physician Address: Address: [address] [place] [address] [place] [address]- Name: Telma Shaikh Position: [facility] ED TA [facility] Member Role: Patient Care Provider Care Team Related Persons Name: JAQUAN BOWIE Address: [address] [address]
--- OUTSIDE RECORDS SUMMARY | 2023-03-03 16:20 | XMS_ITS | Continuity of Care Document ---
Author Name Unknown Organization [facility] ter Address [address] [place] [address]- Care Team Providers Care Affiliate Manager Name Role Phone Gracy RIDLEY, Rima Fontenot Primary Care Physician Encounter [facility] ACCT R [id number] Date(s): 01/19/23 - 01/19/[address] [address]- Discharge Disposition: A-D/C Home Attending Physician: Doe Collier MD Admitting Physician: Doe Collier MD Referring Physician: Bernardo Torres MD Allergies, [...] influenza virus vaccine, inactivated 02/27/11 Yusef rded [id number] 12y+ bivalent booster vax 05/06/22 Recorded SARS-CoV-2 [...] Range]: 1 2 3 Height 165 cm (01/19/23 11:37 AM) 165 cm (01/19/23 11:00 AM) Weight 65.90 kg (01/19/23 11:37 AM) 65.90 kg (01/19/23 11:00 AM) Oxygen Saturation [94-100 %] 96 % (01/19/23 1:50 PM) 97 % (01/19/23 1:45 PM) 97 % (01/19/23 1:15 PM) Pulse Rate [55-90 bpm] 92 bpm *H* (01/19/23 10:55 AM) Blood Pressure [90-138/55-84 mm Hg] 124/81mm Hg (01/19/23 1:50 PM) 115/73mm Hg (01/19/23 1:45 PM) 134/90mm Hg (01/19/23 1:15 PM) Respiratory Rate [16-30 br/min] 18 br/min (01/19/23 10:55 AM) Temperature [96.8-100.4 DegF] 98.3 DegF (01/19/23 10:55 AM) Mode of Delivery (Oxygen) Room air (01/19/23 1:50 PM) Room air (01/19/23 1:45 PM) Room air (01/19/23 1:15 PM) Blood pressure sites Arm, left (01/19/23 1:50 PM) Arm, left (01/19/23 1:45 PM) Arm, left (01/19/23 1:15 PM) Temperature Route Oral (01/19/23 10:55 AM) Dry Weight 65.90 kg (01/19/23 11:00 AM) Social History Social History Type Response Smoking Status 5-9 cigarettes (betw een 1/4 to 1/2 pack)/day in last 30 days entered on: 09/02/22 Sex US Heart Transesophageal * Event Display: Trans-esophageal Echocardiogram Authored Date: [id number] Transesophageal Echocardiography Report (ZORAN) Patient Demographics Patient Name ROBERT ABEL Date of Study 01/19/2023 Corporate Gender Female Facility Race Ethnicity Date of 1960 Height: 64.96 inches Age 62 year(s) Weight: 143.3 pounds Accession Number [id number] BSA: 1.72 m2 Room Number S151 BMI: 23.88 kg/m2 Referring Physician Melissa Chang MD Interpreting Doe Collier MD Physician Card Runner Doe Collier MD Fellow Denny Gusman MD Indications Mass, cardiac. Additional Indications:Left Atrial Mass Stroke Clinical History Hyperlipidemia. Obesity. Tobacco use. Stroke Study Data Type of Study ZORAN procedure:ZORAN with Doppler and Colorflow, 3D Rendering without post processing. Procedure Information:The procedure, including risks and benefits, was explained to the next of kin and informed consent was obtained. Time out was performed pre-procedure. The transesophageal probe was inserted by the fellow under the supervision of the attending wildlife biology internship . There were no complications. Heart sounds regular, no murmur . Breath sounds clear throughout all lobes . Study Date01/19/2023 Start Time: 01:18 PM Study Location: [facility] Adult Echo Study Status: ZORAN Suite Patient Status: Routine Technical Quality: Adequate Blood Pressure:134/90 mmHg EKG: Normal sinus rhythm HR: 82 bpm ZORAN Performed By: Doe Collier MD Type of Anesthesia: Anesthesia administered by anesthesiologist. Allergies - No known allergies. 2D Measurements Ascending Aorta:2.99 cm Doppler Measurements MV Mean Gradient: 2.79 mmHg Cardiac Anatomy Left Ventricle/Interventricular Septum The left ventricular size is normal. The LV systolic function is normal . The left ventricular ejection fraction is 60-65 %. Left Atrium/Interatrial Septum There is no thrombus in the left atrial appendage. Left atrial appendage function is normal . There is a large multilobulated mobile mass consistent with myxoma with broad based attachment at the base of the atrial septum and prolapsing through the mitral orifice during diastole. Live 3D imaging reveals an irregular multilobulated mobile mass. The interatrial septum appears intact. Aortic Valve The aortic valve is trileaflet . The aortic valve appears mildly calcified. There is no aortic stenosis. There is no aortic regurgitation. Mitral Valve The mitral valve opening is normal. There is trivial mitral regurgitation. The mitral valve mean gradient is 3 mmHg at 72 bpm. Aorta The ascending aorta and aortic root are normal in size. There is mild plaque in the descending aorta . Right Ventricle The right ventricle is normal in size and function. Right Atrium A prominent chiari network is seen in the right atrium (normal finding). Pulmonic Valve The pulmonic valve appears grossly normal. Tricuspid Valve The tricuspid valve appears normal . There is trace tricuspid valve regurgitation. Pumonary Artery The pulmonary artery appears grossly normal. Venous Structures There is normal pulmonary venous flow. Pericardium/Extracardiac There is no significant pericardial effusion. Summary The left ventricular size is normal. The LV systolic function is normal . The left ventricular ejection fraction is 60-65 %. There is no thrombus in the left atrial appendage. Left atrial appendage function is normal . There is a large multilobulated mobile mass consistent with myxoma with broad based attachment at the base of the atrial septum and prolapsing through the mitral orifice during diastole. Live 3D imaging reveals an irregular multilobulated mobile mass. The interatrial septum appears intact. The right ventricle is normal in size and function. Comparison No prior study available for comparison. Signature * Event Display: Trans-esophageal Echocardiogram Authored Date: Hospital Progress note * Natali Avelar RN: MODIFY, SIGN, MODIFY, SIGN, MODIFY, SIGN, PERFORM, SIGN, VERIFY Event Display: Progress Note Hospital Authored Date: Patient: ROBERT ABEL Age: 62 years Sex: Female : 1960 Associated Diagnoses: None Author: Natali Avelar RN Findings Narrative/Incidental 1100 Pt arrived. to S1500 for ZORAN. History of stroke this past August 2022. Has residual right sidedweakness and aphasia. Can verbalize yes or no. Is oriented x4 and understands what you are saying to her. Legal guardian Jaquan Almanza Jus with Pt. Home Medication review, Medical Daystay formand Pre-Procedure check list completed. Vitals stable. 1415 Returned to unit. Awake and A&O x4. Gag reflex intact no lidocaine given during procedure,Tolerating reg diet and vitals stable. 1515 Vitals remained stable, Please see Daystay Flow sheet. Discharge instructions reviewed with Pt. and guardian, D/C instructions signed by guardian. 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 . Patient Care team information Care Team Personnel Name: Rima Dubose MD Position: [facility] Outreach Member Role: PCP Address: Address: [address] [place] [address] Name: Brandt Zhao RN Position: S RN Member Role: Primary Care Nurse Name: Jennifer Gill RN Position: S RN Member Role: Primary Care Nurse Name: Maira Batista RN Position: [facility] RN Member Role: Primary Care Nurse Name: Kadi Noonan RN Position: [facility] SN RN Member Role: Primary Care Nurse Name: Kwasi Brady RN Position: S RN Member Role: Primary Care Nurse Name: Fariba Vora Position: S RN Member Role: Primary Care Nurse Name: Chapis Plunkett RN Position: S RN Member Role: Primary Care Nurse Name: Tricia Liang RN Position: S RN Member Role: Primary Care Nurse Name: Adry Giang RN Position: S RN Member Role: Primary Care Nurse Name: Jeanmarie Muhammad RN Position: S RN Member Role: Primary Care Nurse Name: Ruddy Machuca RN Position: S RN Member Role: Primary Care Nurse Care Team Related Persons Name: JAMIR JAQUAN Address: home [address] [place] [address]
--- OUTSIDE RECORDS SUMMARY | 2023-03-03 16:20 | XMS_ITS | Continuity of Care Document ---
Author Name Unknown Organization [facility] Shannan abdifatah Address [address] [place] [address]- Care Team Providers Care Curb Attendant Name Role Phone Gracy RIDLEY, Rima Fontenot Primary Care Physician Encounter [facility] Date(s): 12/09/22 - 12/16/22 [facility] [address] [place] [address]- Attending Physician: Bernardo Torres MD Referring Physician: Casandra Campos Allergies, Adverse Reactions, Alerts No Known Allergies [...] influenza virus vaccine, inactivated 02/27/11 Yusef rded [id number] 12y+ bivalent booster vax 05/06/22 Recorded SARS-CoV-2 [...] Most recent to oldest [Reference Range]: 1 Height 165 cm (12/09/22 4:40 PM) Weight 64.0 kg (12/09/22 4:40 PM) Oxygen Saturation [94-100 %] 99 % (12/09/22 4:40 PM) Pulse Rate [55-90 bpm] 97 bpm *H* (12/09/22 4:40 PM) Body Mass Index [18.5-24.99 kg/m2] 23.51 kg/m2 (12/09/22 4:40 PM) Blood Pressure [90-138/55-84 mm Hg] 108/ 70mm Hg (12/09/22 4:40 PM) Respiratory Rate [16-30 br/min] 20 br/mi n (12/09/22 4:40 PM) Temperature [96.8-100.4 DegF] 97.6 DegF (12/09/22 4:40 PM) Mode of Delivery (Oxygen) Room air (12/09/22 4:40 PM) Blood pressure sites Arm, left (12/09/22 4:40 PM) Temperature Route Oral (12/09/22 4:40 PM) Social History Social History Type Response Smoking Status 5-9 cigarettes (betw een 1/4 to 1/2 pack)/day in last 30 days entered on: 09/02/22 Sex Note * Event Display: [facility] Office Note Authored Date: [id number] OFFICE NOTE DATE: 12/09/2022 REASON FOR VISIT: Left atrial myxoma. HISTORY OF PRESENT ILLNESS: The patient is a 62-year-old female whom I saw in the hospital on 09/03when she was admitted with a large left hemispheric stroke. An echocardiogram showed a large left atrial mass consistent with a myxoma and this was the likely cause for the embolic event at the left brain. Unfortunately, follow-up imaging showed an acute intraparenchymal hemorrhage in the left basal ganglia with midline shift. This essentially made her not a surgical candidate at that time. She was in the hospital for about a month and then was discharged to rehabilitation and has since been discharged home. She has made a remarkable recovery and is walking on her own. She remains aphasic, able to utter just single word phrases and does have significant residual right upper extremity weakness, but she is able to comprehend everything I am saying and, again, has made quite a recovery. She had an echocardiogram and follow-up done just 11/17, which showed an ejection fraction of about 50%-55% with a large left atrial mass attached to the interatrial septum and then likely the anterior mitral leaflet. This mass measured up to 5.4 x 2 cm, similar to the appearance back in August. PAST MEDICAL HISTORY: Significant for this stroke, hypertension, anxiety. There was mention of multiple sclerosis in the chart, but the patient and her guardian deny this. SOCIAL HISTORY: Former smoker until she had the stroke. No longer smokes or drinks alcohol. She lives at home with her partner. FAMILY HISTORY: Noncontributory. MEDICATIONS: She is on gabapentin, baby aspirin, vitamin B12, pantoprazole, atorvastatin, oxycodone. ALLERGIES: No known drug allergies. REVIEW OF SYSTEMS: As per HPI; otherwise, remainder are negative. PHYSICAL EXAMINATION: GENERAL APPEARANCE: Middle-aged female sitting in the chair, in no acute distress. VITAL SIGNS: Temperature 97.6, heart rate 97 beats per minute, blood pressure 108/70 mmHg, respirations 20, oxygen saturation 99%. Height is 165 cm and weight is 64 kg. HEENT: Normocephalic, atraumatic. Extraocular movements are intact. Pupils are equal, round, reactive to light. NECK: No JVD, no bruits. No cervical or supraclavicular lymphadenopathy. CARDIAC: Regular rate and rhythm. No murmurs. LUNGS: Clear to auscultation. ABDOMEN: Soft, nontender, no organomegaly, positive bowel sounds. EXTREMITIES: No clubbing, cyanosis or edema. NEUROLOGIC: She has a significant aphasia, able to utter just single word phrases, mostly just yes or no. She also has significant right upper extremity weakness and mild right lower extremity weakness. IMAGING: Transthoracic echo is as described. 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 Given her significant recovery, I do think it is reasonable to move forward with excision of this mass, which very well may include mitral valve replacement as it seems to possibly involve the valve. She will need to have a cardiac catheterization as well as a transesophageal echo preoperatively. Sheshould also have a cardiac MRI and carotid duplex as well as dental clearance given the fact that she might need a valve replacement. She is undergoing some type of neurologic stroke recovery study called TRANSPORT2, which will finish at the beginning of December; so, we will get moving on schedulingthe tests I mentioned above and then plan her surgery sometime in December. I discussed the operationalong with the risks, benefits and alternatives in detail with the patient and her guardian. I empha sized the increased risk for complications given her large recent stroke and her somewhat deconditioned state. I did quote a mortality risk in the 5%-10% range. She understands this and would like toproceed. Thank you for this referral. Dictated by: Bernardo Torres MD Signing Clinician: Bernardo Torres MD Dictated: 12/09/2022 05:28:57 Transcribed: 04:28:01 PM Transcribed by: JESSIKA DocID: [id number] PRELIMINARY REPORT UNLESS MANUALLY/ELECTRONICALLY SIGNED cc: Jolynn Johnston M.D. [facility] [place] [address] [place] [address], [address] [place], [address] Rima Duboes M.D. [facility] [address] [place] [address], [address] Patient Care team information Care Team Personnel Name: Rima Dubose MD Position: [facility] Outreach Member Role: PCP Address: Address: [address] [place] [address]- Name: Brandt Zhao RN Position: [facility] RN Member Role: Primary Care Nurse Name: Jennifer Gill RN Position: S RN Member Role: Primary Care Nurse Name: Yanni Coffman RN Position: S RN Member Role: Primary Care Nurse Name: Amelia Negro RN Position: [facility] RN Member Role: Primary Care Nurse Name: Maira Batista RN Position: S RN Member Role: Primary Care Nurse Name: Kadi Noonan RN Position: [facility] RN Member Role: Primary Care Nurse Name: Kwasi Brady RN Position: [facility] RN Member Role: Primary Care Nurse Name: Trista Tavera RN Position: [facility] RN Member Role: Primary Care Nurse Name: Fariba Vora Position: [facility] RN Member Role: Primary Care Nurse Name: Chapis Plunkett RN Position: [facility] RN Member Role: Primary Care Nurse Name: Tricia Liang RN Position: [facility] RN Member Role: Primary Care Nurse Name: Adry Giang RN Position: [facility] RN Member Role: Primary Care Nurse Name: Jeanmarie Muhammad RN Position: [facility] RN Member Role: Primary Care Nurse Name: Ruddy Machuca RN Position: [facility] RN Member Role: Primary Care Nurse Care Team Related Persons Name: GERARDO BOWIE Address: [address] [address]
--- OUTSIDE RECORDS SUMMARY | 2023-03-03 16:20 | XMS_ITS | Continuity of Care Document ---
Author Name Unknown Organization [facility] Address [address] [place] [id number] Care Team Providers Care Customer Sales Consultant Name Role Phone Gracy RIDLEY, Rima Fontenot Primary Care Physician [phone] [place] [facility] [place]): [place] 01/29/23 [facility] [address] [place] [address]- Attending Physician: Julia Pace Admitting Physician: AdmtrJulia Referring Physician: AdmtrJulia Allergies, Adverse Reactions, Alerts No Known Allergies [...] influenza virus vaccine, inactivated 02/27/11 Yusef rded [id number] 12y+ bivalent booster vax 05/06/22 Recorded SARS-CoV-2 [...] days entered on: 09/02/22 Sex Note * Natali Avelar RN: PERFORM Event Display: Discharge/Transfer Note Hospital Authored Date: [id number] Nursing Discharge Note Entered On: 01/19/2023 15:48 EDT Performed On: 01/19/2023 15:48 EDT by Natali Avelar RN Nursing Discharge Note 2 Discharge Time : 01/19/2023 15:15 EDT Discharge Level of Care at Discharge : Home/Correction/Foster Care Patient Left Unit Via : Wheelchair Patient Accompanied Off Unit with : Significant other, Responsible adult DC Instructions Provided & Signed by Pt : Yes Patient Understands D/C Instructions : Yes Patient Instructions Discharge Signed : Yes Did Pt have Specialty Bed or Wound Vac : No Natali Avelar RN - 01/19/2023 15:48 EDT Patient Care team information Care Team Personnel Name: Rima Dubose MD Position: [facility] Outreach Member Role: PCP Address: Address: [address] [place] [address] Name: Brandt Zhao RN Position: [facility] RN Member Role: Primary Care Nurse Name: Jennifer Gill RN Position: [facility] RN Member Role: Primary Care Nurse Name: Maira Batista RN Position: [facility] RN Member Role: Primary Care Nurse Name: Kadi Noonan RN Position: [facility] SN RN Member Role: Primary Care Nurse Name: Kwasi Brady RN Position: [facility] RN Member Role: Primary Care Nurse Name: Fariba Vora Position: [facility] RN Member Role: Primary Care Nurse Name: Chapis Plunkett RN Position: [facility] RN Member Role: Primary Care Nurse Name: Tricia Liang RN Position: [facility] RN Member Role: Primary Care Nurse Name: Adry Giang RN Position: S RN Member Role: Primary Care Nurse Name: Jeanmarie Muhammad RN Position: [facility] RN Member Role: Primary Care Nurse Name: Ruddy Machuca RN Position: [facility] RN Member Role: Primary Care Nurse Care Team Related Persons Name: GERARDO BOWIE Address: [address] [address]
[2023-03-03 16:51] LABS: Imm Gran Abs Auto 0.04 X10*3/uL (0.00-0.03); Imm Gran Pct Auto 0.3 % (0.0-0.4); MANUAL DIFF FLAG SCAN; PLT CLUMP 1; Red Cell Distribution Width 13.4 % (11.0-16.0); SCAN SMEAR FLAG 1
[2023-03-03 16:52] LABS: Basophils Percent Auto 0.3 % (0-2); Eosinophils Percent Auto 0.3 % (0-4); Hematocrit 37.8 % (37.0-47.0); Lymphocytes Absolute Auto 1.5 X10*3/uL (1.2-4.9); Lymphocytes Percent Auto 11.8 % (20-40); Mean Corpuscular HGB Conc 31.7 g/dl (31.0-35.0); Mean Corpuscular Hemoglobin 29.5 pg (27.0-33.0); Mean Corpuscular Volume 92.9 fL (80.0-98.0); Mean Platelet Volume 10.5 fL (9.4-12.3); Monocytes Absolute Auto 0.6 X10*3/uL (0.1-1.2); Monocytes Percent Auto 5.1 % (2-11); Neutrophils Absolute Auto 10.2 x10*3/uL (2.0-8.3); Neutrophils Percent Auto 82.2 % (45-73); Red Blood Count 4.07 X10*6/uL (4.20-5.50)
[2023-03-03 16:55] LABS: White Blood Count 12.4 X10*3/uL (4.8-10.8)
[2023-03-03 17:09] LABS: Alanine Aminotransferase 30 U/L (0-31); Albumin Level 4.1 g/dL (3.5-5.0); Alkaline Phosphatase 152 U/L (39-117); Anion Gap 15 (12-20); Aspartate Amino Transferase 28 U/L (5-31); Bilirubin Direct 0.1 mg/dL (0.0-0.5); Bilirubin Total 0.4 mg/dL (0.0-1.0); Blood Urea Nitrogen 15 mg/dL (9-16); Calcium 9.9 mg/dL (8.4-10.2); Carbon Dioxide 22 mmol/L (22-29); Chloride 108 mmol/L (96-108); Creatinine Clr Calc Pharmacy 64.3; Estimated Glomerular Filt Rate > 60; Glucose Random 108 mg/dL (60-115); Magnesium 2.1 mg/dL (1.6-2.6); Potassium 4.4 mmol/L (3.3-5.1); Sodium 141 mmol/L (135-145); Total Protein 8.3 g/dL (6.5-8.0)
[2023-03-03 17:12] LABS: Glucose, Whole Blood 165 mg/dL (60-115)
[2023-03-03 17:15] LABS: Platelet Count 250 X10*3/uL (160-400); SLIDE REVIEW VERIFIED
[2023-03-03] MEDS: iohexoL 350 MG/ML 100 ML INFUS..BTL IV (17:52)
[2023-03-03 19:17] LABS: Glucose, Whole Blood 96 mg/dL (60-115)
[2023-03-03 19:28] LABS: Troponin-I High Sensitivity < 2.7 ng/L (<3.5-17.0)
[2023-03-03 19:42] LABS: Lactic Acid 1.4 mmol/L (0.5-2.0)
[2023-03-03 19:48] VITALS: BP 138/88; PULSE 91; RESP 23; TEMP 36.7; O2SAT 98
[2023-03-03] MEDS: cefTRIAXone sodium 2 GM in 0.9 % Sodium Chloride 50 ML IV (20:20)
[2023-03-03] MEDS: vancomycin HCL 1,500 MG in 0.9 % Sodium Chloride 500 ML 333.33 MG IV (20:55)
[2023-03-03] MEDS: 0.9 % Sodium Chloride 500 ML IV (20:56)
--- NOTE | 2023-03-03 21:34 | P.HPHOSP_ITS ---
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 Patient with limited ability to communicate secondary to expressive aphasia from CVA, capable of only saying yes or no. HPI also supplemented by provider and chart review. Symptoms apparently began earlier in the day when patient's spouse noted she was pale and crying so he called EMS. EMS found patient's blood glucose to be 65 but found no new focal deficits. Patient was given juice and blood glucose improved to 131. Patient is not a known diabetic and no history of hypoglycemia. Patient denies being on either aspirin or Plavix and neither is on her med rec, however, records indicate patient filled a 90 day prescription for aspirin on 01/18/2023. Patient also denies any IVDU. At time of interview patient denies any acute medical complaints. Had some nausea earlier, but currently none. No chest pain/pressure, palpitations. No fever, chills, vomiting, abdominal pain. Denies shortness of breath, cough. No headache, lightheadedness, or dizziness. In the ED patient was afebrile with pulse 91, RR to 23, and hypertensive up to 157/78, satting at 98% on RA. Labs were significant for leukocytosis of 12.4, blood glucose of 45, and alk-phos 152.. H&H stable at 12.0/37.8. Electrolytes WNL. Renal function WNL. Lactic acid WNL at 1.4. Troponin negative. CXR showed bronchial wall thickening that may be infectious and/or inflammatory. CT?of abdomen and pelvis found multiple wedge-shaped hypodensities in spleen and both kidneys suggestive of emboli. Also found T12 hemangioma. CT of head found low attenuation change in the left frontotemporoparietal region consistent with a MCA distribution infarction. Also found occlusive thrombus within the left carotid terminus in left middle cerebral artery on CTA of head dated 09/02/2022, there is adjacent attenuation of the anterior horn of the left lateral ventricle. EKG demonstrated normal sinus rhythm with nonspecific ST and T-wave abnormalities. Pt was treated with ceftriaxone, vancomycin, and IVF. Pt will be admitted to the hospital for treatment and further evaluation of splenic and renal infarcts with possible CVA likely secondary to hypercoaguable state. Review of Systems 2 Review of Systems: Hypoglycemia Chronic expressive aphasia, right-sided weakness, left-sided facial droop Nausea, no vomiting Denies chest pain/pressure, palpitations No SOB, dyspnea, cough PMFSH Medical History Multiple sclerosis Neuropathy Tremor Surgical History S/P cholecystectomy Social History Alcohol intake: never Patient Tobacco Use Status: Current everyday Tobacco user Smoked in Last 30 Days: No Use of substances other than those prescribed or required for medical reasons: No Advance Directives: No Advance Directives Information Provided: No Meds Allergies Allergy/AdvReac Type Severity Reaction Status Date / Time No Known Allergies Allergy Unknown Verified 08/12/21 13:03 [No Known Allergies*] Home Medications Medication Instructions Recorded Confirmed Last Taken Type atorvastatin 80 mg tablet 80 mg PO BEDTIME 03/03/23 03/03/23 Unknown History bupropion HCl 150 mg 24 hr tablet, 150 mg PO QAM 03/03/23 03/03/23 Unknown History extended release cyanocobalamin (vitamin B-12) 500 500 mcg PO DAILY 03/03/23 03/03/23 Unknown History mcg tablet duloxetine 60 mg capsule,delayed 60 mg PO BID depressive disorder 03/03/23 03/03/23 Unknown History release gabapentin 100 mg capsule 200 mg PO TID 03/03/23 03/03/23 Unknown History pantoprazole 40 mg tablet,delayed 40 mg PO QAM 03/03/23 03/03/23 Unknown History release Physical Exam 2 Vital Signs and Narrative: Vital Signs: Last Vital Signs Temp 98.1 F 03/03/23 19:48 Pulse 91 03/03/23 19:48 Resp 23 H 03/03/23 19:48 BP 138/88 03/03/23 19:48 Pulse Ox 98 03/03/23 19:48 O2 Del Method Room Air 03/03/23 19:48 BMI result Body Mass Index 22.6 Constitutional: Alert, in no acute distress. Answers all questions with yes or no. Mental Status: Oriented to person, place and time. Eyes: Pupils are equal, round, and reactive to light. Ear, Nose, and Throat: Oropharynx clear, mucous membranes moist. Ears and nose without deformities. Trachea midline. Respiratory: Clear to auscultation bilaterally. No wheezing, rales, or rhonchi. Cardiovascular: S1, S2 regular. No murmurs, rubs, or gallops. Gastrointestinal: Abdomen soft, non-tender, non-distended. Normal bowel sounds. Neurologic: Expressive aphasia, answering only yes or no to questions. Chronic right upper extremity tremor. Not clear if pt is at baseline. Skin: No rashes or lesions noted. Musculoskeletal: No cyanosis or clubbing. Extremities: No edema. Psychiatric: Normal mood and affect. Results Labs 03/03/23 16:32 03/03/23 16:32 Labs: Laboratory Results - last 24 hr 03/03/23 03/03/23 03/03/23 16:10 16:32 17:07 MCV 92.9 MCH 29.5 MCHC 31.7 RDW 13.4 Plt Count 250 MPV 10.5 Immature Gran % (Auto) 0.3 Neut % (Auto) 82.2 H Lymph % (Auto) 11.8 L [place] % (Auto) 5.1 Eos % (Auto) 0.3 Baso % (Auto) 0.3 Lymph # (Auto) 1.5 [place] # (Auto) 0.6 Eos # (Auto) 0.0 Baso # (Auto) 0.0 Abs Immat Gran (auto) 0.04 H Absolute Neuts (auto) 10.2 H Absolute Nucleated RBC 0.000 Nucleated RBC % (auto) 0.0 Smear Tech's Comments VERIFIED Anion Gap 15 Estim Creat Clear Calc 64.3 Estimated GFR > 60 POC Glucose 45 L* 165 H Random Glucose 108 Lactic Acid Calcium 9.9 D Magnesium 2.1 Total Bilirubin 0.4 Direct Bilirubin 0.1 AST 28 ALT 30 Alkaline Phosphatase 152 H Total Protein 8.3 H Albumin 4.1 03/03/23 03/03/23 19:10 19:18 MCV MCH MCHC RDW Plt Count MPV Immature Gran % (Auto) Neut % (Auto) Lymph % (Auto) [place] % (Auto) Eos % (Auto) Baso % (Auto) Lymph # (Auto) [place] # (Auto) Eos # (Auto) Baso # (Auto) Abs Immat Gran (auto) Absolute Neuts (auto) Absolute Nucleated RBC Nucleated RBC % (auto) Smear Tech's Comments Anion Gap Estim Creat Clear Calc Estimated GFR POC Glucose 96 Random Glucose Lactic Acid 1.4 Calcium Magnesium Total Bilirubin Direct Bilirubin AST ALT Alkaline Phosphatase Total Protein Albumin Imaging Radiologist's Impressions: Impressions Abdomen/Pelvis CT 03/03/23 17:58 IMPRESSION: 1. Multiple wedge-shaped hypodensities are seen in the spleen and both kidneys suggestive of emboli. No macroscopic vasculature appears normal. Consider echocardiography.. 2. Other incidental findings as described above including cholecystectomy and T12 hemangioma. Fleischner guidelines were followed. This critical result was discussed with Dr. Tami Osborne at 6:50 PM on the day of the exam and it was ascertained that the content and urgency of the report was understood at the time of direct communication. Chest X-Ray 03/03/23 19:10 IMPRESSION: Bronchial wall thickening may be infectious and/or inflammatory in etiology. Head CT 03/03/23 19:57 IMPRESSION: There is low attenuation change in the left frontotemporoparietal region, consistent with an MCA distribution infarction. Note is made of occlusive thrombus identified within the left carotid terminus and left middle cerebral artery on the CTA head dated 09/02/2022. There is adjacent attenuation of the anterior horn of the left lateral ventricle. No associated focal hemorrhage or mass lesion is seen, with evaluation for mass limited by noncontrast technique. There is no midline shift. The basilar cisterns appear patent. Assessment and Plan (1) Hypoglycemia: Status: Acute (2) Splenic infarct: Status: Acute (3) Renal infarct: Status: Acute Plan Pt is a 62-year-old female with a PMH significant for?multiple sclerosis, neuropathy, right-sided resting tremor, and CVA in 09/17/2022 with residual expressive aphasia, left-sided facial droop, and right-sided weakness who presents to the ED for evaluation of hypoglycemia. Pt will be admitted to the hospital for treatment and further evaluation of splenic and renal infarcts with possible CVA likely secondary to hypercoaguable state. Splenic and renal infarcts CT?of abdomen and pelvis found multiple wedge-shaped hypodensities in spleen and both kidneys suggestive of emboli Pt with previous CVA in 08/2022 Not currently on anticoagulation or Plavix, not clear if taking aspirin Embolic source unclear Will place on heparin drip Continue statin Will get echocardiogram w/bubble study WIll test for hypercoaguable state Monitor on telemetry Leukocytosis / question of septic emboli WBC 12.4 at time of presentation Likely reactionary, not due to active infection No clear source of infection: pt afebrile, denies IVDU, had similar leukocytosis in 08/2022 during previous CVA Pt received IV antibiotics in the ED Will hold off on additional antibiotics at this time Emboli more likely secondary to hypercoaguable state, treat as above Follow blood cultures Question of CVA CT of head showing low attenuation change in the left frontotemporoparietal region, consistent with an MCA distribution infarction CTA of head on 09/02/2022 showed occlusive thrombus extending from the left carotid terminus into and filling the M1 segment of left middle cerebral artery Pt with residual deficits from previous CVA in 08/2022, unclear if at baseline Pt currently not on anticoagulation or Plavix, unclear if taking aspirin Continue statin Neurology consult Hypoglycemia POC 45 at time of presentation Pt without history of diabetes/hypoglycemia Check A1C Check POC q4hr Diet Passed nurse swallow screen Will place on ground/[facility] altered diet (NDD2) for now Speech swallow evaluation in the morning Neuropathy Continue gabapoentin GERD PPI Mood disorder Continue home meds Full Code Attending:?Dr. Hernandez DVT Prophylaxis: On heparin drip Pt will require a hospitalization of at least two nights for treatment and further evaluation of?splenic and renal infarcts requiring IV heparin drip, additional studies, and close monitoring. Time Spent With Patient Time: Total time managing care of this patient today ____ minutes. Quality Stroke Does the patient have a stroke diagnosis?: Yes Reason for No Anti-thrombotic by Day Two: Contraindicated (Outside therapeutic window) VTE Prior VTE?: No VTE Risk Level:: Medical - moderate - high VTE Device Contraindication: Treatment Not Indicated VTE Drug Contraindication: N/A - Med Ordered
--- NOTE | 2023-03-03 21:44 | PHA.MEDREC ---
Pharmacy Consult ? Medication Reconciliation Pharmacy has completed the medication reconciliation. Patient stated yes or no to [facility] list of claim history. Patient report no to aspirin. Connie Turner, PharmD
--- NOTE | 2023-03-03 22:49 | PHA.PROG ---
Admission Date/Time: March 03, 2023 22:12 Indication: Bacteremia Weight in k.4 kg Adjusted body weight in K.94 [place] body weight in K.3 Obesity Dosing Indication % IBW: 106% Serum Creatinine - Last 168 Hours 03/03/23 16:32 Creatinine 0.86 Estimated CrCl and GFR - Last 168 Hours 03/03/23 16:32 Estim Creat Clear Calc 64.3 Estimated GFR > 60 Vancomycin Loading Dose: 1500 mg Current Vancomycin Dosing Regimen: 750 mg Q12H Date and Time for next Vancomycin Level to be drawn: 03/05 @ 0700 Pharmacist Comments on Vancomycin Plan: patient receive an adequate load dose in the Er on 03/03 @ 2054 Maintenance dose vanco 750 mg Q12H is scheduled to start 03/04@0900 Level will be drawn prior to 4th dose Pharmacy will monitor renal function daily. Connie Turner, GilD Vancomycin dosing will take advantage of [employer] as a clinical decision support tool that uses Bayesian modeling to calculate individual patient's pharmacokinetic parameters and forecast the patient's drug concentration time course with the target goal AUC 24 range of 400 - 600 mg/L/hr.
[2023-03-03 22:59] VITALS: BP 125/86; PULSE 92; RESP 20; O2SAT 96
[2023-03-04 00:18] LABS: PTT Heparin Drip 29.7 SEC (53-77.9)
[2023-03-04 00:37] LABS: Glucose, Whole Blood 86 mg/dL (60-115)
[2023-03-04 00:44] LABS: Erythrocyte Sedimentation Rate 70 MM/HR (0-20)
[2023-03-04] MEDS: Heparin Sodium,Porcine 5,000 UNIT/ML VIAL 5100 UNIT IVPUSH (00:45)
[2023-03-04] MEDS: DULoxetine HCl 60 MG CAPSULE.DR PO ×2 (00:45→08:58)
[2023-03-04] MEDS: Atorvastatin Calcium 80 MG TABLET PO (00:45)
[2023-03-04] MEDS: Gabapentin 100 MG CAPSULE 200 MG PO ×2 (00:46→08:58)
[2023-03-04 01:59] LABS: Appearance Urine Clear; Color Urine Yellow; Glucose Urine UA Negative (Negative); Leukocyte Esterase Urine Small (1+) (Negative); Nitrite Urine Negative (Negative); Specific Gravity - Urine >= 1.030 (1.005-1.025); UMIC TRIGGER UACC YES; Urine Blood Negative (Negative); Urine Ketones Negative (Negative); Urine Protein 30 (1+) mg/dL (Neg-Trace)
[2023-03-04 02:04] LABS: Bacteria Urine None Seen (None Seen); Hyaline Casts Urine 0-2 /LPF (0-2); RBC Urine 0-2 /HPF (0-2); UACC Culture Trigger YES
[2023-03-04 02:06] LABS: Glucose, Whole Blood 139 mg/dL (60-115)
[2023-03-04 02:40] VITALS: BP 121/85; PULSE 90; RESP 18; TEMP 36.4; O2SAT 95
[2023-03-04] MEDS: Heparin Sodium,Porcine/1/2NS 25,000 UNIT/250 ML IV.SOLN 8.88 UNIT IVCONT (02:44)
[2023-03-04] MEDS: Omeprazole 20 MG CAPSULE.DR PO (05:19)
[2023-03-04] MEDS: ondansetron HCL 4 MG/2 ML VIAL IVPUSH (06:11)
[2023-03-04 07:14] LABS: Hematocrit 37.7 % (37.0-47.0); Hemoglobin 11.6 g/dl (12.0-16.0); Mean Corpuscular HGB Conc 30.8 g/dl (31.0-35.0); Mean Corpuscular Hemoglobin 29.3 pg (27.0-33.0); Mean Corpuscular Volume 95.2 fL (80.0-98.0); Mean Platelet Volume 10.9 fL (9.4-12.3); Platelet Count 247 X10*3/uL (160-400); Red Blood Count 3.96 X10*6/uL (4.20-5.50); Red Cell Distribution Width 13.2 % (11.0-16.0); White Blood Count 11.8 X10*3/uL (4.8-10.8)
[2023-03-04 07:22] LABS: Estimated Average Glucose 105 mg/dL; Hemoglobin A1c % 5.3 % (<6.0); Prothrombin Time 11.9 SEC (11.1-13.3)
[2023-03-04 07:25] LABS: PTT Heparin Drip 50.1 SEC (53-77.9)
[2023-03-04 07:26] LABS: Creatinine Clr Calc Pharmacy 69.1; Estimated Glomerular Filt Rate > 60
[2023-03-04 07:45] VITALS: BP 118/84; PULSE 87; RESP 20; TEMP 36.2; O2SAT 93
[2023-03-04] MEDS: buPROPion HCl XL 150 MG TAB.ER.24H PO (08:58)
--- NOTE | 2023-03-04 08:58 | MHC.CM.PN ---
CM met with Patient at bedside and addressed IMM with her, providing Patient with the original and placing a copy on the chart. CM also spoke with Patient's Significant Other/Jaquan of 43 years. Jaquan states that he is Patient's HCP and CM has requested a copy. Patient uses a cane only for outdoor travel.Home/self care is the goal and CM has initiated and will follow for dc planning. PCP is Dr. Anastasiya Lemos.
[2023-03-04] MEDS: Heparin Sodium,Porcine 5,000 UNIT/ML VIAL 2500 UNIT IVPUSH (09:12)
--- NOTE | 2023-03-04 10:19 | PM.CNCAR ---
History of Present Illness History of Present Illness Date of Service: 03/04/23 Chief complaint: Splenic and renal infarcts Narrative: This is a cardiology consultation regarding splenic/renal infarcts. Based on echocardiogram from October of this year, she has a left atrial myxoma. She actually follows up with Dr. Torres at [facility] and I spoke to him in detail about her care today. According to him, patient has been seen in his office and she is actually scheduled for surgery on the of this month. She has had complete workup including transesophageal echocardiogram as well as cardiac catheterization and essentially awaiting surgery. In this context, patient has been brought in for nonspecific symptoms like feeling pale and was crying and in that context was found to be hypoglycemic. Subsequently, underwent workup and found to have renal as well as splenic infarcts. Patient herself states she feels okay. She is not able to speak much because of a history of stroke but able to move her hands, shake her head extra, with yes or no type answer. Review of Systems Review of Systems: Yes all other systems are reviewed and are negative Constitutional: Constitutional: Reports as per HPI and Reports no additional constitutional complaints Eyes: Eyes: Reports as per HPI and Denies no additional eye complaints ENT: Denies system reviewed and no additional complaints, except as documented and Reports as per HPI Cardiovascular: Cardiovascular: Reports as per HPI, Reports no additional cardiovascular complaints, Denies acrocyanosis, Denies cool extremities, Denies chest pain, Denies leg edema, Denies lightheadedness, Denies palpitations and Denies dyspnea Respiratory: Respiratory: Reports as per HPI, Denies no additional respiratory complaints and Denies dyspnea Gastrointestinal: Gastrointestinal: Reports as per HPI and Denies no additional gastrointestinal complaints Genitourinary: Genitourinary: Reports as per HPI Musculoskeletal: Musculoskeletal: Reports no additional musculoskeletal complaints and Reports as per HPI Integumentary/Breasts: Skin/Breast: Reports system reviewed and no additional complaints, except as docu Neurologic: Reports system reviewed and no additional complaints, except as documented and Reports as per HPI Psychiatric: Psychiatric: Reports no additional psychiatric complaints and Reports as per HPI Endocrine: Endocrine: Reports no additional endocrine complaints, Reports as per HPI and Denies palpitations Hematologic/Lymphatic: Hematologic/Lymphatic: Reports no additional hematologic/lymphatic complaints and Reports as per HPI Allergic/Immunologic: Allergic/Immunologic: Reports no additional allergic/immunologic complaints and Reports as per HPI [facility] Past Medical History Medical History Multiple sclerosis Neuropathy Tremor Family History Pertinent family history: No significant past medical history pertinent to this visit. Surgical History Surgical History S/P cholecystectomy Social History Social History Household Members: Spouse Housing: Apartment Do you presently have visiting nurse or other home services: No Alcohol intake: never Patient Tobacco Use Status: Never used Tobacco Smoked in Last 30 Days: No e-Cigarette/Vaping Use: Never Used Patient Interested in Nicotine Replacement: No Patient Given Instructions on How to Stop Smoking: No Second Hand Smoke Exposure: No Use of substances other than those prescribed or required for medical reasons: No Currently Displaying Signs/Symptoms of Drug Intoxication Withdrawal: No Have you been hit, kicked, punched, or otherwise hurt by someone within the past year? If so, by whom?: No Do you feel safe in your current relationship?: Yes Is there a partner from a previous relationship who is making you feel unsafe now?: No Are you made to feel afraid or neglected: No Advance Directives: No Advance Directives Information Provided: No Do you have thoughts of harming others: None Do you have a plan to hurt others: No Plan Recently lost weight without trying: Unsure How much weight loss: Not applicable Eating poorly because of decreased appetite: No Nutrition screen score: 2 Nutrition Risks: No Nutritional Risk Patient : No service: No Meds Allergies Allergy/AdvReac Type Severity Reaction Status Date / Time No Known Allergies Allergy Unknown Verified 08/12/21 13:03 [No Known Allergies*] Active Medications: Current Medications Acetaminophen (Acetaminophen 325 Mg Tablet) 650 mg PO Q6H PRN PRN Reason: Pain, Mild (Pain Scale 1-3) Atorvastatin Calcium (Atorvastatin Calcium 80 Mg Tablet) 80 mg PO BEDTIME LUCY Last Admin: 03/04/23 00:45 Dose: 80 mg Bupropion HCl (Bupropion Hcl Xl 150 Mg Tab.Er.24h) 150 mg PO DAILY LUCY Last Admin: 03/04/23 08:58 Dose: 150 mg Docusate Sodium (Docusate Sodium 100 Mg Capsule) 100 mg PO DAILY PRN PRN Reason: Constipation Duloxetine HCl (Duloxetine Hcl 60 Mg Capsule.) 60 mg PO BID [facility] Last Admin: 03/04/23 08:58 Dose: 60 mg Gabapentin (Gabapentin 100 Mg Capsule) 200 mg PO TID [facility] Last Admin: 03/04/23 08:58 Dose: 200 mg Heparin Sodium (Porcine) (Heparin Sodium,Porcine 5,000 Unit/Ml Vial) 2,500 unit 40 unit/kg (2500 unit) IVPUSH PROTOCOL BOLUS PRN; Protocol PRN Reason: 40 unit/kg - Heparin Protocol Last Admin: 03/04/23 09:12 Dose: 2,500 unit Heparin Sodium (Porcine) (Heparin Sodium,Porcine 5,000 Unit/Ml Vial) 5,100 unit 80 unit/kg (5100 unit) IVPUSH PROTOCOL BOLUS PRN; Protocol PRN Reason: 80 unit/kg - Heparin Protocol Heparin Sodium/Sodium Chloride (Heparin Sodium,Porcine/1/2ns) 25,000 unit in 250 mls @ 0 mls/hr IVCONT .Q0M [facility]; Protocol Last Titration: 03/04/23 09:13 Dose: 16 units/kg/hr, 10.14 mls/hr Omeprazole (Omeprazole 20 Mg Capsule.Dr) 20 mg PO DAILY@0630 [facility] Last Admin: 03/04/23 05:19 Dose: 20 mg Ondansetron HCl (Ondansetron Hcl 4 Mg/2 Ml Vial) 4 mg IVPUSH Q8H PRN PRN Reason: Nausea and Vomiting Last Admin: 03/04/23 06:11 Dose: 4 mg Sodium Chloride (0.9 % Sodium Chloride Flush 3 Ml Syringe) 3 ml IVFLUSH [facility] Last Admin: 03/04/23 09:01 Dose: Not Given Home Medications Medication Instructions Recorded Confirmed Last Taken Type atorvastatin 80 mg tablet 80 mg PO BEDTIME 03/03/23 03/03/23 Unknown History bupropion HCl 150 mg 24 hr tablet, 150 mg PO QAM 03/03/23 03/03/23 Unknown History extended release cyanocobalamin (vitamin B-12) 500 500 mcg PO DAILY 03/03/23 03/03/23 Unknown History mcg tablet duloxetine 60 mg capsule,delayed 60 mg PO BID depressive disorder 03/03/23 03/03/23 Unknown History release gabapentin 100 mg capsule 200 mg PO TID 03/03/23 03/03/23 Unknown History pantoprazole 40 mg tablet,delayed 40 mg PO QAM 03/03/23 03/03/23 Unknown History release Physical Exam Vital Signs: Vital Signs: Last Vital Signs Temp 97.2 F 03/04/23 07:45 Pulse 87 03/04/23 07:45 Resp 20 03/04/23 07:45 BP 118/84 03/04/23 07:45 Pulse Ox 93 03/04/23 07:45 O2 Del Method Room Air 03/04/23 07:45 BMI result Body Mass Index 22.6 Const: General: comfortable and no acute distress Orientation/consciousness: patient oriented x3 HEENT: Other: Unremarkable Head: Yes normal to inspection Neck: Neck: Yes normal visual inspection Chest: Chest palpation & inspection: normal inspection of the chest Resp: Auscultation: clear to auscultation bilaterally Cardio: Palpation: normal PMI Heart sounds: S1 normal heart sound present, S2 normal heart sound present, no gallops, no murmurs and no rubs GI: Palpation (GI): Soft to palpation Back/Spine/Pelvis: Other: unremarkable Skin: General skin exam: no rashes or lesions noted Neuro: General: patient oriented x3 Extrem: General: Yes normal to inspection Psych: Mental Status: mental status grossly normal Objective Labs and Meds 03/04/23 06:29 03/04/23 06:29 Lab results: Laboratory Results - last 24 hr 03/03/23 03/03/23 03/03/23 16:10 16:32 16:37 WBC 12.4 H RBC 4.07 L Hgb 12.0 Hct 37.8 MCV 92.9 MCH 29.5 MCHC 31.7 RDW 13.4 Plt Count 250 MPV 10.5 Immature Gran % (Auto) 0.3 Neut % (Auto) 82.2 H Lymph % (Auto) 11.8 L [place] % (Auto) 5.1 Eos % (Auto) 0.3 Baso % (Auto) 0.3 Lymph # (Auto) 1.5 [place] # (Auto) 0.6 Eos # (Auto) 0.0 Baso # (Auto) 0.0 Abs Immat Gran (auto) 0.04 H Absolute Neuts (auto) 10.2 H Absolute Nucleated RBC 0.000 Nucleated RBC % (auto) 0.0 Smear Tech's Comments VERIFIED ESR PT INR aPTT Heparin Protocol Sodium 141 Potassium 4.4 Chloride 108 Carbon Dioxide 22 Anion Gap 15 BUN 15 Creatinine 0.86 Estim Creat Clear Calc 64.3 Estimated GFR > 60 POC Glucose 45 L* Random Glucose 108 Estimat Average Glucose Hemoglobin A1c % Lactic Acid Calcium 9.9 D Magnesium 2.1 Total Bilirubin 0.4 Direct Bilirubin 0.1 AST 28 ALT 30 Alkaline Phosphatase 152 H Troponin I High Sens < 2.7 C-Reactive Protein 3.00 H Total Protein 8.3 H Albumin 4.1 Urine Color Urine Appearance Urine pH Ur Specific [place] Urine Protein Urine Glucose (UA) Urine Ketones Urine Blood Urine Nitrite Ur Leukocyte Esterase Urine RBC Urine WBC Ur Squamous Epith Cells Urine Bacteria Hyaline Casts 03/03/23 03/03/23 03/03/23 17:07 19:10 19:18 WBC RBC Hgb Hct MCV MCH MCHC RDW Plt Count MPV Immature Gran % (Auto) Neut % (Auto) Lymph % (Auto) [place] % (Auto) Eos % (Auto) Baso % (Auto) Lymph # (Auto) [place] # (Auto) Eos # (Auto) Baso # (Auto) Abs Immat Gran (auto) Absolute Neuts (auto) Absolute Nucleated RBC Nucleated RBC % (auto) Smear Tech's Comments ESR PT INR aPTT Heparin Protocol Sodium Potassium Chloride Carbon Dioxide Anion Gap BUN Creatinine Estim Creat Clear Calc Estimated GFR POC Glucose 165 H 96 Random Glucose Estimat Average Glucose Hemoglobin A1c % Lactic Acid 1.4 Calcium Magnesium Total Bilirubin Direct Bilirubin AST ALT Alkaline Phosphatase Troponin I High Sens C-Reactive Protein Total Protein Albumin Urine Color Urine Appearance Urine pH Ur Specific [place] Urine Protein Urine Glucose (UA) Urine Ketones Urine Blood Urine Nitrite Ur Leukocyte Esterase Urine RBC Urine WBC Ur Squamous Epith Cells Urine Bacteria Hyaline Casts 03/03/23 03/04/23 03/04/23 23:56 00:33 01:38 WBC RBC Hgb Hct MCV MCH MCHC RDW Plt Count MPV Immature Gran % (Auto) Neut % (Auto) Lymph % (Auto) [place] % (Auto) Eos % (Auto) Baso % (Auto) Lymph # (Auto) [place] # (Auto) Eos # (Auto) Baso # (Auto) Abs Immat Gran (auto) Absolute Neuts (auto) Absolute Nucleated RBC Nucleated RBC % (auto) Smear Tech's Comments ESR 70 H PT 12.0 INR 1.0 aPTT Heparin Protocol 29.7 L Sodium Potassium Chloride Carbon Dioxide Anion Gap BUN Creatinine Estim Creat Clear Calc Estimated GFR POC Glucose 86 Random Glucose Estimat Average Glucose Hemoglobin A1c % Lactic Acid Calcium Magnesium Total Bilirubin Direct Bilirubin AST ALT Alkaline Phosphatase Troponin I High Sens C-Reactive Protein Total Protein Albumin Urine Color Yellow Urine Appearance Clear Urine pH 7.0 Ur Specific [place] >= 1.030 H Urine Protein 30 (1+) H Urine Glucose (UA) Negative Urine Ketones Negative Urine Blood Negative Urine Nitrite Negative Ur Leukocyte Esterase Small (1+) H Urine RBC 0-2 Urine WBC 11-20 H Ur Squamous Epith Cells 6-10 Urine Bacteria None Seen Hyaline Casts 0-2 03/04/23 03/04/23 03/04/23 01:56 06:29 06:29 WBC 11.8 H RBC 3.96 L Hgb 11.6 L Hct 37.7 MCV 95.2 MCH 29.3 MCHC 30.8 L RDW 13.2 Plt Count 247 MPV 10.9 Immature Gran % (Auto) Neut % (Auto) Lymph % (Auto) [place] % (Auto) Eos % (Auto) Baso % (Auto) Lymph # (Auto) [place] # (Auto) Eos # (Auto) Baso # (Auto) Abs Immat Gran (auto) Absolute Neuts (auto) Absolute Nucleated RBC 0.000 Nucleated RBC % (auto) 0.0 Smear Tech's Comments ESR PT Cancelled 11.9 INR Cancelled aPTT Heparin Protocol Sodium Potassium Chloride Carbon Dioxide Anion Gap BUN Creatinine Estim Creat Clear Calc Estimated GFR POC Glucose 139 H Random Glucose Estimat Average Glucose Hemoglobin A1c % Lactic Acid Calcium Magnesium Total Bilirubin Direct Bilirubin AST ALT Alkaline Phosphatase Troponin I High Sens C-Reactive Protein Total Protein Albumin Urine Color Urine Appearance Urine pH Ur Specific [place] Urine Protein Urine Glucose (UA) Urine Ketones Urine Blood Urine Nitrite Ur Leukocyte Esterase Urine RBC Urine WBC Ur Squamous Epith Cells Urine Bacteria Hyaline Casts 03/04/23 03/04/23 06:29 07:47 WBC RBC Hgb Hct MCV MCH MCHC RDW Plt Count MPV Immature Gran % (Auto) Neut % (Auto) Lymph % (Auto) [place] % (Auto) Eos % (Auto) Baso % (Auto) Lymph # (Auto) [place] # (Auto) Eos # (Auto) Baso # (Auto) Abs Immat Gran (auto) Absolute Neuts (auto) Absolute Nucleated RBC Nucleated RBC % (auto) Smear Tech's Comments ESR PT INR 1.0 aPTT Heparin Protocol 50.1 L D Sodium Potassium Chloride Carbon Dioxide Anion Gap BUN Creatinine 0.80 Estim Creat Clear Calc 69.1 Estimated GFR > 60 POC Glucose 155 H Random Glucose Estimat Average Glucose 105 Hemoglobin A1c % 5.3 Lactic Acid Calcium Magnesium Total Bilirubin Direct Bilirubin AST ALT Alkaline Phosphatase Troponin I High Sens C-Reactive Protein Total Protein Albumin Urine Color Urine Appearance Urine pH Ur Specific [place] Urine Protein Urine Glucose (UA) Urine Ketones Urine Blood Urine Nitrite Ur Leukocyte Esterase Urine RBC Urine WBC Ur Squamous Epith Cells Urine Bacteria Hyaline Casts ECG Interpretation: EKG shows sinus rhythm at 90/Min; cannot exclude old anterior infarct. Otherwise, nonspecific ST-T changes. Imaging Radiologist's impression: Impressions Abdomen/Pelvis CT 03/03/23 17:58 IMPRESSION: 1. Multiple wedge-shaped hypodensities are seen in the spleen and both kidneys suggestive of emboli. No macroscopic vasculature appears normal. Consider echocardiography.. 2. Other incidental findings as described above including cholecystectomy and T12 hemangioma. Fleischner guidelines were followed. This critical result was discussed with Dr. Tami Osborne at 6:50 PM on the day of the exam and it was ascertained that the content and urgency of the report was understood at the time of direct communication. Chest X-Ray 03/03/23 19:10 IMPRESSION: Bronchial wall thickening may be infectious and/or inflammatory in etiology. Head CT 03/03/23 19:57 IMPRESSION: There is low attenuation change in the left frontotemporoparietal region, consistent with an MCA distribution infarction. Note is made of occlusive thrombus identified within the left carotid terminus and left middle cerebral artery on the CTA head dated 09/02/2022. There is adjacent attenuation of the anterior horn of the left lateral ventricle. No associated focal hemorrhage or mass lesion is seen, with evaluation for mass limited by noncontrast technique. There is no midline shift. The basilar cisterns appear patent. Assessment and Plan (1) Myxoma of heart: Status: Acute (2) Renal infarct: Status: Acute (3) Splenic infarct: Status: Acute Plan Echocardiogram from October of this year showed LVEF of 50-55% with wall motion abnormalities as well as a large left atrial myxoma. CT head shows left MCA distribution infarction. Abdomen/pelvis CT reports embolic infarcts in spleen and kidneys. Discussed with Dr. Cesar Torres over the phone. Findings discussed. Overall, we feel that the infarcts in the spleen and kidneys are probably not acutely related to her presentation and may be rather of an incidental finding. Any case, they are likely related to left atrial myxoma diagnosis. According to the surgeon, patient already has a surgical date for 16 of this month and it would be preferable to keep that date. Also, there is schedule outpatient MRI of the heart tomorrow. I discussed this in detail with the patient's significant other as well as Dr. Ham. She is currently on IV heparin drip. We can rather use Lovenox injections for the next 10 days or so till day before surgery. She can go for outpatient MRI tomorrow and keep the surgical appointments. The cardiac surgery office will call her for another appointment before surgery. Time Spent With Patient Time: Total time managing care of this patient today ____ minutes. Procedures Date of Service Date of Service: 03/04/23
--- NOTE | 2023-03-04 11:44 | MHC.CM.PN ---
Patient has been medically cleared for dc to home today, with services. [facility] was able to do a SOC tomorrow and they have been made aware of today's dc. Last IMM addressed yesterday.
--- NOTE | 2023-03-04 11:52 | W.MHC.F2F ---
Service Date Service Date: 03/04/23 Encounter Date of encounter: 03/04/23 Encounter: Renal and spleen infarcts,ch. CVA Reasons for Services Signs and symptoms assessed: Any new symptoms-new weakness numbness or abdominal pain or fever . Reason for senior care: CV/CP assess and/or care, medication management, medication treatment and teach disease management MD Overseeing Care: Anastasiya Lemos Homebound: Leaving the home is medically contraindicated at this time without the asist of a device and/or another person due th the listed conditions above and below. Reason homebound: weakness related to hospital stay Homebound supporting statement: Patient has multiple comorbidities including CVA, cardiac myxoma, renal and spleen infarcts-need Lovenox, also disease management and help to go to appointments. Certification: Based on the above findings, I certify that this patient is confined to the home and needs intermittent senior care care, physical therapy and/or speech therapy, or continues to need occupational therapy. The patient is under my care, and I have initiated the establishment of the plan of care. The patient will be followed by a physician who will periodically review the plan of care. Time Spent With Patient Time: Total time managing care of this patient today ____ minutes.
[2023-03-04 11:54] VITALS: BP 124/87; PULSE 96; RESP 20; TEMP 36.2; O2SAT 93
--- NOTE | 2023-03-04 12:21 | MHC.SL.SWA ---
Speech Pathologist Impression: Oral phase dysphagia, severe receptive-expressive aphasia Risk of Aspiration Due to: Neurological Condition Dysphasia Diet Status: UPGRADE from NDD2 to NDD3 Liquid Consistency and Strategies for Safe Swallow: Liquid Intake Recommendation: Thin Liquid Intake Strategies: Small Sips Solid Food Consistency: Dietary Recommendations: Chopped/Advanced (NDD3) Additional Modifications to Solid Foods: Pt seen for bedside dysphagia eval. Pt w/ mild oral phase dysphagia, characterized by slow and disorganized chewing and presence of mild residuals. Pt was able to clear residue with liquid wash. Pt's partner reports that her meats are chopped up for her. Per RN, pt took whole pills with water this morning without any difficulty. Recommend UPGRADE to CHOPPED/ADVANCED (NDD3) diet with THIN liquids, pills WHOLE in LIQUID. D/t right-sided weakness, pt will need assistance throughout meal. Ensure aspiration precautions. Diet order updated by [employer]. Care team (MD, RN, RD) also informed of change via [place] Message. Oral Medication Intake: Whole with Liquid Please contact the pharmacy regarding appropriate crushable or liquid drug formulations that are available whenever modified delivery is recommended. Compensatory Strategies and Precautions to be Taken for Safe Swallow: Sitting Upright (90 deg) Double Swallow Small Bites and Sips Alternate Liquids/Solids Rate of Ingestion Change Avoid Specific Foods Supervision While Eating and Drinking for Safe Swallow: Total Supervision (1:1) Foods to Avoid: Hard, tough to chew solids Swallowing Recommended Treatments: Compens. Strategy Educat. Recommendation for Speech: Inpatient Speech Therapy Comment: [employer] to f/u 1x Supervisor Assembly And Packing Clinican/Clinical Fellow: Yes: Mary Kumari Supervisory Statement: I have reviewed and agree with the student/clinical fellow's documentation: Yes Speech Language Pathologist: Marian Bond M.A., CCC-M[employer]ENER
--- NOTE | 2023-03-04 14:20 | PM.NEUROCN ---
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 A cardiac lesion was found resulting in embolism. This time she was in hospital for unrelated reason and this consultation was requested. There was no evidence of any recent stroke-like symptom or seizure. Review of Systems Review of Systems: Could not be done with her [facility] Past Medical History Medical History Multiple sclerosis Neuropathy Tremor Surgical History Surgical History S/P cholecystectomy Social History Social History Household Members: Spouse Housing: Apartment Do you presently have visiting nurse or other home services: No Alcohol intake: never Patient Tobacco Use Status: Never used Tobacco Smoked in Last 30 Days: No e-Cigarette/Vaping Use: Never Used Patient Interested in Nicotine Replacement: No Patient Given Instructions on How to Stop Smoking: No Second Hand Smoke Exposure: No Use of substances other than those prescribed or required for medical reasons: No Currently Displaying Signs/Symptoms of Drug Intoxication Withdrawal: No Have you been hit, kicked, punched, or otherwise hurt by someone within the past year? If so, by whom?: No Do you feel safe in your current relationship?: Yes Is there a partner from a previous relationship who is making you feel unsafe now?: No Are you made to feel afraid or neglected: No Advance Directives: No Advance Directives Information Provided: No Do you have thoughts of harming others: None Do you have a plan to hurt others: No Plan Recently lost weight without trying: Unsure How much weight loss: Not applicable Eating poorly because of decreased appetite: No Nutrition screen score: 2 Nutrition Risks: No Nutritional Risk Patient : No service: No Meds Allergies Allergy/AdvReac Type Severity Reaction Status Date / Time No Known Allergies Allergy Unknown Verified 08/12/21 13:03 [No Known Allergies*] Active Medications: Current Medications Acetaminophen (Acetaminophen 325 Mg Tablet) 650 mg PO Q6H PRN PRN Reason: Pain, Mild (Pain Scale 1-3) Atorvastatin Calcium (Atorvastatin Calcium 80 Mg Tablet) 80 mg PO BEDTIME [facility] Last Admin: 03/04/23 00:45 Dose: 80 mg Bupropion HCl (Bupropion Hcl Xl 150 Mg Tab.Er.24h) 150 mg PO DAILY [facility] Last Admin: 03/04/23 08:58 Dose: 150 mg Docusate Sodium (Docusate Sodium 100 Mg Capsule) 100 mg PO DAILY PRN PRN Reason: Constipation Duloxetine HCl (Duloxetine Hcl 60 Mg Capsule.) 60 mg PO BID [facility] Last Admin: 03/04/23 08:58 Dose: 60 mg Enoxaparin Sodium (Enoxaparin Sodium 80 Mg/0.8 Ml Syringe) 65 mg SUBCUT Q12H [facility] Last Admin: 03/04/23 11:45 Dose: 65 mg Gabapentin (Gabapentin 100 Mg Capsule) 200 mg PO TID [facility] Last Admin: 03/04/23 08:58 Dose: 200 mg Omeprazole (Omeprazole 20 Mg Capsule.) 20 mg PO DAILY@0630 [facility] Last Admin: 03/04/23 05:19 Dose: 20 mg Ondansetron HCl (Ondansetron Hcl 4 Mg/2 Ml Vial) 4 mg IVPUSH Q8H PRN PRN Reason: Nausea and Vomiting Last Admin: 03/04/23 06:11 Dose: 4 mg Sodium Chloride (0.9 % Sodium Chloride Flush 3 Ml Syringe) 3 ml IVFLUSH QSHIFT [facility] Last Admin: 03/04/23 09:01 Dose: Not Given Home Medications Medication Instructions Recorded Confirmed Last Taken Type atorvastatin 80 mg tablet 80 mg PO BEDTIME 03/03/23 03/03/23 Unknown History bupropion HCl 150 mg 24 hr tablet, 150 mg PO QAM 03/03/23 03/03/23 Unknown History extended release cyanocobalamin (vitamin B-12) 500 500 mcg PO DAILY 03/03/23 03/03/23 Unknown History mcg tablet duloxetine 60 mg capsule,delayed 60 mg PO BID depressive disorder 03/03/23 03/03/23 Unknown History release gabapentin 100 mg capsule 200 mg PO TID 03/03/23 03/03/23 Unknown History pantoprazole 40 mg tablet,delayed 40 mg PO QAM 03/03/23 03/03/23 Unknown History release Physical Exam Vital Signs: Vital Signs: Last Vital Signs Temp 97.2 F 03/04/23 11:54 Pulse 96 03/04/23 11:54 Resp 20 03/04/23 11:54 BP 124/87 03/04/23 11:54 Pulse Ox 93 03/04/23 11:54 O2 Del Method Room Air 03/04/23 11:54 BMI result Body Mass Index 22.6 Neuro: Other: She is alert and awake with minimal to no spontaneity and fluency of speech. She is unable to name or repeat. Comprehension is better and relatively intact. She is able to show me 2 fingers and when I asked her to repeat ?1-3?, she did not do so verbally but did that with her left hand showing me 1 to and then 3 fingers. This seems to be right hemianopsia. Results Labs 03/04/23 06:29 03/04/23 06:29 Labs: Short CBC 03/03/23 03/04/23 Range/Units 16:32 06:29 WBC 12.4 H 11.8 H (4.8-10.8) X10*3/uL Hgb 12.0 11.6 L (12.0-16.0) g/dl Hct 37.8 37.7 (37.0-47.0) % Plt Count 250 247 (160-400) X10*3/uL BMP 03/03/23 03/04/23 16:32 06:29 Sodium 141 Potassium 4.4 Chloride 108 Carbon Dioxide 22 BUN 15 Creatinine 0.86 0.80 Calcium 9.9 D Liver Function 03/03/23 Range/Units 16:32 Total Bilirubin 0.4 (0.0-1.0) mg/dL Direct Bilirubin 0.1 (0.0-0.5) mg/dL AST 28 (5-31) U/L ALT 30 (0-31) U/L Alkaline Phosphatase 152 H (39-117) U/L Albumin 4.1 (3.5-5.0) g/dL Urine 03/04/23 Range/Units 01:38 Urine Color Yellow Urine Appearance Clear Urine pH 7.0 (5.0-9.0) Ur Specific [place] >= 1.030 H (1.005-1.025) Urine Protein 30 (1+) H (Neg-Trace) mg/dL Urine Glucose (UA) Negative (Negative) mg/dL Head CT revealed a large left middle cerebral artery area infarct resulting in infarction of frontal parietotemporal regions. Assessment and Plan (1) Aphasia: Status: Acute 62 years old woman with primarily motor aphasia resulting from an ischemic infarction that involved large area as a left frontal temporal and parietal lobes. 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 At this time, continue anticoagulation. There is no particular or specific treatment for aphasia. Time Spent With Patient Time: Total time managing care of this patient today ____ minutes. Procedures Date of Service Date of Service: 03/04/23
--- NOTE | 2023-03-04 14:36 | PM.DS ---
DS: Providers Provider Date of Service: 03/04/23 Date of admission: 03/03/23 22:12 Date of discharge: 03/04/23 Primary care physician: Anastasiya Lemos MD Consults: 03/03/23 23:23 Consult to Neurology Routine Consulting Provider: [facility] Reason for consultation: ?evidence on CT of new CVA 03/04/23 08:20 Consult to Cardiology Routine Consulting Provider: [facility] [place] [facility] Reason for consultation: mutliple infracts -cva ,renal,splenic -? 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 Patient with limited ability to communicate secondary to expressive aphasia from CVA, capable of only saying yes or no. HPI also supplemented by provider and chart review. Symptoms apparently began earlier in the day when patient's spouse noted she was pale and crying so he called EMS. EMS found patient's blood glucose to be 65 but found no new focal deficits. Patient was given juice and blood glucose improved to 131. Patient is not a known diabetic and no history of hypoglycemia. Patient denies being on either aspirin or Plavix and neither is on her med rec, however, records indicate patient filled a 90 day prescription for aspirin on 01/18/2023. Patient also denies any IVDU. At time of interview patient denies any acute medical complaints. Had some nausea earlier, but currently none. No chest pain/pressure, palpitations. No fever, chills, vomiting, abdominal pain. Denies shortness of breath, cough. No headache, lightheadedness, or dizziness. In the ED patient was afebrile with pulse 91, RR to 23, and hypertensive up to 157/78, satting at 98% on RA. Labs were significant for leukocytosis of 12.4, blood glucose of 45, and alk-phos 152.. H&H stable at 12.0/37.8. Electrolytes WNL. Renal function WNL. Lactic acid WNL at 1.4. Troponin negative. CXR showed bronchial wall thickening that may be infectious and/or inflammatory. CT?of abdomen and pelvis found multiple wedge-shaped hypodensities in spleen and both kidneys suggestive of emboli. Also found T12 hemangioma. CT of head found low attenuation change in the left frontotemporoparietal region consistent with a MCA distribution infarction. Also found occlusive thrombus within the left carotid terminus in left middle cerebral artery on CTA of head dated 09/02/2022, there is adjacent attenuation of the anterior horn of the left lateral ventricle. EKG demonstrated normal sinus rhythm with nonspecific ST and T-wave abnormalities. Pt was treated with ceftriaxone, vancomycin, and IVF. Pt will be admitted to the hospital for treatment and further evaluation of splenic and renal infarcts with possible CVA likely secondary to hypercoaguable state. Hospital course: Patient admitted to the hospital for hypoglycemia-which seems to be improved with p.o. intake, discussed with the housekeeping aid in detail, encouraged patient to eat. Also change schedule if eating in the morning and also evening snacks. Hemoglobin A1c is 5.3. CVA: Seems chronic. In addition patient has renal and splenic infarcts likely embolic in setting of cardiac myxoma. Seen by Neurology and Cardiology-currently switched to Lovenox-continue until 03/13/23, then patient will be going for cardiothoracic surgery for myxoma and further use will be decided after that. Patient has cardiac MRI appointment tomorrow. Leukocytosis: No fever, chest x-ray negative, has asymptomatic pyuria. Blood culture and urine culture pending. Leukocytosis improving, no fever no new symptoms Currently will avoid antibiotic use. If any new symptoms please go to nearest emergency room for evaluation. patient guardian does not want her to stay further -Above management discussed the patient's guardian in detail length, he understands and aox3 ,could able to repeat back. does not want to wait . total time spent 50 min. Time Spent with Patient Time attestation: Total time managing care of this patient today ____ minutes. Discharge coordination time: Greater than 30 minutes Quality: Safe Use of Opioids Does Pt have an Active Cancer Diagnosis on the Problem List?: No Quality: Stroke Does the patient have a stroke diagnosis?: No Physical Exam Vital Signs: Vital Signs: Last Vital Signs Temp 97.2 F 03/04/23 11:54 Pulse 96 03/04/23 11:54 Resp 20 03/04/23 11:54 BP 124/87 03/04/23 11:54 Pulse Ox 93 03/04/23 11:54 O2 Del Method Room Air 03/04/23 11:54 BMI result Body Mass Index 22.6 Appearance: Alert, in no acute distress. Answers all questions with yes or no. cvs: [id number], [id number] , no murmur. res: clear to auscultation ,no rhonchii or wheezing abd: no rebound or guarding ,nt, bs present. ext pulses present , no cyanosis . neuro: axo3 , nonfocal. DS: Data Data Completed and Pending Labs on day of discharge: Laboratory Results - last 24 hr 03/03/23 03/03/23 03/03/23 16:10 16:32 16:37 WBC 12.4 H RBC 4.07 L Hgb 12.0 Hct 37.8 MCV 92.9 MCH 29.5 MCHC 31.7 RDW 13.4 Plt Count 250 MPV 10.5 Immature Gran % (Auto) 0.3 Neut % (Auto) 82.2 H Lymph % (Auto) 11.8 L [place] % (Auto) 5.1 Eos % (Auto) 0.3 Baso % (Auto) 0.3 Lymph # (Auto) 1.5 [place] # (Auto) 0.6 Eos # (Auto) 0.0 Baso # (Auto) 0.0 Abs Immat Gran (auto) 0.04 H Absolute Neuts (auto) 10.2 H Absolute Nucleated RBC 0.000 Nucleated RBC % (auto) 0.0 Smear Tech's Comments VERIFIED ESR PT INR aPTT Heparin Protocol Sodium 141 Potassium 4.4 Chloride 108 Carbon Dioxide 22 Anion Gap 15 BUN 15 Creatinine 0.86 Estim Creat Clear Calc 64.3 Estimated GFR > 60 POC Glucose 45 L* Random Glucose 108 Estimat Average Glucose Hemoglobin A1c % Lactic Acid Calcium 9.9 D Magnesium 2.1 Total Bilirubin 0.4 Direct Bilirubin 0.1 AST 28 ALT 30 Alkaline Phosphatase 152 H Troponin I High Sens < 2.7 C-Reactive Protein 3.00 H Total Protein 8.3 H Albumin 4.1 Urine Color Urine Appearance Urine pH Ur Specific [place] Urine Protein Urine Glucose (UA) Urine Ketones Urine Blood Urine Nitrite Ur Leukocyte Esterase Urine RBC Urine WBC Ur Squamous Epith Cells Urine Bacteria Hyaline Casts 03/03/23 03/03/23 03/03/23 17:07 19:10 19:18 WBC RBC Hgb Hct MCV MCH MCHC RDW Plt Count MPV Immature Gran % (Auto) Neut % (Auto) Lymph % (Auto) [place] % (Auto) Eos % (Auto) Baso % (Auto) Lymph # (Auto) [place] # (Auto) Eos # (Auto) Baso # (Auto) Abs Immat Gran (auto) Absolute Neuts (auto) Absolute Nucleated RBC Nucleated RBC % (auto) Smear Tech's Comments ESR PT INR aPTT Heparin Protocol Sodium Potassium Chloride Carbon Dioxide Anion Gap BUN Creatinine Estim Creat Clear Calc Estimated GFR POC Glucose 165 H 96 Random Glucose Estimat Average Glucose Hemoglobin A1c % Lactic Acid 1.4 Calcium Magnesium Total Bilirubin Direct Bilirubin AST ALT Alkaline Phosphatase Troponin I High Sens C-Reactive Protein Total Protein Albumin Urine Color Urine Appearance Urine pH Ur Specific [place] Urine Protein Urine Glucose (UA) Urine Ketones Urine Blood Urine Nitrite Ur Leukocyte Esterase Urine RBC Urine WBC Ur Squamous Epith Cells Urine Bacteria Hyaline Casts 03/03/23 03/04/23 03/04/23 23:56 00:33 01:38 WBC RBC Hgb Hct MCV MCH MCHC RDW Plt Count MPV Immature Gran % (Auto) Neut % (Auto) Lymph % (Auto) [place] % (Auto) Eos % (Auto) Baso % (Auto) Lymph # (Auto) [place] # (Auto) Eos # (Auto) Baso # (Auto) Abs Immat Gran (auto) Absolute Neuts (auto) Absolute Nucleated RBC Nucleated RBC % (auto) Smear Tech's Comments ESR 70 H PT 12.0 INR 1.0 aPTT Heparin Protocol 29.7 L Sodium Potassium Chloride Carbon Dioxide Anion Gap BUN Creatinine Estim Creat Clear Calc Estimated GFR POC Glucose 86 Random Glucose Estimat Average Glucose Hemoglobin A1c % Lactic Acid Calcium Magnesium Total Bilirubin Direct Bilirubin AST ALT Alkaline Phosphatase Troponin I High Sens C-Reactive Protein Total Protein Albumin Urine Color Yellow Urine Appearance Clear Urine pH 7.0 Ur Specific [place] >= 1.030 H Urine Protein 30 (1+) H Urine Glucose (UA) Negative Urine Ketones Negative Urine Blood Negative Urine Nitrite Negative Ur Leukocyte Esterase Small (1+) H Urine RBC 0-2 Urine WBC 11-20 H Ur Squamous Epith Cells 6-10 Urine Bacteria None Seen Hyaline Casts 0-2 03/04/23 03/04/23 03/04/23 01:56 06:29 06:29 WBC 11.8 H RBC 3.96 L Hgb 11.6 L Hct 37.7 MCV 95.2 MCH 29.3 MCHC 30.8 L RDW 13.2 Plt Count 247 MPV 10.9 Immature Gran % (Auto) Neut % (Auto) Lymph % (Auto) [place] % (Auto) Eos % (Auto) Baso % (Auto) Lymph # (Auto) [place] # (Auto) Eos # (Auto) Baso # (Auto) Abs Immat Gran (auto) Absolute Neuts (auto) Absolute Nucleated RBC 0.000 Nucleated RBC % (auto) 0.0 Smear Tech's Comments ESR PT Cancelled 11.9 INR Cancelled aPTT Heparin Protocol Sodium Potassium Chloride Carbon Dioxide Anion Gap BUN Creatinine Estim Creat Clear Calc Estimated GFR POC Glucose 139 H Random Glucose Estimat Average Glucose Hemoglobin A1c % Lactic Acid Calcium Magnesium Total Bilirubin Direct Bilirubin AST ALT Alkaline Phosphatase Troponin I High Sens C-Reactive Protein Total Protein Albumin Urine Color Urine Appearance Urine pH Ur Specific [place] Urine Protein Urine Glucose (UA) Urine Ketones Urine Blood Urine Nitrite Ur Leukocyte Esterase Urine RBC Urine WBC Ur Squamous Epith Cells Urine Bacteria Hyaline Casts 03/04/23 03/04/23 03/04/23 06:29 07:47 11:55 WBC RBC Hgb Hct MCV MCH MCHC RDW Plt Count MPV Immature Gran % (Auto) Neut % (Auto) Lymph % (Auto) [place] % (Auto) Eos % (Auto) Baso % (Auto) Lymph # (Auto) [place] # (Auto) Eos # (Auto) Baso # (Auto) Abs Immat Gran (auto) Absolute Neuts (auto) Absolute Nucleated RBC Nucleated RBC % (auto) Smear Tech's Comments ESR PT INR 1.0 aPTT Heparin Protocol 50.1 L D Sodium Potassium Chloride Carbon Dioxide Anion Gap BUN Creatinine 0.80 Estim Creat Clear Calc 69.1 Estimated GFR > 60 POC Glucose 155 H 174 H Random Glucose Estimat Average Glucose 105 Hemoglobin A1c % 5.3 Lactic Acid Calcium Magnesium Total Bilirubin Direct Bilirubin AST ALT Alkaline Phosphatase Troponin I High Sens C-Reactive Protein Total Protein Albumin Urine Color Urine Appearance Urine pH Ur Specific [place] Urine Protein Urine Glucose (UA) Urine Ketones Urine Blood Urine Nitrite Ur Leukocyte Esterase Urine RBC Urine WBC Ur Squamous Epith Cells Urine Bacteria Hyaline Casts Imaging Chest x-ray: Radiologist's impression: ITS Impressions Abdomen/Pelvis CT 03/03/23 17:58 IMPRESSION: 1. Multiple wedge-shaped hypodensities are seen in the spleen and both kidneys suggestive of emboli. No macroscopic vasculature appears normal. Consider echocardiography.. 2. Other incidental findings as described above including cholecystectomy and T12 hemangioma. Fleischner guidelines were followed. This critical result was discussed with Dr. Tami Osborne at 6:50 PM on the day of the exam and it was ascertained that the content and urgency of the report was understood at the time of direct communication. Chest X-Ray 03/03/23 19:10 IMPRESSION: Bronchial wall thickening may be infectious and/or inflammatory in etiology. Head CT 03/03/23 19:57 IMPRESSION: There is low attenuation change in the left frontotemporoparietal region, consistent with an MCA distribution infarction. Note is made of occlusive thrombus identified within the left carotid terminus and left middle cerebral artery on the CTA head dated 09/02/2022. There is adjacent attenuation of the anterior horn of the left lateral ventricle. No associated focal hemorrhage or mass lesion is seen, with evaluation for mass limited by noncontrast technique. There is no midline shift. The basilar cisterns appear patent. Discharge Plan Discharge Anticipated Discharge Date/Time: 03/04/23 11:26 Patient Disposition: Home Health Service Discharge Diagnosis: renal and splenic infracts, asymptomatic hypoglycemia sec to low po intake. Referrals: [facility] [Outside] - 1 Week Anastasiya Lemos MD [Primary Care Provider] - 1 Week Discharge Medications: New enoxaparin 80 mg/0.8 mL Syringe 65 mg subcut Q12H Qty: 20 0RF Rx Instructions: lovenox injection until 03/13/23. d/w cardiac care nurse (DME) FreeStyle Lite Strips Strip Qty: 100 0RF Rx Instructions: Test four times a day or as directed. (DME) blood-glucose meter [FreeStyle Lite Meter] Kit Qty: 1 0RF Rx Instructions: As Directed alcohol swabs Pads, Medicated 1 pad TOPICAL QIDACHS Qty: 100 0RF Rx Instructions: Use four times a day or as directed. (DME) lancets [FreeStyle Lancets] 28 gauge misc Qty: 100 0RF Rx Instructions: Test four times a day or as directed. Continued atorvastatin 80 mg tablet 80 mg PO BEDTIME cyanocobalamin (vitamin B-12) 500 mcg tablet 500 mcg PO DAILY pantoprazole 40 mg tablet,delayed release (DR/EC) 40 mg PO QAM gabapentin 100 mg capsule 200 mg PO TID bupropion HCl 150 mg tablet extended release 24 hr 150 mg PO QAM duloxetine 60 mg capsule,delayed release(DR/EC) 60 mg PO BID Discharge Orders: Discharge Order (Routine); Ordered 03/04/23 Ordered By: Yefri Ham Diet: Advance to usual diet Activity on Discharge: As tolerated Stand Alone Forms: Patient Portal Discharge page Care Plan Goals: Patient admitted to the hospital for hypoglycemia-which seems to be improved with p.o. intake, discussed with the housekeeping aid in detail, encouraged patient to eat. Also change schedule if eating in the morning and also evening snacks. Hemoglobin A1c is 5.3. CVA: Seems chronic. In addition patient has renal and splenic infarcts likely embolic in setting of cardiac myxoma. Seen by Neurology and Cardiology-currently switched to Lovenox-continue until 03/13/23, then patient will be going for cardiothoracic surgery for myxoma and further use will be decided after that. Patient has cardiac MRI appointment tomorrow. Leukocytosis: No fever, chest x-ray negative, has asymptomatic pyuria. Blood culture and urine culture pending. Leukocytosis improving, no fever no new symptoms Currently will avoid antibiotic use. If any new symptoms please go to nearest emergency room for evaluation. Above management discussed the patient's guardian in detail length, time spent 50 minute. Health Concerns: As above. Plan of Treatment: As above. Assessment: As above. Discharge Date/Time: 03/04/23 14:34
[2023-03-06 19:54] LABS: Anti-Thrombin III Antigen 136 % normal (80-120)
[2023-03-06 23:53] LABS: Protein C Activity 108 % normal (70-180); Protein S Activity rflx Tot&Fr 73 % normal (60-140)
[2023-03-08 17:19] LABS: Homocysteine 9.2 umol/L (<10.4)
[2023-03-09 04:49] LABS: PTT (LAC) Screen 38 sec (<=40)
[2023-03-10 10:33] LABS: Cardiolipin IgG Ab <2.0 GPL-U/mL; Cardiolipin IgM Ab <2.0 MPL-U/mL
[2023-03-11 11:52] LABS: Factor V Leiden NEGATIVE
[2023-03-11 15:12] LABS: Prothrombin 20210A NEGATIVE
== END 2023-03-04 14:34 | disposition home health service (06) | DRG 641 ==
LOC: HO.ED 18:56 → HO.EDOVER 22:44 → HO.IMC 23:34
PROVIDERS: Internal Medicine; Admitting Provider Student in an Organized Health Care Education/Training Program; Emergency Provider Emergency Medicine; PCP General Practice; Visit Provider Internal Medicine
DX: E16.2 Hypoglycemia, unspecified (principal); I69.351 Hemiplegia and hemiparesis following cerebral infarction affecting right dominant side; N28.0 Ischemia and infarction of kidney; G35 Multiple sclerosis; D73.5 Infarction of spleen; F39 Unspecified mood [affective] disorder; K21.9 Gastro-esophageal reflux disease without esophagitis; D15.1 Benign neoplasm of heart; I69.320 Aphasia following cerebral infarction; I69.392 Facial weakness following cerebral infarction; Z79.899 Other long term (current) drug therapy
CPT/HCPCS: 36415; 70450; 71045; 74177; 80048; 80076; 81001; 81003; 81240; 81241; 82565; 82947; 83036; 83090; 83605; 83735; 84484; 85025; 85027; 85301; 85302; 85303; 85306; 85597; 85598; 85610; 85613; 85652; 85730; 86140; 86147; 87040; 87086; 92610; 93005; 99285; J0696; J1643; J1650; J2405; J3371; Q9967

== ENCOUNTER → 2023-03-03 22:12 | Outpatient (BNV) | payer OTHER, SELFPAY | PROVIDERS: Admitting Provider Student in an Organized Health Care Education/Training Program; Emergency Provider Emergency Medicine; PCP General Practice; Visit Provider Internal Medicine | DX: N28.0 Ischemia and infarction of kidney (principal); I69.320 Aphasia following cerebral infarction; D15.1 Benign neoplasm of heart; D73.5 Infarction of spleen | CPT/HCPCS: 99223; 99239; G0180 ==

== ENCOUNTER → 2023-03-03 22:12 | Outpatient (BNV) | payer OTHER, SELFPAY | PROVIDERS: Admitting Provider Student in an Organized Health Care Education/Training Program; Emergency Provider Emergency Medicine; PCP General Practice; Visit Provider Internal Medicine | DX: D15.1 Benign neoplasm of heart (principal); N28.0 Ischemia and infarction of kidney; D73.5 Infarction of spleen | CPT/HCPCS: 99223 ==

== ENCOUNTER 2023-03-10 10:44 | Outpatient (REF) | payer OTHER, SELFPAY | END 2023-03-10 10:45 | disposition home or self-care (01) | LOC: HO.MAMMO 10:44 | PROVIDERS: PCP General Practice; Visit Provider General Practice | DX: Z12.31 Encounter for screening mammogram for malignant neoplasm of breast (principal) | CPT/HCPCS: 77063; 77067 ==

== ENCOUNTER → 2023-03-10 11:15 | Outpatient (BNV) | payer OTHER, SELFPAY | PROVIDERS: PCP General Practice; Visit Provider Radiology Diagnostic Radiology | DX: Z12.31 Encounter for screening mammogram for malignant neoplasm of breast (principal) | CPT/HCPCS: 77063; 77067 ==

== ENCOUNTER 2023-08-30 13:15 | Emergency (ER) | payer OTHER, SELFPAY ==
--- NOTE | ~2023-08-30 | XR_ITS ---
EXAMINATION: XR CHEST CLINICAL INFORMATION: Chest pain COMPARISON: 03/03/2023 TECHNIQUE: 2 views of the chest were obtained. FINDINGS: Patient status post interval median sternotomy. There is mild cardiac enlargement. No infiltrates, effusions or lung masses are seen. Surgical clips are present in the right upper quadrant. XR/XR chest 2V IMPRESSION: No acute intrathoracic disease. Mild cardiomegaly.
[2023-08-30 13:25] VITALS: BP 140/80; BP 162/74; PULSE 85; PULSE 86; RESP 18; TEMP 36.5; O2SAT 96; O2SAT 97
--- NOTE | 2023-08-30 13:33 | ECG_ITS ---
Test Reason : CHEST PAIN Blood Pressure : / mmHG Vent. Rate : 084 BPM Atrial Rate : 084 BPM P-R Int : 148 ms QRS Dur : 070 ms QT Int : 356 ms P-R-T Axes : 053 072 099 degrees QTc Int : 420 ms Normal sinus rhythm Low voltage QRS Nonspecific ST and T wave abnormality Abnormal ECG When compared with ECG of 03-MAR-2023 17:01, Minimal criteria for Anterior infarct are no longer Present Nonspecific T wave abnormality no longer evident in Inferior leads Nonspecific T wave abnormality now evident in Anterolateral leads Referred By: Kayli Meehan Electronically Signed By:SAMI RASMUSSEN MD
--- NOTE | 2023-08-30 13:33 | ED.CHESTPAIN ---
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 Per EMS, patient endorses left sided chest pain starting 1 hour prior to arrival. She was administered 0.4mg nitro and 324mg aspirin en route. She currently denies SOB, cough, palpitations. Difficulty in obtaining history secondary to patient's expressive aphagia. She can really only answer yes/ no questions. Patient's roommate, Robert, is at bedside. He states that he was at the store today. He called home and while he was talking to her, she began crying. Upon returning home and asking the patient what was wrong, she began pointing at her chest. EMS was called for transport to the ED. When I ask her if she has chest pain she states no and indicates that she is feeling better. Related Data Home Medications Medication Instructions Recorded Confirmed atorvastatin 80 mg tablet 80 mg PO BEDTIME 03/03/23 03/03/23 bupropion HCl 150 mg 24 hr tablet, 150 mg PO QAM 03/03/23 03/03/23 extended release cyanocobalamin (vitamin B-12) 500 500 mcg PO DAILY 03/03/23 03/03/23 mcg tablet duloxetine 60 mg capsule,delayed 60 mg PO BID depressive disorder 03/03/23 03/03/23 release gabapentin 100 mg capsule 200 mg PO TID 03/03/23 03/03/23 pantoprazole 40 mg tablet,delayed 40 mg PO QAM 03/03/23 03/03/23 release Previous Rx's Medication Instructions Recorded alcohol swabs 1 pad topical QIDACHS #100 ea 03/04/23 blood sugar diagnostic (FreeStyle #100 ea 03/04/23 Lite Strips) blood-glucose meter (FreeStyle #1 ea 03/04/23 Lite Meter kit) enoxaparin 80 mg/0.8 mL 65 mg (0.65 mL) subcut Q12H #20 mL 03/04/23 subcutaneous syringe lancets 28 gauge (FreeStyle #100 ea 03/04/23 Lancets) Allergies Allergy/AdvReac Type Severity Reaction Status Date / Time No Known Allergies Allergy Unknown Verified 08/30/23 13:25 [No Known Allergies*] Review of Systems Review of Systems: Constitutional: No fever, chills, fatigue, night sweats, weight changes ENT/Mouth: No ear pain, hearing loss, nasal congestion, sinus pain, rhinorrhea, sore throat Eyes: No eye pain, swelling, redness, vision changes, discharge Cardio: No palpitations, PRUITT, orthopnea, peripheral edema, +chest pain Pulm: No SOB, cough, sputum, wheezing, dyspnea, hemoptysis GI: No nausea, vomiting, hematemesis, abdominal pain, diarrhea, constipation, hematochezia, melena : No irregular bleeding, dysuria, frequency, urgency, hesitancy, hematuria, flank pain, urinary flow changes, urinary incontinence or retention MSK: No back pain, neck pain, joint pain, myalgias Skin: No lesions, rashes Neuro: No weakness, numbness, paresthesias, LOC, dizziness, headache Psych: No anxiety/panic, depression, SI/HI, AH/VH All other systems reviewed and are negative. [facility] Past Medical History Attestation statement: The following information was validated with the patient. Source: old records reviewed and nursing notes reviewed Medical History Multiple sclerosis Neuropathy Tremor Surgical History S/P cholecystectomy Social History Social History Household Members: Spouse Housing: Apartment Do you presently have visiting nurse or other home services: No Alcohol intake: former Patient Tobacco Use Status: Never used Tobacco Smoked in Last 30 Days: No e-Cigarette/Vaping Use: Never Used Second Hand Smoke Exposure: No Use of substances other than those prescribed or required for medical reasons: No Advance Directives: No Advance Directives Information Provided: No service: No Physical Exam Vital Signs: Vital Signs: Last Vital Signs Temp 98 F 08/30/23 18:12 Pulse 91 08/30/23 18:12 Resp 18 08/30/23 18:12 BP 148/83 H 08/30/23 18:12 Pulse Ox 98 08/30/23 18:12 O2 Del Method Room Air 08/30/23 18:12 BMI result Body Mass Index 30.0 Vital signs stable Const: General: cooperative, healthy appearing, comfortable and no acute distress Orientation/consciousness: patient oriented x3 Limitations: no limitations HEENT: Head: Yes normal to inspection, Yes No palpable skull fracture present, Yes normocephalic and Yes atraumatic Eyes: General: appearance normal, both eyes and all related structures Conjunctivae: conjunctivae normal Sclerae: sclerae normal Pupils: Equal, round and reactive pupils present EOM: EOMs intact bilaterally Neck: Neck: Yes normal visual inspection, Yes full ROM, Yes no lymphadenopathy and Yes no JVD Chest: Chest palpation & inspection: normal inspection of the chest and normal palpation of entire chest wall Resp: Effort & Inspection: normal respiratory effort and able to speak in complete sentences Auscultation: clear to auscultation bilaterally Cardio: Other: + 2+ radial pulses Jugular venous distension: no JVD Rate: regular rate Rhythm: regular rhythm GI: Inspection: Yes normal to inspection Skin: General skin exam: no rashes or lesions noted Neuro: Other: + resting tremor noted. Can only say yes or no. Left facial droop with expressive aphasia. Right-sided weakness at baseline. General: patient oriented x3 and gait normal Cranial nerves: Yes Equal, round and reactive pupils present Extrem: General: Yes normal to inspection Course Course Course Narrative: Patient's roommate has informed me that patient had a mass removed from her heart at [facility] approcimately 4-6 months ago. He does not have further details regarding this procedure but states that she has been fine since the operation. Records requested from [facility]. 1531-- cbc without leukocytosis or left shift. chronic anemia. chemistry without acute electrolyte abnormality requiring intervention. Coags wnl. Patient has tested negative for COVID, flu, RSV. CXR does not demonstrate infiltrate or consolidation to suggest pneumonia. Mild cardiomegaly likely chronic, status post interval median sternotomy. EKG showing normal sinus rhythm with a rate of 84 beats per minute, QT 356, QTC 420, no acute ischemic changes or ST elevations. Low-voltage QRS present in both today's EKG and EKG taken on 03/03/23 EKG. Initial troponin undetectable > will repeat for delta to rule out ACS. 1605-- patient stable at the end of my shift. Sign-out given to my colleague, Cristina MYERS, pending repeat troponin. Reevaluation(s) Reevaluation #1: I took report from previous provider JEANNINE Meehan, pending 2nd troponin. Multiple techs and nurses have gone into try to obtain troponin, patient refusing. Patient would like to leave and does not want wait for 2nd troponin. States they feel fine. I explained risks of leaving such as worsening condition, undiagnosed illness, , AK. Patient verbalizes understanding of this. Patient decided to leave against medical advice. I took the time to go over risks of leaving against medical advice including . Patient verbalizes understanding of this. Advised them to come back if they change their mind. 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 Patient hypertensive, vitals otherwise WNL. She is nontoxic-appearing and in no acute distress. Left-sided facial droop with expressive aphasia. Chronic right-sided weakness. RRR. There is a linear healed midline substernal scar noted to anterior chest. No surrounding erythema or drainage. Lungs are CTA bilaterally, no wheezes, rhonchi, crackles. No calf tenderness noted bilaterally. no peripheral edema or JVD. Differential diagnosis includes ACS, arrhythmia, costochondritis, pleuritis, msk sprain/ strain, viral syndrome, pneumonia. Lower suspicion for PE, effusion, rupture aneurysm. Plan for labs, ekg, cxr, and re-evaluation. Differential Diagnosis Differential Diagnoses: The differential diagnosis associated with the presentation includes as above. Admission/Observation Consideration of admission/observation: Escalation of care including admission/observation considered In this patient presenting with acute chest pain, admission was considered. Lab Data [facility] Lab Attestation statement: I reviewed the patient's lab results. as above. 08/30/23 17:02 08/30/23 15:18 Labs: Lab Results 08/30/23 08/30/23 08/30/23 Range/Units 14:24 15:18 17:02 WBC 4.7 L (4.8-10.8) X10*3/uL RBC 3.75 L (4.20-5.50) X10*6/uL Hgb 10.9 L (12.0-16.0) g/dl Hct 33.6 L (37.0-47.0) % MCV 89.6 (80.0-98.0) fL MCH 29.1 (27.0-33.0) pg MCHC 32.4 (31.0-35.0) g/dl RDW 15.3 (11.0-16.0) % Plt Count 61 L D (160-400) X10*3/uL MPV 10.9 (9.4-12.3) fL Immature Gran % (Auto) 0.4 (0.0-0.4) % Neut % (Auto) 47.2 (45-73) % Lymph % (Auto) 44.1 H (20-40) % Wheeler % (Auto) 6.2 (2-11) % Eos % (Auto) 1.7 (0-4) % Baso % (Auto) 0.4 (0-2) % Lymph # (Auto) 2.1 (1.2-4.9) X10*3/uL Wheeler # (Auto) 0.3 (0.1-1.2) X10*3/uL Eos # (Auto) 0.1 (0.0-0.4) X10*3/uL Baso # (Auto) 0.0 (0.0-0.2) X10*3/uL Abs Immat Gran (auto) 0.02 (0.00-0.03) X10*3/uL Absolute Neuts (auto) 2.2 (2.0-8.3) x10*3/uL Absolute Nucleated RBC 0.000 (0.0-0.012) X10*3/uL Nucleated RBC % (auto) 0.0 (0.0-0.2) /100WBC Smear Tech's Comments VERIFIED PT 11.3 (11.1-13.3) SEC INR 0.9 (0.9-1.1) Sodium 143 (135-145) mmol/L Potassium 4.7 (3.3-5.1) mmol/L Chloride 111 H (96-108) mmol/L Carbon Dioxide 25 (22-29) mmol/L Anion Gap 12 (12-20) BUN 18 H (9-16) mg/dL Creatinine 0.88 (0.5-1.4) mg/dL Estim Creat Clear Calc 68.4 Estimated GFR > 60 Random Glucose 90 (60-115) mg/dL Calcium 9.7 (8.4-10.2) mg/dL Magnesium 2.2 (1.6-2.6) mg/dL Total Bilirubin 0.5 (0.0-1.0) mg/dL AST 29 (5-31) U/L ALT 39 H (0-31) U/L Alkaline Phosphatase 120 H (39-117) U/L Troponin I High Sens < 2.7 (<3.5-17.0) ng/L Total Protein 7.5 (6.5-8.0) g/dL Albumin 4.1 (3.5-5.0) g/dL Lipase 39 (8-78) U/L Influenza Type A (PCR) NEGATIVE (Negative) Influenza Type B (PCR) NEGATIVE (Negative) RSV RNA Qual (PCR) NEGATIVE (Negative) SARS-CoV-2 RNA (RT-PCR) NEGATIVE (Negative) Independent Interpretation I performed an independent interpretation of an: EKG and Plain X-Ray Interpretation: EKG showing normal sinus rhythm at a rate of 84 beats per minute, QT 356, QTC 420, low voltage QRS noted in today's EKG along with EKG taken on 03/03/2023. No acute ischemic changes or ST elevations. I personally reviewed chest x-ray and agree with radiologist's interpretation Radiology Impression Discussion of test interpretation with radiology: I have reviewed the radiologist's reading. Radiologist Impression: EXAMINATION: XR CHEST CLINICAL INFORMATION: Chest pain COMPARISON: 03/03/2023 TECHNIQUE: 2 views of the chest were obtained. FINDINGS: Patient status post interval median sternotomy. There is mild cardiac enlargement. No infiltrates, effusions or lung masses are seen. Surgical clips are present in the right upper quadrant. XR/XR chest 2V IMPRESSION: No acute intrathoracic disease. Mild cardiomegaly. Independent Historian Clinical information obtained from an independent historian. History obtained from or confirmed by: Friend (roommate robert) External Record Review External record reviewed: Inpatient record, Office record, Outpatient record, Prior outpatient labs, Prior outpatient radiology, Primary care record and Outside ED record Prescription Management I considered prescription management with: Pain Medication Social Determinants Patient?s care significantly limited by Social Determinants of Health including: Other Social Determinant of Health Critical Care Time Critical Care Time Critical Care Time: Yes Total Critical Care Time: 35 Attestation: Critical care time in the amount of 35 minutes has been provided to the patient in terms of direct patient care, frequent reevaluation, review and interpretation of medical data and results, and management of potentially life-threatening conditions. This is all outside of any medical procedures. Discharge Plan Discharge Clinical Impression: Chest pain, Left against medical advice Patient Disposition: Left Against Medical Advice Instructions: Chest Pain (ED), Against Medical Advice (ED) Additional Instructions: Take your medications as prescribed. If you were prescribed antibiotics today, it is important that you take your medication to their entirety, do not skip any doses, do not finish them early. Follow-up with your primary care provider this week. Return to the emergency department with new or worsening symptoms. Such as fevers, chills, chest pain, shortness of breath, nausea, vomiting, dizziness, headache, vision changes, lethargy In case of emergency call 911 You decided to leave against medical advice. Risks include worsening condition, worsening symptoms, , heart attack. Return if you change your mind. Prescriptions: No Action atorvastatin 80 mg tablet 80 mg PO BEDTIME cyanocobalamin (vitamin B-12) 500 mcg tablet 500 mcg PO DAILY pantoprazole 40 mg tablet,delayed release (DR/EC) 40 mg PO QAM gabapentin 100 mg capsule 200 mg PO TID bupropion HCl 150 mg tablet extended release 24 hr 150 mg PO QAM duloxetine 60 mg capsule,delayed release(DR/EC) 60 mg PO BID enoxaparin 80 mg/0.8 mL Syringe 65 mg subcut Q12H Qty: 20 0RF Rx Instructions: lovenox injection until 03/13/23. d/w child care counselor (DME) FreeStyle Lite Strips Strip Qty: 100 0RF Rx Instructions: Test four times a day or as directed. (DME) blood-glucose meter [FreeStyle Lite Meter] Kit Qty: 1 0RF Rx Instructions: As Directed alcohol swabs Pads, Medicated 1 pad TOPICAL QIDACHS Qty: 100 0RF Rx Instructions: Use four times a day or as directed. (DME) lancets [FreeStyle Lancets] 28 gauge misc Qty: 100 0RF Rx Instructions: Test four times a day or as directed. Referrals: [facility] [place] [facility] [Provider Group] - 1 day Physician,Unknown J [Primary Care Provider] - 1 day Stand Alone Forms: Against Medical Advice Interventions: ED Discharge Assessment Last Done: 08/30/23 18:12 Discharge Date/Time: 08/30/23 18:13
--- OUTSIDE RECORDS SUMMARY | 2023-08-30 13:43 | XMS_ITS | Continuity of Care Document ---
Author Name Unknown Organization [facility] Address [address] [place] [id number]- Care Team Providers Care It Risk Advisor Name Role Phone Anastasiya Lemos MD Primary Care Physician Encounter [facility] [place] Date(s): 05/25/23 - 06/24/23 [facility] [address] [place] [phone]- Attending Physician: Julia Pace Admitting Physician: AdmJulia melendez Referring Physician: Julia Pace Allergies, Adverse Reactions, Alerts No Known Allergies [...] influenza virus vaccine, inactivated 02/27/11 Yusef rded [id number] 12y+ bivalent booster vax 05/06/22 Recorded SARS-CoV-2 [...] Recorded tetanus-diphtheria toxoids (Td) 05/09/99 Recorded Medications acetaminophen 325 mg oral tablet 975 mg, By Mouth, Every 6 hours, PRN, Refills 0, Maintenance, Pain , Moderate, 04/05/23 13:51:00 EST, Partial fill upon patient request if the prescription is for a schedule II opioid drug. Start Date: 04/05/23 Status: Ordered amiodarone 200 mg oral tablet 200 mg, By Mouth, 2 times a day, # 52 tablet, Refills 0, Tot. Refills 0, Maintenance, 04/05/23 13:52:00 EST, Route to Pharmacy Electronically, [facility], Partial fill upon patient request if the prescription is for a schedule II opioid... Start Date: 04/05/23 Status: Ordered aspirin 81 mg oral tablet, [...] opioid drug. Start Date: 10/01/22 Status: Ordered buPROPion 150 mg/24 hours (XL) oral tablet, extended release 1 tablet = 150 mg, By Mouth, Every 24 hours, # 90 tablet, 0 Refills, Maintenance, 03/08/23 15:32:00EDT, ER Tablet, Partial fill upon patient request if the prescription is for a schedule II opioid drug. Start Date: 03/08/23 Status: Ordered gabapentin 100 mg oral capsule 200 mg, 2, capsule, By Mouth, 3 times a day, # 180 capsule, Refills 0, Maintenance, 03/08/23 15:32:00 EDT, Partial fill upon patient request if the prescription is for a schedule II opioid drug. Start Date: 03/08/23 Status: Ordered metoprolol 50 mg oral tablet, extended release 50 mg, 1, tablet, By Mouth, Daily, # 30 tablet, Refills 0, Tot. Refills 0, Maintenance, 04/05/23 13:53:00 EST, Route to Pharmacy Electronically, [facility], Partial fill upon patient request if the prescription is for a schedule II opioi... Start Date: 04/05/23 Status: Ordered pantoprazole 40 mg oral delayed release tablet 1 tablet = 40 mg, By Mouth, Daily, # 30 tablet, 0 Refills, Maintenance, 03/08/23 15:32:00 EDT, EC Tablet Start Date: 03/08/23 Status: Ordered Vashe Topical Solution 475 mL, Topically, Every 6 hours, PRN Other, 0 Refills, Maintenance, Solution Start Date: 04/05/23 Status: Ordered Vitamin B-12 1000 mcg oral tablet 500 mcg, 0.5, tablet, By Mouth, Daily, Refills 0, Maintenance, 10/01/22 12:37:00 EDT, Partial fill upon patient request if the prescription is for a schedule II opioid drug. Start Date: 10/01/22 Status: Ordered Problem List Condition Confirmation Course Effective Dates Status Health St atus Informant Anxiety Confirmed Active Atrial myxoma Confirmed Active Hyperlipidemia Confirmed Active HTN (hypertension) Confirmed Active Obesity Confirmed Active Fatty liver Confirmed Active Tremor Confirmed Active Social History Social History Type Response Smoking Status Former smoker, quit more than 30 days ago; Other: PT states she quit in September 20; entered on: 05/25/23 Sex Patient Care team information Care Team Personnel Name: Brandt Zhao RN Position: [facility] RN Member Role: Primary Care Nurse Name: Cristina Bedoya RN Position: [facility] RN Supv Member Role: Primary Care Nurse Name: Maira Batista RN Position: [facility] RN Member Role: Primary Care Nurse Name: Kadi Noonan RN Position: [facility] RN Member Role: Primary Care Nurse Name: Eleanor Tucker RN Position: [facility] RN Member Role: Primary Care Nurse Name: Madelin Schmidt RN Position: [facility] RN Member Role: Primary Care Nurse Name: Kwasi Brady RN Position: [facility] RN Member Role: Primary Care Nurse Name: Anastasiya Lemos MD Position: [facility] Physician - Primary Care Member Role: PCP Address: Address: [address] [place] [address], [address] [place], [place] [address] Name: Keny Roman RN Position: [facility] RN Member Role: Primary Care Nurse Name: Fariba Vroa Position: S RN Member Role: Primary Care Nurse Name: hCapis Plunkett RN Position: [facility] RN Member Role: Primary Care Nurse Name: Tricia Liang RN Position: [facility] RN Member Role: Primary Care Nurse Name: Adry Giang RN Position: [facility] RN Member Role: Primary Care Nurse Name: Jeanmarie Muhammad RN Position: [facility] RN Member Role: Primary Care Nurse Name: Ruddy Machuca RN Position: [facility] RN Member Role: Primary Care Nurse Care Team Related Persons Name: GERARDO BOWIE Address: [address] [address]
--- OUTSIDE RECORDS SUMMARY | 2023-08-30 13:43 | XMS_ITS | Continuity of Care Document ---
Author Name Unknown Organization [facility] ter Address [address] [place] [id number]- Care Team Providers Care Out Of School Hours Care Worker Name Role Phone Gracy RIDLEY, Nataly Corie Primary Care Physician Encounter [facility] [place] Date(s): 12/31/22 - 04/04/[address] [id number]- Attending Physician: Bernardo Torres MD Admitting Physician: Bernardo Torres MD Referring Physician: Bernardo Torres MD Allergies, [...] influenza virus vaccine, inactivated 02/27/11 Yusef rded [id number] 12y+ bivalent booster vax 05/06/22 Recorded SARS-CoV-2 [...] opioid drug. Start Date: 03/08/23 Status: Ordered pantoprazole 40 mg oral delayed release tablet 1 tablet = 40 mg, By Mouth, Daily, # 30 tablet, 0 Refills, Maintenance, 03/08/23 15:32:00 EDT, EC Tablet Start Date: 03/08/23 Status: Ordered Vitamin B-12 1000 mcg oral [...] Team Personnel Name: Rima Dubose MD Position: [facility] Outreach Member Role: PCP Address: Address: [address] [place] [id number]- Name: Brandt Zhao RN Position: S RN Member Role: Primary Care Nurse Name: Cristina Bedoya RN Position: [facility] RN Supv Member Role: Primary Care Nurse Name: Maira Batista RN Position: S RN Member Role: Primary Care Nurse Name: Kadi Noonan RN Position: [facility] SN RN Member Role: Primary Care Nurse Name: Eleanor Tucker RN Position: S RN Member Role: Primary Care Nurse Name: Madelin Schmidt RN Position: [facility] RN Member Role: Primary Care Nurse Name: Kwasi Brady RN Position: S RN Member Role: Primary Care Nurse Name: Fariba Vora Position: S RN Member Role: Primary Care Nurse Name: Chapis Plunkett RN Position: [facility] RN Member Role: Primary Care Nurse Name: Tricia Liang RN Position: [facility] RN Member Role: Primary Care Nurse Name: Adry Giang RN Position: [facility] RN Member Role: Primary Care Nurse Name: Jeanmarie Muhammad RN Position: [facility] RN Member Role: Primary Care Nurse Name: Ruddy Machuca RN Position: S RN Member Role: Primary Care Nurse Care Team Related Persons Name: GERARDO BOWIE Address: home [address] [id number]
--- OUTSIDE RECORDS SUMMARY | 2023-08-30 13:43 | XMS_ITS | Continuity of Care Document ---
Author Name Unknown Organization [facility] Cardiac Shannan abdifatah Address [address] [place] [id number]- Care Team Providers Care Supervising Law Enforcement Analyst Name Role Phone Anastasiya Lemos MD Primary Care Physician Encounter [facility] Date(s): 04/14/23 - 04/21/23 [facility] Cardiac Surgery [address] [place] [address]- Encounter Diagnosis S/P atrial septal defect closure, surgical(Discharge Diagnosis) - 04/14/23 Attending Physician: Bernardo Torres MD Referring Physician: [...] influenza virus vaccine, inactivated 02/27/11 Yusef rded [id number] 12y+ bivalent booster vax 05/06/22 Recorded SARS-CoV-2 [...] 04/05/23 13:52:00 EST, Route to Pharmacy Electronically, [facility], Partial fill upon patient request if [...] 04/05/23 13:53:00 EST, Route to Pharmacy Electronically, [facility], Partial fill upon [...] Fatty liver Confirmed Active Tremor Confirmed Active Diagnosis Diagnosis Type Effective Dates Health Status Cl inical Service Informant S/P atrial septal defect closure, surgical Discharge Diagnosis 04/14/23 Procedures Procedure Date Related Diagnosis Body Site Status Excision of left atrial myxoma 04/01/23 Completed Repair of atrial septal defect 04/01/23 Completed Vital Signs Most recent to oldest [Reference Range]: 1 Height 168 cm (04/14/23 9:04 AM) Weight 61.7 kg (04/14/23 9:04 AM) Oxygen Saturation [94-100 %] 100 % (04/14/23 9:04 AM) Pulse Rate [55-90 bpm] 62 bpm (04/14/23 9:04 AM) Body Mass Index [18.5-24.99 kg/m2] 21.86 kg/m2 (04/14/23 9:04 AM) Blood Pressure [90-138/55-84 mm Hg] 98/6 0mm Hg (04/14/23 9:04 AM) Respiratory Rate [16-30 br/min] 16 br/mi n (04/14/23 9:04 AM) Temperature [96.8-100.4 DegF] 97.7 DegF (04/14/23 9:04 AM) Mode of Delivery (Oxygen) Room air (04/14/23 9:04 AM) Blood pressure sites Arm, left (04/14/23 9:04 AM) Temperature Route Oral (04/14/23 9:04 AM) Dry Weight 61.7 kg (04/14/23 9:04 AM) Weight Obtained Via Patient/family state d (04/14/23 9:04 AM) Dry Weight Obtained Via Patient/family s tated (04/14/23 9:04 AM) Social History Social History Type Response Smoking Status 5-9 cigarettes (betw een 1/4 to 1/2 pack)/day in last 30 days entered on: 09/02/22 Sex Cardiac surgery Outpatient Note * Sharri PAEZ, Berna Rodas: PERFORM, MODIFY Event Display: Cardiac Surgery Note Office Authored Date: Patient: ??CHAYA CAMARENA ? Age:??62 Years?Sex:??Female?:??1960?? Indication for Consult Post Op visit History of Present Illness/Interval History Mrs. 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 She was not a surgical candidate for excision and that time but has since made some recovery with some RUE weakness althoughshe??remains??aphasic except for one word answers.?? She presented on 04/01/2023 and underwent Left atrial myxoma excision with repair of an atrial septal defect by Dr. Torres.?? Her??post operative hospital course she had some hypervolemia on discharge POD 4, so she was d/c'd with PO Lasix.?? She presents today for her post op visit.? Chaya presents with her who says she is doing great.?? He has been checking her weightsdaily and she is staying around 136-140#s.?? All of her sugars have been <180 and he has had no issues with her BP/HR's at home.?? She has no complaints nor does her .?They will arrangea follow up visit with her PCP.? Review of Systems Denies fever, chills, drainage from surgical sites, N/V, CP, SOB, palpitations, EPPERSON, dizziness or lightheadedness. All other systems reviewed and negative. Physical Exam Vitals & Measurements T:??97.7?F?? HR:??62??(Peripheral)?? RR:??16?? BP:??98/60?? SpO2:??100%?? HT:??168??cm?? WT:??61.7??kg?? BMI:??21.86?? Weight lb/oz: 136 lb 0 oz General: NAD, thin female HEENT: NCAT, no scleral icterus, OP pink moist Lungs: CTAB, no wheezes, rales, rhonchi?? Heart: RRR, No M/G/R Ext: No clubbing/cyanosis or edema Neuro: AO, RUE weakness from recent CVA Skin: warm, no rash ?? Wounds:?? Sternum: Stable, incision clean and dry, unable to give me a cough. Chest tube sutures removed without difficulty.?? Assessment/Plan 1.??S/P atrial septal defect closure, surgical ??s/p Left atrial myoma removal ?? - Amiodarone started post-op for Afib prophylaxis for 30 days.?? This is usually stopped but canalso be managed by Cardiology. ?? The following salient points were discussed during our visit ?? -D/w with patient that after open chest surgery, it is common to start new medications and stop or adjust the doses of previous medications.? - Wound Care: Re-iterated with patients that??the sternum is reapproximated with stainless steel wires and can still shift until fully healed. ?? After discharge from the hospital, the patient is usually given instructions about how to care for their chest and/or leg wounds. * Continue to shower and let water run over surgical wounds.?? Use VASHE 2-3 times per day on incisions until bottle is empty ?? Specifically, we discussed: Avoid heavy lifting and extremes of shoulder movement for six to eight weeks after surgery to allowfor complete healing of the sternum. Prefer not to have patient laying completely on the side for 2 months. ?? It is not unusual to have a poor appetite after undergoing surgery. They understand proper nutrition is important in promoting healing and getting strength back. ?? Follow up with cardiology and PCP as planned Message sent to [facility] Cardiology to arrange follow up.?? Total Time Spent I personally spent a total of 25 minutes, including both [id number] and qrw-omqj-lz-face time on the date of the encounter, addressing the above diagnoses. Allergies NKA Home Medications acetaminophen 325 mg oral tablet, 975 mg, By Mouth, Every 6 hours, PRN amiodarone 200 mg oral tablet, 200 mg, By Mouth, 2 times a day aspirin 81 mg oral tablet, chewable, 81 mg= 1 tablet, By Mouth, Daily atorvastatin 40 mg oral tablet, 80 mg= 2 tablet, By Mouth, Daily at bedtime buPROPion 150 mg/24 hours (XL) oral tablet, extended release, 150 mg= 1 tablet, By Mouth, Every 24 hours gabapentin 100 mg oral capsule, 200 mg= 2 capsule, By Mouth, 3 times a day metoprolol 50 mg oral tablet, extended release, 50 mg= 1 tablet, By Mouth, Daily pantoprazole 40 mg oral delayed release tablet, 40 mg= 1 tablet, By Mouth, Daily Vashe Topical Solution, 475 mL, Topically, Every 6 hours, PRN Vitamin B-12 1000 mcg oral tablet, 500 mcg= 0.5 tablet, By Mouth, Daily Procedure/Surgical History Excision of left atrial myxoma: 04/01/23 Repair of atrial septal defect: 04/01/23 Social History Tobacco Use: 5-9 cigarettes (between 1/4 to 1/2 pack)/day in last 30 days. Family History No family history recorded. Patient Care team information Care Team Personnel Name: Brandt Zhao RN Position: [facility] RN Member Role: Primary Care Nurse Name: Cristina Bedoya RN Position: [facility] RN Supv Member Role: Primary Care Nurse Name: Maira Batista RN Position: [facility] RN Member Role: Primary Care Nurse Name: Kadi Noonan RN Position: [facility] SN RN Member Role: Primary Care Nurse Name: Eleanor Tucker RN Position: [facility] RN Member Role: Primary Care Nurse Name: Madelin Schmidt RN Position: [facility] RN Member Role: Primary Care Nurse Name: Kwasi Brady RN Position: [facility] RN Member Role: Primary Care Nurse Name: Anastasiya Lemos MD Position: [facility] Physician - Primary Care Member Role: PCP Address: Address: [address] [place] [address], 1st [place], [place] [address] Name: Keny Roman RN Position: [facility] RN Member Role: Primary Care Nurse Name: Fariba Vora Position: [facility] RN Member Role: Primary Care Nurse Name: Chapis Plunkett RN Position: [facility] RN Member Role: Primary Care Nurse Name: Tricia Liang RN Position: [facility] RN Member Role: Primary Care Nurse Name: Adry Giang RN Position: [facility] RN Member Role: Primary Care Nurse Name: Jeanmarie Muhammad RN Position: [facility] RN Member Role: Primary Care Nurse Name: Ruddy Machuca RN Position: [facility] RN Member Role: Primary Care Nurse Care Team Related Persons Name: GERARDO BOWIE Address: [address] [address]
--- OUTSIDE RECORDS SUMMARY | 2023-08-30 13:43 | XMS_ITS | Continuity of Care Document ---
Author Name Unknown Organization [facility] Cardiac Shannan abdifatah Address [address] [place] [address]- Care Team Providers Care Screw Machine Operator Swiss Type Name Role Phone Gracy RIDLEY, Rima Fontenot Primary Care Physician Encounter [facility] Date(s): 03/11/23 - 04/10/23 [facility] Cardiac Surgery [address] [place] [id number] Allergies, Adverse Reactions, Alerts No Known Allergies [...] influenza virus vaccine, inactivated 02/27/11 Yusef rded [id number] 12y+ bivalent booster vax 05/06/22 Recorded SARS-CoV-2 [...] 04/05/23 13:52:00 EST, Route to Pharmacy Electronically, [facility], Partial fill upon patient request [...] opioid drug. Start Date: 03/08/23 Status: Ordered furosemide 20 mg oral tablet 1, capsule, By Mouth, 2 times a day, # 9 tablet, Refills 0, Tot. Refills 0, Soft Stop, 04/05/23 13:53:00 EST, Route to Pharmacy Electronically, [facility], Partial fill upon patient request if the prescription is for a schedule II opioid... Start Date: 04/05/23 Status: Ordered gabapentin 100 mg oral capsule [...] 04/05/23 13:53:00 EST, Route to Pharmacy Electronically, [facility], Partial fill upon patient request [...] Team Personnel Name: Rima Dubose MD Position: [facility] Outreach Member Role: PCP Address: Address: [address] [place] [address]- Name: Brandt Zhao RN Position: S RN Member Role: Primary Care Nurse Name: Cristina Bedoya RN Position: S RN Supv Member Role: Primary Care Nurse Name: Maira Batista RN Position: [facility] RN Member Role: Primary Care Nurse Name: Kadi Noonan RN Position: [facility] SN RN Member Role: Primary Care Nurse Name: Eleanor Tucker RN Position: [facility] RN Member Role: Primary Care Nurse Name: Madelin Schmidt RN Position: [facility] RN Member Role: Primary Care Nurse Name: Kwasi Brady RN Position: [facility] RN Member Role: Primary Care Nurse Name: Keny Roman RN Position: [facility] RN Member Role: Primary Care Nurse Name: Fariba Vora Position: [facility] RN Member Role: Primary Care Nurse Name: Chapis Plunkett RN Position: [facility] RN Member Role: Primary Care Nurse Name: Tricia Liang RN Position: [facility] RN Member Role: Primary Care Nurse Name: Adry Giang RN Position: [facility] RN Member Role: Primary Care Nurse Name: Jeanmarie Muhammad RN Position: [facility] RN Member Role: Primary Care Nurse Name: Ruddy Machuca RN Position: [facility] RN Member Role: Primary Care Nurse Care Team Related Persons Name: GERARDO BOWIE Address: home [address] [place] [address]
--- OUTSIDE RECORDS SUMMARY | 2023-08-30 13:43 | XMS_ITS | Continuity of Care Document ---
Author Name Unknown Organization [facility] Cardiac Shannan abdifatah Address [address] [place] [address]- Care Team Providers Care Wool Hanker Name Role Phone Anastasiya Lemos MD Primary Care Physician [phone] Encounter [facility] Date(s): 03/17/23 - 04/16/23 [facility] Cardiac Surgery [address] [place] [id number] Allergies, Adverse Reactions, Alerts No Known [...] influenza virus vaccine, inactivated 02/27/11 Yusef rded [id number] 12y+ bivalent booster vax 05/06/22 Recorded SARS-CoV-2 [...] 04/05/23 13:52:00 EST, Route to Pharmacy Electronically, [facility], Partial fill upon patient request if [...] 04/05/23 13:53:00 EST, Route to Pharmacy Electronically, [facility], Partial fill upon patient [...] Team Personnel Name: Brandt Zhao RN Position: [facility] RN Member Role: Primary Care Nurse Name: Cristina Bedoya RN Position: [facility] RN Supv Member Role: Primary Care Nurse Name: Maira Batista RN Position: [facility] RN Member Role: Primary Care Nurse Name: Kadi Noonan RN Position: [facility] RN Member Role: Primary Care Nurse Name: Eleanor Tucker RN Position: [facility] RN Member Role: Primary Care Nurse Name: Madelin Schmidt RN Position: S RN Member Role: Primary Care Nurse Name: Kwasi Brady RN Position: [facility] RN Member Role: Primary Care Nurse Name: Anastasiya Lemos MD Position: [facility] Physician - Primary Care Member Role: PCP Address: Address: [address] [place] [address], [address] Name: Keny Roman RN Position: S RN Member Role: Primary Care Nurse Name: Fariba Vora Position: S RN Member Role: Primary Care Nurse Name: Chapis Plunkett RN Position: [facility] RN Member Role: Primary Care Nurse Name: Tricia Liang RN Position: [facility] RN Member Role: Primary Care Nurse Name: Adry Giang RN Position: [facility] RN Member Role: Primary Care Nurse Name: Jeanmarie Muhammad RN Position: [facility] RN Member Role: Primary Care Nurse Name: Ruddy Machuca RN Position: [facility] RN Member Role: Primary Care Nurse Care Team Related Persons Name: GERARDO BOWIE Address: [address] [address]
--- OUTSIDE RECORDS SUMMARY | 2023-08-30 13:43 | XMS_ITS | Continuity of Care Document ---
Author Name Unknown Organization [facility]iology Address [address] [place] [address]- Care Team Providers Care Layout Man Name Role Phone Anastasiya Lemos MD Primary Care Physician Encounter [facility] Date(s): 07/26/23 - 08/25/[address] [facility]iology [address] [place] [address]- Allergies, Adverse Reactions, Alerts No Known Allergies [...] influenza virus vaccine, inactivated 02/27/11 Yusef rded [id number] 12y+ bivalent booster vax 05/06/22 Recorded SARS-CoV-2 [...] 04/05/23 13:52:00 EST, Route to Pharmacy Electronically, [facility], Partial fill upon patient [...] 04/05/23 13:53:00 EST, Route to Pharmacy Electronically, [facility], Partial fill upon patient [...] Team Personnel Name: Brandt Zhao RN Position: [facility] RN Member Role: Primary Care Nurse Name: Cristina Bedoya RN Position: [facility] RN Supv Member Role: Primary Care Nurse Name: Maira Batitsa RN Position: [facility] RN Member Role: Primary Care Nurse Name: Kadi Noonan RN Position: [facility] SN RN Member Role: Primary Care Nurse Name: Eleanor Tucker RN Position: [facility] RN Member Role: Primary Care Nurse Name: Madelin Schmidt RN Position: [facility] RN Member Role: Primary Care Nurse Name: Kwasi Brady RN Position: [facility] RN Member Role: Primary Care Nurse Name: Anastasiya Lemos MD Position: [facility] Physician - Primary Care Member Role: PCP Address: Address: [address] [place] [address], 1st [place] [address]- Name: Keny Roman RN Position: [facility] RN Member Role: Primary Care Nurse Name: Fariba Vora Position: [facility] RN Member Role: Primary Care Nurse Name: Chapis Plunkett RN Position: S RN Member Role: Primary Care Nurse Name: Adry Giang RN Position: S RN Member Role: Primary Care Nurse Name: Jeanmarie Muhammad RN Position: S RN Member Role: Primary Care Nurse Name: Ruddy Machuca RN Position: [facility] RN Member Role: Primary Care Nurse Care Team Related Persons Name: GERARDO BOWIE Address: [address] [address]
--- OUTSIDE RECORDS SUMMARY | 2023-08-30 13:43 | XMS_ITS | Continuity of Care Document ---
Author Name Unknown Organization [facility] Cardiac Shannan abdifatah Address [address] [place] [address]- Care Team Providers Care Electric Furnace Operator Name Role Phone aCnelo RIDLEY, Anastasiya Mccormick Primary Care Physician Encounter [facility] Date(s): 03/31/23 - 04/30/23 [facility] Cardiac Surgery [address] [place] [address]- Attending Physician: Bernardo Torres MD Referring Physician: Gracy RIDLEY, Rima Fontenot Allergies, Adverse Reactions, Alerts No Known Allergies [...] influenza virus vaccine, inactivated 02/27/11 Yusef rded [id number] 12y+ bivalent booster vax 05/06/22 Recorded SARS-CoV-2 [...] 04/05/23 13:52:00 EST, Route to Pharmacy Electronically, [facility], Partial fill upon patient [...] 04/05/23 13:53:00 EST, Route to Pharmacy Electronically, [facility], Partial fill upon patient [...] Team Personnel Name: Brandt Zhao RN Position: [facility] RN Member Role: Primary Care Nurse Name: Cristina Bedoya RN Position: [facility] RN Supv Member Role: Primary Care Nurse Name: Maira Batista RN Position: [facility] RN Member Role: Primary Care Nurse Name: Kadi Noonan RN Position: [facility] RN Member Role: Primary Care Nurse Name: Eleanor Tucker RN Position: [facility] RN Member Role: Primary Care Nurse Name: Madelin Schmidt RN Position: [facility] RN Member Role: Primary Care Nurse Name: Kwasi Brady RN Position: [facility] RN Member Role: Primary Care Nurse Name: Anastasiya Lemos MD Position: [facility] Physician - Primary Care Member Role: PCP Address: Address: [address] [place] [address], 1st [place] [address]- Name: Keny Roman RN Position: S RN [...] Related Persons Name: GERARDO BOWIE Address: home [address] [place] [address]
--- OUTSIDE RECORDS SUMMARY | 2023-08-30 13:43 | XMS_ITS | Continuity of Care Document ---
Author Name Unknown Organization [facility] Cardiac Shannan abdifatah Address [address] [place] [address]- Care Team Providers Care Green Ware Caster Name Role Phone Gracy RIDLEY, Rima Fontenot Primary Care Physician [phone] Encounter [facility] Date(s): 03/05/23 - 04/04/23 [facility] Cardiac Surgery [address] [place] [id number] Allergies, Adverse Reactions, Alerts No Known Allergies [...] influenza virus vaccine, inactivated 02/27/11 Yusef rded [id number] 12y+ bivalent booster vax 05/06/22 Recorded SARS-CoV-2 [...] Team Personnel Name: Rima Dubose MD Position: [facility] Outreach Member Role: PCP Address: Address: [address] [place] [address]- Name: Brandt Zhao RN Position: [facility] RN Member Role: Primary Care Nurse Name: Cristina Bedoya RN Position: [facility] RN Supv Member Role: Primary Care Nurse Name: Maira Batista RN Position: [facility] RN Member Role: Primary Care Nurse Name: Kadi Noonan RN Position: [facility] SN RN Member Role: Primary Care Nurse Name: Eleanor Tucker RN Position: [facility] RN Member Role: Primary Care Nurse Name: Madelin Shcmidt RN Position: [facility] RN Member Role: Primary Care Nurse Name: Kwasi Brady RN Position: [facility] RN Member Role: Primary Care Nurse Name: Keny Roman RN Position: [facility] RN Member Role: Primary Care Nurse Name: Fariba Vora Position: [facility] RN Member Role: Primary Care Nurse Name: Chapis Plunkett RN Position: [facility] RN Member Role: Primary Care Nurse Name: Tricia Liang RN Position: [facility] RN Member Role: Primary Care Nurse Name: Adry Giang RN Position: [facility] RN Member Role: Primary Care Nurse Name: Jeanmarie Muhammad RN Position: [facility] RN Member Role: Primary Care Nurse Name: Ruddy Machuca RN Position: [facility] RN Member Role: Primary Care Nurse Care Team Related Persons Name: GERARDO BOWIE Address: home [address] [address]
--- OUTSIDE RECORDS SUMMARY | 2023-08-30 13:43 | XMS_ITS | Continuity of Care Document ---
Author Name Unknown Organization [facility] ter Address [address] [place] [id number] Care Team Providers Care Financial Accounting Manager Name Role Phone Gracy RIDLEY, Rima Fontenot Primary Care Physician [place] [facility] [place]): 04/01/23 - 04/05/[address] [id number] Discharge Disposition: A-D/C Home Attending Physician: Bernardo Torres MD Admitting Physician: Bernardo Torres MD Referring Physician: Lala Gamez NP Allergies, Adverse Reactions, Alerts No Known Allergies [...] influenza virus vaccine, inactivated 02/27/11 Yusef rded [id number] 12y+ bivalent booster vax 05/06/22 Recorded SARS-CoV-2 [...] opioid drug. Start Date: 04/05/23 Status: Ordered Acetaminophen Tablet 975 mg, Tablet, By Mouth, (scheduled) for mild pain, (May give via NG tube), 04/05/23 10:00:00 EST Start Date: 04/05/23 Stop Date: 04/05/23 Status: Completed amiodarone 200 mg oral tablet 200 mg, By Mouth, 2 times a day, # 52 tablet, Refills 0, Tot. Refills 0, Maintenance, 04/05/23 13:52:00 EST, Route to Pharmacy Electronically, [facility], Partial fill upon patient request if [...] 04/05/23 13:53:00 EST, Route to Pharmacy Electronically, [facility], Partial fill upon patient request if the prescription is for a schedule II opioid... Start Date: 04/05/23 Status: Ordered gabapentin 100 mg oral capsule 200 mg, Capsule, By Mouth, 04/05/23 9:00:00 EST Start Date: 04/05/23 Stop Date: 04/05/23 Status: Completed gabapentin 100 mg oral capsule 200 mg, Capsule, By Mouth, 04/05/23 15:00:00 EST Start Date: 04/05/23 Stop Date: 04/05/23 Status: Completed gabapentin 100 mg oral capsule 200 mg, [...] 04/05/23 13:53:00 EST, Route to Pharmacy Electronically, [facility], Partial fill upon patient request if the prescription is for a schedule II opioi... Start Date: 04/05/23 Status: Ordered Metoprolol IR Tablet 25 mg, Tablet, By Mouth, When extubated, HOLD for HR less than 60 or SBP less than 100 or if on Vasopressors or Inotropes (May give via NG tube), 04/05/23 9:00:00 EST Start Date: 04/05/23 Stop Date: 04/05/23 Status: Completed pantoprazole 40 mg oral delayed release tablet [...] liver Confirmed Active Tremor Confirmed Active Results Radiology Reports * Exam Date Time Procedure Performing Provider Status 04/02/23 5:14 AM Chest Portable Kiersten Aj; Suzanna (Ve rified) Notes: (Chest Portable) Reason For Exam: S/P Cardiac Surgery RESULT: Chest Portable Chest Portable Reason: S P Cardiac Surgery; Clinical Question(s): Other:; Cardiac Tamponade; Special Instructions:Post Op Day 1 COMPARISON: Multiple priors with the most recent dated 04/01/2023 at 2:52 PM. FINDINGS: LINES AND TUBES: Endotracheal tube and enteric tube have been removed since the prior examination. Right IJ Chalmers-Quinten catheter, mediastinal drain, and large bore right thoracostomy tube unchanged inposition. Single temporary pacer lead seen. LUNGS AND PLEURA: Decreasing mild pulmonary vascular congestion. Probable persistent elevation of the right hemidiaphragm with mild basilar atelectasis. Large left perihilar and retrocardiac opacity unchanged. Probable small right and larger left pleural effusions. No pneumothorax. HEART, MEDIASTINUM AND [place]: Mild prominence of the cardiomediastinal silhouette. Status post median sternotomy probably related to CABG. BONES AND SOFT TISSUES: No acute abnormality. Multiple surgical clips are noted projecting over the right upper quadrant ofthe abdomen consistent with prior surgery. IMPRESSION: Endotracheal tube and enteric tube have been removed since the prior examination. No other significant interval change. WSN: [id number] Ordering Physician: Anil Pastor Dictated By: Michael Kimble MD, V Dictated Date/Time: 04/02/23 9:15 am Reviewed By: Michael Kimble MD, V Signed By: Michael Kimble MD, V Signed Date/Time: 04/02/23 9:15 am Transcribed By: HARPAL Transcribed Date/Time: 04/02/23 9:09 am * Exam Date Time Procedure Performing Provider Status 04/01/23 2:45 PM Chest Portable Castro Monsivais; Suzanna (Verified) Notes: (Chest Portable) Reason For Exam: S/P Cardiac Surgery RESULT: Chest Portable Chest Portable, 2:23 PM Reason: S P Cardiac Surgery; Clinical Question(s): Other:; Cardiac Tamponade; Special Instructions:On Admission to [facility] COMPARISON: Numerous priors including 04/01/2023 1:37 PM. FINDINGS: LINES AND TUBES: ET tube tip 5 cm above the lynette. Chalmers-Quinten catheter tip in the RIGHT main pulmonary artery. Mediastinal and pleural catheters. Overlying EKG leads. Enteric tube, side hole and tip projecting over the stomach. LUNGS AND PLEURA: LEFT perihilar and retrocardiac opacification and LEFT pleural effusion, without interval change. Minimal atelectasis RIGHT lung base. No pneumothorax. HEART, MEDIASTINUM AND [place]: Stable. BONES AND SOFT TISSUES: No acute abnormality. IMPRESSION: Support lines and tubes as described. Unchanged LEFT perihilar and retrocardiac opacification with adjacent small pleural effusion. WSN: [id number] Ordering Physician: Anil Pastor Dictated By: Loyda Elkins MD Dictated Date/Time: 04/01/23 4:33 pm Reviewed By: Loyda Elkins MD Signed By: Loyda Elkins MD Signed Date/Time: 04/01/23 4:33 pm Transcribed By: HARPAL Transcribed Date/Time: 04/01/23 4:30 pm * Exam Date Time Procedure Performing Provider Status 04/01/23 3:03 PM Chest Portable Eufemia Diaz (Verified) Notes: (Chest Portable) Reason For Exam: Chalmers quinten and OETT placement;Line Placement RESULT: Chest Portable Chest Portable, 2:49 PM Reason: Line Placement; Chalmers Quinten and OETT placement COMPARISON: 04/01/2023, 2:23 PM. FINDINGS: LINES AND TUBES: ET tube tip 4.5 cm above the lynette. RIGHT IJ approach Chalmers-Quinten catheter, tip in the region of the RIGHT main pulmonary artery. Mediastinal drain and RIGHT pleural catheter. Enteric tube extending into the upper abdomen, tip not included. LUNGS AND PLEURA: LEFT perihilar and retrocardiac opacification, and LEFT pleural effusion, without interval change. Minimal atelectasis RIGHT lung base. No pneumothorax. HEART, MEDIASTINUM AND [place]: Moderate prominence of the cardiomediastinal silhouette, stable. BONES AND SOFT TISSUES: Median sternal wires. IMPRESSION: Support lines and tubes as described. Stable LEFT perihilar and retrocardiac opacification. No pneumothorax. WSN: [id number] Ordering Physician: Natalia Thomas Dictated By: Loyda Elkins MD Dictated Date/Time: 04/01/23 4:34 pm Reviewed By: Loyda Elkins MD Signed By: Loyda Elkins MD Signed Date/Time: 04/01/23 4:34 pm Transcribed By: HARPAL Transcribed Date/Time: 04/01/23 4:29 pm * Exam Date Time Procedure Performing Provider Status 04/01/23 1:49 PM Chest Portable Marlo Bustamante; Auth ( Verified) Notes: (Chest Portable) Reason For Exam: INCORRECT NEEDLE COUNT;Counts: Sponges/Sharps/Instruments Protocol RESULT: Chest Portable Chest Portable Reason: Counts: Sponges Sharps Instruments Protocol; INCORRECT NEEDLE COUNT; Order Comment: COMPARISON: Multiple priors the most recent dated 03/12/2023. FINDINGS: LINES AND TUBES: Endotracheal tube appearing with its tip about 6.3 cm above the lynette. Slight further advancement may be helpful. Enteric tube appearing with its tip in the region of the gastric fundus in satisfactory position. Right IJ Chalmers-Quinten catheter appearing with its tip in the region of the outflow tract of the right ventricle. Large bore right chest tube appearing. Probable 1 mediastinal drain. Probable 3 metallic densities consisting of temporary leads one in the region of the right atrium, and the other one in the region of the right ventricle. LUNGS AND PLEURA: Retrocardiac density present consistent of left basilar atelectasis and/or infiltrates and a small left pleural effusion. Minimal right basilar atelectasis. Normal pulmonary vascularity. No pleural effusion. No pneumothorax. HEART, MEDIASTINUM AND [place]: Mild prominence of the cardiomediastinal silhouette consistent with cardiac surgery appearing. Median sternotomy appearing. BONES AND SOFT TISSUES: No acute abnormality. No definite radiopaque needles are seen throughout the visualized field. Multiple surgical clips are noted projecting over the right upper quadrant of the abdomen possibly related to a prior cholecystectomy. IMPRESSION: Support tubes and catheters in place as described. [address] Retrocardiac density appearing. Minimal right basilar atelectasis. Wet reading was called to the operating room on 04/01/2023 at 2:11 PM to extension [id number]. No definite radiopaque instruments or needles are seen throughout the visualized field of view. WSN: [id number] Ordering Physician: Bernardo Torres Dictated By: Michael Kimble MD, V Dictated Date/Time: 04/01/23 2:11 pm Reviewed By: Michael Kimble MD, V Signed By: Michael Kimble MD, V Signed Date/Time: 04/01/23 2:11 pm Transcribed By: HARPAL Transcribed Date/Time: 04/01/23 2:04 pm Vital Signs Most recent to oldest [Reference Range]: 1 2 3 4 Height 168 cm (04/05/23 12:07 PM) 168 cm (04/05/23 7:44 AM) 168 cm (04/05/23 4:24 AM) Weight 70.8 kg (04/03/23 6:23 PM) 70.4 kg (04/03/23 5:45 AM) 72.8 kg (04/02/23 5:00 AM) Oxygen Saturation [94-100 %] 98 % (04/05/23 12:07 PM) 99 % (04/05/23 7:44 AM) 100 % (04/05/23 4:24 AM) Pulse Rate [55-90 bpm] 70 bpm (04/05/23 12:07 PM) 71 bpm (04/05/23 9:18 AM) 71 bpm (04/05/23 7:44 AM) Body Mass Index [18.5-24.99 kg/m2] 22.85 kg/m2 (04/01/23 7:56 AM) Blood Pressure [90-138/55-84 mm Hg] 106/63mm Hg (04/05/23 12:07 PM) 127/66mm Hg (04/05/23 9:18 AM) 127/66mm Hg (04/05/23 7:44 AM) Respiratory Rate [16-30 br/min] 18 br/min (04/05/23 2:41 PM) 18 br/min (04/05/23 12:07 PM) 18 br/min (04/05/23 10:17 AM) 18 br/min (04/05/23 10:17 AM) Temperature [96.8-100.4 DegF] 98.6 DegF (04/05/23 12:07 PM) 97.9 DegF (04/05/23 7:44 AM) 98.2 DegF (04/05/23 4:24 AM) Liters per Minute 3 L/min (04/03/23 2:00 PM) 3 L/min (04/03/23 1:00 PM) 3 L/min (04/03/23 12:00 PM) Mode of Delivery (Oxygen) Room air (04/05/23 12:07 PM) Room air (04/05/23 7:44 AM) Room air (04/05/23 4:24 AM) Blood pressure sites Arm, right (04/05/23 12:07 PM) Arm, left (04/05/23 7:44 AM) Arm, left (04/05/23 4:24 AM) Temperature Route Oral (04/05/23 12:07 PM) Oral (04/05/23 7:44 AM) Oral (04/05/23 4:24 AM) Dry Weight 64.5 kg (04/01/23 7:56 AM) 63.5 kg (03/29/23 6:19 PM) Weight Obtained Via Bed scale (04/03/23 6:23 PM) Bed scale (04/03/23 5:45 AM) Bed scale (04/02/23 5:00 AM) Dry Weight Obtained Via Standing scale (04/01/23 7:56 AM) Patient/family stated (03/29/23 6:19 PM) Social History Social History Type Response Smoking Status 5-9 cigarettes (betw een 1/4 to 1/2 pack)/day in last 30 days entered on: 09/02/22 Sex History and physical note * Event Display: History and Physical Hospital Authored Date: US Heart Transesophageal * Event Display: Trans-esophageal Echocardiogram Authored Date: [id number] Anesthesia ZORAN Report Patient Demographics Patient Name ROBERT ABEL Date of Study Corporate Gender Female Facility Race Ethnicity Date of 1960 Height: 66.14 inches Age 62 year(s) Weight: 142.2 pounds Accession Number [id number] BSA: 1.73 m2 Room Number M311 BMI: 22.85 kg/m2 Referring Physician Tommie Castro Anesthesiologist Tommie Castro Dry Heat Cabinet Attendant Indications Mass, cardiac. Study Data Type of Study ZORAN procedure:ZORAN performed by the anesthesa in the OR. Allergies - No known allergies. Cardiac Anatomy Left Ventricle/Interventricular Septum The left ventricle is normal in size. Overall left ventricular systolic function is normal. LVEF visually estimated at 60-65%. Left Atrium/Interatrial Septum The left atrium is normal in size. Aortic Valve The aortic valve is trileaflet and normal in structure and function. There is no aortic stenosis or insufficiency. Mitral Valve mild regurg Aorta The aortic root appears normal. Right Ventricle The right ventricle is normal in size and function. Right Atrium The right atrium is normal in size. Pulmonic Valve The pulmonic valve is functionally normal. Tricuspid Valve The tricuspid valve is normal in structure and function. There is no stenosis or insufficiency. Pumonary Artery The pulmonary artery pressure is within normal limits. Pericardium/Extracardiac There is no pericardial effusion. Signature * Event Display: Trans-esophageal Echocardiogram Authored Date: EKG study * Event Display: EKG Authored Date: Cardiology * Event Display: Cardiac Rhythm Strips Authored Date: * Event Display: Cardiac Rhythm Strips Authored Date: * Event Display: Cardiac Rhythm Strips Authored Date: Hospital Progress note * Felicia VANEGAS, Tiffanie: PERFORM, SIGN, VERIFY Event Display: Progress Note Hospital Authored Date: Patient: ROBERT ABEL Age: 62 years Sex: Female : 1960 Associated Diagnoses: None Author: Felicia VANEGAS, Tiffanie Findings Problem Related to Alteration in Cardiac Function (new) : Alteration in Cardiac Function/new 04/05/2023 12:00 EST Alteration in Cardiac Status Related to Cardiac Surgery Goals & Outcomes, Cardiac Status Pt will resume/maintain adequate cardiac output, Pt will resume/maintain adequate hemodynamic status, Pt will resume/maintain adequate respiratory function, Pt will resume/maintain intact neuro function, Pt will maintain adequate GI/ function appropriate for pt, Pt/caregiver will state understanding of diagnosis, Pt will maintain adequate tissue oxygenation/ventilation, Pt will maintain adequate ventilatory support Cardiac Interventions Implemented Assess/monitor cardiac status, Assess/monitor neuro status, Assess/monitor respiratory status, Assess for tolerance of IV infusions; verify rate & dose, Call/Report variances in ECG to provider, Document & Monitor O2 Sats; Administer O2 as ordered, If no bowel movement in 3 days activate bowel regime, Monitor & document daily weight, Monitor anticoagul ation values, Monitor ECG w/administration of antiarrhythmics (CO 13.420), Obtain 12 Lead ECG and CXR as ordered, Prep pt for treatments & procedures, Teach/encourage deep breath & cough exercises, Teach/encourage use of incentive spirometer, Team conversation regarding appropriate level ofcare, Turn & reposition Q2 hours per activity restrictions, Use adjunctive therapies per Standards of Practice, Assess pt for insulin protocol & initiate per protocol, Assess wound(s) for signs and symptoms of infection BH Goals/Interventions, Cardiac Yes Cardiac, Problem Start 04/01/2023 15:52 Reviewed Plan with, Cardiac Status Patient Patient Progression, Cardiac Status Patient progressing according to plan . Narrative/Incidental AAOx4. Expressive aphasia, yes and no questions with a thumbs up or down for questions. SR. Up ad karson in room, steady on feet. No events this shift, systems as otherwise documented. Home with family today. Discharge instructions, medications and follow up care reviewed with pt and family by Guillermina VANEGAS. . Discharge Information Case Management Discharge Plan : Case Management Discharge Plan Data 04/05/2023 11:35 EST Discharge Level of Care at Discharge Homehealth/VNA Discharge VNA/Hospice/Home Care [facility] Name of Agency #1 [facility] Service Categories #1 [facility] Service Comments #1 The nurse will see you the day after discharge. They will call before they cometo set up a time to see you. Pulmonary Rehab Discharge : Pulmonary Rehab Discharge Status 04/01/2023 16:27 EDT PEEP 5 04/01/2023 15:49 EDT PEEP 5 04/01/2023 14:56 EDT PEEP 5 04/01/2023 14:26 EDT PEEP 5 Rehabilitation Discharge : Rehab Discharge Index 04/04/2023 15:41 EST Comments on treatment indicated adls funclt mob safety pt edu UE function 04/03/2023 15:41 EDT Full chart review completed Yes Hospital course See comment * Yuko Valdez: PERFORM, SIGN, VERIFY Event Display: Progress Note Hospital Authored Date: Patient: ROBERT ABEL Age: 62 years Sex: Female : 1960 Associated Diagnoses: None Author: Yuko Valdez Findings Narrative/Incidental Pt refused amiodarone w PM med pass. Communication as to why made difficult due to expressive aphasia, but PT gave a thumbs up to confirm her refusal when asked. Pt educated on purpose of med and risks of not taking as prescribed. Asked pt if she would like to speak to the doctor and she said yes, Provider paged and came to bedside. Pt had small run of afib around 2300, provider notified, has been sustaining NSR since then. Hgb 7.0, provider notified, waiting for nect draw to see trend.. Discharge Information Pulmonary Rehab Discharge : Pulmonary Rehab Discharge Status 04/01/2023 16:27 EDT PEEP 5 04/01/2023 15:49 EDT PEEP 5 04/01/2023 14:56 EDT PEEP 5 04/01/2023 14:26 EDT PEEP 5 Rehabilitation Discharge : Rehab Discharge Index 04/04/2023 15:41 EST Comments on treatment indicated adls funclt mob safety pt edu UE function 04/03/2023 15:41 EDT Full chart review completed Yes Hospital course See comment * Jaycee Hernandez RN: PERFORM, SIGN, VERIFY Event Display: Progress Note Hospital Authored Date: [id number] Patient: ROBERT ABEL Age: 62 years Sex: Female : 1960 Associated Diagnoses: None Author: Jaycee Hernandez RN Findings Problem Related to Alteration in Cardiac Function (new) : Alteration in Cardiac Function/new 04/04/2023 17:59 EST Alteration in Cardiac Status Related to Cardiac Surgery Goals & Outcomes, Cardiac Status Pt will resume/maintain adequate cardiac output, Pt will resume/maintain adequate hemodynamic status, Pt will resume/maintain adequate respiratory function, Pt will resume/maintain intact neuro function, Pt will maintain adequate GI/ function appropriate for pt, Pt/caregiver will state understanding of diagnosis, Pt will maintain adequate tissue oxygenation/ventilation, Pt will maintain adequate ventilatory support Cardiac Interventions Implemented Assess/monitor cardiac status, Assess/monitor neuro status BH Goals/Interventions, Cardiac Yes Cardiac, Problem Start 04/01/2023 15:52 Reviewed Plan with, Cardiac Status Patient, Spouse/significant other Patient Progression, Cardiac Status Patient progressing according to plan . Nursing Data Vital Signs : VITAL SIGNS SECTION 04/04/2023 17:24 EST Early Warning Score 3.00 04/04/2023 17:24 EST Temperature 98 DegF Temperature Route Oral Pulse Rate 71 bpm Respiratory Rate 18 br/min Systolic Blood Pressure 103 mm Hg Diastolic Blood Pressure 60 mm Hg Blood pressure sites Arm, left Mean Arterial Pressure 74 mm Hg Pulse Pressure 43 mm Hg Oxygen Saturation 100 % Mode of Delivery (Oxygen) Room air . Narrative/Incidental Up to chair a few times today, min assist needed. Dsg's intact. Now on insulin sliding scale. 22G placed left upper extremity today, tolerated well. Good appetite. . Discharge Information Pulmonary Rehab Discharge : Pulmonary Rehab Discharge Status 04/01/2023 16:27 EDT PEEP 5 04/01/2023 15:49 EDT PEEP 5 04/01/2023 14:56 EDT PEEP 5 04/01/2023 14:26 EDT PEEP 5 Rehabilitation Discharge : Rehab Discharge Index 04/04/2023 15:41 EST Comments on treatment indicated adls funclt mob safety pt edu UE function 04/03/2023 15:41 EDT Full chart review completed Yes Hospital course See comment Note * Marian Pérez: PERFORM, SIGN, VERIFY Event Display: Cardiac Rehab Note Authored Date: [id number] Patient: ROBERT ABEL Age: 62 years Sex: Female : 1960 Associated Diagnoses: None Author: Marian Pérez Diagnosis Cardiac Rehab Diagnosis: Atiral Myxoma repair, septal defect repai. Pre-exercise Vitals Vital Signs: 70 HR. Pre-exercise Physical Examination Neurologic: alert & oriented. Cardiovascular: heart rate regular. Activity Symptoms with Cardiac Rehab Symptoms: No exertional symptoms. Activity Transfers: independent. Ambulate: independent, distance ambulated 350 feet. Stairs: independent, has 3 steps into house, adaptive stairs completed without issue. Incentive Spirometry Incentive Spirometry: Good technique - effort, educated on IS use. Post-exercise Vitals Vital Signs: 76 HR. Patient Education Education: Family present, MITT, home walking, incision care, daily wts edu reviewed with pts SO. Education topic Teachback comprehension 75% Topic: Pathophysiology, Role of exercise, Home activity guidelines/limits, Post operative recovery guidelines. Recommendation and Plan Ambulate: 3 times/day. Outpatient follow up recommended: pt does not qualify for ph 2 cr with her surgery. I did give her the flyer for ph 2 cardoac rehab at [facility] and instructed them to call insurance if they want to attend to inquire if insurance would pay for it. Some insurances will allow other cardiac surgery diagnoses. Pt and SO understanding of this. Pt DC home today, Will sign off. Cardiac Rehab: Will sign off at this time. * Olinda Singleton RN: PERFORM Event Display: Discharge/Transfer Note Hospital Authored Date: [id number] Nursing Discharge Note Entered On: 04/05/2023 15:29 EST Performed On: 04/05/2023 15:28 EST by Olinda Singleton RN Nursing Discharge Note 2 Discharge Time : 04/05/2023 15:25 EST Discharge Level of Care at Discharge : Homehealth/VNA Discharge VNA/Hospice/Home Care(v001) : [facility] Patient Left Unit Via : Wheelchair Patient Accompanied Off Unit with : Responsible adult DC Instructions Provided & Signed by Pt : Yes Patient Understands D/C Instructions : Yes Patient Instructions Discharge Signed : Yes Did Pt have Specialty Bed or Wound Vac : No Olinda Singleton RN - 04/05/2023 15:28 EST * Christian PAEZ, Shaun Sánchez: PERFORM Event Display: Discharge/Transfer Note Hospital Authored Date: Patient: ??COLTEN, ROBERT ? Age:??62 Years?Sex:??Female?:??1960?? 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 _ Discharge Medications Acetaminophen (acetaminophen 325 mg oral tablet)?975?Milligram?By Mouth?Every 6 hours?as needed?Pain , Moderate amiODARONE (amiodarone 200 mg oral tablet)?200?Milligram?By Mouth?2 times a day Aspirin (aspirin 81 mg oral tablet, chewable)?81?Milligram?1?tablet?By Mouth?Daily Atorvastatin (atorvastatin 40 mg oral tablet)?2?tab(s)?80?Milligram?By Mouth?Daily at bedtime BuPROpion (buPROPion 150 mg/24 hours (XL) oral tablet, extended release)?1?tab(s)?150?Milligram?By Mouth?Every 24 hours Cyanocobalamin (Vitamin B-12 1000 mcg oral tablet)?500?Microgram?0.5?tablet?By Mouth?Daily Emollients, Topical (Vashe Topical Solution)?475?Milliliter?Topically?Every 6 hours?as needed?Other Furosemide (furosemide 20 mg oral tablet)?1?capsule?By Mouth?2 times a day Gabapentin (gabapentin 100 mg oral capsule)?200?Milligram?2?capsule?By Mouth?3 times a day Metoprolol (metoprolol 50 mg oral tablet, extended release)?50?Milligram?1?tablet?ByMouth?Daily Pantoprazole (pantoprazole 40 mg oral delayed release tablet)?1?tab(s)?40?Milligram?By Mouth?Daily ? Vaccinations and Immunoprophylaxis Hepatitis A Adult Vaccine: 1 Unknown (06/10/00 07:00:00) hepatitis B adult vaccine: 1 Unknown (06/10/00 07:00:00) influenza virus vaccine, inactivated: 0.5 Unknown (05/06/22 07:00:00) influenza virus vaccine, inactivated: 0.5 Unknown (04/22/21 07:00:00) influenza virus vaccine, inactivated: 0.5 Unknown (02/19/20 08:00:00) influenza virus vaccine, inactivated: 0.5 Unknown (06/01/19 07:00:00) influenza virus vaccine, inactivated: 0.5 Unknown (04/01/18 08:00:00) influenza virus vaccine, inactivated: 0.5 Unknown (02/18/17 08:00:00) influenza virus vaccine, inactivated: 0.5 Unknown (03/02/16 08:00:00) influenza virus vaccine, inactivated: 0.5 Unknown (03/21/15 08:00:00) influenza virus vaccine, inactivated: 0.5 Unknown (03/08/14 08:00:00) influenza virus vaccine, inactivated: 0.5 Unknown (02/27/11 08:00:00) pneumococcal 23-valent vaccine: 0.5 Unknown (12/02/18 08:00:00) pneumococcal 23-valent vaccine: 0.5 Unknown (01/25/13 08:00:00) SARS-CoV-2 (COVID-19) mRNA BNT-162b2 vac: 0.3 Unknown (04/22/21 07:00:00) SARS-CoV-2 (COVID-19) mRNA BNT-162b2 vac: 0.3 Unknown (01/22/21 08:00:00) [id number] 12y+ bivalent booster vax: 0.3 Unknown (05/06/22 07:00:00) tetanus/diphtheria/pertussis, acel(Tdap): 0.5 Unknown (01/25/13 08:00:00) tetanus/diphtheria/pertussis, acel(Tdap): 0.5 Unknown (10/03/09 08:00:00) tetanus-diphtheria toxoids (Td): 0.5 Unknown (05/09/99 07:00:00) zoster vaccine, inactivated: 0.5 Unknown (02/19/20 08:00:00) zoster vaccine, inactivated: 0.5 Unknown (06/01/19 07:00:00) ?? Objective Assessment and Plan Assessment:??62-year-old female who over the summer had a large CVA with hemorrhagic conversion andmidline shift. 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 At that time she was not a surgical candidate for excision. She since made a recovered with some right upper extre mity weakness, although she does remain essentially aphasic except for one word answers. Now presenting for scheduled left atrial myxoma excision. ? Cardiac Surgeon: Dr Torres ?Quality Assurance Representative: Dr Gamez ? On 04/01/23 underwent the following: ?1. Left atrial myxoma excision. ?2. Atrial septal defect repair. ?3. Epiaortic ultrasound of ascending aorta and aortic arch. ? Neuro ?Post-operative Pain ?Past CVA with deficits ?-Tylenol 975mg PO??every 6 hours??as needed for pain,??don't take more than 4g daily. ?-Previous CVA with right sided weakness (although ambulatory) and aphasia limiting her to one word answers. ?-Right hand pain- improved with lidocaine patch and pain medication ? Cardiovascular ?s/p LA myxoma excision ?Post cardiac surgery acute vasoplegia- resolved ?Post cardiac surgery acute hypovolemia- resolved ?HX of HTN and HLD ?-Core Measures: ASA 81mg PO qd, Metoprolol 50mg PO daily, Atorvastatin 80 mg po qd. ?-Intrinsic rhythm NSR. ??-AFib PPX-amiodarone 200mg BID for 30 days after surgery ? Pulmonary ?Acute post operative respiratory insufficiency- resolved ?-Room air ? GI ?Nausea - resolved ?-Pantoprazole 40mg PO daily ?-Tolerating Po diet ? Renal ?-Baseline Cr 0.8. ??-Remained above dry weight but with little clinical evidence of volume overload at time of discharge ??-Lasix 20mg PO BID x4 days after discharge ? Heme ?Acute Blood loss anemia ?-Watch for bleeding. ?-No blood products required intraoperatively. ??-h/h 12/20 at time of discharge, not symptomatic, no transfusion warranted??at this time. ? ID ?-Dayana-operative antibiotics. ?-Trend WBC, fever curve. ? Endo ?Stress induced hyperglycemia ?-A1C 5.6%. ?-Discharge without supplemental insulin. ?Dispo:??Discharge home with services. ? Plan discussed with rounding attending. ? Measurements?? Height: 168 cm (04/05/23) Weight: 70.8 kg (04/03/23) Dry Weight: 64.5 kg (04/01/23) Body Mass Index: 22.85 kg/m2 (04/01/23) ? Vital Signs?? Temperature: 98.6 DegF (04/05/23 12:07:00) Temperature Route: Oral (04/05/23 12:07:00) Pulse Rate: 70 bpm (04/05/23 12:07:00) Respiratory Rate: 18 br/min (04/05/23 12:07:00) Systolic Blood Pressure: 106 mm Hg (04/05/23 12:07:00) Diastolic Blood Pressure: 63 mm Hg (04/05/23 12:07:00) Blood pressure sites: Arm, right (04/05/23 12:07:00) Mean Arterial Pressure: 77 mm Hg (04/05/23 12:07:00) Pulse Pressure: 43 mm Hg (04/05/23 12:07:00) Oxygen Saturation: 98 % (04/05/23 12:07:00) Mode of Delivery (Oxygen): Room air (04/05/23 12:07:00) Early Warning Score: 0 (04/05/23 12:09:43) ? Intake/Output? 04/01 06:40 04/05 07:00 04/04 07:00 04/03 07:00 04/02 07:00 ?? 04/05 13:57 04/05 13:57 04/05 06:59 04/04 06:59 04/03 06:59 Intake ? 6232.4 ?240 ?0 ?610 ? 1169 Output ? 9440 ?1 ?300 ? 3925 ? 3335 Net Total ?-3207.6 ?239 ? -300 ?-3315 ?-2166 ? . Physical Exam General:??Alert, in no acute cardiopulmonary distress. Mental Status:??s/p stroke in past-only able to answer Yes and No. Respiratory:??Clear to auscultation. No wheezing, rales or rhonchi. Cardiovascular:?NSR ??S1, S2 ??Regular rate and rhythm, no murmurs, rubs or gallops. Gastrointestinal:??Abdomen soft, non-tender, non-distended. Normal bowel sounds.? Genitourinary:??No craig cath?? Neurologic:??Moves all extremities spontaneously. Baseline right sided weakness. Skin:??Aquacelll to be removed prior to discharge. Surgical wounds appear well approximated, dry. Surgical Procedures Resection Atrial Myxoma 04/01/2023 10:08 Pending Results BUN ordered on 04/02/2023 CBC w/ Differential ordered on 04/02/2023 Creatinine ordered on 04/02/2023 Electrolytes ordered on 04/02/2023 Glucose Level ordered on 04/02/2023 Magnesium Level ordered on 04/02/2023 Pathology Tissue Request ordered on 04/01/2023 Type and Screen ordered on 04/02/2023 Patient Education Titles Cardiac Surgery Discharge Instructions?? Follow-Up Appointments Added Follow Up ?Time Frame ?Comments Gracy RIDLEY, [facility]?2 to 5 weeks Bernardo Torres MD?1 to 2 weeks Home Health Face to Face *Denotes mandatory drew ?? *I certify that this patient is under my care and that I or an allowed non- physician working with me had a face to face encounter with the patient on this date:??04/05/2023 14:00 ?? *The encounter with the patient was in whole, or in part, for the following medical condition, which is the primary diagnosis(es) for home health care:??Atrial myxoma (D15.1) ? *Select the indications for the discipline/s that are being arranged for this patient. Nursing (select all that apply): [_] None [X] Medication management (reconciliation, teaching)?? [X] Chronic disease management?? [X] Wound care and treatment?? [X] Home safety evaluation [_] Administer SQ/IM/IV medications?? [_] Cath care?? [_] Drain care?? [_] Trach or GT care?? Other _ Occupation Therapy (select all that apply): [_] None [_] ADL Management [_] Fall prevention training [_] Energy conservation [_] Cognitive training Other _ Physical Therapy (select all that apply): [_] None [_] Functional mobility training [_] Home exercise program to strengthen [_] Increase ROM?? [_] Falls prevention training [_] Home maintenance program for chronic disease Other _ Speech Therapy (select all that apply): [_] None [_] Swallow evaluation and training [_] Speech and language training [_] Cognitive training to process, organize, and/or recall information Other _ ? *Homebound due to (select all that apply): [X] Inability to leave home without assistance/supervision [_] Inability to ambulate without assistance [_] Pain [_] Decreased strength and endurance [_] Unsteady gait [_] Severe SOB and fatigue [_] Impaired transfers [_] Inability to negotiate stairs [_] Limited weight bearing [_] Mental status change? *Physician Signature:??Dr Torres ?? *By signing this, I certify that I have personally evaluated the patient and agree with the findings and recommendations as documented above. ? Results Discharge Labs BLOOD BANK Blood Type B Positive ()?? 04/04/2023 19:10 Antibody Screen Negative ()?? 04/04/2023 19:10 RBC Unit ID [id number] ()?? 04/01/2023 00:50 RBC Available RE ()?? 04/01/2023 00:50 ?? BLOOD COUNT & DIFF WBC 7.0 k/mm3 ()?? 04/05/2023 00:55 RBC 2.43 m/mm3 (Low)?? 04/05/2023 00:55 Hgb 7.0 Gm/dL (Low)?? 04/05/2023 00:55 Hct 23.1 % (Low)?? 04/05/2023 00:55 MCV 95.1 femtoliters ()?? 04/05/2023 00:55 MCH 28.8 pg ()?? 04/05/2023 00:55 MCHC 30.3 g/dL (Low)?? 04/05/2023 00:55 Platelet Count 179 k/mm3 ()?? 04/05/2023 00:55 RDW-SD 50.8 femtoliters (High)?? 04/05/2023 00:55 MPV 10.3 femtoliters ()?? 04/05/2023 00:55 Nucleated RBC (Automated) 0.0 #/100 WBC'S ()?? 04/05/2023 00:55 Abs. NRBC 0.0 k/mm3 ()?? 04/05/2023 00:55 Abs. Neut 4.0 k/mm3 ()?? 04/05/2023 00:55 Abs. Lymph 2.5 k/mm3 ()?? 04/05/2023 00:55 Abs. Davis 0.5 k/mm3 ()?? 04/05/2023 00:55 Abs. Eo 0.1 k/mm3 ()?? 04/05/2023 00:55 Abs. Baso 0.0 k/mm3 ()?? 04/05/2023 00:55 Neut % 56.1 % ()?? 04/05/2023 00:55 Lymph % 35.2 % ()?? 04/05/2023 00:55 Davis % 6.5 % ()?? 04/05/2023 00:55 Eos % 1.6 % ()?? 04/05/2023 00:55 Baso % 0.3 % ()?? 04/05/2023 00:55 Hemoglobin (POC) POC Cartridge 8.5 Gm/dL (Low)?? 04/01/2023 22:48 Hematocrit (POC) POC Cartridge 25 % (Low)?? 04/01/2023 22:48 Imm Gran 0.3 % ()?? 04/05/2023 00:55 Abs. Imm Gran 0.0 k/mm3 ()?? 04/05/2023 00:55 ?? BLOOD GAS pH (POC) POC Cartridge 7.47 (High)?? 04/01/2023 22:42 pCO2 (POC) POC Cartridge 34.0 mm Hg (Low)?? 04/01/2023 22:42 pO2 (POC) POC Cartridge 180 mm Hg (High)?? 04/01/2023 22:42 Estimated Bicarbonate (POC) POC Cart 24.5 mmol/L ()?? 04/01/2023 22:42 % O2 Sat Arterial (POC) POC Cartridge 100 % ()?? 04/01/2023 22:42 pH Venous (POC) POC Cartridge 7.30 (Low)?? 04/01/2023 22:48 pCO2 Venous (POC) POC Cartridge 45.1 mm Hg ()?? 04/01/2023 22:48 pO2 Venous (POC) POC Cartridge 37 mm Hg ()?? 04/01/2023 22:48 Est Bicarbonate (POC) POC Cartridge 22.1 mmol/L ()?? 04/01/2023 22:48 % O2 Sat Venous (POC) POC Cartridge 65 ()?? 04/01/2023 22:48 Base Excess (POC) POC Cartridge NEGATIVE 4 ()?? 04/01/2023 22:48 Specimen Type - Blood Gas MIXED VENOUS ()?? 04/01/2023 22:48 ?? CHEM GENERAL Sodium 142 mmol/L ()?? 04/05/2023 01:02 Potassium 3.8 mmol/L ()?? 04/05/2023 01:02 Chloride 106 mmol/L ()?? 04/05/2023 01:02 Bicarbonate Level 29 mmol/L ()?? 04/05/2023 01:02 Anion Gap 7 ()?? 04/05/2023 01:02 Sodium (POC) POC Cartridge 138 mmol/L ()?? 04/01/2023 22:48 Potassium (POC) POC Cartridge 4.0 mmol/L ()?? 04/01/2023 22:48 Glucose Level 91 mg/dL ()?? 04/05/2023 01:02 Glucose (POC) POC Cartridge 134 (High)?? 04/01/2023 22:48 Glucose, POC 152 mg/dL (High)?? 04/05/2023 12:07 BUN 13 mg/dL ()?? 04/05/2023 01:02 Creatinine-Blood 0.8 mg/dL ()?? 04/05/2023 01:02 Estimated GFR Creatinine 80 ML/MIN/1.73 M2 ()?? 04/05/2023 01:02 Calcium, Ionized pH Corrected 1.22 mmol/L ()?? 04/01/2023 14:35 Ionized Calcium (POC) POC Cartridge 1.17 mmol/L ()?? 04/01/2023 22:48 Magnesium 2.1 mg/dL ()?? 04/05/2023 01:02 ?? COAG INR 1.1 ()?? 04/01/2023 14:35 Protime (PT) 11.9 seconds (High)?? 04/01/2023 14:35 APTT 28.3 seconds ()?? 04/01/2023 14:35 Fibrinogen 209 mg/dL ()?? 04/01/2023 12:53 POC ACT-Plus 110.0 seconds ()?? 04/01/2023 12:56 ? MISC. CHEMISTRY Acute Kidney Injury Risk Score 0.09 ()?? 04/02/2023 03:40 ? URINE OTHER Est Creatinine Clearance 69.51 mL/min ()?? 04/03/2023 06:15 ? _ minutes spent on discharge * Mani VANEGAS, Olinda: PERFORM Event Display: Patient Education/Instruction Authored Date: [id number] Inpatient Adult Discharge Instructions [place] [id number] Name: ROBERT ABEL : 1960 Visit: 04/01/2023 06:40:00 Current Date: 04/05/2023 14:17 Account: [id number] Inpatient Adult Discharge Instructions We would like [...] and their families. Surveys are administered by [employer] ?? If further treatment with your primary care physician or another doctor is recommended, it is important for you to keep the appointment. Call your primary care physician or return to the Emergency Department immediately if your condition worsens, fails to improve, or new symptoms develop. If you need to find a doctor, you can call [facility] for a referral at [phone] or toll free at [phone] or log in to [email or web address] [employer].. ?? [facility], in keeping with [facility] guidance, no longer requires face masks for [...] a health care lida of your choosing. [employer] is a website that allows you to securely view your medical information including your hospital discharge summary, office visit summaries, medications and follow-up visits. You can also request appointments, renew medications, and request access to your medical information using a health care lida of your choosing, or just ask a question. You can enroll at [email or web address] or register during your next office visit. You have been discharged from [facility], Patient Care Unit: M6. If you have any questions regarding these instructions after you leave, please call us and we will be happy to assist you. [facility] Your Care Team Attending Physician Melissa RIDLEY, Bernardo Consulting Providers Melissa RIDLEY, Bernardo; Devin RIDLEY, Vinayak Reilly MD, Matthew Milner Discharging Providers Shaun Waggoner Reason for Admission L ATRIAL MASS MVR RESEC ATRIAL MY LEATHA 645 PANU Your Diagnosis Atrial myxoma Tests Performed Below is a partial list of the tests performed during your hospitalization. You may have had other tests and procedures not included in this list. Please discuss all test results with your provider. ABG POC CARTRIDGE BASE EXCESS POC CARTRIDGE BUN CALCIUM IONIZED POC CART CBC w/ Differential Creatinine Electrolytes FIBRINOGEN Glucose Level GLUCOSE POC GLUCOSE POC CARTRIDGE H + H HEMATOCRIT ONLY HEMATOCRIT POC CARTRIDGE HEMOCHRON ACT-PLUS HEMOGLOBIN POC CARTRIDGE Hgb + Hct INR Ionized Calcium Magnesium Level Nephro Check Platelet Count Potassium Level POTASSIUM POC CARTRIDGE PTT SODIUM POC CARTRIDGE Type and Screen VBG POC CARTRIDGE Portable Chest XR Chest Portable Primary Care Provider Rima Dubose MD Advance Directive Health Care Proxy on File No Patient refuses to discuss Discharge Vitals Temperature: 98.6 DegF Height: 168 cm Pulse Rate: 70 bpm Weight: 70.8 kg Respiratory Rate: 18 br/min Body Mass Index: 22.85 kg/m2 Systolic Blood Pressure: 106 mm Hg Body surface area: 1.73 Diastolic Blood Pressure: 63 mm Hg ?? Oxygen Saturation: 98 % ?? Studies Pending All tests and labs ordered during this hospital stay have been completed unless listed below. Please discuss all pending results with your provider listed above in these instructions. ?? BUN CBC w/ Differential Creatinine Electrolytes Glucose Level Magnesium Level Pathology Tissue Request () Type and Screen What to do next Instructions From Your Doctor Discharge Orders You Need to Schedule the Following Appointments Follow Up with??Rima Dubose MD When:??Within 2 to 5 weeks Follow Up with??Bernardo Torres MD When:??Within 1 to 2 weeks Discharge Medications ROBERT ABEL :1960 Visit Date:04/01/2023 Medications: Please continue your medications until treatment is completed or stopped by your provider. Medications not listed below should be discontinued. Discuss any questions related to medications with your provider. What How Much When Instructions Next Dose New Acetaminophen (acetaminophen 325 mg oral tablet) 975 Milligram Oral Every 6 hours as needed for Pain , Moderate as needed New amiODARONE (amiodarone 200 mg oral tablet) 200 Milligram Oral Twice a day Pickup at [facility] 3 Tonight at bedtime New Emollients, Topical (Vashe Topical Solution) 475 Milliliter Topically Every 6 hours as needed for Other Twice a day Tonight at bedtime New Furosemide (furosemide 20 mg oral tablet) 1 capsule Oral Twice a day Pickup at [facility] 3 Tomorrow morning New Metoprolol (metoprolol 50 mg oral tablet, extended release) 1 tab(s) Oral Daily Pickup at [facility] 3 Tomorrow morning Unchanged Aspirin (aspirin 81 mg oral tablet, chewable) 1 tab(s) Oral Daily Tomorrow morning Unchanged Atorvastatin (atorvastatin 40 mg oral tablet) 2 tab(s) Oral Daily at Bedtime Tonight at bedtime Unchanged BuPROpion (buPROPion 150 mg/ 24 hours (XL) oral tablet, extended release) 1 tab(s) Oral Every 24 hours Tomorrow morning Unchanged Cyanocobalamin (Vitamin B-12 1000 mcg oral tablet) 0.5 tab(s) Oral Daily Tomorrow morning Unchanged Gabapentin (gabapentin 100 mg oral capsule) 2 capsule Oral 3 times a day Tonight at bedtime Unchanged Pantoprazole (pantoprazole 40 mg oral delayed release tablet) 1 tab(s) Oral Daily Tomorrow morning Pharmacy Information [facility]: [address], [place] [id number] [phone] Test Results Below is a partial list of the most recent Laboratory test results done prior to this discharge. You may have had other tests and procedures not included in this list. Please discuss all test resultswith your provider. Est Creatinine Clearance - 69.51 mL/min (04/03/2023) RBC Available - RE (04/01/2023) RBC Unit ID - [id number] (04/01/2023) ABG POC CARTRIDGE (04/01/2023) ???pH (POC) POC Cartridge - 7.47???pCO2 (POC) POC Cartridge - 34.0 mm Hg???pO2 (POC) POC Cartridge - 180 mm Hg???Estimated Bicarbonate (POC) POC Cart - 24.5 mmol/L???% O2 Sat Arterial (POC) POC Cartridge - 100 %???Specimen Type - Blood Gas - ARTERIAL BASE EXCESS POC CARTRIDGE (04/01/2023) ???Base Excess (POC) POC Cartridge - NEGATIVE 4 BUN (04/05/2023) ???BUN - 13 mg/dL CALCIUM IONIZED POC CART (04/01/2023) ???Ionized Calcium (POC) POC Cartridge - 1.17 mmol/L CBC w/ Differential (04/05/2023) ???WBC - 7.0 k/mm3???RBC - 2.43 m/mm3???Hgb - 7.0 Gm/dL???Hct - 23.1 %???MCV - 95.1 femtoliters???MCH - 28.8 pg???MCHC - 30.3 g/dL???Platelet Count - 179 k/mm3???RDW-SD - 50.8 femtoliters???MPV - 10.3 femtoliters???Nucleated RBC (Automated) - 0.0 #/100 WBC'S???Abs. NRBC - 0.0 k/mm3???Abs. Neut - 4.0 k/mm3???Abs. Lymph - 2.5 k/mm3???Abs. Davis - 0.5 k/mm3???Abs. Eo - 0.1 k/mm3???Abs. Baso - 0.0 k/mm3???Neut % - 56.1 %???Lymph % - 35.2 %???Davis % - 6.5 %???Eos % - 1.6 %???Baso % - 0.3 %???Imm Gran- 0.3 %???Abs. Imm Gran - 0.0 k/mm3 Creatinine (04/05/2023) ???Creatinine-Blood - 0.8 mg/dL???Estimated GFR Creatinine - 80 ML/MIN/1.73 M2 Electrolytes (04/05/2023) ???Sodium - 142 mmol/L???Potassium - 3.8 mmol/L???Chloride - 106 mmol/L???Bicarbonate Level - 29 mmol/L???Anion Gap - 7 FIBRINOGEN (04/01/2023) ???Fibrinogen - 209 mg/dL Glucose Level (04/05/2023) ???Glucose Level - 91 mg/dL GLUCOSE POC (04/05/2023) ???Glucose, POC - 152 mg/dL GLUCOSE POC CARTRIDGE (04/01/2023) ???Glucose (POC) POC Cartridge - 134 H + H (04/03/2023) ???Hgb - 6.9 Gm/dL???Hct - 21.7 % HEMATOCRIT ONLY (04/01/2023) ???Hct - 21.4 % HEMATOCRIT POC CARTRIDGE (04/01/2023) ???Hematocrit (POC) POC Cartridge - 25 % HEMOCHRON ACT-PLUS (04/01/2023) ???POC ACT-Plus - 110.0 seconds HEMOGLOBIN POC CARTRIDGE (04/01/2023) ???Hemoglobin (POC) POC Cartridge - 8.5 Gm/dL Hgb + Hct (04/01/2023) ???Hgb - 9.2 Gm/dL???Hct - 28.7 % INR (04/01/2023) ???INR - 1.1???Protime (PT) - 11.9 seconds Ionized Calcium (04/01/2023) ???Calcium, Ionized pH Corrected - 1.22 mmol/L Magnesium Level (04/05/2023) ???Magnesium - 2.1 mg/dL Nephro Check (04/02/2023) ???Acute Kidney Injury Risk Score - 0.09 Platelet Count (04/01/2023) ???Platelet Count - 170 k/mm3 Potassium Level (04/01/2023) ???Potassium - 4.5 mmol/L POTASSIUM POC CARTRIDGE (04/01/2023) ???Potassium (POC) POC Cartridge - 4.0 mmol/L PTT (04/01/2023) ???APTT - 28.3 seconds SODIUM POC CARTRIDGE (04/01/2023) ???Sodium (POC) POC Cartridge - 138 mmol/L Type and Screen (04/04/2023) ???Blood Type - B Positive???Antibody Screen - Negative VBG POC CARTRIDGE (04/01/2023) ???pH Venous (POC) POC Cartridge - 7.30???pCO2 Venous (POC) POC Cartridge - 45.1 mm Hg???pO2 Venous(POC) POC Cartridge - 37 mm Hg???Est Bicarbonate (POC) POC Cartridge - 22.1 mmol/L???% O2 Sat Venous (POC) POC Cartridge - 65???Specimen Type - Blood Gas - MIXED VENOUS Allergies (NKA means No Known Allergies) NKA Problems Active Problems??(7) Anxiety?? Atrial myxoma?? Fatty liver?? HTN (hypertension)?? Hyperlipidemia?? Obesity?? Tremor?? Education Materials Below is the list of Educational Leaflet Providered with your Discharge Instructions. Cardiac Surgery Discharge Instructions?? Valuables and Belongings I fully understand and agree that [facility] accepts no responsibility for all my personal [...] patient Date for Pt to Sign Valuables/Belongings: 04/01/23 18:07:00 ?? Other Discharge Information ?? Wound Assessment?? Wound Assessment?? Wound Location I: Sternum Surgical Incision Type I: Surgical Surgical Incision Location I: Sternum Surgical Incision Assessment I: Clean, dry, intact Surgical Incision I, Drainage Amount: Moderate Surgical Incision I, Drainage Color: Serosanguineous Surgical Incision I, Surrounding Skin: Intact Surgical Incision I, Odor: No Surgical Incision Type II: Surgical Surgical Incision Assessment II: Clean, dry, intact Surgical Incision II, Surrounding Skin: Intact ? Case Management Discharge Plan?? Discharge Plan?? Discharge Agency Information?? Discharge Level of Care at Discharge: Homehealth/VNA Name of Agency #1: [facility] Discharge Rx Program: Discharge Prescription Program Service Categories #1: [facility] Discharge Rx Program: Discharge Prescription Program Service Comments #1: The nurse will see you the day after discharge. They will call before they come to set up a time to see you. Discharge VNA/Hospice/Home Care: [facility] ? Pulmonary Rehab Status?? Pulmonary Rehab Discharge Status?? Respiratory Rate: 18 br/min PEEP: 5 ? Cardiac Rehab Assessment?? Cardiac Rehab Inpatient Assessment?? Comments-Education: post op ed, role of exercise, med ed Comments-Exercise Activity: home walking, IS, MITT Comments-Nutrition: per RD Comments-Other plan of care: pt's surgery does not jaun;lify for ph 2 cardiac rehab Common Emergency Awareness Tips IS IT A [...] are strongly encouraged to quit. Please call [facility] Organic To Go Link at [phone] or [phone] ([phone]) or log in to [email or web address] for referrals to smoking cessation programs. ?? 744 Suicide & Crisis Lifeline is available 21/12 if you or someone you know needs to find a reason to keep living. By calling 916 you'll be connected to a skilled, trained counselor at a crisis center in your area. INPATIENT DISCHARGE INSTRUCTIONS SIGNATURE ROBERT BUCIO Location:[facility] Registration Date and Time:04/01/2023 06:40 EDT Primary Care Physician: Gracy RIDLEY, Rima Fontenot, Attending Physician: Bernardo Torres MD, ROBERT OROPEZA, have received the above patient education materials/instructions and have verbalized understanding. If ambulance or transport services are being used I further acknowledge being given a choice of service. ?? If you need to contact me, please call me at this number: . Patient/Infantry Weapons Officer Name: Patient/Infantry Weapons Officer Signature: Relationship to Patient: Witness Name/Signature: Date: * Shaun Waggoner: PERFORM Event Display: Patient Education Leaflets Authored Date: [id number] Cardiac Surgery Discharge Instructions ?? 605 Patient Education Materials Cardiac Surgery Discharge Instructions ?? Here is information related to your condition to help you when you get home. ?? Call the Cardiac Surgery office if you experience any of the following: ??? Temperature of 101?? or above, chills, and or sweating. ??? Low grade fever of 99?? - 100?? lasting for a week. ??? Changes in breathing, chest pain, abnormal pain, dizziness, change in pulse, pulse rate or palpitations. ??? Worsening shortness of breath. ??? New onset nausea, vomiting or diarrhea. ??? New rash, cough, dizziness, leg cramps, or blurred vision. ??? Any bleeding or swelling at the incision site or if a hard lump forms. ??? Any drainage, redness, tenderness, or edges pulling apart at your surgical incision site. ??? A weight gain of more than 2-3 pounds in one day or 5 pounds in 1 week. ??? Worsening ankle swelling or leg pain ??? Pain in calf that becomes worse when pointing toe up to head ??? Sharp pain when taking a deep breath ??? Urinary tract infection: frequent urination, burning with urination, or urgency to urinate. ??? Extreme Fatigue ?? Call 911 if: ??? You develop a new onset of weakness, numbness, loss of vision, slurred speech or any concern for a stroke or mini stroke. ??? If you develop numbness, tingling, loss of sensation, and or coolnessto your arms or legs. ??? Fainting, confusion, or disorientation. ??? Sudden, severe headache. ??? If you develop chest pain or discomfort that is not relieved with rest ??? If profuse bleeding (doesnot stop in 30 minutes) occurs, hold pressure to the site and call 911, [address] not [address] yourself to the nearest hospital. ??? Bright red color in your stool. ??? Coughing or vomiting up bright red blood. ??? Heart rate faster than 150 beasts/minute with shortness of breath or new palpitations. ??? Severe abdominal pain ? ? Extreme weakness and/or chills often associated with fever >101??. ?? Follow Up: ?? A follow up appointment should be made with your doctors. If you do not have appointments scheduled, make them when you get home from the hospital. Follow up care is important; it is strongly encouraged that you to keep your appointments. ??? Cardiac Surgery Health Care Provider in 7 to 14 days or as directed. ??? Primary Care Provider in 2-5 weeks or as directed. ??? Primary Quality Assurance Representative in 2-5 weeks or as directed. ??? Cardiac Rehabilitation: Arrangements for cardiac rehabilitation enrollment will be made during your 1???2-week follow-up appointment with your cardiac surgery health care provider if an appointment was not made for you prior to discharge. If you have any questions, please call the Cardiac Surgery office at [phone]. ? Bathing: ??? Shower daily with a gentle soap allowing shower water to rinse soap off. ??? Gently pat incisions dry with a clean towel. ??? You may need assistance with showering the first few days. ??? If youare unsteady on your feet use a shower chair. ??? Do not take a tub bath until all scabs have healed on all incisions. ??? Do not use creams, lotions, or ointments on your incisions. ??? Wear clean clothing every day. ??? Avoid holding pets and children close to your bare chest. ??? Women: Wear a clean bra daily that you can put on without reaching your arms behind your back. ?? Incision Care: It is normal to see bruising and areas of hardness in your leg incisions (a camera was used to remove the vein there); you can elevate the leg, wear the compression stockings given to you or AAMIR bandages to help reduce swelling. ? ? Look at your incision sites (chest wall, legs, arms & groins) every day until they are completely healed. ??? Check your incisions daily for drainage, redness, increased tenderness, or edges pulling apart. ??? Keep your incisions clean and dry. ?? Activity ??? Imagine there is a tube around your upper body. You can lift, push, and raise your arms if you remain in the tube. ??? Move arms freely if not holding items. ??? Use both arms, keeping them closeto the body with elbows in when lifting pushing, pulling, getting out of bed, or standing from a chair. ??? Stop an activity if you experience discomfort or hear a clicking/popping sound. ??? When reaching behind with one arm for self-care such as toileting rotate from the waist keeping elbows close to the body. ??? Hug your chest with a clean pillow when coughing, laughing, or sneezing. ??? Gradually increase your activity. This will promote wound healing. Remember to alternate periods of activity with periods of rest. ??? It is important to continue to do the coughing and deep breathing exercises to help prevent breathing complications. ??? Use incentive spirometer 8 to 10 times hourly while awake for the first two weeks you are home. ??? Take your temperature every day. ??? Weigh yourself at the same time every morning. ??? Wear elastic stockings for four weeks after you return home.??? Put elastic stocking on in the morning and remove them at bedtime. ??? Female patients should wear a soft supportive bra without under wires to prevent breast from pulling on incision. ?? Driving ??? Do not drive for at least 3 weeks after surgery or until your surgeon approves driving during the postoperative visit. ??? Once approved to drive, start with short distances, and have a passengerwith you. ??? Do not drive if you are still taking any prescribed medication for pain or a muscle relaxer. ??? 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 ??? DO NOT disable airbags. ??? Position the passenger seat as far back as possible.?Diet ??? Use healthy cooking methods: Bake, Boil, Steam, Broil. ??? Eat mostly plant- based diet; fruits and vegetables, whole grains and legumes (beans, peas and lentils). Include nuts and seeds in moderation. ??? Choose lean meats: skinless chicken/turkey breast, red meats with minimal marbling, greater than 90% lean ground meats. ??? Enjoy fish and seafood prepared healthfully twice a week or more. ??? Choose low fat dairy products. ??? Enjoy sweets in moderation. ??? Reduce sodium and salt intake: Avoid adding salt and choose products with less than 140 mg sodium per serving. Use herbs and spices to flavor your food. Daily sodium intake should be less than 3000mg. ??? Avoid processed foods, fried foods and foods that contain trans-fat. ??? Daily protein intake goal is 80-110 grams. ?? Smoking If you have a history of smoking , it is advised that you quit. smoking is a major risk factor for coronary artery disease and heart attack. Smoking cessation is essential for recovery and long-term health . ?? We can offer smoking cessation resources, including nicotine replacement therapy, medication therapy, and referral to behavioral counseling or support groups. ?? Lowering your cholesterol Diet and exercise may not lower your cholesterol enough. Cholesterol medicines may help prevent further cholesterol build up in the arteries. Talk to your healthcare provider about taking medicine for high cholesterol. ? High blood pressure and diabetes ?? If you have high blood pressure or diabetes, continue with your prescribed treatments. These healthproblems, if not controlled can put you at risk for having a heart attack, stroke, or other vascular events. ?? Stress Learn to manage stress with ways that fit your needs. Some stress relieving activities include meditation, deep breathing techniques and exercise. Stress that isn???t managed can prolong healing and cause other health problems. Talk to your healthcare provider if you need additional resources to manage stress. ?? Feelings?? You may also be impatient to return to your regular activities and may feel frustrated with your recovery. Remember that your body needs time to heal. In fact, healing takes energy and depletes your strength. You will have good days and bad days, and you may feel depressed and angry about how long your recovery seems to take. Talk to your family or friends about your feelings and try to remember that you will get better. As you get stronger and more rested, you will feel more positive about your progress. One way to avoid feeling depressed is to maintain as normal a routine as possible. Get up at your usual time and bathe or shower. Get dressed; don???t stay in your nightclothes all day. Take a rest in the morning and afternoon, and when you feel tired. Get a good night???s sleep. If yourdepression doesn???t improve, talk to your doctor. Feelings ?? Valve Surgery Instructions ?? You will receive a booklet and card specific to the valve you received. This card should be always carried with you. Your doctor may prescribe an anticoagulant medication to prevent blood clots that could lead to a stroke. Your doctor may prescribe an antibiotic.?? This helps prevent infection that could scar and destroy your heart valve. Your will be instructed when to take this medication, suchas before dental work, surgery, or medical procedures. ?? Please refer to the Understanding & Preparing for Heart Surgery booklet. ?? If you are being discharged on Coumadin ??/warfarin, please refer to the H&V Anticoagulation Patient Education booklet. ?? Discharge Instruction Video ? * Fabienne Gandhi RN: PERFORM, SIGN, VERIFY Event Display: Cardiac Rehab Note Authored Date: Patient: ROBERT ABEL Age: 62 years Sex: Female : 1960 Associated Diagnoses: None Author: Fabienne Gandhi RN Pt continues with invasive lines. We will follow her when she is more clinically ready for Cardiac Rehab, but she has had a recent CVA with some right sided weakness and would benefit from PT eval. Please page [phone] with further questions. Thank you. * Cesar VANEGAS, Donna Sarmiento: PERFORM, SIGN, VERIFY Event Display: Cardiac Rehab Note Authored Date: Patient: ROBERT ABEL Age: 62 years Sex: Female : 1960 Associated Diagnoses: None Author: Donna Guerrero RN Recommendation and Plan Cardiac Rehab: Chart reviewed. Patient with invasive lines. Will follow and see patient when ready for services... Patient Care team information Care Team Personnel Name: Rima Dubose MD Position: [facility] Outreach Member Role: PCP Address: Address: [address] [place] [address] Name: Brandt Zhao RN Position: [facility] RN Member Role: Primary Care Nurse Name: Cristina Bedoya RN Position: [facility] RN Krystina Member Role: Primary Care Nurse Name: Maira Batista RN Position: [facility] RN Member Role: Primary Care Nurse Name: Kadi Noonan RN Position: [facility] SN RN Member Role: Primary Care Nurse Name: Eleanor Tucker RN Position: [facility] RN Member Role: Primary Care Nurse Name: Madelin Schmidt RN Position: [facility] RN Member Role: Primary Care Nurse Name: Kwasi Brady RN Position: [facility] RN Member Role: Primary Care Nurse Name: Keny Roman RN Position: [facility] RN Member Role: Primary Care Nurse Name: Fariba Vora Position: [facility] RN Member Role: Primary Care Nurse Name: Chapis Plunkett RN Position: [facility] RN Member Role: Primary Care Nurse Name: Tricia Liang RN Position: [facility] RN Member Role: Primary Care Nurse Name: Adry Giang RN Position: [facility] RN Member Role: Primary Care Nurse Name: Jeanmarie Muhammad RN Position: S RN Member Role: Primary Care Nurse Name: Ruddy Machuca RN Position: [facility] RN Member Role: Primary Care Nurse Care Team Related Persons Name: GERARDO BOWIE Address: [address] [address]
--- OUTSIDE RECORDS SUMMARY | 2023-08-30 13:43 | XMS_ITS | Continuity of Care Document ---
Author Name Unknown Organization [facility] ter Address [address] [place] [id number]- Care Team Providers Care Gerontology Aide Name Role Phone Gracy RIDLEY, Rima Fontenot Primary Care Physician [facility]counter [facility] Date[facility]s): 03/09/23 - 04/08/[address] [address] Attending Physician: Bernardo Torres MD Referring Physician: Bernardo [...] Yusef rded influenza virus vaccine, inactivated 02/18/17 Yuesf rded influenza virus vaccine, inactivated 03/02/16 Yusef rded influenza virus vaccine, inactivated 03/21/15 Yusef rded influenza virus vaccine, inactivated 03/08/14 Yusef rded influenza virus vaccine, inactivated 02/27/11 Yusef rded [id number] 12y+ bivalent booster vax 05/06/22 Recorded SARS-CoV-2 [...] 04/05/23 13:52:00 EST, Route to Pharmacy Electronically, [facility], Partial fill upon patient request [...] 04/05/23 13:53:00 EST, Route to Pharmacy Electronically, [facility], Partial fill upon patient request [...] 04/05/23 13:53:00 EST, Route to Pharmacy Electronically, [facility], Partial fill upon patient request [...] Team Personnel Name: Rima Dubose MD Position: [facility] Outreach Member Role: PCP Address: Address: [address] [place] [phone]- Name: Brandt Zhao RN Position: S RN Member Role: Primary Care Nurse Name: Cristina Bedoya RN Position: [facility] RN Supv Member Role: Primary Care Nurse Name: Lester RNMaira Position: [facility] RN Member Role: Primary Care Nurse Name: Kadi Noonan RN Position: [facility] SN RN Member Role: Primary Care Nurse Name: Eleanor Tucker RN Position: [facility] RN Member Role: Primary Care Nurse Name: Madelin Schmidt RN Position: [facility] RN Member Role: Primary Care Nurse Name: Kwasi Brady RN Position: [facility] RN Member Role: Primary Care Nurse Name: Keny Roman RN Position: [facility] RN Member Role: Primary Care Nurse Name: Fariba Vora Position: [facility] RN Member Role: Primary Care Nurse Name: Chapis Plunkett RN Position: [facility] RN Member Role: Primary Care Nurse Name: Tricia Liang RN Position: [facility] RN Member Role: Primary Care Nurse Name: Adry Giang RN Position: [facility] RN Member Role: Primary Care Nurse Name: Jeanmarie Muhammad RN Position: [facility] RN Member Role: Primary Care Nurse Name: Ruddy Machuca RN Position: [facility] RN Member Role: Primary Care Nurse Care Team Related Persons Name: GERARDO BOWIE Address: [address] [address]
--- OUTSIDE RECORDS SUMMARY | 2023-08-30 13:43 | XMS_ITS | Continuity of Care Document ---
Author Name Unknown Organization [facility] Cardiac Shannan abdifatah Address [address] [place] [id number]- Care Team Providers Care Manager Client Name Role Phone Gracy RIDLEY, Rima Fontenot Primary Care Physician [facility]counter [facility] Date(s): 03/03/23 - 04/02/23 [facility] Cardiac Surgery [address] [place] [address]- Allergies, Adverse Reactions, Alerts No Known Allergies [...] influenza virus vaccine, inactivated 02/27/11 Yusef rded [id number] 12y+ bivalent booster vax 05/06/22 Recorded SARS-CoV-2 [...] Team Personnel Name: Rima Dubose MD Position: [facility] Outreach Member Role: PCP Address: Address: [address] [place] [address]- Name: Brandt Zhao RN Position: S RN Member Role: Primary Care Nurse Name: Maira Batista RN Position: S RN Member Role: Primary Care Nurse Name: Kadi Noonan RN Position: [facility] SN RN Member Role: Primary Care Nurse Name: Eleanor Tucker RN Position: [facility] RN Member Role: Primary Care Nurse Name: Kwasi Brady RN Position: [facility] RN Member Role: Primary Care Nurse Name: Fariba Vora Position: [facility] RN Member Role: Primary Care Nurse Name: Chapis Plunkett RN Position: S RN Member Role: Primary Care Nurse Name: Tricia Liang RN Position: [facility] RN Member Role: Primary Care Nurse Name: Adry Giang RN Position: [facility] RN Member Role: Primary Care Nurse Name: Jeanmarie Muhammad RN Position: [facility] RN Member Role: Primary Care Nurse Name: Ruddy Machuca RN Position: [facility] RN Member Role: Primary Care Nurse Care Team Related Persons Name: GERARDO BOWIE Address: home [address] [address]
--- OUTSIDE RECORDS SUMMARY | 2023-08-30 13:43 | XMS_ITS | Continuity of Care Document ---
Author Name Unknown Organization [facility] Cardiac Shannan abdifatah Address [address] [place] [address]- Care Team Providers Care Cured Meats Supervisor Name Role Phone Anastasiya Lemos MD Primary Care Physician Encounter [facility] Date(s): 04/14/23 - 05/14/23 [facility] Cardiac Surgery [address] [place] [id number] Attending Physician: Julia Pace Admitting Physician: AdmtrJulia [...] influenza virus vaccine, inactivated 02/27/11 Yusef rded [id number] 12y+ bivalent booster vax 05/06/22 Recorded SARS-CoV-2 [...] 04/05/23 13:52:00 EST, Route to Pharmacy Electronically, [facility], Partial fill upon patient request if [...] 04/05/23 13:53:00 EST, Route to Pharmacy Electronically, [facility], Partial fill upon patient [...] Noonan RN Position: [facility] RN [...] Primary Care Member Role: PCP Address: Address: [address] [place] [address], 1st [place] [address]- Name: Keny Roman RN Position: S RN [...] Related Persons Name: GERARDO BOWIE Address: home [address] [place] [address]
[2023-08-30 13:50] VITALS: PULSE 85; RESP 18; O2SAT 97
[2023-08-30 14:29] VITALS: BP 153/95; PULSE 83; RESP 12; TEMP 36.6; O2SAT 100
[2023-08-30 15:19] LABS: Influenza A PCR NEGATIVE (Negative); Influenza B PCR NEGATIVE (Negative); Resp Syncy Virus RNA Qual PCR NEGATIVE (Negative); SARS COV2 PCR INHOUSE NEGATIVE (Negative)
[2023-08-30 15:29] LABS: INTERNATIONAL NORM RATIO 0.9 (0.9-1.1); Prothrombin Time 11.3 SEC (11.1-13.3)
[2023-08-30 15:41] LABS: Alanine Aminotransferase 39 U/L (0-31); Albumin Level 4.1 g/dL (3.5-5.0); Alkaline Phosphatase 120 U/L (39-117); Anion Gap 12 (12-20); Aspartate Amino Transferase 29 U/L (5-31); Bilirubin Total 0.5 mg/dL (0.0-1.0); Blood Urea Nitrogen 18 mg/dL (9-16); Calcium 9.7 mg/dL (8.4-10.2); Carbon Dioxide 25 mmol/L (22-29); Chloride 111 mmol/L (96-108); Creatinine Clr Calc Pharmacy 68.4; Estimated Glomerular Filt Rate > 60; Glucose Random 90 mg/dL (60-115); Lipase 39 U/L (8-78); Magnesium 2.2 mg/dL (1.6-2.6); Potassium 4.7 mmol/L (3.3-5.1); Sodium 143 mmol/L (135-145); Total Protein 7.5 g/dL (6.5-8.0)
[2023-08-30 15:50] LABS: Troponin-I High Sensitivity < 2.7 ng/L (<3.5-17.0)
[2023-08-30 16:50] VITALS: BP 148/83; PULSE 91; RESP 16; TEMP 36.7; O2SAT 99
[2023-08-30 17:15] LABS: Basophils Percent Auto 0.4 % (0-2); Eosinophils Absolute Auto 0.1 X10*3/uL (0.0-0.4); Eosinophils Percent Auto 1.7 % (0-4); Hematocrit 33.6 % (37.0-47.0); Hemoglobin 10.9 g/dl (12.0-16.0); Imm Gran Abs Auto 0.02 X10*3/uL (0.00-0.03); Imm Gran Pct Auto 0.4 % (0.0-0.4); Lymphocytes Absolute Auto 2.1 X10*3/uL (1.2-4.9); Lymphocytes Percent Auto 44.1 % (20-40); MANUAL DIFF FLAG SCAN; Mean Corpuscular HGB Conc 32.4 g/dl (31.0-35.0); Mean Corpuscular Hemoglobin 29.1 pg (27.0-33.0); Mean Corpuscular Volume 89.6 fL (80.0-98.0); Mean Platelet Volume 10.9 fL (9.4-12.3); Monocytes Absolute Auto 0.3 X10*3/uL (0.1-1.2); Monocytes Percent Auto 6.2 % (2-11); Neutrophils Absolute Auto 2.2 x10*3/uL (2.0-8.3); Neutrophils Percent Auto 47.2 % (45-73); PLT CLUMP 1; Red Blood Count 3.75 X10*6/uL (4.20-5.50); Red Cell Distribution Width 15.3 % (11.0-16.0); SCAN SMEAR FLAG 1
[2023-08-30 18:06] LABS: Platelet Count 61 X10*3/uL (160-400); White Blood Count 4.7 X10*3/uL (4.8-10.8)
--- NOTE | 2023-08-30 18:06 | MHC.EDTECH ---
The pt is refusing the blood draw
[2023-08-30 18:07] LABS: SLIDE REVIEW VERIFIED
--- NOTE | 2023-08-30 18:09 | PC.NURSE ---
Patient refusing all vitals signs, requesting to leave ama, provider aware.
[2023-08-30 18:12] VITALS: BP 148/83; PULSE 91; RESP 18; TEMP 36.6; O2SAT 98
== END 2023-08-30 18:13 | disposition left against medical advice (07) ==
PROVIDERS: Physician Assistant Medical; Emergency Provider Emergency Medicine
DX: R07.89 Other chest pain (principal); Z79.899 Other long term (current) drug therapy; Z11.52 Encounter for screening for COVID-19; Z20.822 Contact with and (suspected) exposure to COVID-19
CPT/HCPCS: 0241U; 71046; 80053; 83690; 83735; 84484; 85025; 85610; 93005; 99283; 99285

== ENCOUNTER → 2023-08-30 13:33 | Outpatient (BNV) | payer OTHER, SELFPAY | PROVIDERS: Emergency Provider Emergency Medicine; Visit Provider Internal Medicine Cardiovascular Disease | DX: R07.9 Chest pain, unspecified (principal); R94.31 Abnormal electrocardiogram [ECG] [EKG] | CPT/HCPCS: 93010 ==

== ENCOUNTER 2023-09-08 12:33 | Outpatient (RCR) | payer OTHER, SELFPAY ==
--- NOTE | 2023-12-17 12:28 | MHC.SP.ADU ---
Referring provider: Anastasiay Lemos Reason for Referral: Aphasia after L MCA stroke one year ago Type of Treatment: 03000 Evaluation Speech Sound Production WITH Language Date of Plan of Treatment: 09/08/23 Onset of Symptoms/Illness: 09/02/22 Date Treatment Started: 09/08/23 Medical Diagnosis: History of CVA Primary Speech Language Diagnosis: R47.01 Aphasia History Chaya is a 62 year old woman who was referred for a speech-language evaluation by Anastasiya Lemos. 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 Per review of Chaya?s electronic medical record, her Head CT from 03/03/23 revealed ?low attenuation change in the left frontotemporoparietal region, consistent with an MCA distribution infarction.? This evaluation was requested per her primary care provider to ?see if patient can regain other language or signs now that she is safely past surgery.? She was accompanied to this evaluation by her legal guardian who lives with her, Jaquan Luu. Jaquan reports that he and Chaya have known each other for 43 years and he is her primary caregiver. Chaya is retired and has two adult children, Horacio, 35, and Melissa, 33. She and Horacio deny that she has any history of hearing loss or visual impairment. Chaya smoked in the past, but no longer smokes and has no prior history of alcohol consumption. Pertinent past medical history includes a ?massive stroke on the left side? on September 022022. After this stroke, patient reportedly had difficulty using her right hand and ?could not walk well on her own.? She has since been using a cane to assist with ambulation. Chaya now communicates primarily with signs and gestures due to her severe aphasia as a residual effect of her stroke. She additionally exhibits difficulties reading and writing. Horacio says that Chaya had been fitted with an AAC device when she received speech therapy through [facility] 6 months ago, but that she ?did not know how to use the device and did not want to use it.? She stopped going to speech therapy when she was recovering from her heart surgery and was unable to reinstate her services there as they did not have availability to schedule. Horacio reports that Chaya cries when people talk to her and that her communication difficulties have significantly affected her ability to participate in events, stating, ?She does not want to do anything.? He says she otherwise ?lives a normal life,? enjoys sitting outside on the porch with her dog, bathes herself, and dresses herself. She and Horacio do not drive and instead use transportation services. Assessment Speech Production: Aphasic: Nonfluent Tests of Speech & Lang Adults: BDAE BNT Clinical Impression: Impaired Observations: Word Finding: Chaya was administered the Short Version of the [place] Naming Test. She was presented with line drawings which depicted concrete nouns (i.e. house, [place], and toothbrush). She was instructed to name these drawings to assess her confrontational naming and word retrieval skills. Chaya was unable to verbally name any of the 15 items. She repeatedly stated ?yeah? and sometimes gestured to show understanding of the object or concept being depicted. For example, when presented with an image depicting a toothbrush, Chaya gestured motion of brushing her teeth. She did not respond to semantic (i.e. ?This is something you use to brush your teeth?) or phonemic cues (i.e. ?We brush our teeth with a tooth?.?). She was unable to repeat any of the names. When asked to identify the written word from a choice of 4 words, she correctly identified 7 of the 15 items. Next, the [place] Diagnostic Aphasia Examination 3rd Edition- Short Form was administered informally as an assessment of Chaya?s Auditory Comprehension, Oral Expression, Reading, and Writing. Auditory Comprehension: Chaya was not reliable in identifying body parts on herself, nor other concrete nouns which were presented in an array of 4 line drawings. She correctly identified 6 of the 16 items. Chaya did follow some simple commands, but exhibited difficulty with multi-step commands and more complex commands. Because Chaya often responded to questions by exclusively saying ?yeah,? she referenced written ?yes? and ?no? cards to answer questions. By pointing to these cards, she correctly answered yes/no questions about ideational material (i.e. ?Can you pound a nail with a hammer?? ?Will a cork sink in water??) in 4 out of 4 trials. She exhibited more difficulty answering questions related to written content at the paragraph level which was read aloud to her, answering 3 of the 8 questions correctly. Chaya displayed moderate impairment in her receptive language, characterized by difficulties in the areas of word identification and following directions. Oral Expression: Chaya pointed to her fingers when instructed to count to ten. She repeatedly stated ?yeah? as she pointed to each finger, adjusting her intonation as if she were counting aloud. Chaya was unable to list days of the week either. To assess comprehension, she was asked to point to the weekdays on a calendar as they were stated. She was unable to complete this task. Chaya was not able to repeat single words or whole sentences. She stated ?yeah? when asked to repeat and at times became visibly frustrated and shook her head. Chaya demonstrates severe impairment of her verbal communication. She responds with a single word (?yeah?) and communicates mainly by pointing and gesturing, as previously reported by her caregiver, Horacio. Reading and Writing: Chaya?s written language was also assessed. She was able to match letters across cases and scripts. She was also able to match fingers to Persian numbers and Persian numbers to dot patterns. She was unable to read aloud single words or sentences. She exhibited difficulty answering multiple choice questions for sentence level comprehension. Chaya attempted to write her name. She spelled her first name correctly, but made errors spelling her last name (i.e. Worster spelled as ?Worstd?) with poor legibility. It is evident that Chaya?s reading and writing skills are also impacted by her aphasia. Functional Communication: Lastly, Chaya was administered portions of the Communication Activities of Daily Living- Third Edition (CADL-3) to gain more information about her functional communication skills and to identify potential challenges she may encounter in her day-to-day life. The CADL-3 examines functional communication skills across seven categories: Reading, Writing, or Using Numbers, Social Interactions, Contextual Communication, Nonverbal Communication, Sequential Relationships, Humor, Metaphor, and Absurdity, and Internet Basics. These areas are assessed through a series of questions, asked with visual stimuli, related to eating, shopping, visiting the doctor, and using electronic devices. This assessment was administered informally, thus we were unable to obtain any scores and instead made clinical observations which are detailed as follows. When REMOTE ENCODING OPERATIONS SUPERVISOR greeted Chaya by stating ?Miriam,? Chaya responded by waving her hand. When REMOTE ENCODING OPERATIONS SUPERVISOR asked Chaya if her last name was ?Eleno,? Chaya appropriately shook her head ?no.? She confirmed her address by nodding her head ?yes.? When asked an open ended question as to how her speech difficulty came to be, Chaya pointed to her mouth. She also communicated that she felt cold by holding her shoulders and shivering. Often, her caregiver, Horacio, assisted in answering open-ended questions on her behalf or by interpreting or elaborating on her responses. Chaya was able to role play ordering lunch by pointing to select an item from a menu. She pointed to the correct buttons in an elevator and identified which bathroom she would use. She did exhibit more difficulty with time concepts, reading schedules and maps, and tasks that required her to interpret humor or make inferences (i.e. finding what she should wear after seeing that it is raining). She also exhibited with other functional tasks, such as logging an appointment in a calendar and writing her address. Augmentative and Alternative Communication: Observations: Needs Further Testing Impressions and Recommendations Summary: Impact on Daily Function/Activity Limitations: Daily Activities: Severe Interpersonal Interactions: Severe Education: None Employment: None Community: Severe Chaya presents a SEVERE global aphasia affecting her expressive communication, comprehension, reading, and writing. During today?s evaluation, patient?s verbal responses were limited exclusively to ?yeah.? Chaya communicated primarily by pointing and gesturing (i.e. shivering to communicate ?I?m cold?). It is clear that Chaya?s communication challenges impact all other areas of her life significantly, including the ability to communicate her basic wants and needs, complete tasks of daily living (i.e. make appointments, complete paperwork, manage medications, etc), participate in social engagement, as well as her social-emotional wellbeing. Chaya is recommended individualized speech therapy services one time weekly x 12 weeks targeting functional communication with encouragement of total communication practices (i.e. using signs, gestures, writing, verbal expression). Additionally, she would benefit from further education pertaining to and evaluation for Augmentative and Alternative Communication (AAC) options. Recommendation for Speech Therapy: Further Testing Needed Outpatient Speech Therapy Frequency/Duration: 1x weekly x 12 weeks Date Range for Service Requested: Time to Reassess: 3 months Half-Way Goals: 1.) Patient will use a total communication approach (signs, gestures, and writing) to improve her ability to express her wants and needs. Short Term Goals: Goal # : 1.) Patient will create an APHASIA CARD, which will include information for personal safety (name, phone number, address, emergency contact) and to educate others about her aphasia (definition, helpful strategies) with 100% completion with maximal assistance from the clinician and her caregiver. Goal Status: New Goal Goal# : 2.) Patient will answer yes/no questions via any modality (i.e. thumb up/down, head nod/shake) in 8 out of 10 opportunities with minimal assistance. Goal Status: New Goal Goal # : 3.) Patient will identify basic objects and concepts by pointing from an array of 4+ icons in 8 out of 10 trials with minimal assistance. Goal Status: New Goal Goal # : 4.) Patient will express basic wants and needs via any modality (i.e. low-tech communication board and response to yes/no questions) in 8 out of 10 opportunities with moderate assistance. 5.) Patient will use nonverbal communication (i.e. gesture, ?showing? items such as ID, writing responses) to answer simple biographical questions at 80% accuracy given frequent maximal verbal and maximal visual cues. Goal Status: New Goal Recommended Referrals to be Discussed with Primary Care Provider: Other: See Comment AAC Evaluation Patient Education: Completed: Yes Patient/Caregiver Education: Described Results of Evaluation Family/Caregivers expressed understanding of results Comments/Barriers to Learning: It was a pleasure meeting and working with Chaya. Please do not hesitate to contact [facility] if we can be of further assistance. Pond Supervisor Clinican/Clinical Fellow: No Supervisory Statement: N/A Speech Language Pathologist: Marian Bond M.A., CCC-REMOTE ENCODING OPERATIONS SUPERVISOR
== END 2023-12-17 11:49 | disposition still patient (30) ==
LOC: HO.SH 12:33
PROVIDERS: PCP General Practice; Visit Provider General Practice
DX: R47.01 Aphasia (principal)
CPT/HCPCS: 92523

== ENCOUNTER 2023-09-09 14:27 | Outpatient (AMB) | payer OTHER, SELFPAY ==
--- NOTE | 2023-09-09 14:34 | A.OFFVIS_ITS ---
Intake Vital Signs 09/09/23 14:36 Height 5 ft 6 in Weight 143 lb 4.807 oz BMI 23.1 BP 130/78 Blood Pressure Location Lt brachial Position Sitting Pulse 72 Intake Visit Reasons: [facility] ED fu req- CP- left AMA - NS Intake Note: follow up after [facility] Accompanied by: Life Partner Allergies No Known Allergies [No Known Allergies*] Allergy (Unknown, Verified 09/09/23 14:50) Medication List - Last Reconciled 09/09/23 by Felicia Araujo NP alcohol swabs 1 pad topical QIDACHS atorvastatin 80 mg PO BEDTIME blood sugar diagnostic (FreeStyle Lite Strips) Test four times a day or as directed. blood-glucose meter (FreeStyle Lite Meter kit) As Directed bupropion HCl XL 150 mg PO QAM cyanocobalamin (vitamin B-12) 500 mcg PO DAILY gabapentin 200 mg PO TID lancets (FreeStyle Lancets) Test four times a day or as directed. pantoprazole 40 mg PO QAM HPI HPI Comments History of Present Illness Details 62-year-old female presents today for a visit. She presents with her who assist with communication due to aphasia from a stroke. She had a left atrial myoxma removed back in 03/2023. She had some recent chest pains which she went to the emergency room for and was found to be negative for a cardiac work-up for what was collected. A second troponin was not collected since patient insisted on leaving. She and her partner think it was related to moving a trash barrel on rough terrain too soon after surgery. PFSH Medical History Multiple sclerosis Neuropathy Tremor Surgical History S/P cholecystectomy Social History Household Members: Spouse Housing: Apartment Do you presently have visiting nurse or other home services: No Alcohol intake: former Patient Tobacco Use Status: Never used Tobacco e-Cigarette/Vaping Use: Never Used Second Hand Smoke Exposure: No service: No Review of Systems Const Denies weakness ENT Denies dizziness Card Denies chest pain, Denies chest pain with activity, Denies syncope, Denies rapid heart rate, Denies pedal edema, Denies edema, Denies leg edema, Denies lightheadedness, Denies palpitations, Denies dyspnea, Denies dyspnea on exertion and Denies orthopnea Resp Denies cough, Denies dyspnea and Denies dyspnea on exertion GI Denies hematochezia and Denies change in stool character Musc Denies abnormal gait, Denies muscle cramps, Denies muscle weakness, Denies numbness, Denies radiating pain into limb and Denies tingling Neuro Denies abnormal gait, Denies dizziness, Denies syncope, Denies numbness, Denies tingling and Denies weakness Endo Denies palpitations Physical Exam Vital Signs: Last Vital Signs Pulse 72 09/09/23 14:36 BP 130/78 09/09/23 14:36 BMI result Body Mass Index 23.1 Const General: healthy appearing and no acute distress Orientation/consciousness: patient oriented x3 HEENT Head: Yes normal to inspection Eyes General: appearance normal, both eyes and all related structures Neck Neck: Yes normal visual inspection Chest Chest palpation & inspection: normal inspection of the chest Resp Effort & Inspection: normal respiratory effort Auscultation: clear to auscultation bilaterally Cardio Jugular venous distension: no JVD Palpation: normal PMI Rate: regular rate Rhythm: regular rhythm Heart sounds: S1 normal heart sound present, S2 normal heart sound present, no click, no gallops, no murmurs and no rubs GI Inspection: Yes normal to inspection Palpation (GI): Soft to palpation Skin General skin exam: no rashes or lesions noted Neuro General: patient oriented x3 Extrem General: Yes normal to inspection Psych Other: apashia s/t stroke Appearance: grossly normal Assessment & Plan Assessment & Plan (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 Medications: Discontinued enoxaparin lovenox injection until 03/13/23. d/w home health care case manager Discontinued Reason: Patient no longer taking 65 mg (0.65 mL) subcut Q12H 20 mL 0RF Coding Level of Care Code Est Pt Level 3 (89522) Diagnoses Myxoma of heart D15.1
[2023-09-09 14:36] VITALS: BP 130/78; PULSE 72; BMI 23.1
== END 2023-09-09 14:58 | disposition home or self-care (01) ==
PROVIDERS: PCP General Practice; Visit Provider Nurse Practitioner
DX: D15.1 Benign neoplasm of heart (principal)
CPT/HCPCS: 99213

== ENCOUNTER → 2023-09-09 14:27 | Outpatient (BNVA) | payer OTHER, SELFPAY | PROVIDERS: Visit Provider Nurse Practitioner | DX: D15.1 Benign neoplasm of heart (principal) | CPT/HCPCS: 99212 ==

== ENCOUNTER 2023-11-02 09:11 | Outpatient (REF) | payer OTHER, SELFPAY ==
[2023-11-02 13:20] LABS: Alanine Aminotransferase 43 U/L (0-31); Albumin Level 4.2 g/dL (3.5-5.0); Alkaline Phosphatase 114 U/L (39-117); Anion Gap 13 (12-20); Aspartate Amino Transferase 32 U/L (5-31); Blood Urea Nitrogen 21 mg/dL (9-16); Calcium 9.9 mg/dL (8.4-10.2); Carbon Dioxide 26 mmol/L (22-29); Chloride 110 mmol/L (96-108); Cholesterol 160 mg/dL (<200); Estimated Glomerular Filt Rate > 60; Glucose Random 74 mg/dL (60-115); HDL Cholesterol 67 mg/dL (>40); LDL Cholesterol Calculated 80 mg/dL (<100); Potassium 4.5 mmol/L (3.3-5.1); Sodium 144 mmol/L (135-145); Total Protein 7.7 g/dL (6.5-8.0); Triglycerides 66 mg/dL (<150)
[2023-11-02 13:40] LABS: Bilirubin Total 0.4 mg/dL (0.0-1.0)
[2023-11-02 13:59] LABS: Creatinine Urine 127.81 mg/dL; Microalbum/Creatinine Ratio Ur 13.3 ug/mg cr (<30)
[2023-11-03 03:59] LABS: HBS Num1 138.97 mIU/mL (0-7.99); HBc Num1 5.23 S/CO (0.00-0.79); HBsAGNum1 0.32 S/CO (0.00-0.99); Hepatitis B Surface Antigen Negative (Negative); ~HepC Num1 3.81 S/CO (0.00-0.79); ~Hepatitis B Surface Antibody REACTIVE (Nonreactive); ~Hepatitis C Antibody Reactive (Nonreactive)
[2023-11-03 04:59] LABS: HBc Num2 5.25 S/CO; HBc Num3 5.24 S/CO; Hepatitis B Core Antibody Reactive (Nonreactive)
[2023-11-05 14:28] LABS: HCV Log PCR <1.18 NOT DETECTED Log IU/mL (NOT DETECTED); HepC Viral Load <15 NOT DETECTED IU/mL (NOT DETECTED)
== END 2023-11-02 09:12 | disposition home or self-care (01) ==
LOC: HO.HHCL 09:11
PROVIDERS: Visit Provider Nurse Practitioner
DX: I10 Essential (primary) hypertension (principal); Z11.3 Encounter for screening for infections with a predominantly sexual mode of transmission
CPT/HCPCS: 36415; 80053; 80061; 82043; 82570; 86704; 86706; 86803; 87340; 87522

== ENCOUNTER 2024-01-11 12:42 | Outpatient (AMB) | payer OTHER, SELFPAY ==
--- NOTE | 2024-01-11 12:53 | MHC.OFFVIS ---
Vital Signs 01/11/24 12:55 Height 5 ft 6 in Weight 156 lb 1.396 oz BMI 25.2 BP 146/84 H Blood Pressure Location Lt brachial Position Sitting Pulse 86 Pulse Source Pulse Oximeter Intake Visit Reasons: 3 month Follow Up(rs) [place] Consultant Required: No Accompanied by: Spouse Allergies No Known Allergies [No Known Allergies*] Allergy (Unknown, Verified 09/09/23 14:50) Medication List - Last Reconciled 01/11/24 by Rambo Zapata MD alcohol swabs 1 pad topical QIDACHS aspirin (Adult Low Dose Aspirin) 81 mg PO DAILY atorvastatin 80 mg PO BEDTIME blood sugar diagnostic (FreeStyle Lite Strips) Test four times a day or as directed. blood-glucose meter (FreeStyle Lite Meter kit) As Directed bupropion HCl XL 150 mg PO QAM cyanocobalamin (vitamin B-12) 500 mcg PO DAILY gabapentin 200 mg PO TID lancets (FreeStyle Lancets) Test four times a day or as directed. pantoprazole 40 mg PO QAM HPI Comments Details: Chaya returns for follow-up. She has a fairly complex history. I had seen her once in the hospital last year. Essentially, she has a history of left atrial myxoma. That was then turned diagnosed when she had a large stroke with hemorrhagic conversion. Workup then had revealed the left atrial myxoma as the culprit. Once she recovered from the stroke that was planned for cardiac surgery for myxoma removal. She had a complete workup through [facility] cardiology including transesophageal echocardiogram, cardiac catheterization among others. While she was awaiting surgery, she was admitted to [place] with embolic infarcts in the brain as well as kidney and spleen. Then she was put on anticoagulation and she was due to get surgery the following week. At that time, I had spoken to her cardiac surgeon. After that, it seems she had the surgery without any issues and then saw our nurse practitioner once. Now she returns for follow-up. She still has some deficits from the stroke but otherwise doing well. She does not seem to be on anticoagulation at this time. Only on low-dose aspirin. Otherwise, no clear cardiac symptoms. [facility] Medical History Multiple sclerosis Neuropathy Tremor Surgical History S/P cholecystectomy Family History (Updated 01/11/24 @ 13:10 by Rambo Zapata MD) Mother No problems noted. Father No problems noted. Social History Household Members: Spouse Housing: Apartment Do you presently have visiting nurse or other home services: No Alcohol intake: former Patient Tobacco Use Status: Never used Tobacco e-Cigarette/Vaping Use: Never Used Second Hand Smoke Exposure: No service: No Review of Systems Const All systems reviewed & are unremarkable except as noted in HPI and below Reports as per HPI and Reports no additional complaints Eyes Reports as per HPI and Denies no additional complaints ENT Denies no additional complaints and Reports as per HPI Card Reports as per HPI, Reports no additional complaints, Denies acrocyanosis, Denies chest pain, Denies leg edema, Denies lightheadedness, Denies palpitations and Denies dyspnea Resp Reports as per HPI, Denies no additional complaints and Denies dyspnea GI Reports as per HPI and Denies no additional complaints Reports as per HPI Musc Reports no additional complaints and Reports as per HPI Skin/Breast Reports system reviewed and no additional complaints, except as documented Neuro Reports no additional complaints and Reports as per HPI Psych Reports no additional complaints and Reports as per HPI Endo Reports no additional complaints, Reports as per HPI and Denies palpitations Antonio/Lymph Reports no additional complaints and Reports as per HPI Aller/Immun Reports no additional complaints and Reports as per HPI Physical Exam Vital Signs: Last Vital Signs Pulse 86 01/11/24 12:55 BP 146/84 H 01/11/24 12:55 BMI result Body Mass Index 25.2 Const General: comfortable and no acute distress Orientation/consciousness: patient oriented x3 HEENT Other: Unremarkable Head: Yes normal to inspection Neck Neck: Yes normal visual inspection Chest Chest palpation & inspection: normal inspection of the chest Resp Auscultation: clear to auscultation bilaterally Cardio Palpation: normal PMI Heart sounds: S1 normal heart sound present, S2 normal heart sound present, no gallops, no murmurs and no rubs GI Palpation (GI): Soft to palpation Back/Spine/Pelvis Other: unremarkable Skin General skin exam: no rashes or lesions noted Neuro General: patient oriented x3 Extrem General: Yes normal to inspection Psych Mental Status: mental status grossly normal Assessment & Plan Assessment & Plan (1) Myxoma of heart: Code(s): D15.1 - Benign neoplasm of heart Category: Medical Plan Surgery notes reviewed. She underwent left atrial myxoma excision and atrial septal defect repair. Preoperative catheterization did not show any coronary artery disease. Overall, reasonable to just keep her on low-dose aspirin. Blood pressure is on the higher side but she is not documented be hypertensive. We can follow-up on that. Otherwise, we will repeat her echocardiogram to reassess. Discussed with significant other who came for appointment. Total time spent including review of data, counseling, documentation, coordination of care-31 minutes. Orders: Orders CA echo transthoracic complete Today D15.1 - Benign neoplasm of heart, Z98.890 - Other specified postprocedural states Coding Level of Care Code Est Pt Level 4 (04277) Diagnoses Myxoma of heart D15.1
[2024-01-11 12:55] VITALS: BP 146/84; PULSE 86; BMI 25.2
== END 2024-01-11 13:16 | disposition home or self-care (01) ==
PROVIDERS: PCP General Practice; Visit Provider Internal Medicine
DX: D15.1 Benign neoplasm of heart (principal)
CPT/HCPCS: 99214

== ENCOUNTER → 2024-01-11 12:42 | Outpatient (BNVA) | payer OTHER, SELFPAY | PROVIDERS: PCP General Practice; Visit Provider Internal Medicine | DX: D15.1 Benign neoplasm of heart (principal) | CPT/HCPCS: 99212 ==

== ENCOUNTER 2024-01-16 11:45 | Emergency (ER) | payer OTHER, SELFPAY ==
--- NOTE | ~2024-01-16 | XR_ITS ---
EXAMINATION: XR chest 1V CLINICAL INFORMATION: Reason for Exam sob, fatigue, malaise COMPARISON: Prior chest x-ray 08/30/2023 TECHNIQUE: Single portable frontal view. Tubes and lines: None Lungs and pleura: Both lungs are clear. Heart and mediastinum: Sternotomy wires from prior thoracotomy unchanged.. Bones/soft tissue: Skeletal structures included are normal for patient's age. XR/XR chest 1V IMPRESSION: No radiographic evidence of acute cardiopulmonary disease.
[2024-01-16 11:55] VITALS: BP 165/84; BP 182/100; PULSE 106; PULSE 83; RESP 18; TEMP 36.8; O2SAT 99; BMI 26.2
--- NOTE | 2024-01-16 11:58 | ED_ITS ---
HPI - General Adult General Chief complaint: General Medical Stated complaint: BODY ACHES AND PAINS Time Seen by Provider: 01/16/24 11:55 Source: patient and EMS Mode of arrival: EMS Limitations: other (difficult to communicate w/ patient answers yes or no ) History of Present Illness ED Provider: Onelia HPI narrative: 63 year old female pmhx MS, neuropathy, tremor of CVA resulting expressive aphasia and L sided facial droop/R sided weakness she is not on blood thinners presents w/ unclear CC patient pointing to her left side and states she fell. Unclear when. Not on thinenrs. No LOC. difficult to communicate with patient just answering yes or no questions. Related Data Home Medications ?Medication ?Instructions ?Recorded ?Confirmed atorvastatin 80 mg tablet 80 mg PO BEDTIME 03/03/23 01/11/24 bupropion HCl 150 mg 24 hr tablet, 150 mg PO QAM 03/03/23 01/11/24 extended release cyanocobalamin (vitamin B-12) 500 500 mcg PO DAILY 03/03/23 01/11/24 mcg tablet gabapentin 100 mg capsule 200 mg PO TID 03/03/23 01/11/24 pantoprazole 40 mg tablet,delayed 40 mg PO QAM 03/03/23 01/11/24 release aspirin 81 mg tablet,delayed 81 mg PO DAILY 01/11/24 01/11/24 release (Adult Low Dose Aspirin) Previous Rx's ?Medication ?Instructions ?Recorded alcohol swabs 1 pad topical QIDACHS #100 ea 03/04/23 blood sugar diagnostic (FreeStyle #100 ea 03/04/23 Lite Strips) blood-glucose meter (FreeStyle #1 ea 03/04/23 Lite Meter kit) lancets 28 gauge (FreeStyle #100 ea 03/04/23 Lancets) Allergies Allergy/AdvReac Type Severity Reaction Status Date / Time No Known Allergies Allergy Unknown Verified 01/16/24 12:00 [No Known Allergies*] Review of Systems 2 Review of Systems: Yes all other systems are reviewed and are negative PMFSH Past Medical History Attestation statement: The following information was validated with the patient. Source: old records reviewed and nursing notes reviewed Medical History Multiple sclerosis Neuropathy Tremor Surgical History S/P cholecystectomy Family History Family History (Updated 01/11/24 @ 13:10 by Rambo Zapata MD) Mother No problems noted. Father No problems noted. Social History Social History Household Members: Spouse Housing: Apartment Do you presently have visiting nurse or other home services: No Alcohol intake: former Patient Tobacco Use Status: Never used Tobacco e-Cigarette/Vaping Use: Never Used Second Hand Smoke Exposure: No Advance Directives: No Advance Directives Information Provided: Yes service: No Physical Exam ED Vital Signs: Vital Signs - 24 hr 01/16/24 11:55 Temperature 98.3 F Pulse Rate 83 Respiratory Rate 18 Blood Pressure 165/84 H Pulse Oximetry 99 Oxygen Delivery Method Room Air BMI result Body Mass Index 26.2 vss Appearance: can only say yes or no, L facial droop expressive aphasia, R sided weakness at baseline Head: Normocephalic, atraumatic, no step-offs or deformities Eyes: Pupils equal, round and reactive to light.? Neck: Normal inspection.? Neck supple.? CVS: Normal heart rate and rhythm.? Pulses normal.? Respiratory: No respiratory distress.? Breath sounds normal.? Abdomen: Soft and nontender.? Skin: Skin warm and dry.? Normal skin color.? Normal skin turgor.? Extremities: No lower extremity edema.? No calf ttp. 5/5 strength to bilateral upper and lower extremities Back: No midline tenderness, no C-spine tenderness, full range of motion, no CVA tenderness bilaterally Neuro: can only say yes or no, L facial droop expressive aphasia, R sided weakness at baseline Course Reevaluation(s) Reevaluation #1: Cbc unremarkable. Chemistry unremarkable. Trop negative, non ischemic EKG. Influenza, RSV, COVID negative. Reevaluation #2: Patient eloped from the department House mate called to make them aware. PD will be called by nursing if pataient is not found. Medical Decision Making Medical Decision Making MDM Narrative: 63 year old female presents w/ unclear complains pointing at left side and only answering yes or no questions PE can only say yes or no, L facial droop expressive aphasia, R sided weakness at baseline Normal strength. Hx and pe concerning for physical deconditioning and fall. Will rule out traumatic injuriees related to fall, metabolic derangmnts, arrythmia, cardiac etiologies. Plan- labs, ua, imaging, ekg Differential Diagnosis Differential Diagnoses: The differential diagnosis associated with the presentation includes Hx and pe concerning for physical deconditioning and fall. Will rule out traumatic injuriees related to fall, metabolic derangmnts, arrythmia, cardiac etiologies. Lab Data MDM Lab Attestation statement: I reviewed the patient's lab results. 01/16/24 12:27 01/16/24 12:27 Labs: Lab Results 01/16/24 Range/Units 12:27 WBC 5.5 (4.8-10.8) X10*3/uL RBC 4.23 (4.20-5.50) X10*6/uL Hgb 12.7 (12.0-16.0) g/dl Hct 39.8 (37.0-47.0) % MCV 94.1 (80.0-98.0) fL MCH 30.0 (27.0-33.0) pg MCHC 31.9 (31.0-35.0) g/dl RDW 13.5 (11.0-16.0) % Plt Count 246 D (160-400) X10*3/uL MPV 9.6 (9.4-12.3) fL Immature Gran % (Auto) 0.2 (0.0-0.4) % Neut % (Auto) 58.9 (45-73) % Lymph % (Auto) 33.2 (20-40) % Saunders % (Auto) 5.0 (2-11) % Eos % (Auto) 1.8 (0-4) % Baso % (Auto) 0.9 (0-2) % Lymph # (Auto) 1.8 (1.2-4.9) X10*3/uL Saunders # (Auto) 0.3 (0.1-1.2) X10*3/uL Eos # (Auto) 0.1 (0.0-0.4) X10*3/uL Baso # (Auto) 0.1 (0.0-0.2) X10*3/uL Abs Immat Gran (auto) 0.01 (0.00-0.03) X10*3/uL Absolute Neuts (auto) 3.2 (2.0-8.3) x10*3/uL Absolute Nucleated RBC 0.000 (0.0-0.012) X10*3/uL Nucleated RBC % (auto) 0.0 (0.0-0.2) /100WBC Sodium 144 (135-145) mmol/L Potassium 4.7 (3.3-5.1) mmol/L Chloride 107 (96-108) mmol/L Carbon Dioxide 27 (22-29) mmol/L Anion Gap 15 (12-20) BUN 18 H (9-16) mg/dL Creatinine 0.89 (0.5-1.4) mg/dL Estim Creat Clear Calc 67.2 Estimated GFR > 60 Random Glucose 83 (60-115) mg/dL Calcium 9.9 (8.4-10.2) mg/dL Magnesium 2.1 (1.6-2.6) mg/dL Total Bilirubin 0.5 (0.0-1.0) mg/dL AST 17 (5-31) U/L ALT 17 (0-31) U/L Alkaline Phosphatase 92 (39-117) U/L Troponin I High Sens < 2.7 (<3.5-17.0) ng/L Total Protein 7.7 (6.5-8.0) g/dL Albumin 4.3 (3.5-5.0) g/dL Influenza Type A (PCR) NEGATIVE (Negative) Influenza Type B (PCR) NEGATIVE (Negative) RSV RNA Qual (PCR) NEGATIVE (Negative) SARS-CoV-2 RNA (RT-PCR) NEGATIVE (Negative) Independent Interpretation I performed an independent interpretation of an: EKG (Vent. Rate : 076 BPM Atrial Rate : 076 BPM P-R Int : 154 ms QRS Dur : 066 ms QT Int : 386 ms P-R-T Axes : 029 042 076 degrees QTc Int : 434 ms Normal sinus rhythm Low voltage QRS Nonspecific ST and T wave abnormality Abnormal ECG When compared with ECG of 30-AUG-2023 1) Radiology Impression Discussion of test interpretation with radiology: I have reviewed the radiologist's reading. Discharge Plan Discharge Clinical Impression: Fall, Eloped from emergency department Patient Disposition: Elopement Prescriptions: No Action atorvastatin 80 mg tablet 80 mg PO BEDTIME cyanocobalamin (vitamin B-12) 500 mcg tablet 500 mcg PO DAILY pantoprazole 40 mg tablet,delayed release (DR/EC) 40 mg PO QAM gabapentin 100 mg capsule 200 mg PO TID bupropion HCl 150 mg tablet extended release 24 hr 150 mg PO QAM (DME) FreeStyle Lite Strips Strip Qty: 100 0RF Rx Instructions: Test four times a day or as directed. (DME) blood-glucose meter [FreeStyle Lite Meter] Kit Qty: 1 0RF Rx Instructions: As Directed alcohol swabs Pads, Medicated 1 pad TOPICAL QIDACHS Qty: 100 0RF Rx Instructions: Use four times a day or as directed. (DME) lancets [FreeStyle Lancets] 28 gauge misc Qty: 100 0RF Rx Instructions: Test four times a day or as directed. aspirin [Adult Low Dose Aspirin] 81 mg tablet,delayed release (DR/EC) 81 mg PO DAILY Print Language: Kyrgyz
--- NOTE | 2024-01-16 12:19 | ECG_ITS ---
Test Reason : aches and pains Blood Pressure : / mmHG Vent. Rate : 076 BPM Atrial Rate : 076 BPM P-R Int : 154 ms QRS Dur : 066 ms QT Int : 386 ms P-R-T Axes : 029 042 076 degrees QTc Int : 434 ms Normal sinus rhythm Low voltage QRS Nonspecific ST and T wave abnormality Abnormal ECG When compared with ECG of 30-AUG-2023 13:31, Nonspecific T wave abnormality, improved in Anterior leads Referred By: Avery Rousseau Electronically Signed By:USHA PULLIAM
[2024-01-16 12:33] LABS: MANUAL DIFF FLAG NO
[2024-01-16 12:41] LABS: Basophils Absolute Auto 0.1 X10*3/uL (0.0-0.2); Basophils Percent Auto 0.9 % (0-2); Eosinophils Absolute Auto 0.1 X10*3/uL (0.0-0.4); Eosinophils Percent Auto 1.8 % (0-4); Hematocrit 39.8 % (37.0-47.0); Hemoglobin 12.7 g/dl (12.0-16.0); Imm Gran Abs Auto 0.01 X10*3/uL (0.00-0.03); Imm Gran Pct Auto 0.2 % (0.0-0.4); Lymphocytes Absolute Auto 1.8 X10*3/uL (1.2-4.9); Lymphocytes Percent Auto 33.2 % (20-40); Mean Corpuscular HGB Conc 31.9 g/dl (31.0-35.0); Mean Corpuscular Volume 94.1 fL (80.0-98.0); Mean Platelet Volume 9.6 fL (9.4-12.3); Monocytes Absolute Auto 0.3 X10*3/uL (0.1-1.2); Neutrophils Absolute Auto 3.2 x10*3/uL (2.0-8.3); Neutrophils Percent Auto 58.9 % (45-73); Platelet Count 246 X10*3/uL (160-400); Red Blood Count 4.23 X10*6/uL (4.20-5.50); Red Cell Distribution Width 13.5 % (11.0-16.0); White Blood Count 5.5 X10*3/uL (4.8-10.8)
[2024-01-16 12:51] LABS: Alanine Aminotransferase 17 U/L (0-31); Albumin Level 4.3 g/dL (3.5-5.0); Alkaline Phosphatase 92 U/L (39-117); Anion Gap 15 (12-20); Aspartate Amino Transferase 17 U/L (5-31); Bilirubin Total 0.5 mg/dL (0.0-1.0); Blood Urea Nitrogen 18 mg/dL (9-16); Calcium 9.9 mg/dL (8.4-10.2); Carbon Dioxide 27 mmol/L (22-29); Chloride 107 mmol/L (96-108); Creatinine Clr Calc Pharmacy 67.2; Estimated Glomerular Filt Rate > 60; Glucose Random 83 mg/dL (60-115); Magnesium 2.1 mg/dL (1.6-2.6); Potassium 4.7 mmol/L (3.3-5.1); Sodium 144 mmol/L (135-145); Total Protein 7.7 g/dL (6.5-8.0)
[2024-01-16 12:59] LABS: Troponin-I High Sensitivity < 2.7 ng/L (<3.5-17.0)
[2024-01-16 13:11] LABS: Influenza A PCR NEGATIVE (Negative); Influenza B PCR NEGATIVE (Negative); Resp Syncy Virus RNA Qual PCR NEGATIVE (Negative); SARS COV2 PCR INHOUSE NEGATIVE (Negative)
--- NOTE | 2024-01-16 14:30 | PC.NURSE ---
This RN went in to round on pt. It was discovered that pt. was not in her room. Security notified and it was seen on camera that pt. left the emergency department in her civilian clothes and walked down towards [facility]. This RN and windows security engineer took a drive around the immediate area of the hospital and pt. was not found. This RN called pt.'s cell phone x2, then called the pt.'s healthcare proxy to notify that pt. left. Pt.'s healthcare proxy said that he will try to call the pt. himself, as he doesn't think the pt. will answer the phone if she thinks the hospital is calling her. HCP states that he will call the hospital to let us know if he hears from her.
--- NOTE | 2024-01-16 15:00 | PC.NURSE ---
Pt.'s healthcare proxy/partner, Jaquan, called - Jaquan said that Chaya walked home. She is home safe. States that she did not want to stay to complete her treatment.
[2024-01-16 15:01] VITALS: BP 165/84; PULSE 83; RESP 18; TEMP 36.8; O2SAT 99
== END 2024-01-16 15:02 | disposition left against medical advice (07) ==
PROVIDERS: Physician Assistant; Emergency Provider Emergency Medicine
DX: M79.10 Myalgia, unspecified site (principal); R29.810 Facial weakness; R07.89 Other chest pain; Z03.818 Encounter for observation for suspected exposure to other biological agents ruled out; Z79.899 Other long term (current) drug therapy
CPT/HCPCS: 0241U; 36415; 71045; 80053; 83735; 84484; 85025; 93005; 99283

== ENCOUNTER → 2024-02-29 13:37 | Outpatient (REF) | payer OTHER, SELFPAY ==
--- NOTE | 2024-02-29 13:41 | CA_ITS ---
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 The calculated ejection fraction is 43% by biplane method. - No obvious valvular pathology seen on this study. Findings Left Ventricle Normal left ventricular cavity size. There is normal left ventricular wall thickness. The left ventricular systolic function is mildly decreased. The calculated ejection fraction is 43% by biplane method. There is mild global hypokinesis. Evidence suggests grade I (mild) diastolic dysfunction. Right Ventricle Normal right ventricular cavity size. There is mildly decreased right ventricular systolic function. Atria Both atria are normal in size. Aortic Valve There is a normal trileaflet aortic valve. There is no aortic valve stenosis. There is no aortic valve regurgitation. Mitral Valve The mitral valve appears normal. There is trace mitral valve regurgitation. There is no mitral valve stenosis. Pulmonic Valve The pulmonic valve is likely normal. Tricuspid Valve There is no tricuspid valve regurgitation. Tricuspid regurgitation envelope is inadequate for calculation of right ventricular systolic pressure. Great Vessels The asc aorta is normal in size. Venous The inferior vena cava is mildly dilated and collapses less than 50% with inspiration. Pericardium/Pleural There is a small loculated pericardial effusion overlying the left ventricle. Exudative appearance. Prior Study Comparison Changes noted compared to prior study dated: 11/17/2022. s/p myxoma resection. Recommendations, Care & Conclusions No obvious valvular pathology seen on this study. Measurements 2D Linear Measurements IVSd: 1.16 0.6-0.9/0.6-1.0 cm LVIDd: 4.78 3.9-5.3/4.2-5.9 cm LVIDd Index: 2.58 2.4-3.2/2.2-3.1 cm/m2 LVIDs: 3.71 2.0-3.6 cm LVPWd: 0.74 0.7-1.1 cm LA Diam: 4.00 2.7-3.8/3.0-4.0 cm LAIDs Index: 2.16 1.5-2.3 cm/m2 LV Mass: 196.42 67-162/88-224 g LV Mass Index: 106.17 43-95/49-115 g/m2 LVOT Diam: 2.20 3.0+(-)1.3 cm 2D Systolic Function EF 4C: 49.10 >55% EF 2C: 36.80 >55% EF BiP: 42.50 >55% Mitral Valve MV Pk E: 0.64 MV PK A: 0.83 MV Decel Time: 199.00 E/A: 0.80 E'Lateral: 4.68 E'Medial: 4.13 E/E' Med: 15.40 E/E' Lat: 13.60 PHT: 58.00 MVA PHT: 3.79 Decel Harper: 3.21 Aortic Valve AoV Pk Esteban: 1.09 AoV Pk Grad: 5.00 LOLIS: 2.60 LVOT LVOT Pk Esteban: 0.76 LVOT Mn Esteban: 0.52 LVOT VTI: 0.16 LVOT Pk Grad: 2.00 LVOT Mn Grad: 2.00 LVOT Diam: 2.20 LVOT Area: 3.80 Diastolic Function MV Pk E: 0.64 MV Pk A: 0.83 E/A: 0.80 E'Medial: 4.13 E/E' Med: 15.40 E' Laterial: 4.68 E/E' Lat: 13.60 Right Ventricle TAPSE (mm): 13.10 TVS' Esteban: 7.40 Tricuspid Valve RA Press: 15.00 Great Vessels Aorta Sinus of Valsalva: 2.70 2.0-3.5 cm Ao Asc: 3.30 2.1-3.4 cm Pulmonary Veins Pulm Vein S/D 1.20 Pulmonary Valve PV Pk Esteban: 0.84 Peak PV Grad: 3.00 Updated in Other Vendor System with Status of Final Rambo Zapata MD electronically signed on 02/29/2024 4:50:12 PM with status of Final
== END ==
LOC: HO.CARD 13:37
PROVIDERS: PCP General Practice; Visit Provider Internal Medicine
DX: D15.1 Benign neoplasm of heart (principal); Z98.890 Other specified postprocedural states
CPT/HCPCS: 93306

== ENCOUNTER → 2024-02-29 13:41 | Outpatient (BNV) | payer OTHER, SELFPAY | PROVIDERS: PCP General Practice; Visit Provider Internal Medicine | DX: I51.89 Other ill-defined heart diseases (principal); D15.1 Benign neoplasm of heart; R93.1 Abnormal findings on diagnostic imaging of heart and coronary circulation | CPT/HCPCS: 93306 ==

== ENCOUNTER 2024-03-17 11:16 | Outpatient (REF) | payer OTHER, SELFPAY ==
--- NOTE | ~2024-03-17 | MM_ITS ---
EXAMINATION: MM SCREENING DIGITAL BREAST TOMOSYNTHESIS, BILATERAL CLINICAL INFORMATION: Screening. Asymptomatic. COMPARISON: Mammography: Comparison is made with available priors TECHNIQUE: Digital breast mammography with tomosynthesis is performed in both the craniocaudal and mediolateral oblique views along with computer-aided detection (CAD). FINDINGS: There are scattered areas of fibroglandular density (ACR BI-RADS breast composition Category b). There are no significant masses, abnormal calcifications, or other abnormalities. MM/MM tomosynthesis screening BI IMPRESSION: No mammographic evidence of malignancy. ASSESSMENT: BI-RADS BI-RADS 1 - Negative RECOMMENDATION: Routine annual mammography screening. 1 year F/U This examination should not preclude the clinical evaluation of a suspicious palpable abnormality. This patient's information was entered into a reminder system with a target due date for their next mammogram. Electronically signed by: Anisa Jerome DO 03/29/2024 10:13 AM EDT
== END 2024-03-17 11:17 | disposition home or self-care (01) ==
LOC: HO.MAMMO 11:16
PROVIDERS: PCP General Practice; Visit Provider General Practice
DX: Z12.31 Encounter for screening mammogram for malignant neoplasm of breast (principal)
CPT/HCPCS: 77063; 77067

== ENCOUNTER → 2024-03-17 11:45 | Outpatient (BNV) | payer OTHER, SELFPAY | PROVIDERS: PCP General Practice; Visit Provider Internal Medicine | DX: Z12.31 Encounter for screening mammogram for malignant neoplasm of breast (principal) | CPT/HCPCS: 77063; 77067 ==

== ENCOUNTER 2024-04-05 09:00 | Outpatient (RCR) | payer OTHER, SELFPAY ==
--- NOTE | 2024-04-12 09:01 | MHC.SL.SOA ---
Referring Provider: Anastasiya Lemos Reason for Referral: Aphasia after L MCA stroke one year ago Date of Plan of Treatment:09/08/23 Onset of Symptoms/Illness:09/02/22 Date Treatment Started:09/08/23 Medical Diagnosis:History of CVA Primary Speech Language Diagnosis:R47.01 Aphasia Number of Authorized Visits Remainin Reason for Visit:05136 Individual Treatment Subjective:Chaya is a 63 year old woman who was referred for a speech therapy by Anastasiya Lemos. 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 Chaya's Head CT from 03/03/23 showed ?low attenuation change in the left frontotemporoparietal region, consistent with an MCA distribution infarction.? She is accompanied to her sessions by her partner and caregiver, Jaquan, and relies on a transportation service to get to her appointments. Chaya is retired and has two adult children, Horacio, 35, and Melissa, 33. She and Horacio deny that she has any history of hearing loss or visual impairment. Chaya smoked in the past, but no longer smokes and has no prior history of alcohol consumption. Pertinent past medical history includes a ?massive stroke on the left side? on September 022022. After this stroke, patient reportedly had difficulty using her right hand and ?could not walk well on her own.? She has since been using a cane to assist with ambulation. Chaya now has difficulties reading and writing, and communicates primarily with signs and gestures due to her severe aphasia. Horacio says that Chaya was trialing an AAC device when seen by the speech pathologist at [facility] over the summer, but she ?did not know how to use the device and did not want to use it.? It is unclear whether Chaya ever took this device home. Chaya and Horacio had signed a Release of Information, however, this COURTESY DRIVER has been unable to reach therapists at [facility]. Objective: 1.) Patient will create an APHASIA CARD, which will include information for personal safety (name, phone number, address, emergency contact) and to educate others about her aphasia (definition, helpful strategies) with 100% completion with maximal assistance from the clinician and her caregiver. Goal Met: COURTESY DRIVER assisted patient in creating a wallet card for personal safety. This card alerted that the patient has aphasia and included her phone number, address, and an emergency contact. Patient identified strategies for communication partners: speak slowly, show with gestures, allow time to respond, and ask yes/no questions. 2.) Patient will answer yes/no questions via any modality (i.e. thumb up/down, head nod/shake) in 8 out of 10 opportunities with minimal assistance. Goal Met: Patient answered yes/no questions in 80% of opportunities with minimal verbal prompting. Questions are repeated for the patient as needed. Patient answers yes/no verbally ( yeah / no ) and nonverbally (head nod/shake). She does not consistently show thumbs up or down. Patient answers yes/no questions related to her daily routine and needs, but is inconsistent in answering questions about ideational material. 3.) Patient will identify basic objects and concepts by pointing from an array of 4+ icons in 8 out of 10 trials with minimal assistance. Goal Partially Met: Patient identified basic objects and concepts by pointing to an array of 4 icons on a low tech communication board with 80% accuracy when provided with minimal to moderate assistance. Patient was provided with communication boards with 9-21 icons. She exhibited difficulty identifying icons with a large array and had an easier time when icons were masked to narrow her array to a choice of 4. Patient also answered yes/no questions to identify an icon when COURTESY DRIVER assisted with scanning row by row. 4.) Patient will express basic wants and needs via any modality (i.e. low-tech communication board and response to yes/no questions) in 8 out of 10 opportunities with moderate assistance. Goal Discharged: Patient expresses basic wants and needs through yes/no responses and gestures. Throughout our sessions, we have been working on expanding her gesture repertoire to include more specific, functional messages such as: hello/meggane, come here, I don't know, What time is it?, I'm hungry, I'm thirsty, I love you, I'm hot, I'm cold, I feel sick. Chaya spontaneously gestured for What time is it? and I'm cold. She is otherwise modeled other gestures when asked questions, which she imitates in order to respond (i.e. Do you feel hot (fanning off) or cold (shivering)? ). Stephen expresses that he feels he is able to understand patient most of the time when she gestures to him. Throughout our sessions, we have practiced using low tech communication boards. Chaya has been able to select icons from arrays of 3-4, however, has not been observed to use these boards in spontaneous interactions. 5.) Patient will use nonverbal communication (i.e. gesture, ?showing? items such as ID, writing responses) to answer simple biographical questions at 80% accuracy given frequent maximal verbal and maximal visual cues. Goal Discharged: When provided with maximal cues (through leading questions, pointing), patient answered biographical questions by showing. When asked how well her home practice went, Chaya took out her worksheets and pointed to various parts of the assignments she wanted to discuss. She has also taken out her ID to answer What is your name? and What is your address? 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 She communicates mainly through facial expression, gesture/pointing, and answering yes/no questions. Chaya is able to say yeah and no. She otherwise does not say any other words. She has been observed to spontaneously say ahw in reaction to pictures that elicit an emotional response (her dog). Chaya is able to identify icons on a low tech communication board form a choice of 4. COURTESY DRIVER assisted Chaya in downloading [employer] lida on her phone for conversational phrases and daily activities, which has speech generation for functional phrases (i.e. Just a minute, I have something to say ). These icons are paired with text and users scroll through a list of options. Stephen was instructed on giving 2-3 choices at a time to assist Chaya. We have also practiced expanding her use of gesture to communicate functional messages. She gestures for I'm cold (shivering), I'm hungry (rubbing belly), and What time is it? (pointing to wrist). She otherwise imitates gestures when asked questions (i.e. Are you cold (shivering) or hot (fanning self)? ). She exhibits significant difficulties globally in the following areas: automatic speech, repeating sounds and words, reading, and writing. She can produce mmm and ah, but otherwise exhibits significant groping when attempting to imitate any other sounds. Patient presents with residual right side facial droop with labial retraction. Otherwise strength and range of motion of oral structures is deemed within functional limits. When attempting to sing or repeat sounds and words with rhythm, Chaya either hums the suma or states yeah. Notes: After multiple conversations, Chaya and Stephen at this point are open to exploring an AAC device and have agreed with the plan to pursue an evaluation for such. COURTESY DRIVER was able to connect with a provider in [place] affiliated with [facility], Tyson Queen MA [facility]. Stephen and Chaya were agreeable with this plan for a consult and confirmed that they would be able to get transportation to this new location. Care transitioned to another location for pursuit of an AAC evaluation. It has been an absolute pleasure working with Chaya and Stephen. Please do not hesitate to contact the [facility] if we can be of further assistance in Chaya's care. Plan: Goal # : 1.) Patient will create an APHASIA CARD, which will include information for personal safety (name, phone number, address, emergency contact) and to educate others about her aphasia (definition, helpful strategies) with 100% completion with maximal assistance from the clinician and her caregiver. Status of Goal: Goal Met Goal # : 2.) Patient will answer yes/no questions via any modality (i.e. thumb up/down, head nod/shake) in 8 out of 10 opportunities with minimal assistance. Status of Goal: Goal Met Goal # : 3.) Patient will identify basic objects and concepts by pointing from an array of 4+ icons in 8 out of 10 trials with minimal assistance. Status of Goal: Discharge Goal Goal # : 4.) Patient will express basic wants and needs via any modality (i.e. low-tech communication board and response to yes/no questions) in 8 out of 10 opportunities with moderate assistance. 5.) Patient will use nonverbal communication (i.e. gesture, ?showing? items such as ID, writing responses) to answer simple biographical questions at 80% accuracy given frequent maximal verbal and maximal visual cues. Status of Goal: Discharge Goal Seen by: Graduate/Clinical Fellow: No Supervisory Statement: f_Reg Query Last Value , MHC.AU.SIGNATUR Speech Language Pathologist: Marian Bond M.A., [facility]
== END 2024-04-13 15:18 | disposition home or self-care (01) ==
LOC: HO.SH 09:00
PROVIDERS: Visit Provider General Practice
DX: R47.01 Aphasia (principal)
CPT/HCPCS: 92507

== ENCOUNTER 2024-04-19 13:58 | Outpatient (AMB) | payer OTHER, SELFPAY ==
[2024-04-19 14:21] VITALS: BP 122/66; PULSE 72; BMI 25.6
--- NOTE | 2024-04-19 14:21 | A.OFFVIS_ITS ---
Vital Signs 04/19/24 14:21 Height 5 ft 6 in Weight 158 lb 11.725 oz BMI 25.6 BP 122/66 Blood Pressure Location Lt brachial Position Sitting Pulse 72 Pulse Source Pulse Oximeter Intake Visit Reasons: 3 mth s/p echo Allergies No Known Allergies [No Known Allergies*] Allergy (Unknown, Verified 01/16/24 12:00) Medication List - Last Reconciled 04/19/24 by Rambo Zapata MD aspirin (Adult Low Dose Aspirin) 81 mg PO DAILY atorvastatin 80 mg PO BEDTIME blood sugar diagnostic (FreeStyle Lite Strips) Test four times a day or as directed. blood-glucose meter (FreeStyle Lite Meter kit) As Directed bupropion HCl XL 150 mg PO QAM cyanocobalamin (vitamin B-12) 500 mcg PO DAILY gabapentin 200 mg PO TID lancets (FreeStyle Lancets) Test four times a day or as directed. HPI Comments Details: Chaya returns for follow-up. She has a fairly complex history. Essentially, she has a history of left atrial myxoma. That was diagnosed when she had a large stroke with hemorrhagic conversion. Workup then had revealed the left atrial myxoma as the culprit. Once she recovered from the stroke was planned for cardiac surgery for myxoma removal. She had a complete workup through [facility] cardiology including transesophageal echocardiogram, cardiac catheterization among others. 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 Then she was put on anticoagulation and she was due to get surgery the following week. At that time, I had spoken to her cardiac surgeon. After that, it seems she had the surgery without any issues. Now she returns for follow-up. She still has some deficits from the stroke but otherwise doing well. According to significant other, she is doing good. No cardiac symptoms whatsoever. On low-dose aspirin. [facility] Medical History Multiple sclerosis Neuropathy Tremor Surgical History S/P cholecystectomy Family History (Updated 01/11/24 @ 13:10 by Rambo Zapata MD) Mother No problems noted. Father No problems noted. Social History Household Members: Spouse Housing: Apartment Do you presently have visiting nurse or other home services: No Alcohol intake: former Patient Tobacco Use Status: Never used Tobacco e-Cigarette/Vaping Use: Never Used Second Hand Smoke Exposure: No service: No Review of Systems Const Denies weakness ENT Denies dizziness Card Denies chest pain, Denies chest pain with activity, Denies syncope, Denies rapid heart rate, Denies pedal edema, Denies edema, Denies leg edema, Denies lig htheadedness, Denies palpitations, Denies dyspnea, Denies dyspnea on exertion and Denies orthopnea Resp Denies cough, Denies dyspnea and Denies dyspnea on exertion GI Denies hematochezia and Denies change in stool character Musc Denies abnormal gait, Denies muscle cramps, Denies muscle weakness, Denies numbness, Denies radiating pain into limb and Denies tingling Neuro Denies abnormal gait, Denies dizziness, Denies syncope, Denies numbness, Denies tingling and Denies weakness Endo Denies palpitations Physical Exam Vital Signs: Last Vital Signs Pulse 72 04/19/24 14:21 BP 122/66 04/19/24 14:21 BMI result Body Mass Index 25.6 Const General: comfortable and no acute distress Orientation/consciousness: patient oriented x3 HEENT Other: Unremarkable Head: Yes normal to inspection Neck Neck: Yes normal visual inspection Chest Chest palpation & inspection: normal inspection of the chest Resp Auscultation: clear to auscultation bilaterally Cardio Palpation: normal PMI Heart sounds: S1 normal heart sound present, S2 normal heart sound present, no gallops, no murmurs and no rubs GI Palpation (GI): Soft to palpation Back/Spine/Pelvis Other: unremarkable Skin General skin exam: no rashes or lesions noted Neuro General: patient oriented x3 Extrem General: Yes normal to inspection Psych Mental Status: mental status grossly normal Assessment & Plan Assessment & Plan (1) Myxoma of heart: Code(s): D15.1 - Benign neoplasm of heart Category: Medical (2) Cardiomyopathy: Code(s): I42.9 - Cardiomyopathy, unspecified Category: Medical Plan Surgery notes reviewed. She underwent left atrial myxoma excision and atrial septal defect repair. Preoperative catheterization did not show any coronary artery disease. In the most recent echocardiogram, mildly diminished LVEF at 43%. No evidence of recurrent myxoma. In the preoperative study, LVEF was 50-55% with some wall motion abnormalities. Overall, she is clinically stable. Continue low-dose aspirin. Her LVEF is diminished as above but she has no heart failure symptoms or signs. We will recheck that in about 6 months or so. In the past, LDL level has been as much as 223 but currently on high-dose statins and the last level is 80 mg/dL. May continue that. Discussed with significant other. Orders: Orders CA echo transthoracic complete 6 Months I42.9 - Cardiomyopathy, unspecified Coding Level of Care Code Est Pt Level 4 (68723) Diagnoses Myxoma of heart D15.1 Cardiomyopathy I42.9
== END 2024-04-19 14:35 | disposition home or self-care (01) ==
PROVIDERS: PCP General Practice; Visit Provider Internal Medicine
DX: D15.1 Benign neoplasm of heart (principal); I42.9 Cardiomyopathy, unspecified
CPT/HCPCS: 99214

== ENCOUNTER → 2024-04-19 13:58 | Outpatient (BNVA) | payer OTHER, SELFPAY | PROVIDERS: PCP General Practice; Visit Provider Internal Medicine | DX: D15.1 Benign neoplasm of heart (principal); I42.9 Cardiomyopathy, unspecified | CPT/HCPCS: 99212 ==

== ENCOUNTER → 2024-10-09 10:42 | Outpatient (REF) | payer OTHER, SELFPAY ==
--- NOTE | 2024-10-09 10:44 | CA_ITS ---
Transthoracic Echocardiogram Patient (Last, First, Middle): Chaya Camarena M Gender: Female Date of : 1960 Age: 64 Procedure Date: 10/09/2024 Procedure Type: Transthoracic Echocardiogram Location: OP Height: 167.64 cm Weight: 75.01 kg BSA: 1.84 m2 Heart Rate: 62 bpm BP: 152 / 85 mmHg Aviation Support Equipment Repairer: JOSÉ Loo MD: Rambo Zapata MD Lay Midwife: Toby Dyson MD Symptoms: I42.9 - Cardiomyopathy, unspecified Study Quality: Good ECG Rhythm: Sinus Conclusions: - 1. Mildly reduced LV ejection fraction 45-50% 2. Cardiac valvular Dopplers within normal limits 3. No gross pericardial effusion Findings Left Ventricle Normal left ventricular cavity size. There is normal left ventricular wall thickness. The left ventricular systolic function is mildly decreased. The visually estimated ejection fraction is between 45-50%. Diastolic function is indeterminate on the basis of available data. Right Ventricle Normal right ventricular cavity size and systolic function. Atria Both atria are normal in size. There is lipomatous hypertrophy of the interatrial septum. Aortic Valve Normal aortic valve structure and function. There is no aortic valve stenosis. There is no aortic valve regurgitation. Mitral Valve Normal mitral valve structure and function. There is trace mitral valve regurgitation. There is no mitral valve stenosis. Pulmonic Valve The pulmonic valve is likely normal. There is trace pulmonic valve regurgitation. Tricuspid Valve Normal tricuspid valve structure. Tricuspid regurgitation envelope is inadequate for calculation of right ventricular systolic pressure. Normal right atrial pressure. Great Vessels The pulmonary artery was not well visualized. There is no dilatation of the ascending aorta measuring 3.40 cm. Small plaque is seen in the sino tubular ridge. Venous The inferior vena cava is normal in size and collapses greater than 50% with inspiration. Pericardium/Pleural There is no evidence of pericardial effusion. Prior Study Comparison No significant change compared to prior study dated: 02/29/2024. Measurements 2D Linear Measurements IVSd: 1.04 0.6-0.9/0.6-1.0 cm LVIDd: 5.10 3.9-5.3/4.2-5.9 cm LVIDd Index: 2.77 2.4-3.2/2.2-3.1 cm/m2 LVIDs: 4.27 2.0-3.6 cm LVPWd: 1.25 0.7-1.1 cm LA Diam: 4.10 2.7-3.8/3.0-4.0 cm LAIDs Index: 2.23 1.5-2.3 cm/m2 LV Mass: 281.77 67-162/88-224 g LV Mass Index: 153.14 43-95/49-115 g/m2 LVOT Diam: 2.10 3.0+(-)1.3 cm 2D Systolic Function EF 4C: 48.30 >55% EF 2C: 44.60 >55% EF BiP: 47.10 >55% Mitral Valve MV Pk E: 0.79 MV PK A: 0.81 MV Decel Time: 273.00 E/A: 1.00 E'Lateral: 5.33 E'Medial: 5.00 E/E' Med: 15.90 E/E' Lat: 14.90 PHT: 80.00 MVA PHT: 2.75 Decel [place]: 2.90 Aortic Valve AoV Pk Esteban: 1.20 AoV Mn Esteban: 0.85 AoV VTI: 0.31 AoV Pk Grad: 6.00 Aov Mn Grad: 3.00 LOLIS Cont.VTI: 2.10 LVOT LVOT Pk Esteban: 0.77 LVOT Mn Esteban: 0.56 LVOT VTI: 0.19 LVOT Pk Grad: 2.00 LVOT Mn Grad: 1.00 LVOT Diam: 2.10 LVOT Area: 3.46 Diastolic Function MV Pk E: 0.79 MV Pk A: 0.81 E/A: 1.00 E'Medial: 5.00 E/E' Med: 15.90 E' Laterial: 5.33 E/E' Lat: 14.90 Right Ventricle TAPSE (mm): 18.90 TVS' Esteban: 8.49 Tricuspid Valve RA Press: 3.00 Great Vessels Aorta Sinus of Valsalva: 2.70 2.0-3.5 cm Ao Asc: 3.40 2.1-3.4 cm Ao Arch: 2.60 Pulmonary Valve PV Pk Esteban: 0.98 Peak PV Grad: 4.00 Updated in Other Vendor System with Status of Final Toby Dyson MD electronically signed on 10/10/2024 1:30:31 PM with status of Final
--- OUTSIDE RECORDS SUMMARY | 2024-10-09 11:28 | XMS_ITS | Encounter Summary ---
Author Organization [employer] Address [address] [place] [address] [address] [place] [address] Care Team Providers Care Conditioning Machine Operator Name Role Phone Anastasiya Lemos MD Primary Care Provider [phone] Reason for Visit * Reason Onset Date Comments appt rs 03/11/2023 Encounter Details Date Type Department Care Team ([facility] st Contact Info) Description 03/11/2023 Telephone [facility] [address] [place] [address] Karen Bridges BDS [address] [place], [place] [phone] appt rs Social History Tobacco Use Types Packs/Day Years Used Date Smoking Tobacco: Every Day Cigarettes Smokeless Tobacco: Never Alcohol Use Standard Drinks/Week Comments Never 0 (1 standard drink = 0.6 oz pur e alcohol) PHQ-2 Answer Date Recorded Patient Health Questionnaire-2 Score 0 12/16/2022 Housing Stability Answer Date Recorded What is your housing situation today? I have joanie michele 03/08/[address] you li ve. Do you have problems with any of the following? None of the above 03/08/2023 Food Insecurity Answer Date Recorded Within the past 12 months, y ou worried that your food would run out before you got money to buy more: Never True 03/08/2023 Within the past 12 months,th e food you bought just didn't last and you didn't have enough money to get more: Never True 01/2023 Transportation Answer Date Recorded In the past 12 months, has l ack of transportation kept you from medical appts, meetings, work or from getting things needed for daily living? Yes, it has kept me from medical appointments or getting medications. 03/08/2023 Utilities Answer Date Recorded In the past 12 months, has t he electric, gas, oil or water company threatened to shut off services in your home? No 03/08/2023 Depression Answer Date Recorded Patient Health Questionnaire-2 Score 0 12/16/2022 Comments Unknown Sex and Gender Information Value Date Recorded Sex Assigned at Female 03/30/2022 10:15 AM EDT Legal Sex Female 10:15 AM EDT Gender Identity Female 03/30/2022 10:15 AM EDT Sexual Orientation Straight 03/30/2022 10 :15 AM EDT documented as of this encounter Miscellaneous Notes * Telephone Encounter - Charisse Amato - 03/11/2023 3:10 PM EDT Appt for 03/24 cancelled due to appt moved to 03/16. cancelled transportation for 03/24 * Telephone Encounter - Charisse Amato - 03/11/2023 3:08 PM EDT Appt rs from 03/24 to 03/16. [employer] office in need of dental work to be completed prior to urgent cardiac surgery. Patient,, and daughter aware of appt change. Confirmed with on03/11/2023 at 3:08pm. Chapis and Nyrma aware of appt change documented in this encounter Plan of Treatment Not on file documented as of this encounter Visit Diagnoses Not on filedocumented in this encounter Care Teams Conditioning Machine Operator Relationship Specialty Start Date End Date Anastasiya Lemos MD [address] [place] [id number] PCP - General Family Medicine 05/09/20 documented as of this encounter
--- OUTSIDE RECORDS SUMMARY | 2024-10-09 11:28 | XMS_ITS | Clinical Summary ---
Author Organization [facility] Address [address] [place] [address] Care Team Providers Care High School History Teacher Name Role Phone Hannah García LADLE FILLER Primary Care Provider [phone] Social History Tobacco Use Types Packs/Day Years Used Date Smoking Tobacco: Never Assessed Sex and Gender Information Value Date Recorded Sex Assigned at Not on file Gender Identity Not on file Sexual Orientation Not on file Plan of Treatment Health Maintenance Due Date Last Done Comments Hepatitis C Screening 1960 COVID-19 Vaccine (#1) 03/19/1962 Depression Screening 1973 Preventative Health Evaluation 09/18/1979 DTap / Tdap / Td (1 - Tdap) 1980 Cervical Cancer Screening (P ap Smear) 1982 Colon Cancer Screening (Colonoscopy) 2006 Breast Cancer Screening (Mammogram) 09/18/2011 Shingrix-Zoster Vaccine (1 of 2) 09/18/2011 Influenza Vaccine (#1) 2024 RSV Adult > 60+ Yrs or Pregn ant (1 - 1-dose 75+ series) 2036 Hepatitis B Vaccines Aged Out No long er eligible based on patient's age to complete this topic Pneumococcal Vaccine Aged Out No long er eligible based on patient's age to complete this topic RSV Ped < 20 months Aged Out No longe r eligible based on patient's age to complete this topic Care Teams High School History Teacher Relationship Specialty Start Date End Date Hannah García, LADLE FILLER [address] [place] [id number] PCP - General Family Medicine 07/17/20
--- OUTSIDE RECORDS SUMMARY | 2024-10-09 11:28 | XMS_ITS | Encounter Summary ---
Author Organization [employer] Address [address] [place] [address] [address] [place] [address] Care Team Providers Care Grades 1 Through 6 Teacher Name Role Phone Anastasiya Lemos MD Primary Care Provider [phone] Encounter Details Date Type Department Care Team ([facility] st Contact Info) Description 08/18/2022 Abstract [facility] [address] [place] [address] Anastasiya Lemos MD [address] [place] [address] Social History Tobacco Use Types Packs/Day Years Used Date Smoking Tobacco: Never Assessed Comments Unknown Sex and Gender Information Value Date Recorded Sex Assigned at Female 03/30/2022 10:15 AM EDT Legal Sex Female 10:15 AM EDT Gender Identity Female 03/30/2022 10:15 AM EDT Sexual Orientation Straight 03/30/2022 10 :15 AM EDT documented as of this encounter Plan of Treatment Not on file documented as of this encounter Procedures Procedure Name Priority Date/Time Associated Diagnosis Comments MAMMOGRAPHY Routine 01/30/2022 PAP SMEAR Routine 06/21/2020 12:00 AM EST documented in this encounter Results * Mammography (01/30/2022) Mammogram completed procedure Anatomical Region Laterality Modality Other Historical Provider HEALTH MAINTENANCE Final Result * Pap Smear (06/21/2020 12:00 AM EST) Swab us Historical Provider LAB CYTOLOGY ORDERABLES F inal Result [facility] [address] [facility], [place] [address] documented in this encounter Visit Diagnoses Not on filedocumented in this encounter Care Teams Grades 1 Through 6 Teacher Relationship Specialty Start Date End Date Anastasiya Lemos MD [address] [place] [address] PCP - General Family Medicine 05/09/20 documented as of this encounter
--- OUTSIDE RECORDS SUMMARY | 2024-10-09 11:28 | XMS_ITS | Encounter Summary ---
Author Organization [employer] Address [address] [place] [address] [address] [place] [address] Care Team Providers Care Seed Cleaning Manager Name Role Phone Anastasiya Lemos MD Primary Care Provider [phone] Reason for Referral * Consultation (Routine) - Authorized Specialty Diagnoses / Procedures Referred By Contac t Referred To Contact Speech Pathology Diagnoses Aphasia Anastasiya Lemos MD [address] [place] [id number] Phone: tel: fax: Hearing, Speech And [address] [place] [address] Phone: tel: fax: Referral ID Status Reason Start Date Expiration Date Visits Requested Visits Authorized [id number] Authorized Specialty Services Required 4 04/19/2025 1 1 Encounter Details Date Type Department Care Team (Late st Contact Info) Description 04/19/2024 Orders Only [facility] MEDICINE [address] [place] [address] [phone] Anastasiya Lemos MD [address] [place], [place] [phone] Aphasia (Primary Dx) Social History Tobacco Use Types Packs/Day Years Used Date Smoking Tobacco: Every Day Cigarettes Smokeless Tobacco: Never Alcohol Use Standard Drinks/Week Comments Never 0 (1 standard drink = 0.6 oz pur e alcohol) PHQ-2 Answer Date Recorded Patient Health Questionnaire-2 Score 0 12/16/2022 Housing Stability Answer Date Recorded What is your housing situation today? I have joanie michele 03/10/[address] you li ve. Do you have problems with any of the following? None of the above 03/10/2024 Food Insecurity Answer Date Recorded Within the past 12 months, y ou worried that your food would run out before you got money to buy more: Never True 03/10/2024 Within the past 12 months,th e food you bought just didn't last and you didn't have enough money to get more: Never True 03/2024 Transportation Answer Date Recorded In the past 12 months, has l ack of transportation kept you from medical appts, meetings, work or from getting things needed for daily living? No 03/10/2024 Utilities Answer Date Recorded In the past 12 months, has t he electric, gas, oil or water company threatened to shut off services in your home? No 03/10/2024 Depression Answer Date Recorded Patient Health Questionnaire-2 Score 0 12/16/2022 Internet Access Answer Date Recorded Internet Access Q1 Yes 03/10/2024 Internet Access Q2 Not on file 03/10/2024 Comments Unknown Sex and Gender Information Value Date Recorded Sex Assigned at Female 03/30/2022 10:15 AM EDT Legal Sex Female 10:15 AM EDT Gender Identity Female 03/30/2022 10:15 AM EDT Sexual Orientation Straight 03/30/2022 10 :15 AM EDT documented as of this encounter Plan of Treatment Scheduled Referrals Name Type Priority Associated Diagnoses Orde r Schedule Referral to Speech Therapy Outpatient Referral Routine Aphasia Expected: 04/19/2024 (Approximate), Expires: 04/19/2025 documented as of this encounter Visit Diagnoses Diagnosis Aphasia- Primary documented in this encounter Care Teams Seed Cleaning Manager Relationship Specialty Start Date End Date Anastasiya Lemos MD [address] [place] [id number] PCP - General Family Medicine 05/09/20 documented as of this encounter
--- OUTSIDE RECORDS SUMMARY | 2024-10-09 11:28 | XMS_ITS | Clinical Summary ---
Author Organization [employer] Address [address] [facility] [address] [place] [address] Care Team Providers Care Executive Assistant Name Role Phone Anastasiya Lemos MD Primary Care Provider [phone] Allergies No known active allergies Medications Blood Pressure Monitor kit Active Alcohol Swabs (Alcohol Prep) 70 % pads 3 Active Blood Glucose Monitoring Suppl (ONE TOUCH ULTRA 2) w/Device kit TEST DAILY DIRECTED 3 Active OneTouch Ultra test strip TEST FOUR TIMES DAILY OR DIRECTED 3 Active Lancets (OneTouch Delica Plus [id number]) misc TEST BLOOD SUGAR FOUR TIMES DAILY OR DIRECTED 3 Active amiodarone (Pacerone) 200 MG tablet Take 200 mg by mouth 2 times daily. 3 Active atorvastatin (Lipitor) 80 MG tablet TAKE 1 TABLET BY MOUTH AT BEDTIME 90 tablet 3 4 Active pantoprazole (ProtoNix) 40 MG EC tablet TAKE 1 TABLET BY MOUTH EVERY MORNING. DO NOT BREAK, CRUSH, DISSOLVE OR CHEW. 90 tablet 3 4 Active gabapentin (Neurontin) 100 MG capsule TAKE 2 CAPSULES BY MOUTH THREE TIMES DAILY 180 capsule 3 5 Active buPROPion XL (Wellbutrin XL) 150 MG 24 hr tablet TAKE 1 TABLET BY MOUTH EVERY MORNING 90 tablet 3 5 Active Aspirin Low Dose 81 MG EC tablet TAKE 1 TABLET BY MOUTH EVERY MORNING 90 tablet 3 5 Active cyanocobalamin (Vitamin B-12) 500 MCG tablet TAKE 1 TABLET BY MOUTH EVERY DAY 90 tablet 3 5 Active cyanocobalamin (Vitamin B-12) 500 MCG tablet Take 1 tablet (500 mcg) by mouth Once per day. 90 tablet 3 4 025 Discontinued Aspirin Adult Low Strength 81 MG EC tablet TAKE 1 TABLET BY MOUTH EVERY MORNING 90 tablet 3 4 025 Discontinued Active Problems Problem Noted Date Diagnosed Date Routine health maintenance 10/18/2023 Assessment & Plan (10/18/2023 11:32 AM EDT): -PCV 20 amd Tdap vaccines received today -Partner states colonoscopy was completed at [facility]. Will try to obtain results Routine screening for STI (sexually transmitted infection) 10/18/2023 Assessment & Plan (10/18/2023 11:32 AM EDT): -Hepatitis B and C panels order. 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 Assessment & Plan (03/22/2023 6:38 AM EDT): Found to be cause of embolic stroke previously, and the myxoma is presumably the source of the renal and splenic infarcts seen on CT abd/pelvis during her February 2023 hospitalization She was not previously on anticoagulation, and a cursory literature search shows no consistent benefit to anticoagulation in the setting of pre-op for myxoma setting She is on ASA I will contact CT surgery at [facility] to get further guidance on this question, whether Lovenox needs to be resumed and how it impacts pre-op planning, if at all Assessment & Plan (10/27/2022 1:21 PM EDT): Found to be cause of embolic stroke followup with cardiac surgery, plan for removal when she is stronger H/O ischemic left MCA stroke 10/27/2022 Assessment & Plan (12/18/2022 6:36 AM EDT): S/p hospitalization at [facility], [facility], and [facility] rehab 3-08/2022 Has regained ability to walk independently Partner has temporary guardianship in place, petitioning for permanent guardianship I support this petition because they are able to communicate and he will be able to carry out her medical wishes despite sequelae of stroke Continue speech/OT/stroke study at [facility] Pending definitive, surgical mgmt of cardiac myxoma Assessment & Plan (10/27/2022 1:28 PM EDT): S/p hospitalization at [facility], [facility], and [facility] rehab Has regained ability to walk independently Partner has guardianship in place Continue speech/OT Will need definitive mgmt of cardiac myxoma as well, when cardiac surgery deems her stable enough Chronic low back pain 04/18/2022 Assessment & Plan (10/27/2022 1:28 PM EDT): Off opioid therapy Will disenroll from [employer] program Tremor 03/02/2016 Essential tremor 12/13/2015 Generalized anxiety disorder 12/13/2015 Hyperlipidemia 11/26/2011 HTN (hypertension) 11/26/2011 Assessment & Plan (03/23/2024 10:50 AM EDT): At goal <140/90 at home Continue to monitor at home and if consistently >140/90 x one week, will start low dose ARB Assessment & Plan (10/18/2023 11:36 AM EDT): -BP at target goal of <140/90 -no medication at this time -microalbumin: ordered today -10 yr ASCVD risk: TBD pending lipid panel ordered today -daily BP monitoring advised -low salt diet and 30 min moderate intensity daily exercise recommended -Reviewed ED precautions to include chest pain, shortness of breath, severe headache, sudden vision changes or BP >=180/>=120 mmHg. -Call clinic if three or more BP readings >140/90. -follow-up 5 months Fatty liver 11/26/2011 Resolved Problems Problem Noted Date Diagnosed Date Resolved Date Hospital discharge follow-up 03/22/2023 03/23/2024 Assessment & Plan (03/22/2023 6:31 AM EDT): Back to baseline per spouse Have changed eating habits to be more regular 3 times a day to prevent hypoglycemia If she has symptoms of weakness, shaking, pale, confused to check her blood sugar- have monitor at home. Also try to eat combination of protein rich with carbohydrate snacks in between meals Encounters Date Type Department Care Team Description 09/27/2024 Refill [facility] [address], [place] [phone] Anastasiya Lemos MD 09/03/2024 Refill [facility] [address], [place] [phone] Anastasiya Lemos MD 08/10/2024 Telephone [facility] [address], [place] [phone] Anastasiya Lemos MD Durable Medical Equipment ([employer] Form: Speech Generated Device) from Last 3 Months Immunizations Name Administration Dates Next Due Hep A, Adult 06/10/2000 Hep B, adult 06/10/2000 INFLUENZA INJECTABLE QUADRIV ALANT CCIIV4 MDCK Multi-dose vial 06/01/2019 Influenza Injectable Quadriv alant Preservative Free IIV4 MDCK 02/19/2020 Influenza injectable quadriv alent IIV4 with preservative 02/18/2017,03/02/2016,03/21/2015 Influenza injectable quadriv alent preservative free 03/19/2023,04/22/2021,04/01/2018 Influenza, IIV3, injectable 05/06/2022,1 06/22/2020,02/19/2020,06/01,04/01/2018,02/18/2017,03/02/2016 ,03/21/2015,03/08/2014,02/27/2011 Influenza, Split (incl. naldo fied surface antigen) 02/14/2013,02/11/2012 Influenza, seasonal, injecta ble, preservative free 03/20/2024,05/06/2022 Pfizer Covid-19 Vaccine 12+ 04/22/2021, Pfizer Covid-19 Vaccine 12+ Bivalent 05/06/2022, 05/06/2022 Pneumococcal Conjugate PCV 20 10/18/2023 Pneumococcal Polysaccharide PPSV23 12/02/2018, Pneumococcal, Unspecified 01/25/2013 TD (adult), 2 Lf tetanus tox oid, preservative free, adsorbed 05/09/1999 Td (adult), unspecified 05/09/1999 Tdap 10/18/2023,01/25/2013,10/03/2009 Zoster, Recombinant 02/19/2020,06/01/2019 Family History Medical History Relation Name Comments Coronary artery disease Father Relation Name Status Comments Father Social History Tobacco Use Types Packs/Day Years Used Date Smoking Tobacco: Every Day Cigarettes Smokeless Tobacco: Never Alcohol Use Standard Drinks/Week Comments Never 0 (1 standard drink = 0.6 oz pur e alcohol) PHQ-2 Answer Date Recorded Patient Health Questionnaire-2 Score 0 12/16/2022 Housing Stability Answer Date Recorded What is your housing situation today? I have joaniejustice michele 03/10/[address] you [...] Orientation Straight 03/30/2022 10 :15 AM EDT Last Filed Vital Signs Vital Sign Reading Time Taken Comments Blood Pressure 147/89 03/20/2024 2:08 PM EDT Pulse 81 03/20/2024 2:08 PM EDT Temperature 36.7 ??C (98 ??F) 03/20/2024 2:08 PM EDT Respiratory Rate 20 03/20/2024 2:08 PM EDT Oxygen Saturation 98% 03/20/2024 2:08 PM EDT Inhaled Oxygen Concentration - - Weight 73.1 kg (161 lb 3.2 oz) 03/20/2024 2:08 P M EDT Height 167.6 cm (5' 6 ) 03/20/2024 2:08 PM EDT Body Mass Index 26.02 03/20/2024 2:08 PM EDT Plan of Treatment Health Maintenance Due Date Last Done Comments CT Colonography 1961 Colonoscopy 1961 Colorectal Cancer Screening 1961 FIT DNA/Cologuard 1961 FIT 1961 FOBT 1961 HIV Screening 1961 Sigmoidoscopy 1961 Alcohol/Substance Use Screening 1973 Hepatitis B Vaccines (2 of 3 - Risk 3-dose series) 07/08/2000 06/10/2000 Hepatitis A Vaccines (2 of 2 - Risk 2-dose series) 12/08/2000 06/10/2000 Dental X-Ray: Bitewings 04/05/2020 04/04/20, 09/16/2016, 06/07/2015, Additional history exists Dental X-Ray: Full Mouth 07/31/2020 07/30/2017, 12/2015 RSV Patients and Patients Aged 60 years or older (1 - Risk 60-74 years 1-dose series) 2021 Dental Oral Exam 08/24/2023 02/22/2023, 09/2018, 12/04/2016, Additional history exists Dental Prophylaxis 08/24/2023 02/22/2023, 0 09/16/2016, 01/31/2016, Additional history exists Depression Screening 12/17/2023 12/16/2022, 12/17/19 COVID-19 Vaccine ( season) 2024 05/06/2022, 05/06/2022, 04/22/2021, Additional history exists SDOH Screening 03/10/2025 03/10/2024 Mammogram 03/17/2025 03/17/2024, 02/28, 02/05/2022, Additional history exists Tobacco Screening 03/23/2025 03/23/2024 Cervical Cancer Screening 06/21/2025 HPV/Cotest 06/21/2025 06/21/2020, 12/02/2016 Pap Smear 06/21/2025 06/21/2020, 06/21/2020 Lipid Panel 11/01/2028 11/02/2023 DTaP/Tdap/Td Vaccines (4 - Td or Tdap) 10/17/2033 10/18/2023, 01/25/2013, 10/03/2009, Additional history exists Zoster Vaccines Completed 02/19/2020, 06/01/2019 Pneumococcal Vaccine: 50+ Years Completed 10/18/2023, 12/02/2018, 01/25/2013, Additional history exists Hepatitis C Screening Completed 11/02/2023 , 11/02/2023, 08/06/2021 Influenza Vaccine Completed 03/20/2024, , 05/06/2022, Additional history exists HIB Vaccines Aged Out No longer eligi ble based on patient's age to complete this topic HPV Vaccines Aged Out No longer eligi ble based on patient's age to complete this topic IPV Vaccines Aged Out No longer eligi ble based on patient's age to complete this topic Meningococcal Vaccine Aged Out No josh mauricio eligible based on patient's age to complete this topic RSV under 20 months Aged Out No longe r eligible based on patient's age to complete this topic Rotavirus Vaccines Aged Out No longer eligible based on patient's age to complete this topic Procedures Procedure Name Priority Date/Time Associated Diagnosis Comments BI MAMMOGRAM SCREENING TOMOSYNTHESIS BILATERAL Routine 03/17/2024 11:22 AM EDT HEPATITIS C AB W/REFL TO HCV RNA, QN, PCR Routine 11/02/2023 9:13 AM EDT Routine screening for STI (sexually transmitted infection) LIPID PANEL, STANDARD Routine 11/02/2023 9:13 AM EDT Primary hypertension PROPHYLAXIS - ADULT Routine 02/22/2023 1 :00 PM EDT PERIODIC ORAL EVALUATION - ESTABLISHED PATIENT Routine 02/22/2023 1:00 PM EDT HPV MRNA E6/E7 Routine 06/21/2020 12:00 AM EST THINPREP PAP Routine 06/21/2020 12:00 AM EST BITEWINGS - 4 RADIOGRAPHIC IMAGES Routine 04/04/2019 12:00 AM EST PANORAMIC RADIOGRAPHIC IMAGE Routine 07/30/2017 12:00 AM EST from Last 3 Months or Most Recently Relevant to Health Maintenance Results * BI Mammogram Screening Tomosynthesis Bilateral (03/17/2024 11:22 AM EDT) Anatomical Region Laterality Modality Breast Bilateral Mammography 03/17/2024 11:2 2 AM EDT Narrative 03/29/2024 10:17 AM EDT ? [facility] [place] ? [address] ?[place] [id number] ? Mammography Report ? Signed with Addenda ? Patient: Worster,Chaya M ?MR#: [id number] ?? [id number] ? : 1960 ?Acct:[id number] ? Age/Sex: 63 / F ?ADM Date: 10/18/24 ? Loc: HO.MAMMO ? Attending Garry Lemos MD ? Ordering Physician: Anastasiya Lemos ?Results: 1Negative ? Date of Service: 03/17/24 ?Follow Up: 1 Year From Orig ?? inal Mammogram ? Procedure(s): MM tomosynthesis screening BI ?? Accession Number(s): [id number] ? cc: Anastasiya Lemos ?ADDENDUM ? ADDENDUM #1 ? ADDENDUM: ?? Due to a software issue related to the original report, this case has ?? been reviewed again and the original findings and recommendations ?? remain the same. ? OVERALL ASSESSMENT: ?? BI-RADS 1 - Negative ? RECOMMENDATION: ?? 1 year F/U ? Electronically signed by: ??Anisa Jerome DO ??03/31/2024 10:56 AM EDT ?? RP ? Addendum Dictated By: ?Anisa Jerome, DO ? Addendum Signed By: ? <Electronically signed by Anisa Jerome, DO in OV> ? 03/31/246 ?? Addendum Cosigned By: ? DD/ ? TD/TT: 03/17/24 ? EXAMINATION: ?? MM SCREENING DIGITAL BREAST TOMOSYNTHESIS, BILATERAL ? CLINICAL INFORMATION: ? Screening. Asymptomatic. ? COMPARISON: ?? Mammography: Comparison is made with available priors ? TECHNIQUE: ?? Digital breast mammography with tomosynthesis is performed in both the ?? craniocaudal and mediolateral oblique views along with computer-aided ?? detection (CAD). ? FINDINGS: ?? There are scattered areas of fibroglandular density (ACR BI-RADS breast ?? composition Category b). ? There are no significant masses, abnormal calcifications, or other ?? abnormalities. ? MM/MM tomosynthesis screening BI ?? IMPRESSION: ?? No mammographic evidence of malignancy. ? ASSESSMENT: ? BI-RADS BI-RADS 1 - Negative ? RECOMMENDATION: ?? Routine annual mammography screening. ? 1 year F/U ? This examination should not preclude the clinical evaluation of a ?? suspicious palpable abnormality. ? This patient's information was entered into a reminder system with a ?? target due date for their next mammogram. ? Electronically signed by: ??Anisa Jerome DO ??03/29/2024 10:13 AM EDT ? Dictated By: ?Anisa Jerome DO ? Signed By: ?<Electronically signed by Anisa Jerome, DO in OV> ? 03/29/24 1013 ? DD/ 21 ? TD/TT: 03/17/241142 ? Ticket Maker: ? Procedure Note Donblaketer, Image - 03/31/2024 [facility] [address] [place] [address] Mammography Report Signed with Addenda Patient: Chaya Camarena MMR#: [id number] : 2Acct:[id number] Age/Sex: 63 / FADM Date: 03/17/24 Loc: HOStuMAMMO Attending Dr: Anastasiya Lemos MD Ordering Physician: Fallon Lemosults: 1Negative Date of Service: 03/17/24Follow Up: 1 Year From Orig inal Mammogram Procedure(s): MM tomosynthesis screening BI Accession Number(s): [id number] cc: Anastasiya Lemos ADDENDUM ADDENDUM #1 ADDENDUM: Due to a software issue related to the original report, this case has been reviewed again and the original findings and recommendations remain the same. OVERALL ASSESSMENT: BI-RADS 1 - Negative RECOMMENDATION: 1 year F/U Electronically signed by: Anisa Jerome DO 03/31/2024 10:56 AM EDT Addendum Dictated By: Anisa Jerome DO Addendum Signed By: <Electronically signed by DO Ciaran in OV> 03/31/24 1056 Addendum Cosigned By: DD/ TD/TT: 03/17/24 EXAMINATION: MM SCREENING DIGITAL BREAST TOMOSYNTHESIS, BILATERAL CLINICAL INFORMATION: Screening. Asymptomatic. COMPARISON: Mammography: Comparison is made with available priors TECHNIQUE: Digital breast mammography with tomosynthesis is performed in both the craniocaudal and mediolateral oblique views along with computer-aided detection (CAD). FINDINGS: There are scattered areas of fibroglandular density (ACR BI-RADS breast composition Category b). There are no significant masses, abnormal calcifications, or other abnormalities. MM/MM tomosynthesis screening BI IMPRESSION: No mammographic evidence of malignancy. ASSESSMENT: BI-RADS BI-RADS 1 - Negative RECOMMENDATION: Routine annual mammography screening. 1 year F/U This examination should not preclude the clinical evaluation of a suspicious palpable abnormality. This patient's information was entered into a reminder system with a target due date for their next mammogram. Electronically signed by: Anisa Jerome DO 03/29/2024 10:13 AM EDT RP Dictated By: Anisa Jerome DO Signed By: <Electronically signed by Anisa Jerome DO in OV> 03/29/24 1013 DD/ 1122 TD/TT: 03/17/24 1143 Ticket Maker: Anastasiya Lemos MD IMG BI PROCEDURES Edited Resul t - Final * (ABNORMAL) Hepatitis C Antibody with Reflex to HCV, RNA, Quantitative, Real- Time PCR (11/02/2023 9:13 AM EDT) Hepatitis C Antibody Reactive( A) Nonreactive [facility] Comment:Presumptive evidence of antibodies to HCV. Blood Venous blood specimen / Unknown 11/02/2023 9:13 AM EDT 11/02/2023 11:42 AM EDT us Love Cruz NP LAB BLOOD ORDERABLES Final Resu lt [facility] [address] [place] [phone] * Lipid Panel, Standard (11/02/2023 9:13 AM EDT) Triglycerides 66 <150 mg/dL [facility] Comment:Desirable Triglyceri de: less than 150 mg/dLBorderline High Triglyceride 150-199 mg/dLHigh Triglyceride: 200-499 mg/dLVery High Triglyceride: greater than or equal to 5OO mg/dL Cholesterol 160 <200 mg/dL [facility] Comment:Desirable Cholestero l: less than 200 mg/dLBorderline High Cholesterol: 200-239 mg/dLHigh Cholesterol: greater than 239 mg/dL LDL Cholesterol Calculated 80 <100 mg/dL [facility] Comment:Desirable LDL: less than 100 mg/dLNear Optimal/Above Optimal LDL: 110- 129 mg/dLBorderline High LDL: 130-159 mg/dLHigh LDL: 160-189 mg/dLVery High LDL: greater than or equal to 190 mg/dL HDL Cholesterol 67 >40 mg/dL [facility] Comment:Desirable HDL: great er than 40 mg/dL Note: This HDL assay may give artificially low results in patients with liver disease. Blood Venous blood specimen / Unknown 11/02/2023 9:13 AM EDT 11/02/2023 11:42 AM EDT Love Cruz NP LAB BLOOD ORDERABLES Final Resu lt [facility] [address] [place] [address] [phone] * THINPREP PAP (06/21/2020 12:00 AM EST) Clinical Information: None given [facility] COMMENT SEE COMMENT [facility] Comment: EXPLANATORY NOTE: ? The Pap is a screening test for cervical cancer. It is ?? not a diagnostic test and is subject to false negative ?? and false positive results. It is most reliable when a ?? satisfactory sample, regularly obtained, is submitted ?? with relevant clinical findings and history, and when ?? the Pap result is evaluated along with historic and ?? current clinical information. ?? Online Merchandising Specialist : SEE COMMENT [facility] Comment: HJP, CT(ASCP) CT screening location: [address] ??[id number] Interpretation/R esult: Negative for intraepithelial lesion or malignancy. [facility] LMP: NONE GIVEN [facility] Prev. BX: NONE GIVEN [facility] Prev. PAP: NONE GIVEN [facility] SOURCE: None given [facility] Statement Of Adequacy: SEE COMMENT [facility] Comment: Satisfactory for evaluation. Endocervical/transformation zone component present. Age and/or menstrual status not provided 06/21/2020 Anastasiya Lemos MD LAB PATHOLOGY ORDERABLES Final Result Performing Organization Address [facility] de Phone Number [facility] [address] * HPV mRNA E6/E7 (06/21/2020 12:00 AM EST) HPV nRNA E6/E7 Not Detected Not Detected [facility] Comment: This test was performed using the APTIMA HPV Assay ([employer] This assay detects E6/E7 viral messenger RNA (mRNA) from 14 high-risk HPV types (16,18,31,33,35,39,45,51,52,56,58,59,66,68). ?? The analytical performance characteristics of this assay have been determined by [employer]. The modifications have not been cleared or approved by the FDA. This assay has been validated pursuant to the CLIA regulations and is used for clinical purposes. 06/21/2020 Anastasiya Lemos MD LAB BLOOD ORDERABLES Final Res ult Performing Organization Address [facility] de Phone Number [facility] [address] from Last 3 Months or Most Recently Relevant to Health Maintenance Insurance [facility] ONE CARE < [address] [place] [address] [facility] [address] [place] [phone] [place] [address] [place] [phone] Care Teams Executive Assistant Relationship Specialty Start Date End Date Anastasiya Lemos MD [address] [place] [address] PCP - General Family Medicine 05/09/20
--- OUTSIDE RECORDS SUMMARY | 2024-10-09 11:28 | XMS_ITS | Clinical Summary ---
Author Organization [facility] it Address [address] [place] [address] Care Team Providers Care Director Speech And Hearing Name Role Phone Hannah García [facility] Primary Care Provider Social History Tobacco Use Types Packs/Day Years Used Date Smoking Tobacco: Never Assessed Comments Unknown Sex and Gender Information Value Date Recorded Sex Assigned at Not on file Legal Sex Female 10:28 AM EST Gender Identity Not on file Sexual Orientation Not on file Plan of Treatment Health Maintenance Due Date Last Done Comments Breast Cancer Screening 1961 DTaP,Tdap,and Td Vaccines (1 - Tdap) 1980 Cervical Cancer Screening: P ap Smear 1982 Pneumococcal Vaccine: 50+ Ye ars (1 of 1 - PCV) 09/18/2011 Zoster Vaccines (1 of 2) 09/18/2011 Colorectal Cancer Screening: Colonoscopy 05/04/2022 Depression Screening 05/04/2022 HIV Screening 05/04/2022 Hepatitis C Screening 05/04/2022 Social Influencers of Health Screening 05/04/2022 COVID-19 Vaccine ( - 2023-2 5 season) 2024 Influenza Vaccine (Season Ended) 2025 RSV Immunization Adult Patie nts (1 - 1-dose 75+ series) 2036 HIB Vaccines Aged Out No longer eligi ble based on patient's age to complete this topic HPV Vaccines Aged Out No longer eligi ble based on patient's age to complete this topic Hepatitis A Vaccines Aged Out No long er eligible based on patient's age to complete this topic Hepatitis B Vaccines Aged Out No long er eligible based on patient's age to complete this topic IPV Vaccines Aged Out No longer eligi ble based on patient's age to complete this topic MMR Vaccines Aged Out No longer eligi ble based on patient's age to complete this topic Meningococcal ACWY Vaccine Aged Out N o longer eligible based on patient's age to complete this topic Meningococcal B Vaccine Aged Out No l onger eligible based on patient's age to complete this topic Pneumococcal Vaccine: Pediat rics (0 to 5 Years) and At-Risk Patients (6 to 64 Years) Aged Out No longer eligible b ased on patient's age to complete this topic RSV Immunization Patients Un sariah 20 months Aged Out No longer eligible b ased on patient's age to complete this topic Varicella Vaccines Aged Out No longer eligible based on patient's age to complete this topic Advance Directives Documents on File Type Date Recorded 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
== END ==
LOC: HO.CARD 10:42
PROVIDERS: PCP General Practice; Visit Provider Internal Medicine
DX: I42.9 Cardiomyopathy, unspecified (principal)
CPT/HCPCS: 93306

== ENCOUNTER → 2024-10-09 10:44 | Outpatient (BNV) | payer OTHER, SELFPAY | PROVIDERS: PCP General Practice; Visit Provider Internal Medicine Cardiovascular Disease | DX: I42.9 Cardiomyopathy, unspecified (principal) | CPT/HCPCS: 93306 ==

== ENCOUNTER 2025-03-23 11:03 | Outpatient (REF) | payer OTHER, SELFPAY ==
--- NOTE | ~2025-03-23 | MM_ITS ---
EXAMINATION: MM SCREENING DIGITAL BREAST TOMOSYNTHESIS, BILATERAL CLINICAL INFORMATION: Screening. Asymptomatic. COMPARISON: Mammography: Comparison is made with available priors TECHNIQUE: Digital breast mammography with tomosynthesis is performed in both the craniocaudal and mediolateral oblique views along with computer-aided detection (CAD). FINDINGS: There are scattered areas of fibroglandular density. Left: Focal asymmetry upper outer breast with questioned distortion. No suspicious calcifications or other abnormal findings. Right: Focal asymmetry upper outer breast with questioned distortion. No suspicious calcifications or other abnormal findings. MM/MM tomosynthesis screening BI IMPRESSION: Additional imaging is recommended ASSESSMENT: BI-RADS Category 0: Incomplete - Need additional Imaging Evaluation RECOMMENDATION: 1. Additional views of the bilateral breasts. 2. Targeted ultrasound if warranted after review of the additional views. 3. Radiology department staff will contact the patient for additional imaging. Additional Imaging required Electronically signed by: Anisa Jerome DO 03/26/2025 05:01 PM EDT
--- OUTSIDE RECORDS SUMMARY | 2025-03-23 13:11 | XMS_ITS | Patient Health Record ---
Author Organization [facility] Address [address] [place] [address] Care Team Providers Care Avionics Manager Name Role Phone Gracy (DO NOT USE)Nataly Primary Care Provi sariah Unavailable WheatleyRubin Unavailable [phone] NILSON VARGAS Unavailable Unavailable Reason For Referral No Information Medications Medication SIG (Take, Route, Frequency, Duration) Notes Start Date End Date Status Dulcolax (colon prep) 5 MG take at 3:00 p.m and 7:00p.m. Orally two tablets twice a day for one day; Duration: 1 day 06/18/2017 Active Zoloft Active MiraLax (colon prep) 8.3 ounce ((238) grams mixed with Gatorade or Crystal Light orally begin at 5:00 p.m. the day before the procedure; Duration: 1 day 06/18/2017 Active Senna Active DOK 100 MG TAKE 1 CAPSULE ONCE A DAY AT BEDTIME NEEDED Oral; Duration: 30 Active Pravastatin Sodium 10 MG TAKE (1) TABLET DAILY. Oral; Duration: 30 Active Omeprazole Active Chlorthalidone Activ e Ibuprofen Active DULoxetine HCl 30 MG TAKE ONE CAPSULE BY MOUTH EVERY DAY Oral; Duration: 30 Active oxyCODONE HCl 15 MG (Schedule II Drug) T K 1 T PO Q 6 H PRF SEVERE PAIN Oral; Duration: 28 Active Gabapentin 400 MG TAKE 2 CAPSULES BY M OUTH 4 TIMES A DAY. FOLLOW TITRATION SCHEDULE DISCUSSED. Oral; Duration: 30 Active Social History Tobacco Use: Social History Observation Description Date Details (start date - stop date) Current Smoker NA - NA Tobacco Use/Smoking Question Answer Notes Patient is a current smoker How often do you smoke cigarettes? every day How many cigarettes a day do you smoke? 11-20 How soon after you wake up do you smoke your fir st cigarette? after 60 minutes Alcohol Screen Question Answer Notes Did you have a drink containing alcohol in the p ast year? No Points 0 Interpretation Negative Section Notes: Smoker 1/2 ppd; no alcohol Problems Problem Type SNOMED Code ICD Code Onset Dates Problem Status W/U Status Risk Notes Problem Screening for malignant neoplasm of colon (168717826) Encounter for screening for malignant neoplasm of colon (Z12.11) Active confirmed Problem Elevated liver enzymes level (619507993) Elevated liver enzymes (R74.8) Active confirmed Problem Right upper quadrant pain (999300473) Abdominal pain, right upper quadrant (R10.11) Active confirmed Plan Of Treatment Pending Test Test Name Order Date LIVER PROFILE 06/15/2017 AMYLASE 06/15/2017 LIPASE 06/15/2017 IRON + IBC (FE) 06/15/2017 FERRITIN 06/15/2017 CBC w DIFF 06/15/2017 PROTHROMBIN TIME (PT, INR) 06/15/2017 OCRIE-2-[id number] (A1A) 06/15/2017 MITOCHONDRIAL AB 06/15/2017 SMOOTH MUSCLE ANTIBODIES 06/15/2017 FLUOR. ANTINUCLEAR AB SCREEN (MASSIMO) 05/31 Future Test Test Name Order Date UPPER GI ENDOSCOPY 06/15/2017 COLONOSCOPY 06/15/2017 Insurance Providers Payer Name Payer Address Payer Phone Subscriber Number Group Number Insured Name Patient Relationship to Insured Coverage Start Date Coverage End Date [facility] [address] [place] [address] [id number] ROBERT ABEL Self - patient is the insured Medical (General) History Medical History History ICD Code Hyperlipidemia Hypertension Fatty liver Back pain Sciatica Anxiety/Depression Essential tremor Denies [place],DM,CVA,Lung disease,renal dise ase Choledocholithiasis--ERCP with sphincter otmy and stone removal 2006 Surgical History Surgery Date(Month/Year) Cholecystectomy Right foot Broken right arm
--- OUTSIDE RECORDS SUMMARY | 2025-03-23 13:12 | XMS_ITS | Clinical Summary ---
Author Organization [facility] Address [address] [place] [address] Care Team Providers Care Baker Paint Name Role Phone Hannah García OPERATION SHIFT SUPERVISOR Primary Care Provider [phone] Social History Tobacco Use Types Packs/Day Years [...] (1 of 2) 09/18/2011 Influenza Vaccine (#1) 2025 RSV Adult > 60+ Yrs or Pregn [...] age to complete this topic Care Teams Baker Paint Relationship Specialty Start Date End Date Hannah García, OPERATION SHIFT SUPERVISOR [address] [place] [address] PCP - General Family Medicine 07/17/20
--- OUTSIDE RECORDS SUMMARY | 2025-03-23 13:12 | XMS_ITS | Clinical Summary ---
Author Organization [employer] Address [address] [place] [address] [address] [place] [address] Care Team Providers Care Child Care Cook Name Role Phone Anastasiya Lemos MD Primary Care Provider [phone] Allergies No known active allergies Medications Blood Pressure Monitor kit Active pantoprazole (ProtoNix) 40 MG EC tablet TAKE 1 TABLET BY MOUTH EVERY MORNING. DO NOT BREAK, CRUSH, DISSOLVE OR CHEW. 90 tablet 3 11/01/2023 Active buPROPion XL (Wellbutrin XL) 150 MG 24 hr tablet TAKE 1 TABLET BY MOUTH EVERY MORNING 90 tablet 3 09/04/2024 Active Aspirin Low Dose 81 MG EC tablet TAKE 1 TABLET BY MOUTH EVERY MORNING 90 tablet 3 09/27/2024 Active cyanocobalamin (Vitamin B-12) 500 MCG tablet TAKE 1 TABLET BY MOUTH EVERY DAY 90 tablet 3 09/27/2024 Active atorvastatin (Lipitor) 80 MG tablet TAKE 1 TABLET BY MOUTH AT BEDTIME 90 tablet 11/28/2024 Active gabapentin (Neurontin) 100 MG capsule TAKE 2 CAPSULES BY MOUTH THREE TIMES DAILY 180 capsule 3 12/27/2024 Active Active Problems Problem Noted Date Diagnosed Date Overweight 10/20/2024 Aphasia 06/28/2023 Assessment & Plan (03/23/2024 10:49 [...] ASA I will contact CT surgery at [facility] to get further guidance on this question, whether Lovenox needs to be resumed and how it impacts pre-op planning, if at all Assessment & Plan (10/27/2022 1:21 PM EDT): Found to be cause of embolic stroke followup with cardiac surgery, plan for removal when she is stronger H/O ischemic left MCA stroke 10/27/2022 Assessment & Plan (12/18/2022 6:36 AM EDT): S/p hospitalization at [facility], [facility], and [facility] -08/2022 Has regained ability to walk independently Partner has temporary guardianship in place, petitioning for permanent guardianship I support this petition because they are able to communicate and he will be able to carry out her medical wishes despite sequelae of stroke Continue speech/OT/stroke study at [facility] Pending definitive, surgical mgmt of cardiac myxoma Assessment & Plan (10/27/2022 1:28 PM EDT): S/p hospitalization at [facility], [facility], and [facility] Has regained ability to walk independently Partner has guardianship in place Continue speech/OT Will need definitive mgmt of cardiac myxoma as well, when cardiac surgery deems her stable enough Chronic low back pain 04/18/2022 Assessment & Plan (10/27/2022 1:28 PM EDT): Off opioid therapy Will disenroll from [employer] program Essential tremor 12/13/2015 Generalized anxiety disorder 12/13/2015 [...] Problem Noted Date Diagnosed Date Resolved Date Routine health maintenance 10/18/2023 0 10/20/2024 Assessment & Plan (10/18/2023 11:32 AM EDT): -PCV 20 amd Tdap vaccines received today -Partner states colonoscopy was completed at [facility]. Will try to obtain results Routine screening for STI (s exually transmitted infection) 10/18/2023 10/20/2024 Assessment & Plan (10/18/2023 11:32 AM EDT): -Hepatitis B and C panels order. Will vaccinate against Hep B as necessary -Patient's spouse declines HIV testing today Hospital discharge follow-up 03/22/2023 03/23/2024 Assessment & [...] rich with carbohydrate snacks in between meals Tremor 03/02/2016 10/20/2024 Encounters Date Type Department Care Team Description 12/27/2024 Refill [facility] [address] [place] [address] Anastasiya Lemos MD from Last 3 Months Immunizations Immunization Administration Dates Next Due Hep A, Adult [...] Types Packs/Day Years Used Date Smoking Tobacco: Former Cigarettes Smokeless Tobacco: Never Tobacco Cessation:Counseling Given: Not Answered Alcohol Use Standard Drinks/Week Comments Never 0 (1 standard drink = 0.6 oz pur e alcohol) Depression Answer Date Recorded Patient Health Questionnaire-9 Score 0 10/20/2024 Patient Health Questionnaire-9 Score 0 10/20/2024 Last PHQ-9: Questionnaire Data Not on file 0 10/20/2024 Housing Stability Answer Date Recorded What is [...] Date Recorded Patient Health Questionnaire-2 Score 0 10/20/2024 Internet Access Answer Date Recorded Internet Access [...] Sign Reading Time Taken Comments Blood Pressure 136/74 10/20/2024 11:24 AM EDT Pulse 52 10/20/2024 9:10 AM EDT Temperature 36.2 C (97.1 F) 10/20/2024 9:10 AM EDT Respiratory Rate 17 10/20/2024 9:10 AM EDT Oxygen Saturation 98% 03/20/2024 2:08 PM EDT Inhaled Oxygen Concentration - - Weight 76.2 kg (168 lb) 10/20/2024 9:10 AM EDT Height 167.6 cm (5' 6 ) 10/20/2024 9:10 AM EDT Body Mass Index 27.12 10/20/2024 9:10 AM EDT Plan of Treatment Health Maintenance Due Date Last Done Comments CT Colonography 1960 Colonoscopy 1960 FIT 1960 HIV Screening 1960 Sigmoidoscopy 1960 Hepatitis B Vaccines (2 of 3 - Risk 3-dose series) 07/08/2000 06/10/2000 Hepatitis A Vaccines (2 of 2 - Risk 2-dose series) 12/08/2000 06/10/2000 Dental X-Ray: Bitewings 04/05/2020 04/04/20 19, 09/16/2016, 06/07/2015, Additional history exists Dental X-Ray: Full Mouth 07/31/2020 07/30/2017, 12/2015 RSV Patients and Patients Aged 60 years or older (1 - Risk 60-74 years 1-dose series) 2021 Dental Oral Exam 08/24/2023 02/22/2023, 09/2018, 12/04/2016, Additional history exists Dental Prophylaxis 08/24/2023 02/22/2023, 0 09/16/2016, 01/31/2016, Additional history exists COVID-19 Vaccine ( season) 2025 05/06/2022, 05/06/2022, 04/22/2021, Additional history exists Influenza Vaccine (#1) 2025 , 03/19/2023, 05/06/2022, Additional history exists SDOH Screening 03/10/2025 03/10/2024 Mammogram 03/17/2025 03/17/2024, 02/28, 02/05/2022, Additional history exists Cervical Cancer Screening 06/21/2025 HPV/Cotest 06/21/2025 06/21/2020, 12/02/2016 Pap Smear 06/21/2025 06/21/2020, 06/21/2020 Alcohol/Substance Use Screening 10/20/2025 10/20/2024 Depression Screening 10/20/2025 10/20/2024, 10/21/19 25 Disability Screening 10/20/2025 10/20/2024 Tobacco Screening 10/20/2025 10/20/2024 FOBT 01/15/2026 01/15/2025 Colorectal Cancer Screening 01/16/2028 FIT DNA/Cologuard 01/16/2028 01/15/2025 Lipid Panel 11/01/2028 11/02/2023 DTaP/Tdap/Td Vaccines (4 - Td or Tdap) 10/17/2033 10/18/2023, 01/25/2013, 10/03/2009, Additional history exists Zoster Vaccines Completed 02/19/2020, 06/01/2019 Pneumococcal Vaccine: 50+ Years Completed 10/18/2023, 12/02/2018, 01/25/2013, Additional history exists Hepatitis C Screening Completed 11/02/2023 , 11/02/2023, 08/06/2021 HIB Vaccines Aged Out No longer eligi [...] Procedure Name Priority Date/Time Associated Diagnosis Comments LAB COLOGUARD COLON CANCER SCREEN Routine 01/15/2025 8:15 AM EDT Screening for colon cancer BI MAMMOGRAM SCREENING TOMOSYNTHESIS BILATERAL Routine 03/17/2024 [...] Recently Relevant to Health Maintenance Results * Cologuard?? colon cancer screening (01/15/2025 8:15 AM EDT) Pathologist [facility] Cologuard Result Negative Negative 01/23/20 5:08 PM EDT [facility] (CLIA #:[id number]) Comment: The Cologuard (TM) test was performed on this specimen. NEGATIVE TEST RESULT. A negative Cologuard result indicates a low likelihood that a colorectal cancer (CRC) or advanced adenoma (adenomatous polyps with more advanced pre-malignant features) is present. The chance that a person with a negative Cologuard test has a colorectal cancer is less than 1 in 1500 (negative predictive value >99.9%) or has an advanced adenoma is less than 5.3% (negative predictive value 94.7%). These data are based on a prospective cross-sectional study of 10,000 individuals at average risk for colorectal cancer who were screened with both Cologuard and colonoscopy. (Houston Dexter al, N Engl J Med 2014;370(14):1286- 1297) The normal value (reference range) for this assay is negative. COLOGUARD RE-SCREENING RECOMMENDATION: Periodic colorectal cancer screening is an important part of preventive healthcare for asymptomatic individuals at average risk for colorectal cancer. Following a negative Cologuard result, the [place] Cancer Society and U.S. Multi-Society Task Force screening guidelines recommend a Cologuard re-screening interval of 3 years. References: [place] [employer] Society Guideline for Colorectal Cancer Screening: https://www.cancer.org/cancer/rhand-wgynil-lucdhn/ifgznohhf-allibgbzz-dmjhjnc/ac s-rec ommendations.html.; Cecilio DK, Tenzin CR, Mukul BAIG, Colorectal Cancer Screening: Recommendations for Physicians and Patients from the U.S. Multi-Society Task Force on Colorectal Cancer Screening , Am J Gastroenterology 2017; 112:9511-6992. TEST DESCRIPTION: Composite algorithmic analysis of stool DNA-biomarkers with hemoglobin immunoassay. Quantitative values of individual biomarkers are not reportable and are not associated with individual biomarker result reference ranges. Cologuard is intended for colorectal cancer screening of adults of either sex, 45 years or older, who are at average-risk for colorectal cancer (CRC). Cologuard has been approved for use by the U.S. FDA. The performance of Cologuard was established in a cross sectional study of average-risk adults aged 50-84. Cologuard performance in patients ages 45 to 49 years was estimated by sub-group analysis of near-age groups. Colonoscopies performed for a positive result may find as the most clinically significant lesion: colorectal cancer [4.0%], advanced adenoma (including sessile serrated polyps greater than or equal to 1cm diameter) [20%] or non- advanced adenoma [31%]; or no colorectal neoplasia [45%]. These estimates are derived from a prospective cross-sectional screening study of 10,000 individuals at average risk for colorectal cancer who were screened with both Cologuard and colonoscopy. (Houston Alamo et al, N Engl J Med 2014;370(14):6258-7328.) Cologuard may produce a false negative or false positive result (no colorectal cancer or precancerous polyp present at colonoscopy follow up). A negative Cologuard test result does not guarantee the absence of CRC or advanced adenoma (pre-cancer). The current Cologuard screening interval is every 3 years. ([place] Cancer Society and U.S. Multi-Society Task Force). Cologuard performance data in a 10,000 patient pivotal study using colonoscopy as the reference method can be accessed at the following location: www.Splash.com/results. Additional description of the Cologuard test process, warnings and precautions can be found at www.Anita Margaritard.com. Stool specimen (specimen) 01/15/2025 8:15 AM EDT 01/16/2025 11:09 AM EDT Anastasiya Lemos MD LAB MOLECULAR DIAGNOSTICS [facility] [place] Final Result [facility] (CLIA #:[id number]) [address] [place] [address], * BI Mammogram Screening Tomosynthesis Bilateral (03/17/2024 11:22 AM EDT) Anatomical Region Laterality Modality Breast Bilateral Mammography 03/17/2024 11:2 2 AM EDT Narrative 03/29/2024 10:17 AM EDT [facility] [address] [place], [place] [address] Mammography Report Signed with Addenda Patient: Chaya Camarena MR#: [id number] : 1960 Acct:[id number] Age/Sex: 63 / F ADM Date: 03/17/24 Loc: HO.MAMMO Attending Dr: Anastasiya Lemos MD Ordering Physician: Anastasiya Lemos Results: 1Negative Date of Service: 03/17/24 Follow Up: 1 Year From Orig ina Mammogram Procedure(s): MM tomosynthesis screening BI Accession Number(s): [id number] cc: Anastasiya Lemos ADDENDUM ADDENDUM #1 ADDENDUM: [...] DO Addendum Signed By: <Electronically signed by Anisa Jerome DO in OV> 03/31/24 1056 Addendum Cosigned By: [...] Anisa Jerome DO 03/29/2024 10:13 AM EDT Dictated By: Anisa Jerome DO Signed By: <Electronically signed by Anisa Jerome DO in OV> 03/29/24 1013 DD/ 1122 TD/TT: 03/17/24 1143 Metal Mold Dresser: Procedure Note Donotuseinterpreter, Image - 03/31/[facility] [address] [place], [place] [address] Mammography Report Signed with Addenda Patient: Chaya Camarena MMR#: [id number] : 2Acct:[id number] Age/Sex: 63 / FADM Date: 03/17/24 Loc: HO.MAMMO Attending Dr: Anastasiya Lemos MD Ordering Physician: Fallon Lemosults: 1Negative Date of Service: 03/17/24Follow Up: 1 Year From Orig inal Mammogram Procedure(s): MM tomosynthesis screening BI Accession Number(s): [id number] cc: Anastasiya Lemos ADDENDUM ADDENDUM #1 ADDENDUM: Due to a software issue related to the original report, this case has been reviewed again and the original findings and recommendations remain the same. OVERALL ASSESSMENT: BI-RADS 1 - Negative RECOMMENDATION: 1 year F/U Electronically signed by: Anisa Jerome DO 03/31/2024 10:56 AM EDT RP Addendum Dictated By: Anisa Jerome DO Addendum [...] 03/29/24 1013 DD/ 1122 TD/TT: 03/17/24 1143 Metal Mold Dresser: Anastasiya Lemos MD IMG BI PROCEDURES Edited Resul t - Final * (ABNORMAL) Hepatitis C Antibody with Reflex to HCV, RNA, Quantitative, Real- Time PCR (11/02/2023 9:13 AM EDT) Hepatitis C Antibody Reactive( A) Nonreactive [facility] Comment:Presumptive evidence of antibodies to HCV. Blood Venous blood specimen / Unknown 11/02/2023 9:13 AM EDT 11/02/2023 11:42 AM EDT [facility] BLOOD ORDERABLES Final Resu lt Performing Organization Address [facility] Co de Phone Number [facility] [address] [place] [address] [phone] * Lipid Panel, Standard (11/02/2023 9:13 AM EDT) Triglycerides 66 <150 mg/dL [facility] Comment:Desirable Triglyceri de: less than 150 mg/dLBorderline High Triglyceride 150-199 mg/dLHigh Triglyceride: 200-499 mg/dLVery High Triglyceride: greater than or equal to 5OO mg/dL Cholesterol 160 <200 mg/dL [facility] Comment:Desirable Cholestero l: less than 200 mg/dLBorderline High Cholesterol: 200-239 mg/dLHigh Cholesterol: greater than 239 mg/dL LDL Cholesterol Calculated 80 <100 mg/dL [facility] Comment:Desirable LDL: less than 100 mg/dLNear Optimal/Above Optimal LDL: 110- 129 mg/dLBorderline High LDL: 130-159 mg/dLHigh LDL: 160-189 mg/dLVery High LDL: greater than or equal to 190 mg/dL HDL Cholesterol 67 >40 mg/dL [facility] Comment:Desirable HDL: great er than 40 mg/dL Note: This HDL assay may give artificially low results in patients with liver disease. Blood Venous blood specimen / Unknown 11/02/2023 9:13 AM EDT 11/02/2023 11:42 AM EDT Love Fely ENROLLMENT REPRESENTATIVE LAB BLOOD ORDERABLES Final Resu lt Performing Organization Address [facility]/ZIP Co de Phone Number [facility] [address] [place] [address] [phone] * THINPREP PAP (06/21/2020 12:00 AM EST) Clinical Information: None given [facility] COMMENT SEE COMMENT [facility] Comment: EXPLANATORY NOTE: The Pap is a screening test for cervical cancer. It is not a diagnostic test and is subject to false negative and false positive results. It is most reliable when a satisfactory sample, regularly obtained, is submitted with relevant clinical findings and history, and when the Pap result is evaluated along with historic and current clinical information. Punch Card Operator : SEE COMMENT [facility] Comment: HJP, CT(ASCP) CT screening location: [place] [address] Interpretation/R esult: Negative for intraepithelial lesion or malignancy. [facility] LMP: NONE [facility]IV[facility] Prev. BX: NONE [facility]IV[facility] Prev. PAP: NONE [facility]IV[facility] SOURCE: None given [facility] Statement Of Adequacy: SEE COMMENT [facility] Comment: Satisfactory for evaluation. Endocervical/transformation zone component present. Age and/or menstrual status not provided 06/21/2020 Anastasiya Lemos MD LAB PATHOLOGY ORDERABLES Final Result Performing Organization Address [facility] Phone Number [facility] [address] * HPV mRNA E6/E7 (06/21/2020 12:00 AM EST) HPV nRNA E6/E7 Not Detected Not Detected [facility] Comment: This test was performed using the APTIMA HPV Assay ([employer] This assay detects E6/E7 viral messenger RNA (mRNA) from 14 high-risk HPV types (16,18,31,33,35,39,45,51,52,56,58,59,66,68). The analytical performance characteristics of this assay have been determined by [employer]. The modifications have not been cleared or approved by the FDA. This assay has been validated pursuant to the CLIA regulations and is used for clinical purposes. 06/21/2020 Anastasiya Lemos MD LAB BLOOD ORDERABLES Final Res ult Performing Organization Address [facility] Co de Phone Number [facility] [address] from Last 3 Months or Most Recently Relevant to Health Maintenance Insurance [facility] ONE CARE < [address] [place] [address] [facility] [address] [place] [address] [place] [address] [address] [place] [address] [place] [address] [place] [address] [place] [address] Care Teams Child Care Cook Relationship Specialty Start Date End Date Anastasiya Lemos MD [address] [place] [address] PCP - General Family Medicine 05/09/20
--- OUTSIDE RECORDS SUMMARY | 2025-03-23 13:12 | XMS_ITS | Encounter Summary ---
Author Organization [facility] Address [address] [place] [address] 7 [place] [address] Care Team Providers Care Addictions Counselor Assistant Name Role Phone Anastasiya Lemos MD Primary Care Provider [phone] Reason for Referral * Consultation (Routine) - Authorized Specialty Diagnoses / Procedures Referred By Contac t Referred To Contact Speech Pathology Diagnoses Aphasia Anastasiya Lemos MD [address] [place] [address] Phone: tel: fax: Hearing, Speech And [address] [place] [address] Phone: tel: fax: Referral ID Status Reason Start Date Expiration Date Visits Requested Visits Authorized [id number] Authorized Specialty Services Required 4 04/19/2025 1 1 Encounter Details Date Type Department Care Team (Late st Contact Info) Description 04/19/2024 Orders Only [facility] [address] [place] [address] [phone] Anastasiya Lemos MD [address] [place], [place] [phone] Aphasia (Primary Dx) Social History Tobacco Use [...] Primary documented in this encounter Care Teams Addictions Counselor Assistant Relationship Specialty Start Date End Date Anastasiya Lemos MD [address] [place] [address] PCP - General Family Medicine 05/09/20 documented as of this encounter
--- OUTSIDE RECORDS SUMMARY | 2025-03-23 13:12 | XMS_ITS | Encounter Summary ---
Author Organization [employer] Address [address] [place] [address] 7t [place] [address] Care Team Providers Care Slitter Service And Setter Name Role Phone Anastasiya Lemos MD Primary Care Provider [phone] Reason for Visit * Reason Onset Date Comments appt rs 03/11/2023 Encounter Details Date Type Department Care Team ([facility] st Contact Info) Description 03/11/2023 Telephone [facility] [address] [place] [address] Karen Bridges BDS [address] [place], [place] [phone] appt rs Social History Tobacco Use Types [...] EDT Appt rs from 03/24 to 03/16. Audit Clerk office in need of dental work to be completed prior to urgent cardiac surgery. Patient,, and daughter aware of appt change. Confirmed with on03/11/2023 at 3:08pm. Chapis and Nyrma aware of appt change documented in this encounter Plan of Treatment Not on file documented as of this encounter Visit Diagnoses Not on filedocumented in this encounter Care Teams Slitter Service And Setter Relationship Specialty Start Date End Date Anastasiya Lemos MD [address] [place] [address] PCP - General Family Medicine 05/09/20 documented as of this encounter
--- OUTSIDE RECORDS SUMMARY | 2025-03-23 13:12 | XMS_ITS | Clinical Summary ---
Author Organization [facility] Address [address] [place] [address] Care Team Providers Care Quantity Surveyor Name Role Phone MadibartolomeHannah [facility] Primary Care Provider Social History Tobacco Use Types Packs/Day Years Used Date Smoking Tobacco: Never Assessed Comments Unknown Sex and Gender Information Value Date Recorded Sex Assigned at Not on file Legal Sex Female 10:28 AM EST Gender Identity Not on file Sexual Orientation Not on file Plan of Treatment Health Maintenance Due Date Last Done Comments Breast Cancer Screening 1961 Colorectal Cancer Screening: Colonoscopy 1961 DTaP,Tdap,and Td Vaccines (1 - Tdap) 1980 Cervical Cancer Screening: P ap Smear 1982 Pneumococcal Vaccine: 50+ Ye ars (1 of 1 - PCV) 09/18/2011 Zoster Vaccines (1 of 2) 09/18/2011 HIV Screening 05/04/2022 Hepatitis C Screening 05/04/2022 Social Influencers of Health Screening 05/04/2022 Depression Screening 05/31/2024 COVID-19 Vaccine (1 - 2023-2 5 season) 2025 Influenza Vaccine (#1) 2025 RSV Immunization Adult Patie nts (1 [...] Documents on File Type Date Recorded Patient Income Tax Administrator Expl anation Health Care Decision (hx) 10/02/2022 AD ESPINOSA DIRECTIVE Health Care Decision (hx) 10/02/2022 AD ESPINOSA DIRECTIVE Care Teams Quantity Surveyor Relationship Specialty Start Date End Date Hannah García FNP [address] [place] [address] PCP - General Family Medicine 07/17/20
--- OUTSIDE RECORDS SUMMARY | 2025-03-23 13:12 | XMS_ITS | Encounter Summary ---
Author Organization [employer] Address [address] [place] [address] 7t [place] [address] Care Team Providers Care Rail Track Maintainer Name Role Phone Anastasiya Lemos MD Primary Care Provider [phone] Encounter Details Date Type Department Care Team ([facility] st Contact Info) Description 08/18/2022 Abstract [facility] MEDICINE [address] [place] [address] Anastasiya Lemos MD [address] [place] [address] Social History Tobacco Use Types Packs/Day Years [...] CYTOLOGY ORDERABLES F inal Result [facility] [address] [facility], [facility], [place] [address] documented in this encounter Visit Diagnoses Not on filedocumented in this encounter Care Teams Rail Track Maintainer Relationship Specialty Start Date End Date Anastasiya Lemos MD [address] [place] [address] PCP - General Family Medicine 05/09/20 documented as of this encounter
== END 2025-03-23 11:04 | disposition home or self-care (01) ==
LOC: HO.MAMMO 11:03
PROVIDERS: PCP General Practice; Visit Provider General Practice
DX: Z12.31 Encounter for screening mammogram for malignant neoplasm of breast (principal)
CPT/HCPCS: 77063; 77067

== ENCOUNTER → 2025-03-23 11:30 | Outpatient (BNV) | payer OTHER, SELFPAY | PROVIDERS: PCP General Practice; Visit Provider Internal Medicine | DX: Z12.31 Encounter for screening mammogram for malignant neoplasm of breast (principal) | CPT/HCPCS: 77063; 77067 ==

== ENCOUNTER 2025-05-22 10:23 | Outpatient (AMB) | payer OTHER, SELFPAY ==
--- NOTE | 2025-05-22 10:30 | A.OFFVIS_ITS ---
Vital Signs 05/22/25 10:33 Height 5 ft 6 in Weight 159 lb 9.835 oz BMI 25.8 BP 124/86 Blood Pressure Location Lt brachial Position Sitting Pulse 92 Pulse Source Monitor Intake Visit Reasons: Follow up Project Accountant Required: No Accompanied by: Daughter Allergies No Known Allergies (No Known Allergies*) Allergy (Unknown, Verified 01/16/24 12:00) Medication List - Last Reconciled 05/22/25 by Rambo Zapata MD aspirin (Adult Low Dose Aspirin) 81 mg PO DAILY atorvastatin 80 mg PO BEDTIME blood sugar diagnostic (FreeStyle Lite Strips) Test four times a day or as directed. blood-glucose meter (FreeStyle Lite Meter kit) As Directed bupropion HCl XL 150 mg PO QAM cyanocobalamin (vitamin B-12) 500 mcg PO DAILY gabapentin 200 mg PO TID lancets (FreeStyle Lancets) Test four times a day or as directed. HPI Comments Details: Chaya returns for follow-up. She has a fairly complex history. 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 Workup then had revealed the left atrial myxoma as the culprit. Once she recovered from the stroke was planned for cardiac surgery for myxoma removal. She had a complete workup through [facility] cardiology including transesophageal echocardiogram, cardiac catheterization among others. 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 Then she was put on anticoagulation and subsequently went for myxoma resection. After that, it seems she had the surgery without any issues. Now she returns for follow-up. She still has some deficits from the stroke but otherwise doing well. No new concerns since last seen. No specific cardiac symptoms. [facility] Medical History Multiple sclerosis Neuropathy Tremor Surgical History S/P cholecystectomy Family History Mother No problems noted. Father No problems noted. Social History Household Members: Spouse Housing: Apartment Do you presently have visiting nurse or other home services: No Alcohol intake: former Patient Tobacco Use Status: Never used Tobacco e-Cigarette/Vaping Use: Never Used Second Hand Smoke Exposure: No service: No Review of Systems Const Denies chills, Denies fatigue, Denies fever(s), Denies frequent falls, Denies weakness, Denies weight gain and Denies weight loss ENT Denies dizziness Card Denies chest pain, Denies leg edema, Denies lightheadedness, Denies palpitations, Denies dyspnea and Denies dyspnea on exertion Resp Denies cough, Denies dyspnea and Denies dyspnea on exertion GI Denies hematochezia Musc Denies abnormal gait, Denies muscle weakness, Denies numbness, Denies radiating pain into limb and Denies tingling Neuro Denies abnormal gait, Denies dizziness, Denies frequent falls, Denies numbness, Denies tingling and Denies weakness Endo Denies fatigue and Denies palpitations Physical Exam Vital Signs: Last Vital Signs Pulse 92 05/22/25 10:33 BP 124/86 05/22/25 10:33 BMI result Body Mass Index 25.8 Const General: comfortable and no acute distress Orientation/consciousness: patient oriented x3 HEENT Other: Unremarkable Head: Yes normal to inspection Neck Neck: Yes normal visual inspection Chest Chest palpation & inspection: normal inspection of the chest Resp Auscultation: clear to auscultation bilaterally Cardio Palpation: normal PMI Heart sounds: S1 normal heart sound present, S2 normal heart sound present, no gallops, no murmurs and no rubs GI Palpation (GI): Soft to palpation Back/Spine/Pelvis Other: unremarkable Skin General skin exam: no rashes or lesions noted Neuro General: patient oriented x3 Extrem General: Yes normal to inspection Psych Mental Status: mental status grossly normal Office Procedures EKG Details: EKG with sinus rhythm at 92/Min; low-voltage QRS complexes most likely from body habitus; cannot exclude old inferior infarct but again could be from body habitus; [place] 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 Preoperative catheterization did not show any coronary artery disease. In the most recent echocardiogram, mildly diminished LVEF at 45-50%. No ev idence of recurrent myxoma. In the preoperative study, LVEF was 50-55% with some wall motion abnormalities. Overall, she is clinically stable. Continue low-dose aspirin. Her LVEF is mildly diminished as above, but she has no heart failure symptoms or signs. We discussed about this today. In the past, LDL level has been as much as 223 but currently on high-dose statins and the last level is 80 mg/dL. May continue that. Discussed with daughter who came for appointment. Discussion Notes: I discussed the case with the patient's daughter, who was present for the visit. I explained that her mother's cardiac tumor was a very rare condition and that the embolic stroke was an unfortunate but known complication that led to its discovery. I informed her that while the chance of recurrence is very small, it is not zero, and for this reason, we perform periodic surveillance. I reassured her that the last echocardiogram six months ago was clear and that the patient's slightly weakened heart function post-surgery is stable and not causing her any problems. We agreed on a plan to obtain a follow-up echocardiogram in one year. Given that the patient cannot effectively communicate symptoms due to her stroke, I provided anticipatory guidance to the daughter regarding warning signs that should prompt immediate medical evaluation, including chest pain, difficulty lakshmi athing, passing out, or swelling in her feet. Patient was informed and verbally consented to the use of an ambient scribe for clinic note documentation during this visit. Patient Instructions: - We will continue to monitor your mother's heart to ensure the tumor does not return, although this is very unlikely. - Please schedule a follow-up appointment for her in about one year, at which time we will perform an echocardiogram (an ultrasound of the heart). - Seek immediate medical help if your mother develops any of the following symptoms: - Chest pain - Difficulty breathing - Passing out - New swelling in her feet Coding Level of Care Code Est Pt Level 4 (27532) Add On Problem Visit Only Diagnoses Myxoma of heart D15.1 Cardiomyopathy I42.9 CPT Codes EKG - CPT: 47633-[id number], Complete ([id number])
[2025-05-22 10:33] VITALS: BP 124/86; PULSE 92; BMI 25.8
--- OUTSIDE RECORDS SUMMARY | 2025-05-22 11:38 | XMS_ITS | Encounter Summary ---
Author Organization [employer] Address [address] [place] [address] 7t [place] [address] Care Team Providers Care Protection Agent Name Role Phone Anastasiya Lemos MD Primary Care Provider [phone] Encounter Details Date Type Department Care Team (Late st Contact Info) Description 08/18/2022 Abstract [facility] MEDICINE [address] [place] [address] [phone] Anastasiya Lemos MD [address] [place] [address] [phone] Social History Tobacco Use Types Packs/Day Years Used Date Smoking Tobacco: Never Assessed Comments Unknown Sex and Gender Information Value Date Recorded Sex Assigned at Female 03/30/2022 10:15 AM EDT Legal Sex Female 10:15 AM EDT Gender Identity Female 03/30/2022 10:15 AM EDT Sexual Orientation Straight 03/30/2022 10 :15 AM EDT documented as of this encounter Plan of Treatment Upcoming Encounters Date Type Department Care Team (Late st Contact Info) Description 07/24/2025 11:00 AM EST Office Visit [facility] [address] [place] [address] [phone] Anastasiya Lemos MD [address] [place] [address] [phone] documented as of this encounter Procedures Procedure Name Priority Date/Time Associated Diagnosis Comments MAMMOGRAPHY Routine 01/30/2022 PAP SMEAR Routine 06/21/2020 12:00 AM EST documented in this encounter Results * Hm Mammography (01/30/2022) Mammogram completed procedure Anatomical Region Laterality Modality Other Historical Provider HEALTH MAINTENANCE Final Result * Pap Smear (06/21/2020 12:00 AM EST) Swab Historical Provider LAB CYTOLOGY ORDERABLES F inal Result Performing Organization Address City/State/[facility] Co de Phone Number [address], [place] [address] documented in this encounter Visit Diagnoses Not on filedocumented in this encounter Care Teams Protection Agent Relationship Specialty Start Date End Date Anastasiya Lemos MD [address] [place] [address] PCP - General Family Medicine 05/09/20 documented as of this encounter
--- OUTSIDE RECORDS SUMMARY | 2025-05-22 11:38 | XMS_ITS | Encounter Summary ---
Author Organization [employer] Address [address] [place] [address] 7 [place] [address] Care Team Providers Care Services Engineer Name Role Phone Anastasiya Lemos MD Primary Care Provider [phone] Reason for Referral * Consultation (Routine) - Closed Specialty Diagnoses / Procedures Referred By Contac t Referred To Contact Speech Pathology Diagnoses Aphasia Anastasiya Lemos MD [address] [place] [address] Phone: tel: fax: Hearing, Speech [facility] [address] [place] [address] Phone: tel: fax: Referral ID Status Reason Start Date Expiration Date V isits Requested Visits Authorized [id number] Closed Specialty Services Required 04/19/2024 04/19/2025 1 1 Encounter Details Date Type Department Care Team (Late st Contact Info) Description 04/19/2024 Orders Only [facility] MEDICINE [address] [place] [address] [phone] Anastasiya Lemos MD [address] [place], [place] [phone] Aphasia (Primary Dx) Social History Tobacco Use [...] Description 07/24/2025 11:00 AM EST Office Visit [facility] MEDICINE [address] [place] [address] Anastasiya Lemos MD [address] [place] [address] Scheduled Referrals Name Type Priority Associated Diagnoses Orde r Schedule Referral to Speech Therapy Outpatient Referral Routine Aphasia Expected: 04/19/2024 (Approximate), Expires: 04/19/2025 documented as of this encounter Visit Diagnoses Diagnosis Aphasia- Primary documented in this encounter Care Teams Services Engineer Relationship Specialty Start Date End Date Anastasiya Lemos MD [address] [place] [address] PCP - General Family Medicine 05/09/20 documented as of this encounter
--- OUTSIDE RECORDS SUMMARY | 2025-05-22 11:38 | XMS_ITS | Encounter Summary ---
Author Organization [employer] Address [address] [place] [address] 7t [place] [address] Care Team Providers Care Delivery Truck Driver Name Role Phone Anastasiya Lemos MD Primary Care Provider [phone] Reason for Visit * Reason Onset Date Comments appt rs 03/11/2023 Encounter Details Date Type Department Care Team ([facility] st Contact Info) Description 03/11/2023 Telephone [facility] [address] [place] [address] Kaern Bridges BDS [address] [place], [place] [phone] appt rs Social History Tobacco Use Types [...] EDT Appt rs from 03/24 to 03/16. Comfort Filler office in need of dental work to be completed prior to urgent cardiac surgery. Patient,, and daughter aware of appt change. Confirmed with on03/11/2023 at 3:08pm. Chapis and Nyrma aware of appt change documented in this encounter Plan of Treatment Upcoming Encounters Date Type Department Care Team (Late st Contact Info) Description 07/24/2025 11:00 AM EST Office Visit [facility] MEDICINE [address] [place] [address] Anastasiya Lemos MD [address] [place] [address] documented as of this encounter Visit Diagnoses Not on filedocumented in this encounter Care Teams Delivery Truck Driver Relationship Specialty Start Date End Date Anastasiya Lemos MD [address] [place] [address] PCP - General Family Medicine 05/09/20 documented as of this encounter
--- OUTSIDE RECORDS SUMMARY | 2025-05-22 11:38 | XMS_ITS | Patient Health Record ---
Author Organization [facility] Address [address] [place] [address] Care Team Providers Care Power Plant Installer Name Role Phone Gracy (DO NOT USE)Nataly Primary Care Provi sariah Unavailable Corry Rubin Unavailable [phone] NILSON VARGAS Unavailable Unavailable Reason For Referral No Information Medications Medication SIG (Take, Route, Frequency, Duration) Notes Start Date End Date Status Dulcolax (colon prep) 5 MG Tablet Delayed Release take at 3:00 p.m and 7:00p.m. Orally two tablets twice a day for one day; Duration: 1 day 06/18/2017 Active Zoloft Active MiraLax (colon prep) 8.3 ounce ((238) grams Powder mixed with Gatorade or Crystal Light orally begin at 5:00 p.m. the day before the procedure; Duration: 1 day 06/18/2017 Active Senna Active DOK 100 MG Capsule TAKE 1 CAPSULE ONCE A DAY AT BEDTIME NEEDED Oral; Duration: 30 Active Pravastatin Sodium 10 MG Tablet TAKE (1) TABLET DAILY. Oral; Duration: 30 Active Omeprazole Active Chlorthalidone Activ e Ibuprofen Active DULoxetine HCl 30 MG Capsule Delayed Release Particles TAKE ONE CAPSULE BY MOUTH EVERY DAY Oral; Duration: 30 Active oxyCODONE HCl 15 MG Tablet (Schedule II Drug) TK 1 T PO Q 6 H PRF SEVERE PAIN Oral; Duration: 28 Active Gabapentin 400 MG Capsule TAKE 2 CAPSULE S BY MOUTH 4 TIMES A DAY. FOLLOW TITRATION SCHEDULE DISCUSSED. Oral; Duration: 30 Active Social History Tobacco Use: Social History Observation Description Date Details (start date - stop date) Current Smoker NA - NA Social History Drugs/Alcohol: Social Info Question Answer Notes Alcohol Screen Did you have a drink containing alcohol in the past year? No Points 0 Interpretation Negative Tobacco Use: Social Info Question Answer Notes Tobacco Use/Smoking Patient is a current smoker How often do you smoke cigarettes? every day How many cigarettes a day do you smoke? 11-20 How soon after you wake up do you smoke your first cigarette? after 60 minutes Additional Details Category Social Info Options Details Miscellaneous: Marital status: Single Occupation: None Section Notes: Smoker 1/2 ppd; no alcohol Problems Problem Type SNOMED Code ICD Code Onset Dates Problem Status W/U Status Risk Notes Problem Screening for malignant neoplasm of colon (951116981) Encounter for screening for malignant neoplasm of colon (Z12.11) Active confirmed Problem Elevated liver enzymes level (887519594) Elevated liver enzymes (R74.8) Active confirmed Problem Right upper quadrant pain (376019563) Abdominal pain, right upper quadrant (R10.11) Active confirmed Plan Of Treatment Pending Test Test Name Order Date LIVER PROFILE 06/15/2017 AMYLASE 06/15/2017 LIPASE 06/15/2017 IRON + IBC (FE) 06/15/2017 FERRITIN 06/15/2017 CBC w DIFF 06/15/2017 PROTHROMBIN TIME (PT, INR) 06/15/2017 [id number] ([id number]) 06/15/2017 MITOCHONDRIAL AB 06/15/2017 SMOOTH MUSCLE ANTIBODIES 06/15/2017 FLUOR. ANTINUCLEAR AB SCREEN (MASSIMO) 05/31 Future Test Test Name Order Date UPPER GI ENDOSCOPY 06/15/2017 COLONOSCOPY 06/15/2017 Insurance Providers Payer Name Payer Address Payer Phone Subscriber Number Group Number Insured Name Patient Relationship to Insured Coverage Start Date Coverage End Date [facility] [address] [place] [address] [id number] ROBERT ABEL Self - patient is the insured Medical (General) History Medical History History ICD Code Hyperlipidemia Hypertension Fatty liver Back pain Sciatica Anxiety/Depression Essential tremor Denies MA,DM,CVA,Lung disease,renal dise ase Choledocholithiasis--ERCP with sphincter otmy and stone removal 2006 Surgical History Surgery Date(Month/Year) Cholecystectomy Right foot Broken right arm
--- OUTSIDE RECORDS SUMMARY | 2025-05-22 11:38 | XMS_ITS | Clinical Summary ---
Author Organization [facility] Prior to 10/28/[address] [place] [address] Care Team Providers Care Medical Billing Coder Name Role Phone Hannah García PROJECT INTERN Primary Care Provider [phone] Social History Tobacco Use Types Packs/Day Years [...] age to complete this topic Care Teams Medical Billing Coder Relationship Specialty Start Date End Date Hannah García, [place] [address] PCP - General Family Medicine 07/17/20
--- OUTSIDE RECORDS SUMMARY | 2025-05-22 11:38 | XMS_ITS | Clinical Summary ---
Author Organization [facility] it Address [address] [place] [address] Care Team Providers Care Production Worker Name Role Phone MadibartolomeHannah [facility] Primary Care Provider Social History Tobacco Use [...] Depression Screening 05/31/2024 COVID-19 Vaccine (1 - 2024-2 6 season) 2025 Influenza Vaccine (#1) 2025 RSV [...] Documents on File Type Date Recorded Patient Washhouse Worker Expl anation Health Care Decision (hx) 10/02/2022 AD ESPINOSA DIRECTIVE Health Care Decision (hx) 10/02/2022 AD ESPINOSA DIRECTIVE Care Teams Production Worker Relationship Specialty Start Date End Date Hannah García FNP [address] [place] [address] PCP - General Family Medicine 07/17/20
--- OUTSIDE RECORDS SUMMARY | 2025-05-22 11:38 | XMS_ITS | Clinical Summary ---
Author Organization [employer] Address [address] [place] [address] [address] [place] [address] Care Team Providers Care Therapy Technician Name Role Phone Anastasiya Lemos MD Primary Care Provider [phone] Allergies No known active allergies Medications Blood [...] BY MOUTH EVERY DAY 90 tablet 3 04/11/2025 8:23 AM EST 09/27/2024 Active atorvastatin (Lipitor) 80 MG tablet TAKE 1 TABLET BY MOUTH AT BEDTIME 90 tablet 11/28/2024 Active gabapentin (Neurontin) 100 MG capsule TAKE 2 CAPSULES BY MOUTH THREE TIMES DAILY 180 capsule 3 05/01/2025 11:37 AM EST 12/27/2024 Active Active Problems Problem Noted Date [...] ASA I will contact CT surgery at [facility] to get further guidance on this [...] (12/18/2022 6:36 AM EDT): S/p hospitalization at [facility] Has regained ability to walk independently Partner has temporary guardianship in place, petitioning for permanent guardianship I support this petition because they are able to communicate and he will be able to carry out her medical wishes despite sequelae of stroke Continue speech/OT/stroke study at [facility] Pending definitive, surgical mgmt of cardiac myxoma Assessment & Plan (10/27/2022 1:28 PM EDT): S/p hospitalization at [facility], [facility], and [facility] Has regained ability to walk independently Partner has guardianship in place Continue speech/OT Will need definitive mgmt of cardiac myxoma as well, when cardiac surgery deems her stable enough Chronic low back pain 04/18/2022 Assessment & Plan (10/27/2022 1:28 PM EDT): Off opioid therapy Will disenroll from [employer] program Essential tremor 12/13/2015 Generalized anxiety disorder [...] today -Partner states colonoscopy was completed at [facility]. Will try to obtain [...] Encounters Date Type Department Care Team Description 03/23/2025 Orders Only [facility] [address] [place] [address] Anastasiya Lemos MD from Last 3 Months [...] 10/20/2024 9:10 AM EDT Plan of Treatment Upcoming Encounters Date Type Department Care Team (Late st Contact Info) Description 07/24/2025 11:00 AM EST Office Visit [facility] [address] [place] [address] Anastasiya Lemos MD [address] [place] [address] Health Maintenance Due Date Last Done Comments CT Colonography 1960 Colonoscopy 1960 FIT 1960 HIV Screening 1960 Sigmoidoscopy 1960 Hepatitis B Vaccines (2 of 3 - Risk 3-dose series) 07/08/2000 06/10/2000 Hepatitis A Vaccines (2 of 2 - Risk 2-dose series) 12/08/2000 06/10/2000 RSV Patients and Patients Aged 60 years or older (1 - Risk 50-74 years 1-dose series) 09/18/2011 Dental X-Ray: Bitewings 04/05/2020 04/04/20, 09/16/2016, 06/07/2015, Additional history exists Dental X-Ray: Full Mouth 07/31/2020 07/30/2017, 12/2015 Dental Oral Exam 08/24/2023 02/22/2023, 09/2018, 12/04/2016, Additional history exists Dental Prophylaxis 08/24/2023 02/22/2023, 0 09/16/2016, 01/31/2016, Additional history exists COVID-19 Vaccine ( season) 2025 05/06/2022, 05/06/2022, 04/22/2021, Additional history exists Influenza Vaccine (#1) 2025 , 03/19/2023, 05/06/2022, Additional history exists SDOH Screening 03/10/2025 03/10/2024 Cervical Cancer Screening 06/21/2025 HPV/Cotest 06/21/2025 06/21/2020, 12/02/2016 Pap Smear 06/21/2025 06/21/2020, 06/21/2020 Alcohol/Substance Use Screening 10/20/2025 10/20/2024 Depression Screening 10/20/2025 10/20/2024, 10/21/19 25 Disability Screening 10/20/2025 10/20/2024 Tobacco Screening 10/20/2025 10/20/2024 FOBT 01/15/2026 01/15/2025 Mammogram 03/23/2026 03/23/2025, 02/28, 03/10/2023, Additional history exists Colorectal Cancer Screening 01/16/2028 FIT DNA/Cologuard 01/16/2028 [...] Comments BI MAMMOGRAM SCREENING TOMOSYNTHESIS BILATERAL Routine 03/23/2025 11:05 AM EDT LAB COLOGUARD COLON CANCER SCREEN Routine 01/15/2025 8:15 AM EDT Screening for colon cancer HEPATITIS C AB W/REFL TO HCV RNA, [...] Results * BI Mammogram Screening Tomosynthesis Bilateral (03/23/2025 11:05 AM EDT) Anatomical Region Laterality Modality Breast Bilateral Mammography 03/23/2025 11:0 5 AM EDT Narrative 03/26/2025 5:04 PM EDT [employer] [place] [address] Mammography Report Signed Patient: Chaya Camarena MR#: [id number] : 1960 Acct:[id number] Age/Sex: 64 / F ADM Date: 03/23/25 Loc: HO.MAMMO Attending Dr: Anastasiya Lemos MD Ordering Physician: Anastasiya Lemos Results: 0Incomple te- Need Additional Imaging Evaluation Date of Service: 03/23/25 Follow Up: Additional Imagi ng Procedure(s): MM tomosynthesis screening BI Accession Number(s): [id number] cc: Anastasiya Lemos Reason For Exam: SCREENING EXAMINATION: MM SCREENING DIGITAL BREAST TOMOSYNTHESIS, BILATERAL CLINICAL INFORMATION: Screening. Asymptomatic. COMPARISON: Mammography: Comparison is made with available priors TECHNIQUE: Digital breast mammography with tomosynthesis is performed in both the craniocaudal and mediolateral oblique views along with computer-aided detection (CAD). FINDINGS: There are scattered areas of fibroglandular density. Left: Focal asymmetry upper outer breast with questioned distortion. No suspicious calcifications or other abnormal findings. Right: Focal asymmetry upper outer breast with questioned distortion. No suspicious calcifications or other abnormal findings. MM/MM tomosynthesis screening BI IMPRESSION: Additional imaging is recommended ASSESSMENT: BI-RADS Category 0: Incomplete - Need additional Imaging Evaluation RECOMMENDATION: 1. Additional views of the bilateral breasts. 2. Targeted ultrasound if warranted after review of the additional views. 3. Radiology department staff will contact the patient for additional imaging. Additional Imaging required Electronically signed by: Anisa Jerome DO 03/26/2025 05:01 PM EDT RP Dictated By: Anisa Jerome DO Signed By: <Electronically signed by Anisa Jerome DO in OV> 03/26/25 1701 DD/ 1105 TD/TT: 03/23/25 1123 Security Operations Analyst: Procedure Note Donotuseinterpreter, Image - 03/26/2025 [facility] [address] [place] [address] Mammography Report Signed Patient: Chaya Camarena [facility]#: [id number] : 1960cct:[id number] Age/Sex: 64 / FADM Date: 03/23/25 Loc: HO.MAMMO Attending Dr: Anastasiya Lemos MD Ordering Physician: Fallon Lemosults: 0Incomple te- Need Additional Imaging Evaluation Date of Service: 03/23/25Follow Up: Additional Imagi ng Procedure(s): MM tomosynthesis screening BI Accession Number(s): [id number] cc: Anastasiya Lemos Reason For Exam: SCREENING EXAMINATION: MM SCREENING DIGITAL BREAST TOMOSYNTHESIS, BILATERAL CLINICAL INFORMATION: Screening. Asymptomatic. COMPARISON: Mammography: Comparison is made with available priors TECHNIQUE: Digital breast mammography with tomosynthesis is performed in both the craniocaudal and mediolateral oblique views along with computer-aided detection (CAD). FINDINGS: There are scattered areas of fibroglandular density. Left: Focal asymmetry upper outer breast with questioned distortion. No suspicious calcifications or other abnormal findings. Right: Focal asymmetry upper outer breast with questioned distortion. No suspicious calcifications or other abnormal findings. MM/MM tomosynthesis screening BI IMPRESSION: Additional imaging is recommended ASSESSMENT: BI-RADS Category 0: Incomplete - Need additional Imaging Evaluation RECOMMENDATION: 1. Additional views of the bilateral breasts. 2. Targeted ultrasound if warranted after review of the additional views. 3. Radiology department staff will contact the patient for additional imaging. Additional Imaging required Electronically signed by: Anisa Jerome DO 03/26/2025 05:01 PM EDT Dictated By: Anisa Jerome DO Signed By: <Electronically signed by Anisa Jerome DO in OV> 03/26/25 1701 DD/ 1105 TD/TT: 03/23/25 1123 Security Operations Analyst: Anastasiya Lemos MD IMG BI PROCEDURES Final Result * Cologuard?? colon cancer screening (01/15/2025 8:15 AM EDT) Cologuard Result Negative Negative 01/23/20 5:08 PM EDT [facility] (CLIA #:[id number]) Comment: The Cologuard (TM) test was performed [...] cancer. Following a negative Cologuard result, the [place] [employer] and U.S. Multi-Society Task Force screening guidelines recommend a Cologuard re-screening interval of 3 years. References: [place] [employer] Guideline for Colorectal Cancer Screening: https://www.cancer.org/cancer/qshms-cllnpi-ytmeqh/ylchoxojh-eajjdjtws-bsosnyo/ac s-rec ommendations.html.; Cecilio DK, Tenzin CR, Mukul MontoyaK, Colorectal Cancer Screening: Recommendations for Physicians and Patients from the U.S. Multi-Society Task Force on Colorectal Cancer Screening , Am J Gastroenterology 2017; 112:7261-5788. TEST DESCRIPTION: Composite algorithmic analysis of stool [...] ([place] Dexter al, N Engl J Med 2014;370(14):0918-2492.) Cologuard may produce a false negative or false positive result (no colorectal cancer or precancerous polyp present at colonoscopy follow up). A negative Cologuard test result does not guarantee the absence of CRC or advanced adenoma (pre-cancer). The current Cologuard screening interval is every 3 years. ([place] [employer] and U.S. Multi-Society Task Force). Cologuard performance data in a 10,000 patient pivotal study using colonoscopy as the reference method can be accessed at the following location: www.PowerPlan.[employer]/results. Additional description of the Cologuard test process, warnings and precautions can be found at www.Addyrd.[employer]iftMetrix. Stool specimen (specimen) 01/15/2025 8:15 AM EDT 01/16/2025 11:09 AM EDT Anastasiya Lemos MD LAB MOLECULAR DIAGNOSTICS [facility] Final Result [facility] (CLIA #:[id number]) [address] [place] [address], * (ABNORMAL) Hepatitis C Antibody with Reflex to HCV, RNA, Quantitative, Real- Time PCR (11/02/2023 9:13 AM EDT) Hepatitis C Antibody Reactive( A) Nonreactive [facility] Comment:Presumptive evidence of antibodies to HCV. Blood Venous blood specimen / Unknown 11/02/2023 9:13 AM EDT 11/02/2023 11:42 AM EDT Love Cruz NP LAB BLOOD ORDERABLES Final Resu lt [facility] [address] [place] [phone] * Lipid Panel, Standard (11/02/2023 9:13 AM EDT) Triglycerides 66 <150 mg/dL [facility] Comment:Desirable Triglyceri de: less than 150 mg/dLBorderline High Triglyceride 150-199 mg/dLHigh Triglyceride: 200-499 mg/dLVery High Triglyceride: greater than or equal to 5OO mg/dL Cholesterol 160 <200 mg/dL [facility] Comment:Desirable Cholestero l: less than 200 mg/dLBorderline High Cholesterol: 200-239 mg/dLHigh Cholesterol: greater than 239 mg/dL LDL Cholesterol Calculated 80 <100 mg/dL [facility] Comment:Desirable LDL: less than 100 mg/dLNear Optimal/Above Optimal LDL: 110- 129 mg/dLBorderline High LDL: 130-159 mg/dLHigh LDL: 160-189 mg/dLVery High LDL: greater than or equal to 190 mg/dL HDL Cholesterol 67 >40 mg/dL [facility] Comment:Desirable HDL: great er than 40 mg/dL Note: This HDL assay may give artificially low results in patients with liver disease. Blood Venous blood specimen / Unknown 11/02/2023 9:13 AM EDT 11/02/2023 11:42 AM EDT us Love Cruz NP LAB BLOOD ORDERABLES Final Resu lt Performing Organization Address [facility]/ZIP Co de Phone Number [facility] [address] [place] [phone] * THINPREP PAP (06/21/2020 12:00 AM [...] along with historic and current clinical information. Sales And Marketing Manager : SEE COMMENT [facility] Comment: HJP, CT(ASCP) CT screening location: [place] [address] Interpretation/R esult: Negative for intraepithelial lesion or malignancy. [facility] LMP: NONE GIVEN [facility] Prev. BX: NONE [facility]IVEN [facility] Prev. PAP: NONE [facility]IVEN [facility] SOURCE: None given [facility] Statement Of Adequacy: SEE COMMENT [facility] Comment: Satisfactory for evaluation. Endocervical/transformation zone component present. Age and/or menstrual status not provided 06/21/2020 us Anastasiya Lemos MD LAB PATHOLOGY ORDERABLES Final Result Performing Organization Address City/[facility]/ZIP Co de Phone Number [facility] [address] * HPV mRNA E6/E7 (06/21/2020 12:00 AM EST) HPV nRNA E6/E7 Not Detected Not Detected [facility] Comment: This test was performed using the APTIMA HPV Assay ([employer] This assay detects E6/E7 viral messenger RNA (mRNA) from 14 high-risk HPV types (16,18,31,33,35,39,45,51,52,56,58,59,66,68). The analytical performance characteristics of this assay have been determined by [employer]. The modifications have not been cleared or approved by the FDA. This assay has been validated pursuant to the CLIA regulations and is used for clinical purposes. 06/21/2020 us Anastasiya Lemos MD LAB BLOOD ORDERABLES Final Res ult Performing Organization Address [facility] de Phone Number [facility] [address] from Last 3 Months or Most Recently Relevant to Health Maintenance Insurance [facility] < 65 [address] STE[address]EN [id number] DENTAL [facility] [address] [place] [phone] [address] [place] [address] Care Teams Therapy Technician Relationship Specialty Start Date End Date Anastasiya Lemos MD [address] [place] [phone] PCP - General Family Medicine 05/09/20
== END 2025-05-22 10:51 | disposition home or self-care (01) ==
LOC: HO.HCS 10:24
PROVIDERS: PCP General Practice; Visit Provider Internal Medicine
DX: D15.1 Benign neoplasm of heart (principal); I42.9 Cardiomyopathy, unspecified
CPT/HCPCS: 93010; 99214; G2211

== ENCOUNTER → 2025-05-22 10:23 | Outpatient (BNVA) | payer OTHER, SELFPAY | PROVIDERS: PCP General Practice; Visit Provider Internal Medicine | DX: D15.1 Benign neoplasm of heart (principal); I42.9 Cardiomyopathy, unspecified; Z79.82 Long term (current) use of aspirin | CPT/HCPCS: 93005; 99212 ==